=== PATIENT | male | born 1965 | race American Indian/Alaskan Native ===

== ENCOUNTER 2016-11-02 14:29 | Inpatient (IN) | payer OTHER ==
--- NOTE | 2016-10-24 20:00 | NUR ---
PATIENT IS CURRENTLY RESTING IN A WOUND BED MATTRESS AND PATIENT HAS BEEN EDUCATED TO TURN AND REPOSITION PATIENT VERBALIZES UNDERSTANDING WILL ASSIST WITH REPOSITIONING.PATIENT IS ALSO ON FALL PRECAUTIONS AND IS CURRENTLY WEARING HIS YELLOW SOCKS AND HE IS ALSO WEARING HIS SCD'S TO BOTH LOWER LEGS.CALL LIGHT WITHIN REACH WILL CONTINUE TO MONITOR. Addendum: 11/14/16 at 2317 by Nora Arias LVN ERROR ACTUAL DATE IS 11/14/16
[~2016-11-02] VITALS: Ht 182.9 cm; Wt 77.7 kg
[~2016-11-02 14:29] MED LIST: PIPER/TAZO 3.375GM/D5W PREMIX 50 ML IV SCH
[2016-11-02 14:36] VITALS: BP 134/77
[2016-11-02] MEDS ORDERED: NACL 0.9% 1,000 ML IV ONE ×2 (15:08→16:15)
[2016-11-02] MEDS ORDERED: ONDANSETRON 4 MG/2 ML VIAL IVP ONE ×2 (15:10→16:25)
[2016-11-02] MEDS ORDERED: MORPHINE SULFATE 4 MG/ML SYR IVP ONE ×2 (15:10→16:25)
--- NOTE | 2016-11-02 15:11 | NUR ---
PT TO CT VIA DIONICIO ACCOMPANITED WITH PACKING CHECKER
[2016-11-02 15:54] LABS: BASOPHILS # (AUTO) 0.3 K/uL (0.00-0.22); EOSINOPHILS # (AUTO) 0.1 K/uL (0-0.4); HEMATOCRIT 45.5 % (36-52); LYMPHOCYTES # (AUTO) 1.4 K/uL (2.0-11.5); MEAN CORPUSCULAR HEMOGLOBIN 27 pg (27-31); MEAN CORPUSCULAR HGB CONC 33 g/dL (33-37); MEAN CORPUSCULAR VOLUME 82 fL (80-94); MONOCYTES # (AUTO) 1.2 K/uL (0.8-1.0); NEUTROPHILS # (AUTO) 5.8 K/uL (1.8-7.7); PLATELET COUNT (AUTO) 346 K/uL (140-450); RED BLOOD CELL COUNT(AUTO) 5.56 MIL/uL (4.20-6.10); RED CELL DISTRIBUTION WIDTH 11.4 % (11.6-13.7); WHITE BLOOD COUNT (AUTO) 8.8 K/uL (4.8-10.8)
--- NOTE | 2016-11-02 16:00 | NUR ---
51/M PRESENT TO ER C/O ABDOMINAL PAIN x 4 DAYS AGO. PT STATES HE HAS NAUSEA AND VOMITING BUT DENIES DIARRHEA; SKIN IS PINK/WARM/DRY; AAOX4 WITH EVEN AND STEADY GAIT; RR ARE EVEN AND UNLABORED; VSS; PATIENT POSITIONED FOR COMFORT; HOB ELEVATED; BED DOWN. ER MD MADE AWARE OF PT STATUS.
[2016-11-02 16:11] LABS: ANION GAP 13.8 (8-16); CARBON DIOXIDE 29.3 mmol/L (21-32); CREATININE 0.8 mg/dL (0.7-1.3); POTASSIUM 4.1 mmol/L (3.5-5.1)
[2016-11-02 16:14] LABS: PROTHROMBIN TIME 10.3 secs (10.8-13.4)
[2016-11-02] MEDS ORDERED: PIPERACILLIN/TAZOBACTAM 3.375 GM in DEXTROSE 5% 50 ML IV ONE (16:15)
[2016-11-02 16:28] LABS: ALBUMIN 3.5 g/dL (3.4-5.0); TOTAL BILIRUBIN 1.2 mg/dL (0.0-1.0)
[2016-11-02] MEDS ORDERED: PIPERACILLIN/TAZOBACTAM 3.375 GM VIAL IV ONE (16:40)
[2016-11-02 16:44] LABS: APPEARANCE,URINE CLEAR (CLEAR); BILIRUBIN,URINE 1+ (NEGATIVE); BLOOD, URINE NEGATIVE (NEGATIVE); LEUKOCYTE ESTERASE ,URINE NEGATIVE (NEGATIVE); NITRITE, URINE NEGATIVE (NEGATIVE); PH,URINE 5.5 (5.0-9.0); UGLUCOSE 3+ (NEGATIVE)
[2016-11-02 16:47] LABS: COLOR,URINE AMBER (YELLOW)
--- NOTE | 2016-11-02 17:38 | NUR ---
Patient will be admitted to care of [facility]. Admited to MED Surg. Will go to room 112. Belongings list completed. Report to Gem CHARLES.
--- NOTE | 2016-11-02 17:41 | NUR ---
PATIENT IN [facility] WITH HOB; NG ON LOW INTERMITTENT SUCTION; SUCTIONING WITHOUT DIFFICULTY; WILL CONTINUE TO MONITOR
[2016-11-02] MEDS ORDERED: [UNRECOGNIZED DRUG - CODE] PO (17:42)
[2016-11-02] MEDS ORDERED: [UNRECOGNIZED DRUG - CODE] TD (17:42)
[2016-11-02] MEDS ORDERED: DOCU-299 PO (17:42)
[2016-11-02] MEDS ORDERED: MIRABULK PO (17:42)
[2016-11-02] MEDS ORDERED: ZOLP10TA1 PO (17:42)
[2016-11-02] MEDS ORDERED: ACET-2858 PO (17:42)
[2016-11-02] MEDS ORDERED: TRAZ-286 PO (17:42)
[2016-11-02] MEDS ORDERED: TOP25 PO (17:42)
[2016-11-02] MEDS ORDERED: DULO60EC PO (17:42)
[2016-11-02] MEDS: NACL 0.9% 1,000 ML IV SCH (18:22)
[2016-11-02 18:25] VITALS: BP 129/77
[2016-11-02] MEDS ORDERED: MORPHINE SULFATE 4 MG/ML SYR IVP PRN (18:25)
[2016-11-02] MEDS ORDERED: ONDANSETRON 4 MG/2 ML VIAL IVP PRN (18:25)
--- NOTE | 2016-11-02 18:25 | NUR ---
RECEIVED PT FROM ER. AWAKE. ALERT ORIENTEDX4. NO SOB NOTED. DENIES ANY PAIN OR DISCOMFORT AT THIS TIME. WITH PT. PT AMBULATORY. NGT IN PLACE. SAFETY PRECAUTION IN PLACE. CALL LIGHT WITHIN REACH.
--- NOTE | 2016-11-02 19:30 | NUR ---
ADMITTED 51YEARS OLD MALE FROM ER IN ROOM ALREADY IN AT 1830 FOR CC:ABDOMINAL PAIN, SBO. SEE NURSING ADMISSION ASSESSMENT AND HISTORY. ORIENTED TO ROOM AND UNIT ROUTINE. CALL LIGHT WITHIN REACH.
--- NOTE | 2016-11-02 19:45 | NUR ---
SPOKE WITH DR. CORREA, CONSULT WITH DR. AMES-SURGICAL. CALLED DR. AMES FOR CONSULT AND WILL COME TOMORROW. NGT TO LOW INTERMITTENT SUCTION-700ML OUTPUT. CALL LIGHT WITHIN REACH.
[2016-11-02] MEDS ORDERED: PIPERACILLIN/TAZOBACTAM 3.375 GM in DEXTROSE 5% 50 ML IV SCH (21:00)
--- NOTE | 2016-11-02 23:58 | NUR ---
AWAKE. NO COMPLAINS. NGT TO LOW INTERMITTENT SUCTION. NPO. CALL LIGHT WITHIN REACH.
[2016-11-03 00:01] VITALS: BP 118/69
[2016-11-03] MEDS: NACL 0.9% 1,000 ML IV SCH ×2 (03:05→11:35)
[2016-11-03] MEDS: PIPER/TAZO 3.375GM/D5W PREMIX 50 ML IV SCH ×3 (04:47→20:33)
[2016-11-03 06:47] LABS: BASOPHILS # (AUTO) 0.2 K/uL (0.00-0.22); BASOPHILS % (AUTO) 2.7 % (0.0-2.0); EOSINOPHILS # (AUTO) 0.2 K/uL (0-0.4); EOSINOPHILS % (AUTO) 2.4 % (0.0-4.0); HEMATOCRIT 37.8 % (36-52); HEMOGLOBIN 12.7 g/dL (12.0-18.0); LYMPHOCYTES # (AUTO) 1.5 K/uL (2.0-11.5); LYMPHOCYTES % (AUTO) 21.4 % (20.5-51.1); MEAN CORPUSCULAR HEMOGLOBIN 27 pg (27-31); MEAN CORPUSCULAR HGB CONC 34 g/dL (33-37); MEAN CORPUSCULAR VOLUME 81 fL (80-94); MONOCYTES % (AUTO) 13.7 % (1.7-9.3); NEUTROPHILS % (AUTO) 59.8 % (42.2-75.2); PLATELET COUNT (AUTO) 297 K/uL (140-450); RED BLOOD CELL COUNT(AUTO) 4.64 MIL/uL (4.20-6.10); RED CELL DISTRIBUTION WIDTH 11.8 % (11.6-13.7); WHITE BLOOD COUNT (AUTO) 6.9 K/uL (4.8-10.8)
[2016-11-03 07:05] LABS: ALBUMIN 2.7 g/dL (3.4-5.0); ANION GAP 13.7 (8-16); CARBON DIOXIDE 25.8 mmol/L (21-32); CREATININE 0.6 mg/dL (0.7-1.3); POTASSIUM 3.5 mmol/L (3.5-5.1); TOTAL BILIRUBIN 0.8 mg/dL (0.0-1.0)
--- NOTE | 2016-11-03 07:32 | NUR ---
ENDORSED CARE AT BEDSIDE WITH JOS CHARLES, PATIENT IN STABLE CONDITION.
--- NOTE | 2016-11-03 07:33 | NUR ---
RECEIVED BEDSIDE REPORT FROM DIRECTOR ADVANCED NURSE. PT AWAKE AND ALERT, NO SIGNS OF ACUTE DISTRESS. BOWEL SOUNDS ACTIVE IN ALL 4 QUADRANTS. BOWEL AND BLADDER CONTINENCE. NG TUBE IN RIGHT NARE ATTACHED TO LOW INTERMITTENT SUCTION. SKIN INTACT. IV PATENT AND ASYMPTOMATIC. PATIENT DENIES PAIN AT THIS TIME. RE-ORIENTED TO HOSPITAL AND TO UNIT, PT VERBALIZES UNDERSTANDING. BED IN LOW POSITION WITH BILATERAL HALF SIDE RAILS UP, CALL LIGHT WITHIN REACH. WILL CONTINUE TO MONITOR.
[2016-11-03 08:00] VITALS: BP 126/68
--- NOTE | 2016-11-03 08:15 | NUR ---
PATIENT HAS BEEN SCREENED AND CATEGORIZED HIGH NUTRITION RISK. PATIENT WILL BE SEEN WITHIN 1-2 DAYS OF ADMISSION. 11/03/16-11/04/[address]
--- NOTE | 2016-11-03 08:35 | NUR ---
RECEIVED ORDERS FOR NEW LABS FOR TOMORROW FROM DR CORREA. NOTED, WILL CARRY OUT.
--- NOTE | 2016-11-03 09:30 | NUR ---
RE-SECURED PATIENT NG TUBE WITH TAPE REQUESTED. PATIENT STATED THAT IT FELT LIKE IT WAS BECOMING LOOSE. PT TOLERATED WELL. NG TUBE IN RT NARE HOOKED UP TO LOW INTERMITTENT SUCTION. WILL CONTINUE TO MONITOR.
--- NOTE | 2016-11-03 11:30 | NUR ---
DR AMES AT PATIENT BEDSIDE. PATIENT SIGNED CONSENT FOR SURGERY. WILL CONTINUE TO MONITOR.
[2016-11-03 11:36] LABS: PROTHROMBIN TIME 10.4 secs (10.8-13.4)
--- NOTE | 2016-11-03 12:31 | NUR ---
PATIENT TAKEN TO OR. PT AWAKE AND ALERT, NO SIGNS OF ACUTE DISTRESS.
[2016-11-03] MEDS ORDERED: BUPIVACAINE-MPF 0.25% 30 ML VIAL INJ ONE (12:51)
[2016-11-03] MEDS ORDERED: PIPERACILLIN/TAZOBACTAM 3.375 GM VIAL IV ONE (12:53)
--- NOTE | 2016-11-03 12:53 | NUR ---
11/03/16 RD INITIAL ASSESSMENT COMPLETED PLEASE REFER TO NUTRITION ASSESSMENT UNDER CARE ACTIVITY FOR ESTIMATED NUTRITIONAL NEEDS. 1. CONTINUE NPO DIET 2. WHEN MEDICALLY FEASIBLE, INITIATE CLEAR LIQUID DIET AND ADVANCE TO REGULAR DIET 3. RD TO FOLLOW UP WITHIN 2-3 DAYS; HIGH RISK JAMIE GANDARA, NICA
[2016-11-03] MEDS ORDERED: NEOSTIGMINE 1:1000 10 MG/10 ML VIAL IM ONE (13:15)
[2016-11-03] MEDS ORDERED: PROPOFOL 200 MG/20 ML VIAL IV ONE (13:15)
[2016-11-03] MEDS ORDERED: ROCURONIUM 50 MG/5 ML VIAL IV ONE (13:15)
[2016-11-03] MEDS ORDERED: DEXAMETHASONE 4 MG/ML VIAL IVP ONE (13:15)
[2016-11-03] MEDS ORDERED: GLYCOPYRROLATE 0.2 MG/ML VIAL IV ONE (13:15)
[2016-11-03] MEDS ORDERED: SUCCINYLCHOLINE CHLORIDE 200 MG/10 ML VIAL IV ONE (13:15)
[2016-11-03] MEDS ORDERED: DESFLURANE 240 ML BTL INH ONE (13:15)
[2016-11-03] MEDS ORDERED: ONDANSETRON 4 MG/2 ML VIAL IVP ONE (13:15)
[2016-11-03] MEDS ORDERED: fentaNYL 0.05 MG/ML VIAL ONE (13:34)
[2016-11-03] MEDS ORDERED: MIDAZOLAM 2 MG/2 ML VIAL ONE (13:34)
[2016-11-03] MEDS ORDERED: MORPHINE SULFATE 4 MG/ML SYR ONE ×4 (13:34→16:03)
[2016-11-03] MEDS ORDERED: BACITRACIN 50000 UNITS/1 VIAL ONE (14:58)
[2016-11-03] MEDS ORDERED: MIDAZOLAM 2 MG/2 ML VIAL IV ONE (15:30)
[2016-11-03] MEDS ORDERED: MORPHINE SULFATE 4 MG/ML SYR IVP PRN ×2 (15:30→18:20)
[2016-11-03] MEDS ORDERED: METOCLOPRAMIDE 10 MG/2 ML INJ VIAL IVP PRN (15:30)
[2016-11-03] MEDS ORDERED: MORPHINE SULFATE 2 MG/ML SYR IVP PRN (15:30)
[2016-11-03] MEDS: MORPHINE SULFATE 4 MG/ML SYR IVP PRN ×3 (15:35→16:05)
[2016-11-03] MEDS ORDERED: HYDROmorphone PFS 2 MG/ML SYR ONE (16:12)
[2016-11-03] MEDS ORDERED: HYDROmorphone 1 MG/ML AMP IVP ONE (16:15)
--- NOTE | 2016-11-03 16:34 | NUR ---
PATIENT BACK FROM OR. VITAL SIGNS 137/78, PULSE 106, OXYGEN SATURATION 95%, TEMPERATURE 98.4, RESPIRATIONS 18, PT SLEEPING AT THIS TIME.
[2016-11-03] MEDS ORDERED: TPN PER PHARMACY MC PRN (18:35)
--- NOTE | 2016-11-03 18:50 | NUR ---
SPOKE WITH DR CORREA REGARDING TPN NOT BEING AVAILABLE TO START UNITL 11/04/16 AT NIGHT, PER DR CORREA WILL CHANGE IV FLUIDS TO D51/2NS. NOTED, WILL CARRY OUT.
--- NOTE | 2016-11-03 18:59 | NUR ---
PER DR SUNNY DANIEL TO GIVE DILAUDID NOW FOR PAIN, WILL ADMINISTER.
[2016-11-03] MEDS: HYDROmorphone 1 MG/ML AMP IVP PRN (19:08)
--- NOTE | 2016-11-03 19:25 | NUR ---
PATIENT AWAKE AND ALERT, NO SIGNS OF ACUTE DISTRESS. ENDORSED TO CUSTOMER ACCOUNT COORDINATOR NURSE FOR CONTINUITY OF CARE.
--- NOTE | 2016-11-03 19:30 | NUR ---
RECEIVED REPORT FROM DAY RN AT BEDSIDE, PATIENT RESTING IN BED WITH AT BEDSIDE, PATIENT IS AAOX4 ON ROOM AIR, NO SOB OR SIGN OF DISTRESS. NG TUBE TO RIGHT NARE TO LOW INTERMITTENT SUCTION WITH SMALL DARK BROWN SECRETIONS. IV TO RIGHT AC, PATENT AND INTACT, SKIN NON INTACT WITH SURGICAL WOUND TO MID ABDOMEN COVERED WITH DRESSING DRY AND INTACT WITH ABDOMINAL BINDER. PEGUERO PRESENT WITH CLEAR YELLOW URINE DRAINING TO GRAVITY. PATIENT STATING HAVING 9/10 PAIN IN ABDOMEN. WAS JUST MEDICATED BY DAY NURSE. DISCUSSED PLAN OF CARE WITH PATIENT, PT VERBALIZED UNDERSTANDING. SAFETY MEASURES CHECKED, CALL LIGHT WITHIN REACH. WILL CONTINUE TO MONITOR
[2016-11-03] MEDS: DEXT 5% / NACL 0.45% 1,000 ML IV SCH (20:12)
--- NOTE | 2016-11-03 20:49 | NUR ---
IV ABX ADMINISTERED, PATIENT RESTING IN BED, AT BEDSIDE, CALL LIGHT WITHIN REACH. WILL CONTINUE TO MONITOR
[2016-11-03] MEDS: metroNIDAZOLE 500 MG/NS PREMIX 100 ML IV SCH (21:28)
--- NOTE | 2016-11-03 22:45 | NUR ---
PATIENT C/O PAIN IN ABDOMEN. ADMINISTERED PAIN MEDICATION PER MD ORDER, CALL LIGHT WITHIN REACH. WILL CONTINUE TO MONITOR
[2016-11-04] VITALS: BP 135/97
--- NOTE | 2016-11-04 00:20 | NUR ---
VITAL SIGNS STABLE, NO SIGN OF DISTRESS, CALL LIGHT WITHIN REACH. WILL CONTINUE TO MONITOR
--- NOTE | 2016-11-04 02:12 | NUR ---
PATIENT RESTING IN BED, NO DISTRESS, CALL LIGHT WITHIN REACH. WILL CONTINUE TO MONITOR.
[2016-11-04] MEDS: HYDROmorphone PFS 2 MG/ML SYR IVP PRN ×3 (03:47→22:45)
--- NOTE | 2016-11-04 03:47 | NUR ---
PATIENT C/O ABDOMINAL PAIN, ADMINISTERED PAIN MEDICINE PER MD ORDER, VITALS STABLE, CALL LIGHT WITHIN REACH. WILL CONTINUE TO MONITOR
[2016-11-04] MEDS: PIPER/TAZO 3.375GM/D5W PREMIX 50 ML IV SCH ×3 (04:49→20:23)
[2016-11-04] MEDS: metroNIDAZOLE 500 MG/NS PREMIX 100 ML IV SCH ×3 (05:17→21:18)
[2016-11-04] MEDS: DEXT 5% / NACL 0.45% 1,000 ML IV SCH ×2 (06:05→09:57)
[2016-11-04 07:08] LABS: HEMATOCRIT 44.3 % (36-52); HEMOGLOBIN 14.3 g/dL (12.0-18.0); MEAN CORPUSCULAR HEMOGLOBIN 26 pg (27-31); MEAN CORPUSCULAR HGB CONC 32 g/dL (33-37); MEAN CORPUSCULAR VOLUME 82 fL (80-94); PLATELET COUNT (AUTO) 408 K/uL (140-450); RED BLOOD CELL COUNT(AUTO) 5.39 MIL/uL (4.20-6.10); RED CELL DISTRIBUTION WIDTH 11.9 % (11.6-13.7); WHITE BLOOD COUNT (AUTO) 14.7 K/uL (4.8-10.8)
--- NOTE | 2016-11-04 07:20 | NUR ---
RECEIVED REPORT FROM FOLDER STITCHER OPERATOR RN. PATIENT IS AAOX4 ON RM AIR, WITH NO SIGNS AND SYMPTOMS OF RESPIRATORY DISTRESS AT THIS TIME. NG TUBE IN RIGHT NARE ON INTERMITTENT SUCTION WITH SMALL DARK BROWN SECRETIONS. IV TO RIGHT AC, PATENT AND INTACT. SKIN NON-INTACT, SURGICAL WOUND TO MID ABDOMEN COVERED WITH DRESSING AND ABDOMINAL BINDER, CLEAN, DRY AND INTACT. PEGUERO PRESENT, CLEAR YELLOW URINE FLOWING TO GRAVITY. NO COMPLAINTS OF PAIN AT THIS TIME. BED IN LOWEST POSITION, SIDERAILS UP X2, CALL LIGHT WITHIN REACH. LET PATIENT KNOW TO PRESS CALL LIGHT TO CALL NURSE NEEDED. PATIENT VERBALIZED UNDERSTANDING. WILL CONTINUE TO MONITOR.
[2016-11-04 07:31] LABS: ALBUMIN 2.9 g/dL (3.4-5.0); CHOL/HDL RATIO 2.6 (1-4.5); CREATININE 0.9 mg/dL (0.7-1.3); MAGNESIUM 1.6 mg/dL (1.8-2.4); PHOSPHORUS 3.4 mg/dL (2.5-4.9); TOTAL BILIRUBIN 0.8 mg/dL (0.0-1.0)
--- NOTE | 2016-11-04 07:34 | NUR ---
ENDORSED PATIENT TO DAY RN AT BEDSIDE, PATIENT IN STABLE CONDITION
[2016-11-04 07:37] LABS: POTASSIUM 4.2 mmol/L (3.5-5.1)
[2016-11-04 07:38] LABS: ANION GAP 24.5 (8-16); CARBON DIOXIDE 13.7 mmol/L (21-32)
[2016-11-04 07:44] LABS: LYMPHOCYTES % (MANUAL) 9 % (20-46); MONOCYTES % (MANUAL) 8 % (5-12)
[2016-11-04 08:00] VITALS: BP 132/74
--- NOTE | 2016-11-04 09:00 | NUR ---
PATIENTS IS AT BEDSIDE. REQUESTING MOUTH SWABS FOR PATIENT. WILL CONTINUE TO MONITOR PATIENT.
[2016-11-04] MEDS: HYDROmorphone 1 MG/ML AMP IVP PRN ×2 (09:42→18:34)
--- NOTE | 2016-11-04 09:42 | NUR ---
PAIN MEDICATION ADMINISTERED VIA IV, COMPLAINING OF A 6/10 PAIN. WILL CONTINUE TO ASSESS FOR PAIN.
--- NOTE | 2016-11-04 10:15 | NUR ---
PATIENT AWAKE AND ALERT, STATING PAIN MEDICATION IS KIND OF HELPING.
[2016-11-04] MEDS: fentaNYL 0.075 MG/HR PATCH TD SCH (11:44)
--- NOTE | 2016-11-04 11:44 | NUR ---
PLACED FENTANYL PATCH ON RIGHT UPPER ARM, DELTOID. PATIENT VITAL SIGNS ARE STABLE AT THIS TIME.
--- NOTE | 2016-11-04 12:27 | NUR ---
IVPB ANTIBIOTICS ADMINISTERED. STABLE AT THIS TIME.
--- NOTE | 2016-11-04 14:21 | NUR ---
CM NOTE CONCURRENT REVIEW FAXED TO [facility] / FAX# [phone], C: [phone]
[2016-11-04 16:00] VITALS: BP 120/58
[2016-11-04] MEDS: BLOOD GLUCOSE MONITORING 1 DEV DEV MC SCH (18:22)
[2016-11-04] MEDS: INSULIN LISPRO SLIDING SCALE 100 UNITS/ML VIAL SUBQ PRN (18:39)
--- NOTE | 2016-11-04 19:15 | NUR ---
ENDORSED PATIENT TO READY MIX TRUCK DRIVER RN. PATIENT IN STABLE CONDITION.
--- NOTE | 2016-11-04 19:30 | NUR ---
RECEIVED REPORT FROM DAY RN AT BEDSIDE, PATIENT IS AAOX4 ON ROOM AIR, NO SOB OR SIGN OF DISTRESS. IV TO RIGHT AC PATENT AND INTACT. SKIN INTACT. NG TUBE TO RIGHT NARE TO LOW INTERMITTENT SUCTION OF DARK BROWN SECRETIONS. PATIENT HAS MIDLINE ABDOMINAL INCISION WITH DRESSING, DRY AND INTACT. WITH ABDOMINAL BINDER. PEGUERO PRESENT. PATIENT C/O PAIN TO ABDOMEN. DISCUSSED PLAN OF CARE WITH PATIENT, PATIENT VERBALIZED UNDERSTANDING. CALL LIGHT WITHIN REACH. WILL CONTINUE TO MONITOR.
[2016-11-04 20:00] VITALS: BP 145/75
[2016-11-04] MEDS ORDERED: MULTIVITAMIN IV SCH ×4 (20:00)
[2016-11-04] MEDS ORDERED: DEXTROSE IV SCH ×4 (20:00)
[2016-11-04] MEDS ORDERED: [UNRECOGNIZED DRUG - OTHER] IV SCH ×4 (20:00)
[2016-11-04] MEDS ORDERED: AMINO ACIDS 8.5% IV SCH ×4 (20:00)
--- NOTE | 2016-11-04 20:35 | NUR ---
TPN ADMINISTERED TO PATIENT, NEW IV STARTED TO LEFT FA BY CHARGE NURSE, DR CORREA WAS IN TO SEE PATIENT. PATIENT RESTING IN BED. NO SIGN OF DISTRESS, CALL LIGHT WITHIN REACH. WILL CONTINUE TO MONITOR. PATIENT'S AT BEDSIDE.
--- NOTE | 2016-11-04 22:30 | NUR ---
PATIENT RESTING IN BED, NO DISTRESS, CALL LIGHT WITHIN REACH. WILL CONTINUE TO MONITOR
[2016-11-05] MEDS: BLOOD GLUCOSE MONITORING 1 DEV DEV MC SCH ×4 (00:10→18:00)
[2016-11-05] MEDS: INSULIN LISPRO SLIDING SCALE 100 UNITS/ML VIAL SUBQ PRN ×4 (00:23→18:05)
--- NOTE | 2016-11-05 00:30 | NUR ---
VITAL SIGNS STABLE, NO SIGN OF DISTRESS, CALL LIGHT WITHIN REACH. WILL CONTINUE TO MONITOR. BS CHECK 284.
--- NOTE | 2016-11-05 02:30 | NUR ---
PATIENT SLEEPING, NO SIGN OF DISTRESS, CALL LIGHT WITHIN REACH. WILL CONTINUE TO MONITOR
--- NOTE | 2016-11-05 04:15 | NUR ---
PATIENT RESTING IN BED, NO DISTRESS, CALL LIGHT WITHIN REACH. WILL CONTINUE TO MONITOR
[2016-11-05] MEDS: PIPER/TAZO 3.375GM/D5W PREMIX 50 ML IV SCH ×3 (04:20→20:48)
[2016-11-05] MEDS: metroNIDAZOLE 500 MG/NS PREMIX 100 ML IV SCH ×3 (04:57→21:40)
[2016-11-05] MEDS: HYDROmorphone PFS 2 MG/ML SYR IVP PRN ×2 (04:58→10:54)
[2016-11-05 06:49] LABS: BASOPHILS # (AUTO) 0.2 K/uL (0.00-0.22); EOSINOPHILS # (AUTO) 0.2 K/uL (0-0.4); EOSINOPHILS % (AUTO) 0.8 % (0.0-4.0); HEMOGLOBIN 14.4 g/dL (12.0-18.0); LYMPHOCYTES # (AUTO) 0.8 K/uL (2.0-11.5); MEAN CORPUSCULAR HEMOGLOBIN 27 pg (27-31); MEAN CORPUSCULAR HGB CONC 33 g/dL (33-37); MEAN CORPUSCULAR VOLUME 83 fL (80-94); MONOCYTES # (AUTO) 1.8 K/uL (0.8-1.0); MONOCYTES % (AUTO) 9.3 % (1.7-9.3); NEUTROPHILS # (AUTO) 15.9 K/uL (1.8-7.7); NEUTROPHILS % (AUTO) 84.9 % (42.2-75.2); PLATELET COUNT (AUTO) 413 K/uL (140-450); RED BLOOD CELL COUNT(AUTO) 5.33 MIL/uL (4.20-6.10); RED CELL DISTRIBUTION WIDTH 11.9 % (11.6-13.7)
[2016-11-05 07:28] LABS: MAGNESIUM 1.9 mg/dL (1.8-2.4); PHOSPHORUS 2.2 mg/dL (2.5-4.9)
--- NOTE | 2016-11-05 07:32 | NUR ---
ENDORSED PATIENT TO DAY RN AT BEDSIDE, PATIENT IN STABLE CONDITION
--- NOTE | 2016-11-05 07:33 | NUR ---
RECEIVED REPORT FROM THE METAL PRODUCTS FABRICATOR ASSEMBLER NURSE AT BEDSIDE FOR CONTINUITY OF CARE. PT IS AAOX4. INTRODUCED MYSELF AND UPDATED THE BOARD. PT IS HERE FOR SMALL BOWEL OBSTRUCTION. PT HAS NG TUBE IN R NARE LOW INTERMITTENT SUCTIONING, CURRENTLY HAS 900ML IN THE CANISTER. PT HAS ABD BINDER ON. IV R AC 20G, TPN 100ML INFUSING. IV L FA22G D5NS 100 ML/HR INFUSING. PER MET[employer]ODUCTS FABRICATOR ASSEMBLER NURSE, PT'S BS IS BEEN HIGH. POSSIBLY CHANGE FROM D5 TO NS. WILL SPEAK TO DR. CORREA WHEN HE ARRIVES. PT HAS PEGUERO CATH. EMPTIED 400ML FROM PREVIOUS SHIFT. V/S WITHIN NORMAL RANGE. PLACED PILLOW UNDER HIS LOWER LEG. REQUESTED A SWAB FOR HIS MOUTH. GIVEN. MET ALL NEEDS AT THIS TIME. WILL CONTINUE TO MONITOR PT.
[2016-11-05 08:00] VITALS: BP 133/79
[2016-11-05 08:37] LABS: WHITE BLOOD COUNT (AUTO) 18.9 K/uL (4.8-10.8)
[2016-11-05] MEDS ORDERED: NACL 0.9% 1,000 ML IV SCH (09:25)
--- NOTE | 2016-11-05 09:30 | NUR ---
SITTING AT BEDSIDE. PT IS SLEEPING SOUNDLY. NO SIGNS OF DISTRESS. GOT A BLANKET. WILL CONTINUE TO MONITOR PT.
[2016-11-05 09:41] LABS: ALBUMIN 2.5 g/dL (3.4-5.0); ANION GAP 21.9 (8-16); CARBON DIOXIDE 16.3 mmol/L (21-32); POTASSIUM 3.2 mmol/L (3.5-5.1); TOTAL BILIRUBIN 0.8 mg/dL (0.0-1.0)
--- NOTE | 2016-11-05 10:57 | NUR ---
ADMINISTERED DILAUDID FOR PAIN. 10/25. PT TOLERATED WELL. STILL AT BEDSIDE.WILL CONTINUE TO MONITOR PT.
--- NOTE | 2016-11-05 11:30 | NUR ---
11/05/16 RD FOLLOW-UP ASSESSMENT COMPLETED PLEASE REFER TO NUTRITION ASSESSMENT UNDER CARE ACTIVITY FOR ESTIMATED NUTRITIONAL NEEDS. 1. CONTINUE PARENTERAL NUTRITION SUPPORT - D5 4.25%AA AT 100 ML/HR + 120 ML 10% LIPID INFUSION 2. RD TO FOLLOW-UP 2-3 DAYS, HIGH RISK JAMIE GANDARA, NICA
--- NOTE | 2016-11-05 11:34 | NUR ---
DR. AMES JUST CALLED TO CHECK ON PT. NOTIFIED HIM OF THE INCREASE IN WBC FOR THIS MORNING. HE SAID, KEEP ZOSYN AND FLAGYL ORDERED. NEED TO ORDER A PICC LINE. WILL TALK TO FAMILY. NG STILL IN PLACE. TPN AT 100ML. NOTIFIED HIM OF PAIN MANAGEMENT. PER MD, CHANGE DILAUDID TO 1.0 MG Q 3H. WILL PUT IN ORDERS ON HIS BEHALF. PT NEEDS AN ORDER OF PROTONIX. MD WILL BE HERE TOMORROW TO CHANGE DRESSING AND CHECK ON PT. NOTIFIED PT AND FAMILY OF CHANGES IN ORDERS.
--- NOTE | 2016-11-05 12:35 | NUR ---
GAVE PT AND RE INFO ON PICC LINE. PT WILL THINK ABOUT IT. STARTED HIS FLAGYL. ADMINISTERED INSULIN. PT TOLERATED WELL. WILL BE BACK IN AN HOUR FOR ZOSYN. PT IS RESTING COMFORTABLY. WILL CONTINUE TO MONITOR PT.
--- NOTE | 2016-11-05 13:05 | NUR ---
PAGED TO GIVE HIM THE LAB RESULTS. PER , Linnea CHRIS FOR 3.2 AND PHOS REPLENISH FOR 2.2. WILL PUT IN ORDERS FOR . CALLED PHARMACY, SPOKE TO CAROLIN. RECOMMENDED Linnea CHRIS TO REPLENISH BOTH. PUT IN ORDERS.
--- NOTE | 2016-11-05 13:50 | NUR ---
STARTED ZOSYN. PT TOLERATED FLAGYL WELL. WILL MONITOR PT. STILL AT BEDSIDE.
[2016-11-05] MEDS ORDERED: POTASSIUM PHOSPHATE 15 MM in NACL 0.9% 250 ML IV SCH (14:00)
--- NOTE | 2016-11-05 14:36 | NUR ---
JUST FINISHED ZOSYN. WILL START K PHOS RIDER. WILL CONTINUE TO MONITOR PT.
[2016-11-05] MEDS: HYDROmorphone 1 MG/ML AMP IVP PRN ×3 (15:26→21:41)
--- NOTE | 2016-11-05 15:34 | NUR ---
CM NOTE CONCURRENT REVIEW FAXED TO [facility] / FAX# [phone], C: [phone]
[2016-11-05 15:54] VITALS: BP 132/81
--- NOTE | 2016-11-05 17:15 | NUR ---
PT IS RESTING. K PHOS RIDER STILL INFUSING. NO COMPLAINTS OF BURNING. AT BEDSIDE. NO SIGNS OF DISTRESS. WILL CONTINUE TO MONITOR PT.
--- NOTE | 2016-11-05 19:25 | NUR ---
ENDORSED PT TO THE MACHINE SILVER STRIPPER NURSE AT BEDSIDE FOR CONTINUITY OF CARE. PT IS IN STABLE CONDITION.
--- NOTE | 2016-11-05 19:30 | NUR ---
RECEIVED REPORT FROM DAY RN AT BEDSIDE, PATIENT IS AAOX4 ON ROOM AIR, NO SOB OR SIGN OF DISTRESS. IV TO RIGHT AC AND LFA PATENT AND INTACT. SKIN INTACT. NG TUBE TO RIGHT NARE TO LOW INTERMITTENT SUCTION OF DARK BROWN SECRETIONS. PATIENT HAS MIDLINE ABDOMINAL INCISION WITH DRESSING, DRY AND INTACT. WITH ABDOMINAL BINDER. PEGUERO PRESENT. PATIENT C/O PAIN TO ABDOMEN. DISCUSSED PLAN OF CARE WITH PATIENT, PATIENT VERBALIZED UNDERSTANDING. CALL LIGHT WITHIN REACH. WILL CONTINUE TO MONITOR.
[2016-11-05] MEDS ORDERED: [UNRECOGNIZED DRUG - OTHER] IV SCH ×5 (20:00)
[2016-11-05] MEDS ORDERED: MULTIVITAMIN IV SCH ×5 (20:00)
[2016-11-05] MEDS ORDERED: DEXTROSE 50% IV SCH ×5 (20:00)
[2016-11-05] MEDS ORDERED: INSULIN HUMAN REGULAR IV SCH ×5 (20:00)
--- NOTE | 2016-11-05 20:40 | NUR ---
IV MEDS ADMINISTERED, PATIENT RESTING IN BED, NO SIGN OF DISTRESS, CALL LIGHT WITHIN REACH. WILL CONTINUE TO MONITOR
--- NOTE | 2016-11-05 22:18 | NUR ---
PT.HAS ORDER FOR PICC LINE INSERTION.MARYURI CHARLES STAFF WEAPONS OFFICER CALLED PICC LINE NURSE AND LEFT MESSAGE.
--- NOTE | 2016-11-05 22:30 | NUR ---
PATIENT RESTING IN BED, NO SIGN OF DISTRESS, CALL LIGHT WITHIN REACH. WILL CONTINUE TO MONITOR
[2016-11-06] VITALS: BP 122/77
--- NOTE | 2016-11-06 00:20 | NUR ---
VITAL SIGNS STABLE, NO SIGN OF DISTRESS, CALL LIGHT WITHIN REACH. WILL CONTINUE TO MONITOR.
[2016-11-06] MEDS: BLOOD GLUCOSE MONITORING 1 DEV DEV MC SCH ×4 (00:28→18:15)
[2016-11-06] MEDS: INSULIN LISPRO SLIDING SCALE 100 UNITS/ML VIAL SUBQ PRN ×3 (00:47→15:30)
[2016-11-06] MEDS: HYDROmorphone 1 MG/ML AMP IVP PRN ×4 (00:51→18:13)
--- NOTE | 2016-11-06 02:30 | NUR ---
PT SLEEPING, NO SIGN OF DISTRESS, CALL LIGHT WITHIN REACH. WILL CONTINUE TO MONITOR
--- NOTE | 2016-11-06 04:10 | NUR ---
VITAL SIGNS STABLE, NO SOB OR SIGN OF DISTRESS, CALL LIGHT WITHIN REACH. WILL CONTINUE TO MONITOR
[2016-11-06] MEDS: PIPER/TAZO 3.375GM/D5W PREMIX 50 ML IV SCH ×3 (04:55→21:42)
[2016-11-06] MEDS: metroNIDAZOLE 500 MG/NS PREMIX 100 ML IV SCH ×3 (05:39→22:18)
[2016-11-06 06:57] LABS: PHOSPHORUS 2.4 mg/dL (2.5-4.9)
--- NOTE | 2016-11-06 07:33 | NUR ---
ENDORSED PATIENT TO DAY RN AT BEDSIDE, PATIENT IN STABLE CONDITION
--- NOTE | 2016-11-06 07:34 | NUR ---
RECEIVED REPORT FROM PM NURSE FOR CONTINUITY OF CARE. PT RESTING IN BED. INITIAL ASSESSMENT DONE. RESP EVEN AND UNLABORED. NO S/S OF DISTRESS, RESTLESSNESS, OR SOB. PT DENIES PAIN, OR DISCOMFORT AT THIS TIME. SKIN IS WARM AND DRY. IV INTACT, NO REDNESS OR SWELLING NOTED. NG TUBE TO RIGHT NARE ON LOW INTERMITTENT SUCTION DRAINING DARK BROWN SECRETIONS. DRY, INTACT DRESSING ON ABDOMINAL INCISION NOTED. PEGUERO CATHETER INTACT. PLAN OF CARE DISCUSSED WITH PT, VERBALIZED UNDERSTANDING. SAFETY MEASURES IN PLACED, SIDE RAILS UP, BED LOCKED ON LOW POSITION, CALL LIGHT WITHIN REACH. WILL CONTINUE TO MONITOR
[2016-11-06 08:00] VITALS: BP 137/80
[2016-11-06] MEDS: PANTOPRAZOLE 40 MG INJ VIAL IVP SCH (08:53)
[2016-11-06 08:56] LABS: BASOPHILS # (AUTO) 0.2 K/uL (0.00-0.22); EOSINOPHILS % (AUTO) 0.1 % (0.0-4.0); HEMATOCRIT 44.5 % (36-52); HEMOGLOBIN 14.1 g/dL (12.0-18.0); LYMPHOCYTES # (AUTO) 0.8 K/uL (2.0-11.5); LYMPHOCYTES % (AUTO) 3.7 % (20.5-51.1); MEAN CORPUSCULAR HEMOGLOBIN 26 pg (27-31); MEAN CORPUSCULAR HGB CONC 32 g/dL (33-37); MEAN CORPUSCULAR VOLUME 82 fL (80-94); MONOCYTES # (AUTO) 1.7 K/uL (0.8-1.0); MONOCYTES % (AUTO) 8.4 % (1.7-9.3); NEUTROPHILS # (AUTO) 18.1 K/uL (1.8-7.7); NEUTROPHILS % (AUTO) 86.8 % (42.2-75.2); PLATELET COUNT (AUTO) 432 K/uL (140-450); RED CELL DISTRIBUTION WIDTH 12.1 % (11.6-13.7)
--- NOTE | 2016-11-06 09:20 | NUR ---
PT C/O NAUSEA, MEDICATED PER MD ORDER. FAMILY AT BEDSIDE. RESP EVEN AND UNLABORED. NO S/S OF DISTRESS. DENIES ANY FURTHER NEEDS AT THIS TIME. SAFETY MEASURES IN PLACED. WILL CONTINUE TO MONITOR.
[2016-11-06 09:42] LABS: WHITE BLOOD COUNT (AUTO) 20.8 K/uL (4.8-10.8)
--- NOTE | 2016-11-06 09:55 | NUR ---
DR AMES AT BEDSIDE.
[2016-11-06] MEDS ORDERED: ZOLPIDEM 5 MG TAB PO PRN ×2 (10:10→10:30)
[2016-11-06 10:46] LABS: ANION GAP 19.2 (8-16); CARBON DIOXIDE 21.9 mmol/L (21-32); CREATININE 0.8 mg/dL (0.7-1.3); POTASSIUM 3.1 mmol/L (3.5-5.1)
--- NOTE | 2016-11-06 11:33 | NUR ---
CM NOTE CONCURRENT REVIEW FAXED TO [facility] / FAX# [phone], C: [phone], PH [phone]
--- NOTE | 2016-11-06 12:20 | NUR ---
PT RESTING QUIETLY. FAMILY MEMBERS AT BEDSIDE. RESP EVEN AND UNLABORED. NO S/S OF DISTRESS. DENIES PAIN OR DISCOMFORT. SAFETY MEASURES IN PLACED. WILL CONTINUE TO MONITOR.
[2016-11-06] MEDS ORDERED: POTASSIUM PHOSPHATE 15 MM in NACL 0.9% 250 ML IV SCH (13:30)
[2016-11-06] MEDS ORDERED: POTASSIUM PHOSPHATE 15 MM in NACL 0.9% 250 ML IV ONE (14:00)
[2016-11-06 16:00] VITALS: BP 126/78
--- NOTE | 2016-11-06 16:10 | NUR ---
PT IN BED. FAMILY MEMBER AT BEDSIDE. PT STATED IN GERMAN THAT "HE PASSED GAS AND FELT RELIEVED". NO S/S OF DISTRESS. WILL CONTINUE TO MONITOR.
--- NOTE | 2016-11-06 18:56 | NUR ---
FAMILY MEMBER AT BEDSIDE. PT SLEEPING, EASILY AWAKENS. RESP EVEN AND UNLABORED. NO S/S OF DISTRESS. WILL CONTINUE TO MONITOR.
--- NOTE | 2016-11-06 19:15 | NUR ---
ENDORSED CARE TO PM NURSE FOR CONTINUITY OF CARE. PT IS IN STABLE CONDITION.
--- NOTE | 2016-11-06 19:16 | NUR ---
RECEIVED PATIENT REPORT FROM MORNING NURSE. PATIENT IS AWAKE, ALERT, AND ORIENTED. NO SIGNS AND SYMPTOMS OF DISTRESS NOTED. NO COMPLAINTS OF PAIN AT THIS TIME. PATIENT'S IS AT BEDSIDE. NGT NOTED ON RIGHT NARES, CONNECTED TO INTERMITTENT SUCTION. IV SITE NOTE ON LEFT AND RIGHT FOREARM. PICC LINE ALSO NOTED ON LEFT ARM. LINES ARE ASYMPTOMATIC, INTACT, AND PATENT. PEGUERO CATHETER IS IN PLACE. BED IS IN LOWEST POSITION, SIDE RAILS UP AND CALL LIGHT WITHIN REACH.
[2016-11-06] MEDS ORDERED: [UNRECOGNIZED DRUG - OTHER] IV SCH ×5 (20:00)
[2016-11-06] MEDS ORDERED: INSULIN HUMAN REGULAR IV SCH ×5 (20:00)
[2016-11-06] MEDS ORDERED: DEXTROSE 50% IV SCH ×5 (20:00)
[2016-11-06] MEDS ORDERED: MULTIVITAMIN IV SCH ×5 (20:00)
[2016-11-06] MEDS: diphenhydrAMINE 50 MG/ML VIAL IVP PRN (20:57)
[2016-11-06] MEDS ORDERED: ZOLPIDEM 5 MG TAB PO SCH (21:00)
[2016-11-06] MEDS: ENOXAPARIN 30 MG/0.3 ML SYR SUBQ SCH (21:22)
--- NOTE | 2016-11-06 22:00 | NUR ---
CHECKED ON PATIENT. PATIENT IS ASLEEP BUT EASILY AROUSABLE. NO SIGNS AND SYMPTOMS OF DISTRESS NOTED. WILL CONTINUE TO MONITOR.
[2016-11-06] MEDS ORDERED: metroNIDAZOLE 500 MG/NS PREMIX 100 ML IV ONE (22:22)
[2016-11-07] VITALS: BP 128/76
--- NOTE | 2016-11-07 | NUR ---
CHECKED ON PATIENT. PATIENT IS ASLEEP. NO SIGNS AND SYMPTOMS OF DISTRESS NOTED. BED IS IN LOWEST POSITION, SIDE RAILS UP AND CALL LIGHT WITHIN REACH. WILL CONTINUE TO MONITOR.
[2016-11-07] MEDS: BLOOD GLUCOSE MONITORING 1 DEV DEV MC SCH ×5 (00:01→23:20)
[2016-11-07] MEDS: INSULIN LISPRO SLIDING SCALE 100 UNITS/ML VIAL SUBQ PRN ×5 (00:04→23:19)
[2016-11-07] MEDS: HYDROmorphone 1 MG/ML AMP IVP PRN ×2 (03:08→19:35)
[2016-11-07] MEDS: PIPER/TAZO 3.375GM/D5W PREMIX 50 ML IV SCH ×2 (04:03→12:00)
[2016-11-07] MEDS: metroNIDAZOLE 500 MG/NS PREMIX 100 ML IV SCH ×3 (04:40→21:00)
[2016-11-07 06:18] LABS: BASOPHILS # (AUTO) 0.1 K/uL (0.00-0.22); BASOPHILS % (AUTO) 0.9 % (0.0-2.0); EOSINOPHILS % (AUTO) 0.2 % (0.0-4.0); HEMATOCRIT 37.6 % (36-52); HEMOGLOBIN 12.7 g/dL (12.0-18.0); LYMPHOCYTES # (AUTO) 1.4 K/uL (2.0-11.5); LYMPHOCYTES % (AUTO) 9.2 % (20.5-51.1); MEAN CORPUSCULAR HEMOGLOBIN 28 pg (27-31); MEAN CORPUSCULAR HGB CONC 34 g/dL (33-37); MEAN CORPUSCULAR VOLUME 82 fL (80-94); MONOCYTES # (AUTO) 1.3 K/uL (0.8-1.0); MONOCYTES % (AUTO) 8.9 % (1.7-9.3); NEUTROPHILS # (AUTO) 12.3 K/uL (1.8-7.7); NEUTROPHILS % (AUTO) 80.8 % (42.2-75.2); PLATELET COUNT (AUTO) 409 K/uL (140-450); RED BLOOD CELL COUNT(AUTO) 4.56 MIL/uL (4.20-6.10)
[2016-11-07 06:39] LABS: PHOSPHORUS 3.4 mg/dL (2.5-4.9)
[2016-11-07 06:43] LABS: ALBUMIN 2.2 g/dL (3.4-5.0); ANION GAP 14.9 (8-16); CARBON DIOXIDE 27.2 mmol/L (21-32); CREATININE 0.6 mg/dL (0.7-1.3); POTASSIUM 3.1 mmol/L (3.5-5.1); TOTAL BILIRUBIN 0.6 mg/dL (0.0-1.0)
--- NOTE | 2016-11-07 07:17 | NUR ---
PATIENT REPORT GIVEN AT BEDSIDE TO MORNING NURSE. PATIENT IS IN STABLE CONDITION
[2016-11-07 07:20] LABS: WHITE BLOOD COUNT (AUTO) 15.1 K/uL (4.8-10.8)
--- NOTE | 2016-11-07 07:26 | NUR ---
RECEIVED PT IN BED. AWAKE, ALERT ORIENTEDX4. NO SOB NOTED. DENIES ANY PAIN OR DISCOMFORT AT THIS TIME. POSITIVE BOWEL SOUNDS NOTED ON FOUR QUADRANTS. HOOKED TO TPN PER CENTRAL LINE ON LEFT UPPER ARM, RUNNING, INFUSING WELL. PT ON NGT FOR GASTRIC INTERMITTENT SUCTION. PT ON BED REST. SAFETY PRECAUTION IN PLACE. CALL LIGHT WITHIN REACH.
--- NOTE | 2016-11-07 07:59 | NUR ---
PT ACCIDENTALLY PULLED OUT NGT. CHECKED OUT PUT LAST OUTPUT WAS THE NIGHT OF Oct. CALLED DR. CORREA MADE AWARE WITH ORDER TO PUT BACK NGT.
[2016-11-07 08:00] VITALS: BP 137/68
--- NOTE | 2016-11-07 08:00 | NUR ---
NGT FOR GASTRIC SUCTION REINSERTED PER STUDENT NURSE WITH CLINICAL INSTRUCTOR. PATENT, PLACED ON INTERMITTENT SUCTION. DRAINING WELL.
--- NOTE | 2016-11-07 08:51 | NUR ---
PAGED DR. CORREA,AND DR. CORREA CALLED BACK REGARDING POTASSIUM LEVEL 3.1 WITH ORDERS MADE AND CARRIED OUT.
[2016-11-07] MEDS ORDERED: KCL 20 MEQ/WATER INJ PREMIX 100 ML IV SCH (09:00)
[2016-11-07] MEDS: PANTOPRAZOLE 40 MG INJ VIAL IVP SCH (09:22)
[2016-11-07] MEDS: fentaNYL 0.075 MG/HR PATCH TD SCH (09:24)
[2016-11-07] MEDS ORDERED: DEXTROSE 50% IV SCH ×5 (09:36)
[2016-11-07] MEDS ORDERED: INSULIN HUMAN REGULAR IV SCH ×5 (09:36)
[2016-11-07] MEDS ORDERED: [UNRECOGNIZED DRUG - OTHER] IV SCH ×5 (09:36)
[2016-11-07] MEDS ORDERED: MULTIVITAMIN IV SCH ×5 (09:36)
[2016-11-07 16:00] VITALS: BP 115/56
--- NOTE | 2016-11-07 17:56 | NUR ---
PT COMPLAINED OF NOT BEING ABLE TO SLEEP. AND VERBALIZED THAT LAST NIGHT THE PREVIOUSLY ORDERED BENADRYL IVP FOR SLEEP DIDN'T HELP HIM. CALLED [facility] SPOKE WITH DR. TABLE TENDER DR. VICKERS FOR DR. CORREA WITH ORDER MADE AND CARRIED OUT. MADE AWARE THAT PT ON NPO.
--- NOTE | 2016-11-07 19:25 | NUR ---
PT KEPT CLEAN, DRY AND COMFORTABLE. NEEDS ATTENDED. ENDORSED TO NEXT SHIFT ON STABLE CONDITION FOR CONTINUITY OF CARE. ENDORSED TO [employer] CRM DEVELOPER PREVIOUSLY ORDERED ATIVAN 0.5MG FOR SLEEP.
--- NOTE | 2016-11-07 19:35 | NUR ---
RECEIVED PT AWAKE COMPLAINING OF ABDOMINAL PAIN 07/25, VITAL SIGNS STABLE, WILL MEDICATE PRN, WITH NGT TO LOW INTERMITTENT SUCTION WITH GREENISH BLACK FLUID OUTPUT, TPN INFUSING WELL VIA LEFT UPPER ARM PICC LINE, ABDOMINAL INCISION DRY AND INTACT WITH ABDOMINAL BINDER IN PLACE, MAINTAIN ON NPO, POSITIVE BOWEL SOUNDS, PER PT HE IS PASSING GAS, PEGUERO CATH IN PLACE DRAINING YELLOW OUTPUT, PLAN OF CARE DISCUSSED, SAFETY MEASURES IN PLACE, CALL LIGHT WITHIN REACH, AT BEDSIDE.
[2016-11-07] MEDS ORDERED: LORazepam 2 MG/ML VIAL IVP ONE (20:00)
--- NOTE | 2016-11-07 20:10 | NUR ---
NEW TPN BAG STARTED WITH INFUSION RATE OF 100ML/H, MONITORED CLOSELY.
[2016-11-07] MEDS: ENOXAPARIN 30 MG/0.3 ML SYR SUBQ SCH (21:06)
--- NOTE | 2016-11-07 21:10 | NUR ---
DUE IV FLAGYL AND LOVENOX SUB-Q ADMINISTERED WITH EDUCATION PROVIDED, MEDICATED WITH ATIVAN IVP X1 DOSE FOR INSOMNIA ORDERED, PT ABLE TO REPOSITION SELF, ALL NEEDS ATTENDED.
[2016-11-07] MEDS: diphenhydrAMINE 50 MG/ML VIAL IVP PRN (23:10)
--- NOTE | 2016-11-07 23:30 | NUR ---
PT AWAKE FEELING RESTLESS AND UNABLE TO SLEEP, VITAL SIGNS STABLE, DENIES ANY PAIN, MEDICATED PRN WITH BENADRYL IVP, BLOOD SUGAR CHECKED WITH 266 RESULT, COVERAGE GIVEN, CONTINUE TO MONITOR CLOSELY.
[2016-11-08] VITALS: BP 128/61
[2016-11-08] MEDS: HYDROmorphone 1 MG/ML AMP IVP PRN ×3 (00:51→23:48)
[2016-11-08] MEDS: metroNIDAZOLE 500 MG/NS PREMIX 100 ML IV SCH ×3 (04:31→21:00)
[2016-11-08] MEDS: HYDROmorphone PFS 2 MG/ML SYR IVP PRN (05:10)
[2016-11-08] MEDS: INSULIN LISPRO SLIDING SCALE 100 UNITS/ML VIAL SUBQ PRN ×4 (05:19→23:40)
[2016-11-08] MEDS: BLOOD GLUCOSE MONITORING 1 DEV DEV MC SCH ×4 (05:20→23:47)
--- NOTE | 2016-11-08 05:20 | NUR ---
PT COMPLAINING OF PAIN 08/24, BP-137/75, HR-81, MEDICATED PRN WITH DILAUDID IVP, FLAGYL IVPB INFUSING WELL, BLOOD SUGAR CHECKED WITH 256 RESULT, WILL GIVE RISS COVERAGE, MONITORED CLOSELY.
[2016-11-08 06:11] LABS: CARBON DIOXIDE 31.3 mmol/L (21-32); CREATININE 0.5 mg/dL (0.7-1.3); POTASSIUM 3.3 mmol/L (3.5-5.1)
--- NOTE | 2016-11-08 06:11 | NUR ---
250 ML NGT DRAINAGE FOR THE WHOLE SHIFT, NGT RE-TAPED PER PT REQUEST, CONTINUE ON LOW INTERMITTENT SUCTION, MONITORED CLOSELY.
[2016-11-08 06:15] LABS: MAGNESIUM 2.1 mg/dL (1.8-2.4); PHOSPHORUS 3.7 mg/dL (2.5-4.9)
--- NOTE | 2016-11-08 07:10 | NUR ---
PT AWAKE, NO DISTRESS NOTED, REPORT GIVEN TO MELVIN CAIN FOR CONTINUITY OF CARE.
--- NOTE | 2016-11-08 07:29 | NUR ---
RECEIVED PT IN BED. AWAKE. ALERT ORIENTED X4. NO SOB NOTED. DENIES ANY PAIN OR DISCOMFORT AT THIS TIME. PT ON BED REST. NGT FOR GASTRIC SUCTION INTACT. SAFETY PRECAUTION IN PLACE. CALL LIGHT WITHIN REACH.
[2016-11-08 08:00] VITALS: BP 133/79
[2016-11-08] MEDS: PANTOPRAZOLE 40 MG INJ VIAL IVP SCH (08:15)
--- NOTE | 2016-11-08 08:58 | NUR ---
SOME LEAKING NOTED ON NGT ANTI REFLUX VALVE CONNECTION. SOILING ON CENTRAL LINE DRESSING NOTED. WILL CHANGE DRESSING. PAGED DR. CORREA FOR ORDER OF NGT REINSERTION, AND FOR POTASSIUM 3.3. AWAITING CALL BACK
--- NOTE | 2016-11-08 09:35 | NUR ---
PICC LINE DRESSING CHANGED. NO SIGNS AND SYMPTOMS OF INFECTION NOTED. KEPT CLEAN AND DRY. SOME SMALL DROPS OF GASTRIC FLUID NOTED ON TOWEL COVERING THE NGT, NO ACTIVE LEAKING NOTED. POSITIVE OUTPUT NOTED ON SUCTION MACHINE. WORKING WELL. WANTED TO CHANGE NGT. AWAITING CALL FROM DR. CORREA TO MAKE AWARE.
[2016-11-08] MEDS ORDERED: DEXTROSE 50% IV SCH ×5 (09:49)
[2016-11-08] MEDS ORDERED: MULTIVITAMIN IV SCH ×5 (09:49)
[2016-11-08] MEDS ORDERED: [UNRECOGNIZED DRUG - OTHER] IV SCH ×5 (09:49)
[2016-11-08] MEDS ORDERED: INSULIN HUMAN REGULAR IV SCH ×5 (09:49)
[2016-11-08] MEDS ORDERED: KCL 20 MEQ/WATER INJ PREMIX 100 ML IV SCH (10:00)
--- NOTE | 2016-11-08 10:07 | NUR ---
DR. CORREA CALLED BACK MADE AWARE OF POTASSIUM LEVEL 3.3 WITH ORDER MADE AND CARRIED OUT. MADE AWARE OF NGT LEAK, AND OK TO REINSERT A NEW ONE.
--- NOTE | 2016-11-08 10:42 | NUR ---
ABDOMINAL SURGICAL DRESSING CHANGED. SURGICAL WOUND INTACT WITH 27 DONYA, NO DISCHARGE NOTED, NO ACTIVE BLEEDING NOTED. NO SIGNS AND SYMPTOMS OF INFECTION NOTED AT THIS TIME. PT DENIES ANY PAIN OR DISCOMFORT AT THIS TIME. DRESSING CHANGE TOLERATED WELL.
--- NOTE | 2016-11-08 11:15 | NUR ---
NGT REINSERTED PER CLINICAL INSTRUCTOR AND STUDENT. NO LEAKING ON TUBING NOTED. POSITIVE GASTRIC OUTPUT NOTED THROUGH SUCTION. NO SOB NOTED. DENIES ANY PAIN OR DISCOMFORT AT THIS TIME.
--- NOTE | 2016-11-08 15:00 | NUR ---
PT TRANSFERRED FROM ROOM 112A TO 115 DUE TO ROOM NEEDS TO BE REPAIRED.
[2016-11-08 16:00] VITALS: BP 133/75
--- NOTE | 2016-11-08 16:22 | NUR ---
11/08/16 RD FOLLOW UP COMPLETED. PLEASE REFER TO NUTRITION PROGRESS NOTE UNDER CARE ACTIVITY FOR ESTIMATED NUTRITIONAL NEEDS. RD RECOMMENDATIONS: 1. CONTINUE PARENTERAL NUTRITION SUPPORT - D5 4.25%AA AT 100 ML/HR + 120 ML 10% LIPID INFUSION 2. RD F/U IN 2-3 DAYS, HIGH RISK SASKIA BOOKER MBA, RD
--- NOTE | 2016-11-08 18:00 | NUR ---
DR. CORREA CAME TO SEE PT. MADE AWARE THAT ATIVAN 0.5MG IVP X1 FOR SLEEP GIVEN LAST NIGHT WAS EFFECTIVE. WITH NEW ORDER MADE AND CARRIED OUT. PT AND TERESA AWARE OF NEW ORDER PRN FOR INSOMNIA.
--- NOTE | 2016-11-08 19:37 | NUR ---
RECEIVED PT AWAKE, DENIES ANY PAIN, VITAL SIGNS STABLE, WITH NGT TO LOW INTERMITTENT SUCTION WITH GREENISH BLACK FLUID OUTPUT, TPN INFUSING WELL VIA LEFT UPPER ARM PICC LINE, ABDOMINAL DRESSING DRY AND INTACT, MAINTAIN ON NPO, PEGUERO CATH IN PLACE DRAINING YELLOW OUTPUT, PLAN OF CARE DISCUSSED, SAFETY MEASURES IN PLACE, CALL LIGHT WITHIN REACH, AT BEDSIDE.
--- NOTE | 2016-11-08 19:41 | NUR ---
PT KEPT CLEAN, DRY AND COMFORTABLE, NEEDS ATTENDED. ENDORSED TO NEXT SHIFT ON STABLE CONDITION FOR CONTINUITY OF CARE. DENIES ANY PAIN OR DISCOMFORT AT THIS TIME. NO SOB NOTED.
[2016-11-08] MEDS: LORazepam 2 MG/ML VIAL IVP PRN (21:00)
[2016-11-08] MEDS: ENOXAPARIN 30 MG/0.3 ML SYR SUBQ SCH (21:07)
--- NOTE | 2016-11-08 21:15 | NUR ---
DUE MEDICATION ADMINISTERED WITH EDUCATION PROVIDED, MEDICATED PRN FOR INSOMNIA WITH ATIVAN IVP ORDERED, ALL NEEDS ATTENDED.
[2016-11-08] MEDS: diphenhydrAMINE 50 MG/ML VIAL IVP PRN (23:30)
[2016-11-09] VITALS: BP 126/86
--- NOTE | 2016-11-09 | NUR ---
PT AWAKE, COMPLAINING OF UNABLE TO STAY ASLEEP AND PAIN, VITAL SIGNS STABLE, MEDICATED PRN WITH BENADRYL IVP AND DILAUDID IVP, BLOOD SUGAR CHECKED WITH 244 RESULT, COVERAGE GIVEN, TPN INFUSING WELL, PT ABLE TO REPOSITION SELF, CONTINUE TO MONITOR CLOSELY.
--- NOTE | 2016-11-09 02:30 | NUR ---
ROUNDED ON PT, SEEN SLEEPING, NO SIGNS OF DISTRESS, MONITORED CLOSELY.
[2016-11-09] MEDS: metroNIDAZOLE 500 MG/NS PREMIX 100 ML IV SCH ×3 (04:37→22:11)
--- NOTE | 2016-11-09 05:10 | NUR ---
PT SLEEPING, EASILY AROUSABLE, AM LABS DRAWN FROM PICC LINE WITH GOOD BLOOD RETURN, DENIES ANY PAIN, BLOOD SUGAR CHECKED WITH 212 RESULT, WILL GIVE COVERAGE, 150 ML NGT DRAINAGE NOTED THE WHOLE SHIFT, MONITORED CLOSELY.
[2016-11-09] MEDS: INSULIN LISPRO SLIDING SCALE 100 UNITS/ML VIAL SUBQ PRN ×3 (05:51→18:16)
[2016-11-09] MEDS: BLOOD GLUCOSE MONITORING 1 DEV DEV MC SCH ×3 (06:10→18:31)
[2016-11-09 06:18] LABS: BASOPHILS # (AUTO) 0.2 K/uL (0.00-0.22); BASOPHILS % (AUTO) 1.1 % (0.0-2.0); EOSINOPHILS # (AUTO) 0.1 K/uL (0-0.4); EOSINOPHILS % (AUTO) 0.6 % (0.0-4.0); HEMATOCRIT 38.8 % (36-52); HEMOGLOBIN 12.8 g/dL (12.0-18.0); LYMPHOCYTES # (AUTO) 1.8 K/uL (2.0-11.5); LYMPHOCYTES % (AUTO) 10.7 % (20.5-51.1); MEAN CORPUSCULAR HEMOGLOBIN 27 pg (27-31); MEAN CORPUSCULAR HGB CONC 33 g/dL (33-37); MEAN CORPUSCULAR VOLUME 83 fL (80-94); MONOCYTES # (AUTO) 1.1 K/uL (0.8-1.0); MONOCYTES % (AUTO) 6.8 % (1.7-9.3); NEUTROPHILS # (AUTO) 13.5 K/uL (1.8-7.7); NEUTROPHILS % (AUTO) 80.8 % (42.2-75.2); PLATELET COUNT (AUTO) 367 K/uL (140-450); RED BLOOD CELL COUNT(AUTO) 4.69 MIL/uL (4.20-6.10)
[2016-11-09 06:54] LABS: ALBUMIN 2.3 g/dL (3.4-5.0); ANION GAP 10.3 (8-16); CARBON DIOXIDE 28.9 mmol/L (21-32); CREATININE 0.5 mg/dL (0.7-1.3); PHOSPHORUS 4.1 mg/dL (2.5-4.9); POTASSIUM 4.2 mmol/L (3.5-5.1); TOTAL BILIRUBIN 0.6 mg/dL (0.0-1.0)
--- NOTE | 2016-11-09 07:22 | NUR ---
PT AWAKE, NO SIGNS OF DISTRESS, REPORT GIVEN TO RN KATHERYN FOR CONTINUITY OF CARE.
--- NOTE | 2016-11-09 07:30 | NUR ---
REPORT RECEIVED FROM PHOTOGRAPHIC PLATEMAKER NURSE, PT SLEEPING QUIETLY IN NAD, RESP EVEN UNLABORED ON ROOM AIR, SKIN WARM DRY COLOR WNL, PT AROUSED EASILY, DENIES DISCOMFORT, NGT TO LOW INTERMITTENT SUCTION, DRAINING LIGHT GREEN DRAINAGE, PEGUERO IN PLACE, TPN INFUSING WELL TO LEFT UPPER ARM PICC LINE, SITE CLEAR, WILL CONTINUE TO MONITOR.
[2016-11-09 07:37] LABS: WHITE BLOOD COUNT (AUTO) 16.7 K/uL (4.8-10.8)
[2016-11-09 08:00] VITALS: BP 121/67
--- NOTE | 2016-11-09 09:30 | NUR ---
ABD DRESSING SOILED WITH DARK GREEN DRAINAGE, MOD AMOUNT OF DRAINAGE CONTINUE TO WOOZE FROM MIDDLE PART OF INCISION, DRESSING CHANGED, WILL NOTIFY .
[2016-11-09] MEDS: PANTOPRAZOLE 40 MG INJ VIAL IVP SCH (09:37)
[2016-11-09] MEDS: HYDROmorphone PFS 2 MG/ML SYR IVP PRN ×2 (09:49→17:52)
[2016-11-09] MEDS ORDERED: INSULIN HUMAN REGULAR IV SCH ×5 (09:53)
[2016-11-09] MEDS ORDERED: MULTIVITAMIN IV SCH ×5 (09:53)
[2016-11-09] MEDS ORDERED: [UNRECOGNIZED DRUG - OTHER] IV SCH ×5 (09:53)
[2016-11-09] MEDS ORDERED: DEXTROSE 50% IV SCH ×5 (09:53)
--- NOTE | 2016-11-09 10:05 | NUR ---
DR AMES CALLED AND MADE AWARE OF DRAINAGE FROM ABD INCISION, WILL KEEP PT NPO PER DR KWAKU MD TO COME SEE PT.
--- NOTE | 2016-11-09 11:08 | NUR ---
PATIENT HAS BEEN SCREENED AND CATEGORIZED HIGH NUTRITION RISK. PATIENT WILL BE SEEN WITHIN 1-2 DAYS OF ADMISSION. 11/09/16 - 11/10/[address] Addendum: 11/09/16 at [address] PLEASE DISREGARD ABOVE NOTE; CHARTED ON WRONG PATIENT. SELINA MAN RD
--- NOTE | 2016-11-09 11:30 | NUR ---
DR CORREA MADE AWARE OF GREEN/BROWN DRAINAGE FROM ABD INCISION AND THAT DR AMES HAS BEEN NOTIFIED THIS AM. Addendum: 11/09/16 at 1602 by Jessica Hackett RN DR CORREA AT BEDSIDE FOR EVAL.
--- NOTE | 2016-11-09 13:00 | NUR ---
ABD DRESSING CHANGED, GREEN/BROWN DRAINAGE CONTINUES TO WOOZE FROM INCISION, INCISION SITE CLEANED WITH NS, DRIED WELL AND 4X4 AND ABD DRESSING APPLIED.
--- NOTE | 2016-11-09 15:03 | NUR ---
CM NOTE CONCURRENT REVIEW FAXED TO [facility] / FAX# [phone], C: [phone]
[2016-11-09 16:00] VITALS: BP 121/72
--- NOTE | 2016-11-09 16:00 | NUR ---
VSS, PT RESTING QUIETLY IN NAD, RESP EVEN UNLABORED, NGT REMAINS TO LOW INT SUX, DRAINING GREEN DRAINAGE, PEGUERO DRAINING WELL, PT DENIES PAIN OR DISCOMFORT, POSITION CHANGED FOR COMFORT, FAMILY AT BEDSIDE, ABD DRESSING CHANGED, MOD AMT OF DRAINAGE NOTED, SAFETY MEASURES IN PLACE, WILL CONTINUE TO MONTIOR
--- NOTE | 2016-11-09 19:20 | NUR ---
PT STILL WAITING FOR DR AMES FOR EVALUATION OF DRAINAGE FROM SURGICAL WOUND, DR AMES PAGED AT THIS TIME.
--- NOTE | 2016-11-09 19:35 | NUR ---
REPORT GIVEN TO FAMILY RESOURCE SPECIALIST NURSE JULI MONTANO IN STABLE CONDITION.
--- NOTE | 2016-11-09 19:36 | NUR ---
RECEIVED REPORT FROM AM NURSE. PT IS AWAKE, ALERT AND ORIENTED X4. FAMILY AT THE BEDSIDE. ON ROOM AIR, WITH NGT TO LOW INTERMITTENT SUCTION WITH GREENISH BLACK FLUID OUTPUT, TPN INFUSING WELL VIA LEFT UPPER ARM PICC LINE, ABDOMINAL DRESSING IS WET WITH GREEN DRAINAGE, ABDOMINAL DRESSING TO BE CHANGED STAT. PEGUERO CATH IN PLACE, PLAN OF CARE DISCUSSED, PT VERBALIZED UNDERSTANDING, BED ON LOW POSITION, BILATERAL HALF SIDE RAILS UP, CALL LIGHT WITHIN REACH, WILL CONTINUE TO MONITOR.
--- NOTE | 2016-11-09 19:56 | NUR ---
NO CALL BACK FROM DR AMES, DR AMES PAGED AGAIN.
[2016-11-09 20:00] VITALS: BP 112/75
--- NOTE | 2016-11-09 20:35 | NUR ---
RECEIVED CALL BACK FROM DR. AMES, DOCTOR MADE AWARE OF PT CONDITION, AND NEW GREEN DRAINAGE FROM INCISION, DR STATED HE WILL COME IN TOMORROW MORNING TO CHECK ON PT AND TALK TO FAMILY REGARDING PLAN OF CARE. RECEIVED NEW ORDER OF OCTREOTIDE MEDICATION TO DECREASE DRAINAGE. NOTED, WILL CARRY OUT.
--- NOTE | 2016-11-09 21:41 | NUR ---
CALLED DR AMES, TO CONFIRM DOSE OF OCTREOTIDE MEDICATION ORDERED. MADE AWARE OF PHARMACY RECOMMENDATION OF DOSE AND USE. PER PHARMACY RECOMMENDED USE OF THIS MEDICATION IS TO PREVENT BLEEDING AND DIARRHEA WITH A DOSE OF [address] AMES CONFIRMED DOSE AND ORDERED OCTREOTIDE TO BE GIVEN PER PHARMACY RECOMMENDATION.
[2016-11-09] MEDS: ENOXAPARIN 30 MG/0.3 ML SYR SUBQ SCH (22:12)
[2016-11-09] MEDS: LORazepam 2 MG/ML VIAL IVP PRN (22:14)
[2016-11-09] MEDS: HYDROmorphone 1 MG/ML AMP IVP PRN (22:36)
[2016-11-09] MEDS ORDERED: OCTREOTIDE ACETATE 1000 MCG/5 ML VIAL ONE (22:39)
[2016-11-09] MEDS: OCTREOTIDE ACETATE 100 MCG/ML VIAL SUBQ SCH (22:40)
--- NOTE | 2016-11-09 22:40 | NUR ---
ADMINISTERED NEW MEDICATION ORDERED BY DR. AMES. OCTREOTIDE 100 MCG Q 8HRS GIVEN NOW. PT TOLERATED WELL. WILL CONTINUE TO MONITOR.
[2016-11-10] MEDS: BLOOD GLUCOSE MONITORING 1 DEV DEV MC SCH ×4 (01:47→18:56)
[2016-11-10] MEDS: INSULIN LISPRO SLIDING SCALE 100 UNITS/ML VIAL SUBQ PRN ×4 (01:49→18:07)
[2016-11-10 01:56] VITALS: BP 128/81
[2016-11-10] MEDS: HYDROmorphone 1 MG/ML AMP IVP PRN ×2 (02:00→19:24)
--- NOTE | 2016-11-10 02:30 | NUR ---
PT IS SLEEPING. SHOWING NO SIGNS OF ACUTE DISTRESS. BED ON LOW POSITION, BILATERAL HALF SIDE RAILS UP, CALL LIGHT WITHIN REACH. WILL CONTINUE TO MONITOR.
[2016-11-10 04:00] VITALS: BP 108/69
--- NOTE | 2016-11-10 04:16 | NUR ---
ABDOMINAL DRESSING CHANGED, SOILED WITH DARK GREEN DRAINAGE, MOD AMOUNT OF DRAINAGE CONTINUES TO WOOZE FROM MIDDLE PART OF INCISION. WILL CONTINUE TO MONITOR.
[2016-11-10] MEDS: metroNIDAZOLE 500 MG/NS PREMIX 100 ML IV SCH ×3 (04:35→21:14)
--- NOTE | 2016-11-10 07:25 | NUR ---
ENDORSED PT TO AM NURSE FOR CONTINUITY OF CARE. PT IS STABLE.
--- NOTE | 2016-11-10 07:28 | NUR ---
REPORT RECEIVED FROM VETERINARY PATHOLOGIST, PT AAOX4, RESP EVEN UNLABORED, SKIN WARM DRY COLOR WNL, PT WITH NGT TO LOW INTERM SUCTION, PEGUERO DRAINING EMERITA COLOR URINE, ABD INCISION DRESSING WITH SMALL AMT OF BROWN DRAINAGE, DRESSING CHANGED, SURGICAL WOUND CLOSED WITH DONYA, WOOZING DRAINAGE FROM MIDDLE, DR AMES TO COME EVALUATE TODAY PER REPORT, PLAN OF CARE DISCUSSED WITH PT AND , PT VERBALIZED FULL UNDERSTANDING, SAFETY MEASURES IN PLACE, WILL CONTINUE TO MONITOR.
[2016-11-10 07:29] LABS: BASOPHILS # (AUTO) 0.2 K/uL (0.00-0.22); BASOPHILS % (AUTO) 0.8 % (0.0-2.0); EOSINOPHILS # (AUTO) 0.2 K/uL (0-0.4); HEMATOCRIT 40.4 % (36-52); HEMOGLOBIN 13.4 g/dL (12.0-18.0); LYMPHOCYTES # (AUTO) 1.6 K/uL (2.0-11.5); MEAN CORPUSCULAR HEMOGLOBIN 27 pg (27-31); MEAN CORPUSCULAR HGB CONC 33 g/dL (33-37); MEAN CORPUSCULAR VOLUME 83 fL (80-94); MONOCYTES # (AUTO) 1.2 K/uL (0.8-1.0); MONOCYTES % (AUTO) 6.2 % (1.7-9.3); NEUTROPHILS # (AUTO) 16.2 K/uL (1.8-7.7); PLATELET COUNT (AUTO) 340 K/uL (140-450); RED BLOOD CELL COUNT(AUTO) 4.87 MIL/uL (4.20-6.10); RED CELL DISTRIBUTION WIDTH 11.6 % (11.6-13.7)
[2016-11-10 07:30] LABS: ANION GAP 9.2 (8-16); CARBON DIOXIDE 30.1 mmol/L (21-32); CREATININE 0.5 mg/dL (0.7-1.3); POTASSIUM 4.3 mmol/L (3.5-5.1)
[2016-11-10 07:38] LABS: PHOSPHORUS 4.2 mg/dL (2.5-4.9)
[2016-11-10] MEDS: PANTOPRAZOLE 40 MG INJ VIAL IVP SCH (08:28)
[2016-11-10] MEDS: HYDROmorphone PFS 2 MG/ML SYR IVP PRN ×2 (08:29→15:24)
[2016-11-10 08:30] LABS: WHITE BLOOD COUNT (AUTO) 19.4 K/uL (4.8-10.8)
[2016-11-10] MEDS ORDERED: INSULIN HUMAN REGULAR IV SCH ×5 (10:00)
[2016-11-10] MEDS ORDERED: [UNRECOGNIZED DRUG - OTHER] IV SCH ×5 (10:00)
[2016-11-10] MEDS ORDERED: DEXTROSE 50% IV SCH ×5 (10:00)
[2016-11-10] MEDS ORDERED: MULTIVITAMIN IV SCH ×5 (10:00)
[2016-11-10] MEDS: fentaNYL 0.075 MG/HR PATCH TD SCH (10:13)
--- NOTE | 2016-11-10 10:37 | NUR ---
FAXED CONCURRENT REVIEW TO [facility] [phone] PHONE [phone]
--- NOTE | 2016-11-10 10:50 | NUR ---
DR AMES CALLED BACK, PT CONDITION UPDATE GIVEN, MADE AWARE OF PT AND FAMILY CONCERNS, DR AMES STATES HE IS COMING TO EVALUATE PT TODAY. FAMILY AND PT UPDATED WITH DR AMES'S PLAN, THEY VERBALIZED FULL UNDERSTANDING.
--- NOTE | 2016-11-10 12:15 | NUR ---
DR AMES CALLED BACK, TELEPHONE ORDER RECIEVED FOR CT ABD AND PELV WITH CONTRAST.
[2016-11-10] MEDS: OCTREOTIDE ACETATE 100 MCG/ML VIAL SUBQ SCH ×2 (13:54→21:39)
[2016-11-10] MEDS ORDERED: PIPER/TAZO 3.375GM/D5W PREMIX 50 ML IV SCH (14:00)
--- NOTE | 2016-11-10 14:00 | NUR ---
DR. AMES AT BEDSIDE SPEAKING WITH PATIENT/FAMILY. DR. AMES CHANGED ABDOMINAL DRESSING, REMOVED 3 DONYA, AND PACKED WOUND WITH 1/2 NORMAL PACKING STRIP, COVERED WITH GAUZE, COVERED WITH ABD PADS AND SECURED WITH ABD BINDER. PATIENT TOLERATED PROCEDURE WELL. NEW ORDERS GIVEN AND CARRIED OUT. SAFETY MEASURES IN PLACE, CALL LIGHT WITHIN REACH. WILL CONTINUE TO MONITOR
[2016-11-10] MEDS ORDERED: ZOLPIDEM 10 MG TAB NG PRN (15:20)
[2016-11-10 16:00] VITALS: BP 129/76
--- NOTE | 2016-11-10 18:30 | NUR ---
RADIOLOGY TAKING PATIENT FOR ABD/PELVIC CT SCAN WITH IV CONTRAST.
--- NOTE | 2016-11-10 19:25 | NUR ---
REPORT GIVEN TO LEASE OUT MAN NURSE GUSTAVO. PATIENT IN STABLE CONDITION. PAIN MEDICATION GIVEN FOR ABD PAIN AT THIS TIME.
--- NOTE | 2016-11-10 19:26 | NUR ---
RECD. RESTING IN BED, AWAKE, A/OX4. RESPIRATION EVEN AND UNLABORED. WITH NGT ON LOW INTERMITTENT SUCTION DRAINING GREENISH FLUID. HEAD OF BED ELEVATED 30 DEGREES. INCISION IN THE ABDOMEN COVERED WITH DRESSING AND ABDOMINAL BINDER, NOTED SMALL AMOUNT OF GREENISH FLUID SEEPING IN THE DRESSING, WILL CONTINUE TO MONITOR. F/C PATENT DRAINING CLEAR, YELLOW URINE. ON BILATERAL LEG SEQUENTIALS. PAIN IN THE ABDOMEN 09/24, WAS JUST MEDICATED BY AM NURSE. MADE COMFORTABLE IN BED WITH PILLOWS. AT THE BEDSIDE.
[2016-11-10] MEDS: PIPER/TAZO 3.375GM/D5W PREMIX 50 ML IV SCH (20:31)
[2016-11-10] MEDS: ENOXAPARIN 30 MG/0.3 ML SYR SUBQ SCH (21:40)
[2016-11-10] MEDS: LORazepam 2 MG/ML VIAL IVP PRN (22:48)
--- NOTE | 2016-11-10 22:48 | NUR ---
WITH AGITATION, MEDICATED WITH ATIVAN 0,5 MG IVP BY MELVIN ANTONIO.
--- NOTE | 2016-11-10 23:18 | NUR ---
NO AGITATION NOTED.
--- NOTE | 2016-11-10 23:32 | NUR ---
OF PATIENT CALLED, PATIENT WAS TAKING MEDICATIONS AT BEDTIME AT HOME THAT HAS NOT BEEN ORDERED FOR PATIENT LIKE TRAMADOL, ZYPREXA, DULOXATINE, TRAZADONE AND WELBUTRIN. REQUESTING FOR MD IF THESE MEDICATIONS CAN BE ORDERED. WILL INFORM MD.
--- NOTE | 2016-11-10 23:35 | NUR ---
INFORMED DR. FERNANDES REGARDING CONCERNED ON PATIENT'S MEDICATIONS IN THE NIGHT. PATIENT IS NPO, MEDICATION MIGHT NOT BE ABSORBED. ENDORSED IN THE MORNING MD, MAY INCREASE ATIVAN TO 1 MG.
[2016-11-10] MEDS ORDERED: LORazepam 2 MG/ML VIAL IVP PRN (23:45)
[2016-11-11] MEDS: INSULIN LISPRO SLIDING SCALE 100 UNITS/ML VIAL SUBQ PRN ×4 (01:09→23:46)
--- NOTE | 2016-11-11 01:25 | NUR ---
UNABLE TO SLEEP, MEDICATED WITH AMBIEN 10 MG. VIA NGT ORDERED.
--- NOTE | 2016-11-11 02:25 | NUR ---
SLEEPING COMFORTABLY IN BED.
--- NOTE | 2016-11-11 03:00 | NUR ---
AWAKE IN BED, SLEPT ONLY FOR A SHORT TIME.
[2016-11-11 03:07] VITALS: BP 127/84
[2016-11-11] MEDS: HYDROmorphone 1 MG/ML AMP IVP PRN ×5 (03:18→21:01)
[2016-11-11] MEDS: PIPER/TAZO 3.375GM/D5W PREMIX 50 ML IV SCH ×3 (05:05→21:47)
[2016-11-11] MEDS: metroNIDAZOLE 500 MG/NS PREMIX 100 ML IV SCH ×3 (05:37→20:42)
[2016-11-11] MEDS: OCTREOTIDE ACETATE 100 MCG/ML VIAL SUBQ SCH ×3 (05:43→20:42)
[2016-11-11] MEDS: BLOOD GLUCOSE MONITORING 1 DEV DEV MC SCH ×5 (05:49→23:44)
[2016-11-11 06:32] LABS: HEMATOCRIT 43.1 % (36-52); HEMOGLOBIN 14.3 g/dL (12.0-18.0); MEAN CORPUSCULAR HEMOGLOBIN 27 pg (27-31); MEAN CORPUSCULAR HGB CONC 33 g/dL (33-37); MEAN CORPUSCULAR VOLUME 82 fL (80-94); PLATELET COUNT (AUTO) 323 K/uL (140-450); RED BLOOD CELL COUNT(AUTO) 5.29 MIL/uL (4.20-6.10); RED CELL DISTRIBUTION WIDTH 11.6 % (11.6-13.7); WHITE BLOOD COUNT (AUTO) 22.2 K/uL (4.8-10.8)
--- NOTE | 2016-11-11 06:45 | NUR ---
CONDITION REMAIN STABLE. NO FEVER NOTED DURING SHIFT. ALL NEEDS ATTENDED. WILL ENDORSE TO AM NURSE FOR CONTINUITY OF CARE.
[2016-11-11 06:48] LABS: ALBUMIN 2.6 g/dL (3.4-5.0); ANION GAP 10.6 (8-16); CARBON DIOXIDE 29.6 mmol/L (21-32); CREATININE 0.5 mg/dL (0.7-1.3); MAGNESIUM 1.9 mg/dL (1.8-2.4); PHOSPHORUS 3.9 mg/dL (2.5-4.9); POTASSIUM 4.2 mmol/L (3.5-5.1); TOTAL BILIRUBIN 0.7 mg/dL (0.0-1.0)
--- NOTE | 2016-11-11 07:15 | NUR ---
ENDORSED TO MELVIN MORENO FOR CONTINUITY OF CARE.
[2016-11-11 08:00] VITALS: BP 107/78
[2016-11-11 08:16] LABS: LYMPHOCYTES % (MANUAL) 12 % (20-46); MONOCYTES % (MANUAL) 7 % (5-12)
[2016-11-11 08:17] LABS: EOSINOPHILS % (MANUAL) 1 % (0-4)
[2016-11-11] MEDS: PANTOPRAZOLE 40 MG INJ VIAL IVP SCH (09:54)
--- NOTE | 2016-11-11 10:10 | NUR ---
ADMINISTERED MORNING MEDS. PT REQUESTED PAIN MED WELL. PT TOLERATED WELL. TPN STILL INFUSING. NS AT 5%. AT BEDSIDE. PT CLAMMY. WILL CONTINUE TO MONITOR PT.
--- NOTE | 2016-11-11 12:26 | NUR ---
11/11/16 RD FOLLOW-UP ASSESSMENT COMPLETED PLEASE REFER TO NUTRITION ASSESSMENT UNDER CARE ACTIVITY FOR ESTIMATED NUTRITIONAL NEEDS. 1. CONTINUE PARENTERAL NUTRITION SUPPORT - D5, 4.25% AA AT 100 ML/HR + 120 ML 10% LIPID INFUSION (OR PER PHARMACY RECOMMENDATIONS) 2. RD TO FOLLOW-UP 2-3 DAYS, HIGH RISK JAMIE GANDARA, NICA
--- NOTE | 2016-11-11 13:39 | NUR ---
ADMINISTERED AFTERNOON MEDS. CHANGED DRESSING ON ABD. CLEANED AREA W/ NS AND GAUZE. REPACKED AND COVERED WITH FRESH DRESSING. ABDOMINAL BINDER BACK ON. PT TOLERATED WELL. ASKING FOR SOME PAIN MEDS. WILL CONTINUE TO MONITOR PT.
--- NOTE | 2016-11-11 14:48 | NUR ---
RECEIVED A CALL FROM JONH FROM [facility] . PATIENT HAS BEEN ACCEPTED AT [facility] [address] [place] [address] SHEY MICHAUD. NO BED YET. THEY WILL CALL THE FLOOR WHEN THEY GET A BED . THE AUTH FOR HORACIO MEJIA IS [id number] SS PATIENT WILL GO TO MED SURG BED. HERRERA CHARLESTHIRD GRADE TEACHER NURSE AWARE. Addendum: 11/11/16 at 1457 by Patricia Thorpe CM ABOVE IN ERROR WRONG PATIENT
[2016-11-11 16:00] VITALS: BP 119/72
--- NOTE | 2016-11-11 16:40 | NUR ---
FAXED CONCURRENT REVIEW TO [facility] [phone] PHONE [phone]
--- NOTE | 2016-11-11 19:10 | NUR ---
PT RESTING COMFORTABLY. AT BEDSIDE. WILL CONTINUE TO MONITOR PT.
--- NOTE | 2016-11-11 19:30 | NUR ---
ASSUMED CARE OF PATIENT, AWAKE. COMPLAINS AT THIS TIME. FAMILY AT BEDSIDE. ABDOMEN BINDER ON. NGT TO LOW INTERMITTENT SUCTION. PEGUERO CATHETER DRAINING WELL. TPN INFUSING WELL. CALL LIGHT WITHIN REACH.
--- NOTE | 2016-11-11 19:31 | NUR ---
ENDORSED PT TO THE STOCK WORKER NURSE. PT IS VISITING WITH FAMILY. NO SIGNS OF DISTRESS. PT STABLE.
--- NOTE | 2016-11-11 20:00 | NUR ---
PLAN OF CARE DISCUSSED WITH PATIENT, VERBALIZED UNDERSTANDING WELL. CARE BOARD UPDATED. CALL LIGHT WITHIN REACH.
[2016-11-11] MEDS: MULTIVITAMIN IV SCH ×5 (20:10)
[2016-11-11] MEDS: [UNRECOGNIZED DRUG - OTHER] IV SCH ×5 (20:10)
[2016-11-11] MEDS: INSULIN HUMAN REGULAR IV SCH ×5 (20:10)
[2016-11-11] MEDS: DEXTROSE 50% IV SCH ×5 (20:10)
[2016-11-11] MEDS: ENOXAPARIN 30 MG/0.3 ML SYR SUBQ SCH (20:46)
--- NOTE | 2016-11-11 21:00 | NUR ---
ABDOMINAL DRESSING [id number] COLORED DRAINAGE NOTED. DONYA IN. ABDOMINAL BINDER CHANGE, REPOSITIONED. CALL LIGHT WITHIN REACH.
[2016-11-11] MEDS: LORazepam 2 MG/ML VIAL IVP PRN (21:47)
[2016-11-11 23:58] VITALS: BP 112/69
--- NOTE | 2016-11-12 | NUR ---
VITAL SIGNS STABLE. NO COMPLAINS. BS-202, INSULIN SLIDING SCALE. REPOSITIONED. CALL LIGHT WITHIN REACH.
[2016-11-12] MEDS: HYDROmorphone PFS 2 MG/ML SYR IVP PRN (00:35)
[2016-11-12] MEDS: KETOROLAC 30 MG/ML VIAL IVP PRN (02:20)
[2016-11-12] MEDS: PIPER/TAZO 3.375GM/D5W PREMIX 50 ML IV SCH ×3 (04:11→20:49)
[2016-11-12] MEDS: HYDROmorphone 1 MG/ML AMP IVP PRN ×6 (04:12→23:34)
[2016-11-12] MEDS: OCTREOTIDE ACETATE 100 MCG/ML VIAL SUBQ SCH ×3 (04:12→20:46)
[2016-11-12] MEDS: LORazepam 2 MG/ML VIAL IVP PRN (04:34)
[2016-11-12 06:18] LABS: BASOPHILS # (AUTO) 0.6 K/uL (0.00-0.22); BASOPHILS % (AUTO) 3.5 % (0.0-2.0); EOSINOPHILS # (AUTO) 0.2 K/uL (0-0.4); HEMATOCRIT 41.7 % (36-52); HEMOGLOBIN 13.8 g/dL (12.0-18.0); LYMPHOCYTES # (AUTO) 1.2 K/uL (2.0-11.5); LYMPHOCYTES % (AUTO) 6.8 % (20.5-51.1); MEAN CORPUSCULAR HEMOGLOBIN 27 pg (27-31); MEAN CORPUSCULAR HGB CONC 33 g/dL (33-37); MEAN CORPUSCULAR VOLUME 83 fL (80-94); MONOCYTES # (AUTO) 1.1 K/uL (0.8-1.0); MONOCYTES % (AUTO) 6.2 % (1.7-9.3); NEUTROPHILS # (AUTO) 14.4 K/uL (1.8-7.7); NEUTROPHILS % (AUTO) 82.5 % (42.2-75.2); PLATELET COUNT (AUTO) 404 K/uL (140-450); RED BLOOD CELL COUNT(AUTO) 5.06 MIL/uL (4.20-6.10); RED CELL DISTRIBUTION WIDTH 12.1 % (11.6-13.7)
[2016-11-12] MEDS: BLOOD GLUCOSE MONITORING 1 DEV DEV MC SCH ×4 (06:18→23:57)
[2016-11-12 06:44] LABS: MAGNESIUM 2.3 mg/dL (1.8-2.4); PHOSPHORUS 5.1 mg/dL (2.5-4.9)
[2016-11-12 07:16] LABS: ALBUMIN 2.3 g/dL (3.4-5.0); ANION GAP 11.8 (8-16); CARBON DIOXIDE 29.9 mmol/L (21-32); CREATININE 0.6 mg/dL (0.7-1.3); TOTAL BILIRUBIN 0.6 mg/dL (0.0-1.0)
[2016-11-12 07:18] LABS: WHITE BLOOD COUNT (AUTO) 17.5 K/uL (4.8-10.8)
--- NOTE | 2016-11-12 07:19 | NUR ---
ENDORSED CARE AT BEDSIDE WITH ALBER CHARLES, PATIENT IN STABLE CONDITION.
--- NOTE | 2016-11-12 07:20 | NUR ---
RECEIVED REPORT AT BEDSIDE FOR CONTINUITY OF CARE. PT IS AWAKE AND ORIENTED. INTRODUCED MYSELF AND UPDATED THE BOARD. NG TUBE STILL INTACT. LOW INTERMITTENT SUCTIONING. 900ML IN CONTAINER. PEGUERO CATH IN PLACE- 100ML IN BAG. ABD BINDER IN PLACE. PICC LINE, 2 LUMEN- TPN INFUSING AT 100, OTHER NS 5ML/HR FOR TKO. PT C/O PAIN. WILL MEDICATE WITH MORNING MEDS. LABS-K 5.7, PHOS 5.1. WILL NOTIFY DR. CORREA. WILL CONTINUE TO MONITOR PT.
[2016-11-12 07:52] LABS: POTASSIUM 5.7 mmol/L (3.5-5.1)
[2016-11-12 08:00] VITALS: BP 104/68
[2016-11-12] MEDS: PANTOPRAZOLE 40 MG INJ VIAL IVP SCH (08:38)
--- NOTE | 2016-11-12 08:51 | NUR ---
ADMINISTERED MORNING MED, INCLUDING PAIN MED. CHANGED DRESSING. PT IS COMFORTABLE NOW. MOM IS AT BEDSIDE. WILL CONTINUE TO MONITOR PT.
--- NOTE | 2016-11-12 10:45 | NUR ---
ANGLESMITH HELPER GAVE PT A BED BATH. CLEAN LINENS. PT SLEEPING SOUNDLY. FIRST AID INSTRUCTOR HERE FOR REDRAW OF BMP.
[2016-11-12] MEDS ORDERED: LORazepam 2 MG/ML VIAL IVP PRN (11:05)
[2016-11-12 11:17] LABS: ANION GAP 8.9 (8-16); CARBON DIOXIDE 30.6 mmol/L (21-32); CREATININE 0.6 mg/dL (0.7-1.3); POTASSIUM 4.5 mmol/L (3.5-5.1)
[2016-11-12] MEDS: INSULIN LISPRO SLIDING SCALE 100 UNITS/ML VIAL SUBQ PRN ×2 (12:25→18:08)
--- NOTE | 2016-11-12 12:31 | NUR ---
ADMINISTERED AFTERNOON MEDS, INSULIN 2 UNITS AND PAIN MED. PAIN 09/24. PT TOLERATED WELL. CHANGED ABDOMINAL DRESSINGS. PT TOLERATED WELL. WILL CONTINUE TO MONITOR PT. Addendum: 11/12/16 at 1232 by Dimple Gama RN AT BEDSIDE.
--- NOTE | 2016-11-12 13:48 | NUR ---
CM NOTE CONCURRENT REVIEW FAXED TO [facility] / FAX# [phone], C: [phone]
[2016-11-12 16:00] VITALS: BP 94/65
--- NOTE | 2016-11-12 16:00 | NUR ---
CHANGED DRESSING. PT TOLERATED WELL. WILL CONTINUE TO MONITOR PT.
--- NOTE | 2016-11-12 18:00 | NUR ---
PT IS RESTING COMFORTABLY. AT BEDSIDE. BS CHECK- 153. WILL CONTINUE TO MONITOR PT.
--- NOTE | 2016-11-12 19:24 | NUR ---
ENDORSED PT TO THE STRATEGIES ANALYST NURSE AT BEDSIDE FOR CONTINUITY OF CARE. PT IS IN STABLE CONDITION. AND FAMILY AT BEDSIDE.
--- NOTE | 2016-11-12 19:25 | NUR ---
RECEIVED REPORT FROM DAY NURSE. PT IS AWAKE AND ORIENTED X4, PT IS ON RA. NG TUBE STILL INTACT. LOW INTERMITTENT SUCTIONING. 1400ML IN CONTAINER. PEGUERO CATH IN PLACE- 250ML IN BAG. ABD BINDER IN PLACE. PICC LINE, 2 LUMEN- TPN INFUSING AT 100, OTHER NS 5ML/HR FOR TKO. RESPIRATIONS ARE EVEN AND UNLABORED. INITIAL PLAN OF CARE DISCUSSED WITH PT AND AT BEDSIDE, VERBALIZED UNDERSTANDING. ALL SAFETY PRECAUTIONS MET, CALL LIGHT WITHIN REACH, WILL CONTINUE TO MONITOR.
[2016-11-12] MEDS: [UNRECOGNIZED DRUG - OTHER] IV SCH ×5 (20:10)
[2016-11-12] MEDS: INSULIN HUMAN REGULAR IV SCH ×5 (20:10)
[2016-11-12] MEDS: MULTIVITAMIN IV SCH ×5 (20:10)
[2016-11-12] MEDS: DEXTROSE 50% IV SCH ×5 (20:10)
[2016-11-12] MEDS: ENOXAPARIN 30 MG/0.3 ML SYR SUBQ SCH (20:48)
--- NOTE | 2016-11-12 21:30 | NUR ---
ALL DUE MEDICATIONS GIVEN, PT TOLERATED WELL. ABD DRESSING CHANGED DUE TO SATURATION.
--- NOTE | 2016-11-12 21:50 | NUR ---
DR. KELLY IN TO SEE PT. DISCUSSED PLAN OF CARE WITH PT. DR. KELLY MADE AWARE OF BLOOD IN PEGUERO CATHETER, NO NEW ORDERS.
--- NOTE | 2016-11-12 22:20 | NUR ---
PAGED DR. FERNANDES REGARDING BLOOD AND SEDIMENT NOTED IN PTS PEGUERO CATHETER.
--- NOTE | 2016-11-12 22:23 | NUR ---
DR. FERNANDES CALLED BACK, DR MADE AWARE. NEW ORDERS FOR MICRO UA, WILL CARRY OUT ORDERS
[2016-11-13] VITALS: BP 100/61
--- NOTE | 2016-11-13 | NUR ---
CHANGED PTS DRESSING, NO S/S OF DISTRESS NOTED
--- NOTE | 2016-11-13 02:30 | NUR ---
CHANGED PTS DRESSING NO S/S OF DISTRESS NOTED, NO REDNESS OR SWELLING
[2016-11-13] MEDS: HYDROmorphone PFS 2 MG/ML SYR IVP PRN ×2 (02:39→10:24)
[2016-11-13 02:47] LABS: APPEARANCE,URINE CLOUDY (CLEAR); BILIRUBIN,URINE NEGATIVE (NEGATIVE); BLOOD, URINE 3+ (NEGATIVE); COLOR,URINE RED (YELLOW); LEUKOCYTE ESTERASE ,URINE NEGATIVE (NEGATIVE); NITRITE, URINE NEGATIVE (NEGATIVE); PH,URINE 7.5 (5.0-9.0); UGLUCOSE NEGATIVE (NEGATIVE)
[2016-11-13] MEDS: PIPER/TAZO 3.375GM/D5W PREMIX 50 ML IV SCH ×3 (05:23→21:24)
[2016-11-13] MEDS: OCTREOTIDE ACETATE 100 MCG/ML VIAL SUBQ SCH ×3 (05:24→21:49)
[2016-11-13 05:33] LABS: RBC,URINE TOO NUMEROUS TO COUN /HPF (0-5); WBC,URINE 0-5 (RARE) /HPF (0-5)
[2016-11-13] MEDS: KETOROLAC 30 MG/ML VIAL IVP PRN ×2 (06:15→17:44)
--- NOTE | 2016-11-13 06:15 | NUR ---
PEGUERO CARE PROVIDED, PEGUERO PATENT AND INTACT. ANABELA AREA CLEANED AND KEPT DRY.
[2016-11-13] MEDS: BLOOD GLUCOSE MONITORING 1 DEV DEV MC SCH ×3 (06:27→18:42)
[2016-11-13] MEDS: INSULIN LISPRO SLIDING SCALE 100 UNITS/ML VIAL SUBQ PRN ×3 (06:29→18:45)
[2016-11-13 06:36] LABS: ANION GAP 7.4 (8-16); CARBON DIOXIDE 32.7 mmol/L (21-32); CREATININE 0.6 mg/dL (0.7-1.3); POTASSIUM 4.1 mmol/L (3.5-5.1)
[2016-11-13 06:48] LABS: MAGNESIUM 2.1 mg/dL (1.8-2.4); PHOSPHORUS 3.4 mg/dL (2.5-4.9)
--- NOTE | 2016-11-13 07:40 | NUR ---
endorsed plan of care to day nurse for continuity of care, pt in stable condition no s/s of distress noted.
--- NOTE | 2016-11-13 07:40 | NUR ---
RECEIVED PATIENT REPORT AT BEDSIDE. PATIENT AWAKE, ALERT AND ORIENTED. NO S/S OF DISTRESS NOTED. NO C/O PAIN. NGT IN PLACE ON LOW INTERMITTENT SUCTION. MODERATE AMOUNT DARK BROWN DRAINAGE NOTED. PICC LINE IN PLACE IN THE LEFT UPPER ARM WITH TPN INFUSING. ABD WOUND COVERED WITH DRESSING AND BINDER. NO DRAINAGE NOTED AT THIS TIME. PEGUERO CATHETER IN PLACE. BED LOWERED WITH CALL LIGHT WITHIN REACH. WILL CONTINUE TO MONITOR
[2016-11-13 08:00] VITALS: BP 93/62
[2016-11-13] MEDS: PANTOPRAZOLE 40 MG INJ VIAL IVP SCH (08:36)
--- NOTE | 2016-11-13 09:10 | NUR ---
PEGUERO CATHETER IN PLACE WITH PINK OUTPUT
--- NOTE | 2016-11-13 09:10 | NUR ---
WOUND DRESSING CHANGED. MODERATE AMOUNT OF LIGHT GREEN DRAINAGE NOTED. DRAINAGE HAS MILD ODOR. PACKING REMOVED. WOUND CLEANED WITH NS. NEW PACKING PLACED IN THE WOUND. WOUND COVERED WITH GAUZE AND ABD PAD. ABDOMINAL BINDER IN PLACE. PATIENT TOLERATED WELL
[2016-11-13 10:22] VITALS: BP 100/61
--- NOTE | 2016-11-13 11:23 | NUR ---
FAXED CONCURRENT REVIEW TO [facility] [phone] PHONE [phone] [place]afar [id number]
--- NOTE | 2016-11-13 12:30 | NUR ---
WOUND DRESSING CHANGED WITH WOUND CARE NURSE JASS. WOUND DRESSING SATURATED WITH DARK GREEN DISCHARGE. MILD ODOR NOTED. WOUND CLEANSED WITH NS THEN PACKED WITH GAUZE. WOUND COVERED WITH ABD PAD. NEW ABDOMINAL BINDER APPLIED. WOUND CULTURE COLLECTED. DR CORREA NOTIFIED. PAGED DR AMES TO UPDATE HIM ABOUT THE STATUS OF THE WOUND. WAITING FOR CALL BACK
--- NOTE | 2016-11-13 13:05 | NUR ---
WOUND EVALUATION NOTE: REASON FOR WOUND EVALUATION: EXCESSIVE DRAINAGE FROM SURGICAL WOUND COMPLETE SKIN ASSESSMENT DONE ON THIS 51 Y/O MALE PATIENT FROM HOME TO [facility], WITH INITIAL DIAGNOSIS OF ABDOMINAL PAIN WITH NAUSEA, VOMITED. PAST MEDICAL HISTORY INCLUDE CHRONIC BACK PAIN AND HX OF SPINAL SURGERY. ALL ABOVE INFORMATION WAS OBTAINED FROM THE ADMISSION H&P. LABS 11/12/2016 ARE WBC 17.5, H/H 13.8/41.7, POC GLUCOSE 162, ALBUMIN 3.8. CURRENT MEDS INCLUDE FENTANYL, PIPERACILLIN, ENOXAPARIN AND HYDROMORPHONE. PATIENT IS AWAKE, ORIENTED TO PERSON, PLACE AND TIME. SKIN WARM TO TOUCH WNL, TOENAILS ARE SLIGHTLY THICKENED, NO EDEMA, BLE WITH HAIR GROWTH AND NORMAL PEDAL PULSES. NG TUBE IN PLACE WITH SUCTION CONTINUOUSLY, #16 FR F/C PATENT AND INTACT. TPN IN ORDERED ABLE TO FOLLOW COMMANDS AND ABLE TO MAKE HIS NEEDS KNOWS. ABLE TO TURN SELF WITHOUT ASSISTANCE. PLAN OF CARE AND PRESSURE PREVENTIVE MEASURES DISCUSSED WITH PT. AND PRIMARY RN. PT. AND ABLE TO VERBALIZE UNDERSTANDING. DR. CORREA IS HERE AT THE END OF EVALUATION AND AGREEABLE TO WOUND CARE WITH PACKING WITH DRY GAUZES AND COVER WITH ABD PAD AT THIS TIME. INTEGUMENTARY: MID ABDOMINAL- SURGICAL WOUND MULTIPLE DONYA IN PLACE, 20 CM IN LENGTH. QUESTIONABLE OF FISTULA. PER PRIMARY RN, FEW DONYA WERE REMOVED BY SURGEON FOR WOUND DRAINAGE PURPOSE. MODERATE AMOUNT OF BILE COLOR GREENISH DRAINAGE WITH NO ODOR AFTER WOUND IS CLEANED, WOUND CULTURE OBTAINED SACROCOCCYX - BLANCHABLE REDNESS AND MOIST RECOMMENDATIONS: -CLEANSE MID ABDOMEN SURGICAL SITE WITH NS. PAT DRY,PACK WOUND WITH DRY GAUZES, COVER WITH ABDOMEN PAD SECURE WITH TAPE BID WC AND PRN IF SOILING -CLEANSE SACROCOCCYX WITH SOAP AND WATER, PAT DRY , APPLY HYDRAGRAN BID WC AND LEAVE OPEN TO AIR -TURN AND REPOSITION PATIENT Q2H -ASSESS AND MONITOR SKIN CONDITION DURING POSITION CHANGE, PLEASE PAY ATTENTION TO SACROCOCCYX -OFFLOAD BILATERAL HEELS BY PLACING PILLOWS UNDER CALVES AT ALL TIMES, UNLESS OTHERWISE CONTRAINDICATED-KEEP -KEEP SKIN CLEAN AND DRY AT ALL TIMES. -PT. WAS INSTRUCTED TO HOLD ABDOMEN WHEN COUGH OR TURN/REPOSITION -CONTINUE TO FOLLOW RD RECOMMENDATION COMORBIDITIES FOR WOUND HEALING: INFECTION COMPLECTED MEDICAL /SURGICAL CONDITIONS HOB ELEVATED MAJORITY OF THE DAY FOR MEDICAL CONDITIONS RECOMMENDATIONS DISCUSSED WITH PRIMARY RN AND DR. CORREA WILL FOLLOW UP PATIENT Q 7-10 DAYS AND PRN. PLEASE CONTACT WOUND CARE NURSE FOR ANY QUESTIONS AND CHANGES IN WOUND CONDITION.
[2016-11-13] MEDS: OLANZapine 5 MG TAB GT SCH ×2 (14:05→17:19)
[2016-11-13] MEDS ORDERED: HYDRAGUARD CREAM TP PRN (14:40)
[2016-11-13] MEDS ORDERED: ABDOMINAL PAD TP PRN (14:40)
[2016-11-13 16:00] VITALS: BP 92/58
[2016-11-13] MEDS: buPROPion 100 MG TAB GT SCH (17:14)
--- NOTE | 2016-11-13 19:30 | NUR ---
RECEIVED REPORT FROM AM NURSE. PT FAMILY AT BEDSIDE. PT AOX4, UNABLE TO AMBULATE BUT ABLE TO TURN AND REPOSITION SELF, ABLE TO VERBALIZE NEEDS. PT DENIES CHEST PAIN, SOB OR S/S OF ACUTE DISTRESS. PT DENIES NAUSEA. NG TUBE TO LOW-INTERMITTENT SUCTION, DRAINING DARK GREEN FLUID. PEGUERO CATH IN PLACE, DRAINING CLEAR EMERITA URINE. MIDLINE ABD INCISION NOTED, MODERATE-LARGE GREEN DRAINAGE NOTED WITH MILD ODOR. DRESSING CHANGED, ABD BINDER IN PLACE. PICC LINE TO LEFT UPPER ARM, ASYMPTOMATIC PATENT AND INTACT. TPN ADMINISTERING WELL. IVF TKO INFUSING WELL. DISCUSSED AND REVIEWED PLAN OF CARE WITH PT. PT VERBALIZED UNDERSTANDING. ALL NEEDS MET. SAFETY MEASURES ENSURED. CALL LIGHT WITHIN REACH. WILL CONTINUE TO MONITOR.
--- NOTE | 2016-11-13 19:30 | NUR ---
PATIENT REPORT GIVEN AT BEDSIDE. PATIENT ENDORSED IN STABLE CONDITION. PATIENT'S IN THE ROOM
--- NOTE | 2016-11-13 19:50 | NUR ---
DR AMES AT BEDSIDE TO DISCUSS PT PLAN OF CARE.
[2016-11-13 20:00] VITALS: BP 104/68
[2016-11-13] MEDS: MULTIVITAMIN IV SCH ×5 (21:20)
[2016-11-13] MEDS: DEXTROSE 50% IV SCH ×5 (21:20)
[2016-11-13] MEDS: [UNRECOGNIZED DRUG - OTHER] IV SCH ×5 (21:20)
[2016-11-13] MEDS: INSULIN HUMAN REGULAR IV SCH ×5 (21:20)
[2016-11-13] MEDS: ACETAMINOPHEN 325 MG TAB PO PRN (21:21)
[2016-11-13] MEDS: ZOLPIDEM 10 MG TAB GT SCH (21:23)
[2016-11-13] MEDS: traZODone 50 MG TAB GT SCH (21:23)
[2016-11-13] MEDS: DOCUSATE 100 MG/10 ML UDC GT SCH (21:24)
[2016-11-13] MEDS: ENOXAPARIN 30 MG/0.3 ML SYR SUBQ SCH (21:26)
--- NOTE | 2016-11-13 21:50 | NUR ---
NG TUBE PLACEMENT VERIFIED. ADMINISTERED DUE MEDICATIONS WITH EDUCATION. PT TOLERATED WELL. PT DENIES NAUSEA. NGT SUCTION PAUSED, WILL CONTINUE SUCTION AFTER 1 HOUR. WOUND CARE PERFORMED ORDERED. MODERATE GREEN DRAINAGE NOTED. ABD DRESSING CLEAN DRY AND INTACT, ABD BINDER IN PLACE. PEGUERO CATH DISCONTINUED ORDERED, 950ML EMERITA URINE OUTPUT. ASSISTED PT TO TURN AND REPOSITION SELF, OFFLOADED PRESSURE AREAS. PT TOLERATED WELL. TPN ADMINISTERING WELL. IVPB INFUSING WELL. ALL NEEDS MET. SAFETY MEASURES ENSURED. CALL LIGHT WITHIN REACH. WILL CONTINUE TO MONITOR.
[2016-11-14] VITALS: BP 96/56
[2016-11-14] MEDS: BLOOD GLUCOSE MONITORING 1 DEV DEV MC SCH ×4 (00:04→17:38)
[2016-11-14] MEDS: INSULIN LISPRO SLIDING SCALE 100 UNITS/ML VIAL SUBQ PRN ×4 (00:06→17:43)
[2016-11-14] MEDS: ABDOMINAL PAD TP SCH ×2 (00:10→13:35)
[2016-11-14] MEDS: HYDRAGUARD CREAM TP SCH ×2 (00:10→13:36)
[2016-11-14] MEDS: KETOROLAC 30 MG/ML VIAL IVP PRN ×4 (00:10→19:09)
--- NOTE | 2016-11-14 00:15 | NUR ---
PT C/O PAIN. SEE PAIN ASSESSMENT. ADMINISTERED TORADOL IVP PRN WITH EDUCATION ORDERED. INSULIN COVERAGE ADMINISTERED. WOUND CARE PERFORMED ORDERED. HYDRAGUARD APPLIED TO SACRUM. DRESSING CHANGED, ABD BINDER IN PLACE. ASSISTED PT TO TURN AND REPOSITION SELF, OFFLOADED PRESSURE AREAS. PT TOLERATED WELL.
--- NOTE | 2016-11-14 04:10 | NUR ---
WOUND CARE PERFORMED ORDERED DUE TO SOILAGE. DRESSING TO ABD CHANGED, ABD BINDER IN PLACE. ASSISTED PT TO TURN AND REPOSITION, OFFLOADED PRESSURE AREAS. PT TOLERATED WELL. ALL NEEDS MET. TPN ADMINISTERING WELL, IVF TKO. NGT TO LOW-INTERMITTENT SUCTION. SAFETY MEASURES ENSURED. CALL LIGHT WITHIN REACH. WILL CONTINUE TO MONITOR.
[2016-11-14] MEDS: PIPER/TAZO 3.375GM/D5W PREMIX 50 ML IV SCH ×3 (05:23→21:10)
[2016-11-14] MEDS: OCTREOTIDE ACETATE 100 MCG/ML VIAL SUBQ SCH ×3 (05:27→21:41)
--- NOTE | 2016-11-14 05:35 | NUR ---
ADMINISTERED DUE MEDS WITH EDUCATION. INSULIN COVERAGE ADMINISTERED WITH EDUCATION. PT VERBALIZED UNDERSTANDING. PT TOLERATED MEDS WELL. ALL NEEDS MET. IVPB INFUSING WELL. SAFETY MEASURES ENSURED. CALL LIGHT WITHIN REACH. WILL CONTINUE TO MONITOR.
--- NOTE | 2016-11-14 07:15 | NUR ---
ENDORSED PLAN OF CARE TO AM NURSE. CONDITION STABLE.
--- NOTE | 2016-11-14 07:16 | NUR ---
RECEIVED REPORT FROM STEAM PLANT RECORDS CLERK NURSE. PATIENT LYING IN BED COMFORTABLY. NO ACUTE DISTRESS NOTED. IN STABLE CONDITION. NO COMPLAINTS OF PAIN OR DISCOMFORT AT THIS TIME. AAOX4, RESPIRATORY EVEN, UNLABORED, NGTUBE IN PLACE WITH LOW INTERMITTENT SUCTION RUNNING. ABDOMINAL WOUND DRESSINGS IN PLACE. LEFT UA PICC LINE INTACT, PATENT WITH TPN RUNNING. PLAN OF CARE REVIEWED, SAFETY MEASURES IN PLACE, BED RAILS UP X2, BED WHEELS LOCKED, CALL LIGHT WITHIN REACH. WILL CONTINUE TO MONITOR
[2016-11-14 07:27] LABS: CREATININE 0.9 mg/dL (0.7-1.3)
[2016-11-14 07:34] LABS: POTASSIUM 4.4 mmol/L (3.5-5.1)
[2016-11-14 07:36] LABS: CARBON DIOXIDE 35.4 mmol/L (21-32)
[2016-11-14 07:58] LABS: MAGNESIUM 2.2 mg/dL (1.8-2.4); PHOSPHORUS 3.7 mg/dL (2.5-4.9)
[2016-11-14 08:00] VITALS: BP 85/56
--- NOTE | 2016-11-14 08:00 | NUR ---
PATIENT LYING IN BED. NO DISTRESS NOTED. V/S TAKEN, INITIAL BP 85/56, PULSE:76, RETAKE BP:84/50, PULSE: 81. PATIENT AAOX4, SPEAKS CLEARLY, DENIES ANY DIZZINESS AND LIGHTHEADEDNESS. DRESSING CLEAN, DRY, INTACT, MINIMAL DRAINAGE. ABDOMEN SOFT, NO DISTENTION NOTED. DR. CORREA PAGED REGARDING LOW BP. AWAITING CALL BACK. WILL CONTINUE TO MONITOR.
[2016-11-14 08:15] VITALS: BP 84/50
--- NOTE | 2016-11-14 09:00 | NUR ---
DR. JIMENEZ SALESPERSON TERRAZZO TILES FOR DR. CORREA. DR. JIMENEZ MADE AWARE OF PATIENT'S LOW BP READINGS. DR. JIMENEZ TO SEE PATIENT.
[2016-11-14] MEDS: DOCUSATE 100 MG/10 ML UDC GT SCH ×2 (09:23→20:24)
[2016-11-14] MEDS: PANTOPRAZOLE 40 MG INJ VIAL IVP SCH (09:24)
[2016-11-14] MEDS: OLANZapine 5 MG TAB GT SCH ×3 (09:24→16:28)
[2016-11-14] MEDS: DULoxetine 30 MG CAPDR PO SCH (09:24)
[2016-11-14] MEDS: traZODone 50 MG TAB GT SCH ×2 (09:25→20:25)
--- NOTE | 2016-11-14 10:00 | NUR ---
NS 500 ML BOLUS ORDERED BY DR. JIMENEZ FOR LOW BP GIVEN TO PATIENT. PATIENT SITTING IN BED, NO S/S OF DISTRESS NOTED. RESPIRATIONS EVEN, UNLABORED. DENIES ANY DIZZINESS AND LIGHTHEADEDNESS. WILL RECHECK VITAL SIGNS ONCE BOLUS COMPLETES. MEDICATIONS DUE GIVEN. SAFETY MEASURES IN PLACE, CALL LIGHT WITHIN REACH. WILL CONTINUE TO MONITOR.
[2016-11-14 12:00] VITALS: BP 99/61
--- NOTE | 2016-11-14 12:36 | NUR ---
11/14/16 RD FOLLOW UP COMPLETED PLEASE REFER TO NUTRITION PROGRESS NOTES UNDER CARE ACTIVITY FOR ESTIMATED NUTRITIONAL NEEDS. RD RECOMMENDATIONS: 1. CONTINUE PARENTERAL NUTRITION SUPPORT - D7.5%, 4.25% AA AT 100 ML/HR + 200 ML 10% LIPID INFUSION (OR PER PHARMACY RECOMMENDATIONS) 2. RD TO FOLLOW-UP WITHIN 2-3 DAYS, HIGH RISK SASKIA BOOKER MBA, RD
--- NOTE | 2016-11-14 13:00 | NUR ---
PATIENT LYING IN BED. NO DISTRESS NOTED. RESPIRATIONS EVEN, UNLABORED. COMPLAINTS OF ABD PAIN, WILL MEDICATE ORDERS. NGTUBE PATENT WITH LOW INTERMITTENT SUCTION WORKING. MEDICATIONS DUE GIVEN. NG TUBE LOW INTERMITTENT-SUCTION TURNED OFF FOR NOW DUE TO MEDICATIONS. WILL TURN BACK ON IN 1 HOUR. ABD MIDLINE WOUND LARGE AMOUNTS OF GREENISH DRAINAGE WITH MILD ODOR NOTED. NON-BLANCHABLE REDNESS NOTED ON INCISION SITE, DONYA/SUTURES INTACT. PERFORMED WOUND DRESSING CHANGE FOLLOWS: REMOVED OLD DRESSINGS, CLEANSED WOUND WITH NS, PAT DRIED, PACKED WITH 4X4 GAUZE, COVERED WITH GAUZE, COVERED WITH ABDOMINAL PAD, AND SECURED WITH ABDOMINAL BINDER. PATIENT TOLERATED PROCEDURE WELL. TURNED PATIENT AND APPLIED CREAM ON SACRO/COCCYX AREA DUE TO REDNESS NOTED IN THE AREA. SAFETY MEASURES IN PLACE, CALL LIGHT WITHIN REACH. WILL CONTINUE TO MONITOR
[2016-11-14] MEDS ORDERED: NACL 0.9% 500 ML IV SCH (14:00)
--- NOTE | 2016-11-14 15:39 | NUR ---
PATIENT LYING IN BED COMFORTABLY WITH FAMILY MEMBERS AT BEDSIDE. NO DISTRESS NOTED. DENIES ANY PAIN NOR ANY DISCOMFORTS AT THIS TIME. [place] TPN INFUSING, NGTUBE SUCTION ON LOW-INTERMITTENT WITH BROWNISH/YELLOW DRAINAGE. SAFETY MEASURES IN PLACE, CALL LIGHT WITHIN REACH. WILL CONTINUE TO MONITOR.
[2016-11-14 16:00] VITALS: BP 94/58
[2016-11-14] MEDS: ACETAMINOPHEN 325 MG TAB PO PRN (16:28)
[2016-11-14] MEDS: buPROPion 100 MG TAB GT SCH (16:28)
--- NOTE | 2016-11-14 16:40 | NUR ---
PATIENT SITTING IN BED WITH FAMILY AT BEDSIDE. NO DISTRESS NOTED. RESPIRATIONS EVEN, UNLABORED. COMPLAINTS OF 6/10 ABD PAIN, MEDICATED WITH TYLENOL. MEDICATIONS DUE GIVEN. NG TUBE LOW-INTERMITTENT SUCTION STOPPED DUE TO MEDICATION ADMINISTRATION, WILL TURN BACK ON IN 1 HR. DRESSING DRAINAGE AMOUNT MODERATE, GREENISH WITH MILD ODOR. PERFORMED DRESSING CHANGE PER ORDERS: REMOVED OLD DRESSINGS, CLEANSED WITH NS, PAT DRY, PACKED WITH 4X4 GAUZE, COVERED WITH GAUZE, COVERED WITH ABD PAD, AND SECURED WITH ABD BINDER. PATIENT TOLERATED PROCEDURE WELL. NO BM REPORTED BY PATIENT. PATIENT HAS URINATED X2 TODAY VIA URINAL. SAFETY MEASURES IN PLACE, CALL LIGHT WITHIN REACH. WILL CONTINUE TO MONITOR.
--- NOTE | 2016-11-14 18:00 | NUR ---
PATIENT LYING IN BED SLEEPING. AT BEDSIDE. NO DISTRESS NOTED. RESPIRATIONS EVEN, UNLABORED. LEFT AC PICC LINE PATENT, TPN INFUSING. NGTUBE LOW-INTERMITTENT SUCTION IS RUNNING. SAFETY MEASURES IN PLACE, CALL LIGHT WITHIN REACH. WILL CONTINUE TO MONITOR.
--- NOTE | 2016-11-14 19:26 | NUR ---
TORADOL GIVEN AT THIS TIME FOR PAIN, REPORT GIVEN TO PRINTED [employer]ARD DRAFTER NURSE, PT IN STABLE CONDITION.
--- NOTE | 2016-11-14 19:49 | NUR ---
DR AMES PAGED AND CALLED BACK. NOTIFIED OF STOOL LIKE DRAINAGE FROM DEHISCED INCISION. WILL HOLD WOUND VAC FOR NOW AND HAVE WOUND CARE NURSE TO REEVALUATE ON WEDNESDAY. WILL CONTINUE WET TO DRY PACKING AT THIS TIME. DISCUSSED PLAN OF CARE WITH PATIENT.
--- NOTE | 2016-11-14 19:50 | NUR ---
PATIENT IS CURRENTLY AWAKE ALERT ORIENTED SPEAKS MOSTLY [place] CONTINUES TO HAVE NGT CONNECTED TO LOW INTERMITTENT SUCTION AND HAS PICC LINE TO RT UPPER ARM WITH TPN INFUSING.ABDOMINAL INCISION WAS PACKED WITH WET TO DRY DRESSINGS AND IS WEARING AN ABD BINDER FOR SUPPORT PLACED BY MORNING SHIFT NURSE.I WILL CONTINUE TO ASSESS FOR DRAINAGE AND SOILED DRESSINGS AND WILL CHANGE DRESSING NEEDED. PATIENT AND ARE AWARE OF CURRENT PLAN OF CARE.VS TAKEN AND PATIENT REMAINS ASYMPTOMATIC.CALL LIGHT WITHIN REACH.
[2016-11-14 20:00] VITALS: BP 95/54
--- NOTE | 2016-11-14 20:00 | NUR ---
Patient's Plan of Care was discussed and reviewed with MANAGER LEASING: ISIDORO WYNN
--- NOTE | 2016-11-14 20:00 | NUR ---
PATIENT IS CURRENTLY RESTING IN A WOUND BED MATTRESS AND PATIENT HAS BEEN EDUCATED TO TURN AND REPOSITION PATIENT VERBALIZES UNDERSTANDING WILL ASSIST WITH REPOSITIONING.PATIENT IS ALSO ON FALL PRECAUTIONS AND IS CURRENTLY WEARING HIS YELLOW SOCKS AND HE IS ALSO WEARING HIS SCD'S TO BOTH LOWER LEGS.CALL LIGHT WITHIN REACH WILL CONTINUE TO MONITOR.
--- NOTE | 2016-11-14 20:24 | NUR ---
COLACE HELD PER PATIENT AND . STATES,"PATIENT HAS NOT BEEN EATING OR DRINKING ANYTHING WHY DOES HE NEED A STOOL SOFTENER WHEN HE DOESN'T HAVE ANYTHING IN HIS STOMACH. MY WAS TAKING COLACE STOOL SOFTENER AT HOME BUT HE WAS EATING AT HOME." "I WOULD LIKE TO TALK TO THE DOCTOR PERSONALLY AND ASK HIM WHY HE STILL WANTS HIM TO GET STOOL SOFTENER I DON'T WANT MY TO GET THE STOOL SOFTENER TONIGHT UNTIL I TALK TO THE DOCTOR FIRST, MAYBE IT CAN BE CHANGED TO NEEDED INSTEAD OF ROUTINE.I THINK HE JUST CONTINUED THE SAME MEDICATION HE WAS TAKING AT HOME."PATIENT VERBALIZES UNDERSTANDING AND KNOWS WHAT THE STOOL SOFTENER IS FOR BUT HE REFUSED TO TAKE THE PILL FOR TONIGHT.
[2016-11-14] MEDS: INSULIN HUMAN REGULAR IV SCH ×5 (20:25)
[2016-11-14] MEDS: [UNRECOGNIZED DRUG - OTHER] IV SCH ×5 (20:25)
[2016-11-14] MEDS: MULTIVITAMIN IV SCH ×5 (20:25)
[2016-11-14] MEDS: ZOLPIDEM 10 MG TAB GT SCH (20:25)
[2016-11-14] MEDS: DEXTROSE 50% IV SCH ×5 (20:25)
[2016-11-14] MEDS: ENOXAPARIN 30 MG/0.3 ML SYR SUBQ SCH (20:38)
--- NOTE | 2016-11-14 20:38 | NUR ---
PATIENT IS CURRENTLY RESTING IN BED DRESSING TO ABDOMEN SOILED WITH DARK GREEN DRAINAGE NO FOUL SMELL NOTED.I REMOVED THE DRESSINGS AND I CLEANED THE AREA AROUND THE INCISION WITH NORMAL SALINE GREENISH DRAINAGE NOTED TO INCISION SITE SO THEN I CLEANED IT WELL AND THEN I REAPPLIED ANOTHER WET TO DRY DRESSING AND COVERED THE DRESSING WITH ABD BINDER.PATIENT NGTUBE CONNECTED TO LOW INTERMITTENT SUCTION.WILL CONTINUE TO MONITOR.
[2016-11-14] MEDS ORDERED: OCTREOTIDE ACETATE 1000 MCG/5 ML VIAL ONE (21:30)
--- NOTE | 2016-11-14 23:00 | NUR ---
PATIENT IS CURRENTLY RESTING IN BED NEEDS MET.WILL CONTINUE TO MONITOR.
[2016-11-15] MEDS: BLOOD GLUCOSE MONITORING 1 DEV DEV MC SCH ×4 (00:30→17:21)
--- NOTE | 2016-11-15 00:53 | NUR ---
PATIENT IS CURRENTLY RESTING IN BED AT THIS TIME DRESSING TO ABDOMEN WAS CHANGED DRESSING IS SOILED MODERATELY WITH DARK GREENISH DRAINAGE.SOILED DRESSING WAS REMOVED AND INSICION SITE WAS CLEANED WITH NORMAL SALINE AND A NEW WET TO DRY DRESSING APPLIED AND COVERED AND ABD BINDER CONTINUES TO BE IN PLACE.PILLOWS PLACED UNDER BOTH ARMS AND UNDER BOTH LEGS PATIENT DOESN'T WANT THE SCD'S AT THIS TIME.EDUCATION GIVEN ON THE IMPORTANCE OF WEARING SCD'S FOR DVT PROPHALAXIS AND EDUCATION GIVEN ON REPOSITIONING TO PREVENT BED SORES PATIENT VERBALIZES UNDERSTANDING.
[2016-11-15] MEDS: ABDOMINAL PAD TP SCH ×2 (01:04→13:00)
[2016-11-15] MEDS: HYDRAGUARD CREAM TP SCH ×2 (01:22→13:31)
--- NOTE | 2016-11-15 01:22 | NUR ---
BENTLEY ALSO CHECKED THE PATIENT WHILE I WAS APPLYING THE CREAM AND SHE CONTINUES TO CHECK ON THE PATIENT WELL.
--- NOTE | 2016-11-15 01:22 | NUR ---
HYDRAGUARD APPLIED INDICATED TO SACRALCOCCYX AREA SITE IS CURRENTLY NOT RED AND PATIENT ASSISTED TO TURN TO HIS RT SIDE AT THIS TIME.
--- NOTE | 2016-11-15 03:15 | NUR ---
PATIENT IS CURRENTLY SLEEPING SOMETIMES AWAKENS WITH A LITTLE FORGET FULLNESS IN BED NGT CONTINUES TO BE CONNECTED TO LOW SUCTION.DRESSING TO ABDOMEN REMAINS DRY AND INTACT AT THIS TIME AND PATIENT CONTINUES TO WEAR THE ABDOMEN BINDER. PATIENT CONTINUES TO BE ASSISTED TO TURN AND REPOSITION.PATIENT DENIES PAIN AND DISCOMFORT.CALL LIGHT WITHIN REACH.
--- NOTE | 2016-11-15 05:45 | NUR ---
PATIENT IS CURRENTLY RESTING IN BED DENIES PAIN, ABD DRESSING CHANGED MODERATELY SOILED WITH GREEN DRAINAGE.INCISION SITE CLEANED WITH NORMAL SALINE AND THEN COVERED AGAIN WITH WET TO DRY DRESSING.PATIENT TOLERATED PROCEDURE WELL.NEEDS MET CALL LIGHT WITHIN REACH CONTINUES TO WEAR SCD'S IN PLACE PATIENT CONTINUES TO TURN AND REPOSITION.WILL CONTINUE TO MONITOR.
[2016-11-15] MEDS: PIPER/TAZO 3.375GM/D5W PREMIX 50 ML IV SCH ×3 (05:57→20:44)
[2016-11-15] MEDS: KETOROLAC 30 MG/ML VIAL IVP PRN ×2 (06:02→15:46)
[2016-11-15] MEDS ORDERED: OCTREOTIDE ACETATE 1000 MCG/5 ML VIAL ONE (06:09)
[2016-11-15] MEDS: OCTREOTIDE ACETATE 100 MCG/ML VIAL SUBQ SCH ×3 (06:17→20:44)
[2016-11-15 07:06] LABS: BASOPHILS # (AUTO) 0.1 K/uL (0.00-0.22); EOSINOPHILS # (AUTO) 0.1 K/uL (0-0.4); EOSINOPHILS % (AUTO) 1.3 % (0.0-4.0); HEMATOCRIT 35.6 % (36-52); HEMOGLOBIN 11.9 g/dL (12.0-18.0); LYMPHOCYTES # (AUTO) 1.4 K/uL (2.0-11.5); LYMPHOCYTES % (AUTO) 14.1 % (20.5-51.1); MEAN CORPUSCULAR HEMOGLOBIN 28 pg (27-31); MEAN CORPUSCULAR HGB CONC 33 g/dL (33-37); MEAN CORPUSCULAR VOLUME 82 fL (80-94); MONOCYTES # (AUTO) 1.2 K/uL (0.8-1.0); NEUTROPHILS # (AUTO) 7.3 K/uL (1.8-7.7); NEUTROPHILS % (AUTO) 71.6 % (42.2-75.2); PLATELET COUNT (AUTO) 397 K/uL (140-450); RED BLOOD CELL COUNT(AUTO) 4.32 MIL/uL (4.20-6.10); RED CELL DISTRIBUTION WIDTH 11.8 % (11.6-13.7); WHITE BLOOD COUNT (AUTO) 10.1 K/uL (4.8-10.8)
[2016-11-15 07:17] LABS: ANION GAP 6.6 (8-16); CARBON DIOXIDE 32.9 mmol/L (21-32); CREATININE 0.8 mg/dL (0.7-1.3); POTASSIUM 4.5 mmol/L (3.5-5.1)
[2016-11-15 07:23] LABS: MAGNESIUM 2.1 mg/dL (1.8-2.4); PHOSPHORUS 3.5 mg/dL (2.5-4.9)
--- NOTE | 2016-11-15 07:34 | NUR ---
PATIENT STABLE REPORT ENDORSED TO MELVIN CAMPA AND MELVIN ADKINS. SHE WILL RESUME CARE OF THE PATIENT.
--- NOTE | 2016-11-15 07:35 | NUR ---
REPORT RECEIVED FROM BUTTON BREAKER NURSE, PT AWAKE ALERT, RESP EVEN UNLABORED ON ROOM AIR, SKIN WARM DRY COLOR WNL, PT VOICES NO PAIN OR DISCOMFORT, NGT TO LIS, GREEN DRAINAGE NOTED, DOUBLE LUMEN PICC TO LEFT UPPER ARM, TPN INFUSING AT 100ML/HR, SITE WNL, ABD DRESSING WITH SML AMT OF GREEN DRAINAGE, ABD FLAT, SOFT, NON DISTENDED, PLAN OF CARE DISCUSSED, PT VERBALIZED FULL UNDERSTANDING, CALL RYAN WITHIN REACH SIDE RAIL UPX2, BED LOCKED IN LOW POSITION, WILL CONTINUE TO MONITOR.
[2016-11-15 08:00] VITALS: BP 90/54
--- NOTE | 2016-11-15 08:20 | NUR ---
DR. JIMENEZ NOTIFIED VERBALLY REGARDING PATIENT'S LOW BP READING. AWAIT FURTHER ORDERS. WILL CONTINUE TO MONITOR
[2016-11-15] MEDS: DOCUSATE 100 MG/10 ML UDC GT SCH ×2 (09:00→20:43)
[2016-11-15] MEDS: NACL 0.9% 1,000 ML IV SCH ×3 (09:25→22:45)
[2016-11-15] MEDS: PANTOPRAZOLE 40 MG INJ VIAL IVP SCH (09:29)
[2016-11-15] MEDS: DULoxetine 30 MG CAPDR PO SCH (09:29)
[2016-11-15] MEDS: OLANZapine 5 MG TAB GT SCH ×3 (09:29→17:17)
[2016-11-15] MEDS: traZODone 50 MG TAB GT SCH ×2 (09:29→20:42)
--- NOTE | 2016-11-15 09:30 | NUR ---
DR JIMENEZ AT BED SIDE FOR EVAL, COLOSTOMY BAG APPLIED TO MID ABD SURGICAL WOUND PER DR JIMENEZ, WILL CONTINUE TO MONITOR.
[2016-11-15] MEDS: fentaNYL 0.075 MG/HR PATCH TD SCH (09:34)
--- NOTE | 2016-11-15 09:40 | NUR ---
PATIENT LYING IN BED. NO DISTRESS NOTED. RESPIRATIONS EVEN, UNLABORED. LEFT UPPER ARM PICC PATENT AND INFUSING, TPN INFUSING. MEDICATIONS DUE GIVEN, PATIENT TOLERATED WELL. NGTUBE INTACT, LOW INTERMITTENT SUCTION TURNED OFF AT THIS TIME DUE TO MEDICATIONS, WILL TURN BACK ON IN 1 HR. COLOSTOMY BAG ON ABD WOUND INTACT, DRAINING GREENISH FLUID WITH NO LEAKAGE. SAFETY MEASURES IN PLACE, CALL LIGHT WITHIN REACH, BED ALARM ON WILL CONTINUE TO MONITOR.
--- NOTE | 2016-11-15 13:00 | NUR ---
PATIENT LYING IN BED WITH FAMILY MEMBERS AT BEDSIDE. NO DISTRESS NOTED. RESPIRATIONS EVEN, UNLABORED. DENIES ANY PAIN OR DISCOMFORTS AT THIS TIME. DOUBLE LUMEN PICC LINE PATENT AND INFUSING WITH TPN AND NS. COLOSTOMY BAG OVER ABD WOUND INCISION INTACT, NO LEAKAGE, DRAINING GREENISH FLUID. 70 ML WOUND DRAINAGE INSIDE COLOSTOMY BAG EMPTIED. PATIENT TOLERATED PROCEDURE WELL. MEDICATIONS DUE GIVEN, NG TUBE LOW-INTERMITT SUCTION TURNED OFF AT THIS TIME DUE TO MEDICATIONS GIVEN, WILL TURN BACK ON IN 1 HR[address] SAFETY MEASURES IN PLACE, CALL LIGHT WITHIN REACH. WILL CONTINUE TO MONITOR.
--- NOTE | 2016-11-15 15:08 | NUR ---
BED BATH GIVEN, PERICARE DONE, BED LINEN CHANGED, PT JOSE WELL.
--- NOTE | 2016-11-15 15:30 | NUR ---
PATIENT LYING IN BED WITH FAMILY MEMBER AT BEDSIDE. NO DISTRESS NOTED. RESPIRATIONS EVEN, UNLABORED. PICC LINE ON [place] PATENT AND INFUSING, TPN INFUSING. NGTUBE LOW-INTERMITTENT SUCTION ON. ABD WOUND COLOSTOMY BAG INTACT AND COLLECTING GREENISH WOUND DRAINAGE WITHOUT ANY LEAKING NOTED. LEFT UPPER ARM PICC LINE DRESSING CHANGED PER PROTOCOL. PATIENT TOLERATED PROCEDURE WELL. SAFETY MEASURES IN PLACE, CALL LIGHT WITHIN REACH, BED ALARM ON. WILL CONTINUE TO MONITOR.
[2016-11-15] MEDS: buPROPion 100 MG TAB GT SCH (15:46)
[2016-11-15 16:00] VITALS: BP 106/62
--- NOTE | 2016-11-15 18:18 | NUR ---
PATIENT LYING IN BED WITH FAMILY MEMBERS AT BEDSIDE. NO ACUTE DISTRESS NOTED. RESPIRATIONS EVEN, UNLABORED. DRAINED ABD WOUND COLOSTOMY BAG DRAINAGE. TOTAL WOUND DRAINAGE FOR SHIFT IS 100 ML. SAFETY MEASURES IN PLACE, CALL LIGHT WITHIN REACH, BED ALARM ON. WILL CONTINUE TO MONITOR.
--- NOTE | 2016-11-15 19:10 | NUR ---
RECEIVED REPORT FROM AM NURSE. PATIENT LYING IN BED COMFORTABLY, AAOX4, IS AT THE BEDSIDE. NO SIGNS OF ACUTE DISTRESS NOTED. ROOM AIR. NO COMPLAINTS OF PAIN OR DISCOMFORT AT THIS TIME. RESPIRATORY EVEN AND UNLABORED. NG-TUBE IN PLACE WITH LOW INTERMITTENT SUCTION RUNNING. MID ABDOMINAL INCISION WITH DONYA, DRESSING IN PLACE IS DRY AND INTACT. COLOSTOMY BAG IN PLACE. LEFT UA PICC LINE INTACT, PATENT WITH TPN RUNNING. PLAN OF CARE DISCUSSED, PT VERBALIZED UNDERSTANDING. BED ON LOW POSITION, BILATERAL HALF SIDE RAILS UP, CALL LIGHT WITHIN REACH, WILL CONTINUE TO MONITOR.
[2016-11-15] MEDS: [UNRECOGNIZED DRUG - OTHER] IV SCH ×5 (20:41)
[2016-11-15] MEDS: DEXTROSE 50% IV SCH ×5 (20:41)
[2016-11-15] MEDS: MULTIVITAMIN IV SCH ×5 (20:41)
[2016-11-15] MEDS: INSULIN HUMAN REGULAR IV SCH ×5 (20:41)
[2016-11-15] MEDS: ZOLPIDEM 10 MG TAB GT SCH (20:42)
[2016-11-15] MEDS: ENOXAPARIN 30 MG/0.3 ML SYR SUBQ SCH (20:43)
--- NOTE | 2016-11-15 20:45 | NUR ---
PT REFUSED COLACE. RISKS AND BENEFITS EXPLAINED PT VERBALIZED UNDERSTANDING, MED STILL REFUSED.
[2016-11-16] VITALS: BP 93/62
[2016-11-16] MEDS: HYDRAGUARD CREAM TP SCH ×2 (01:57→13:00)
[2016-11-16] MEDS: ABDOMINAL PAD TP SCH ×2 (01:57→13:00)
--- NOTE | 2016-11-16 02:24 | NUR ---
PT DENIES ANY PAIN AT THIS TIME. NO SIGNS OF ACUTE DISTRESS. ABDOMINAL DRESSING IS DRY AN INTACT. PICC LINE IS PATENT AND INFUSING NS AND TPN. COLOSTOMY BAG OVER INCISIONAL WOUND EMPTIED WITH 50 ML OF GREENISH FLUID COLLECTED. HYDRAGUARD APPLIED TO SACRAL REGION, AND PT REPOSITIONED, PT TOLERATED WELL. BED ON LOW POSITION, BILATERAL HALF SIDE RAILS UP, CALL LIGHT WITHIN REACH, WILL CONTINUE TO MONITOR.
--- NOTE | 2016-11-16 04:04 | NUR ---
PT IS SLEEPING. PICC LINE PATENT AND ASYMPTOMATIC RUNNING TPN AND NS. NO SIGNS OF ACUTE DISTRESS, BED ON LOW POSITION, CALL LIGHT WITHIN REACH, BILATERAL HALF SIDE RAILS UP, WILL CONTINUE TO MONITOR.
[2016-11-16] MEDS: NACL 0.9% 1,000 ML IV SCH ×3 (05:25→17:01)
[2016-11-16] MEDS: PIPER/TAZO 3.375GM/D5W PREMIX 50 ML IV SCH ×3 (05:25→20:29)
[2016-11-16] MEDS: OCTREOTIDE ACETATE 100 MCG/ML VIAL SUBQ SCH ×3 (05:25→20:32)
[2016-11-16] MEDS: BLOOD GLUCOSE MONITORING 1 DEV DEV MC SCH ×4 (05:30→17:01)
[2016-11-16 05:58] LABS: BASOPHILS # (AUTO) 0.2 K/uL (0.00-0.22); BASOPHILS % (AUTO) 2.7 % (0.0-2.0); EOSINOPHILS # (AUTO) 0.2 K/uL (0-0.4); EOSINOPHILS % (AUTO) 2.3 % (0.0-4.0); HEMATOCRIT 33.8 % (36-52); HEMOGLOBIN 11.1 g/dL (12.0-18.0); LYMPHOCYTES # (AUTO) 1.8 K/uL (2.0-11.5); LYMPHOCYTES % (AUTO) 22.5 % (20.5-51.1); MEAN CORPUSCULAR HEMOGLOBIN 27 pg (27-31); MEAN CORPUSCULAR HGB CONC 33 g/dL (33-37); MEAN CORPUSCULAR VOLUME 83 fL (80-94); MONOCYTES % (AUTO) 12.6 % (1.7-9.3); NEUTROPHILS # (AUTO) 4.9 K/uL (1.8-7.7); NEUTROPHILS % (AUTO) 59.9 % (42.2-75.2); PLATELET COUNT (AUTO) 417 K/uL (140-450); RED CELL DISTRIBUTION WIDTH 12.4 % (11.6-13.7); WHITE BLOOD COUNT (AUTO) 8.1 K/uL (4.8-10.8)
[2016-11-16 06:22] LABS: ANION GAP 7.1 (8-16); CARBON DIOXIDE 28.4 mmol/L (21-32); CREATININE 0.6 mg/dL (0.7-1.3); POTASSIUM 4.5 mmol/L (3.5-5.1)
[2016-11-16 06:34] LABS: PHOSPHORUS 3.3 mg/dL (2.5-4.9)
--- NOTE | 2016-11-16 07:30 | NUR ---
ENDORSED PT TO AM NURSE FOR CONTINUITY OF CARE. PT IS STABLE.
--- NOTE | 2016-11-16 07:31 | NUR ---
RECEIVED BEDSIDE REPORT FROM MARKETING ROTATION ASSOCIATE NURSE. PT AWAKE AND ALERT, NO SIGNS OF ACUTE DISTRESS. BOWEL SOUNDS ACTIVE IN ALL 4 QUADRANTS. PT ON BEDREST. NG TUBE IN RIGHT NARE, ON LOW INTERMITTENT SUCTION. DOUBLE LUMEN PICC LINE ON UPPER LEFT ARM, WITH TPN AND IV FLUIDS INFUSING. COLOSTOMY BAG IN PLACE OVER ABDOMEN 20ML OUTPUT BROWN LIQUID DRAINAGE. PATIENT HAS PAIN LEVEL 6/10 IN ABDOMEN, DOES NOT WANT PAIN MEDICATION AT THIS TIME. RE-ORIENTED TO HOSPITAL AND TO UNIT, PT VERBALIZED UNDERSTANDING. BED IN LOW POSITION WITH BILATERAL HALF SIDE RAILS UP, CALL LIGHT WITHIN REACH. WILL CONTINUE TO MONITOR.
[2016-11-16 08:00] VITALS: BP 101/66
[2016-11-16] MEDS: traZODone 50 MG TAB GT SCH ×2 (08:54→20:29)
[2016-11-16] MEDS: OLANZapine 5 MG TAB GT SCH ×3 (08:54→16:41)
[2016-11-16] MEDS: DULoxetine 30 MG CAPDR PO SCH (08:54)
[2016-11-16] MEDS: PANTOPRAZOLE 40 MG INJ VIAL IVP SCH (08:54)
[2016-11-16] MEDS: DOCUSATE 100 MG/10 ML UDC GT SCH ×2 (08:55→20:42)
--- NOTE | 2016-11-16 09:15 | NUR ---
CHANGED NG TUBE CASE, PT TOLERATED PROCEDURE WELL. WILL CONTINUE TO MONITOR. PT ON INTERMITTENT, LOW SUCTION.
--- NOTE | 2016-11-16 09:30 | NUR ---
PHYSICAL THERAPY AT PATIENT BEDSIDE.
--- NOTE | 2016-11-16 10:05 | NUR ---
DR JIMENEZ AT PATIENT BEDSIDE.
--- NOTE | 2016-11-16 13:00 | NUR ---
DID NOT PACK MID ABDOMINAL WOUND, PATIENT HAS COLOSTOMY BAG DRAINING FROM WOUND. EMPTIED BAG, 50ML BROWN LIQUID DRAINAGE.
--- NOTE | 2016-11-16 13:12 | NUR ---
SPOKE WITH TREMAYNE FROM [facility] AND GAVE HIM INQUIRY FOR THIS PATIENT FOR DISCHARGE PLANNING TO SNF.
--- NOTE | 2016-11-16 13:22 | NUR ---
[facility] AT [phone]
--- NOTE | 2016-11-16 15:06 | NUR ---
FAXED CONCURRENT REVIEW TO [facility] [phone] PHONE [phone] X [phone], [facility] FAXED INQUIRY TO [facility]. RECEIVED CALL FROM BONIFACIO FROM [facility]. THEY HAVE ACCEPTED THE PATIENT RECEIVED A [place] FROM [place] [facility] [place] THE PATIENT BUT HE NEEDS A FEW HOURS NOTICE TO GET A SUCTION FOR THE NG.
--- NOTE | 2016-11-16 15:29 | NUR ---
SPOKE WITH DR KELLY REGARDING WOUND CULTURE SHOWING RESISTANCE TO ZOSYN. NO NEW ORDERS AT THIS TIME PER DR KELLY.
[2016-11-16 16:00] VITALS: BP 101/65
[2016-11-16] MEDS: buPROPion 100 MG TAB GT SCH (16:42)
--- NOTE | 2016-11-16 17:30 | NUR ---
PT RESTING COMFORTABLY IN BED, NGT OUTPUT 400ML, COLOSTOMY BAG OUTPUT 30ML. WILL CONTINUE TO MONITOR.
--- NOTE | 2016-11-16 19:20 | NUR ---
PT AWAKE AND ALERT, NO SIGNS OF ACUTE DISTRESS. ENDORSED TO WOOD POLISHER NURSE FOR CONTINUITY OF CARE.
--- NOTE | 2016-11-16 19:30 | NUR ---
RECEIVED REPORT FROM DAY RN. PATIENT RESTING IN BED, AWAKE ALERT ORIENTED X4. AT BEDSIDE. NG TUBE IN THE RT NARES, SUCTION IS SET FOR LOW- INTERMITTENT. COLOSTOMY BAG CLEAN AND INTACT. PICC LINE DOUBLE LUMEN PATENT AND INTACT, ONE INFUSING TPN AT 100ML/HR, THE SECOND ONE, INFUSING NS AT 150ML/HR. PLAN OF CARE DISCUSSED, PATIENT VERBALIZED UNDERSTANDING. CALL LIGHT WITHIN REACH, SAFETY MEASURE ENSURED, WILL CONTINUE TO MONITOR.
[2016-11-16] MEDS: ZOLPIDEM 10 MG TAB GT SCH (20:29)
[2016-11-16] MEDS: ENOXAPARIN 30 MG/0.3 ML SYR SUBQ SCH (20:31)
[2016-11-16] MEDS: [UNRECOGNIZED DRUG - OTHER] IV SCH ×5 (20:34)
[2016-11-16] MEDS: DEXTROSE 50% IV SCH ×5 (20:34)
[2016-11-16] MEDS: INSULIN HUMAN REGULAR IV SCH ×5 (20:34)
[2016-11-16] MEDS: MULTIVITAMIN IV SCH ×5 (20:34)
--- NOTE | 2016-11-16 20:43 | NUR ---
NEW BAG OF TPN STARTED, PM MEDICATION GIVEN BY THE STUDENT, THE INSTRUCTOR IS AT THE BEDSIDE WHEN THE STUDENT IS GIVING THE MEDICATION. PATIENT TOLERATED WELL. CALL LIGHT WITHIN REACH, WILL CONTINUE TO MONITOR.
--- NOTE | 2016-11-16 22:10 | NUR ---
PATIENT IS SLEEPING AT THIS TIME. NO S/S OF ACUTE DISTRESS NOTED, RESPIRATION EVEN AND UNLABORED, CALL LIGHT WITHIN REACH, SAFETY MEASURE ENSURED, WILL CONTINUE TO MONITOR.
[2016-11-17] VITALS: BP 91/58
--- NOTE | 2016-11-17 00:29 | NUR ---
BS 113, EMPTY 50ML DRAINAGE FROM COLOSTOMY BAG. HYDRAGUARD APPLIED TO THE SACRAL COCCYX AREA. PATIENT DENIES ANY DISCOMFORT AT THIS TIME. NO S/S OF ACUTE DISTRESS NOTED, RESPIRATION EVEN AND UNLABORED, CALL LIGHT WITHIN REACH, SAFETY MEASURE ENSURED, WILL CONTINUE TO MONITOR.
[2016-11-17] MEDS: BLOOD GLUCOSE MONITORING 1 DEV DEV MC SCH ×5 (00:32→23:33)
[2016-11-17] MEDS: HYDRAGUARD CREAM TP SCH ×2 (00:37→12:44)
[2016-11-17] MEDS: ABDOMINAL PAD TP SCH ×2 (00:40→12:36)
[2016-11-17] MEDS: NACL 0.9% 1,000 ML IV SCH ×4 (00:45→20:47)
--- NOTE | 2016-11-17 02:42 | NUR ---
PATIENT SLEEPING IN BED, EASY TO AROUSE, NO S/S OF ACUTE DISTRESS NOTED, RESPIRATION EVEN AND UNLABORED, PATIENT VOIDED X1, 600ML OUTPUT. DENIES ANY DISCOMFORT. CALL LIGHT WITHIN REACH, SAFETY MEASURE ENSURED, WILL CONTINUE TO MONITOR.
[2016-11-17] MEDS: PIPER/TAZO 3.375GM/D5W PREMIX 50 ML IV SCH ×2 (04:50→12:34)
[2016-11-17] MEDS: OCTREOTIDE ACETATE 100 MCG/ML VIAL SUBQ SCH ×3 (04:51→20:30)
--- NOTE | 2016-11-17 04:56 | NUR ---
AM MEDICATION GIVEN, PATIENT TOLERATED WELL. NO S/S OF ACUTE DISTRESS NOTED, RESPIRATION EVEN AND UNLABORED, WILL CONTINUE TO MONITOR.
[2016-11-17] MEDS: KETOROLAC 30 MG/ML VIAL IVP PRN (05:41)
[2016-11-17 05:55] LABS: BASOPHILS # (AUTO) 0.2 K/uL (0.00-0.22); BASOPHILS % (AUTO) 3.4 % (0.0-2.0); EOSINOPHILS # (AUTO) 0.2 K/uL (0-0.4); HEMATOCRIT 34.7 % (36-52); HEMOGLOBIN 11.5 g/dL (12.0-18.0); LYMPHOCYTES # (AUTO) 1.6 K/uL (2.0-11.5); LYMPHOCYTES % (AUTO) 21.5 % (20.5-51.1); MEAN CORPUSCULAR HEMOGLOBIN 27 pg (27-31); MEAN CORPUSCULAR HGB CONC 33 g/dL (33-37); MEAN CORPUSCULAR VOLUME 83 fL (80-94); MONOCYTES # (AUTO) 0.7 K/uL (0.8-1.0); MONOCYTES % (AUTO) 10.1 % (1.7-9.3); NEUTROPHILS # (AUTO) 4.6 K/uL (1.8-7.7); PLATELET COUNT (AUTO) 429 K/uL (140-450); RED CELL DISTRIBUTION WIDTH 12.3 % (11.6-13.7); WHITE BLOOD COUNT (AUTO) 7.3 K/uL (4.8-10.8)
--- NOTE | 2016-11-17 05:56 | NUR ---
100ML OUTPUT FROM COLOSTOMY BAG, ADMINISTERED TORADOL ORDERED BECAUSE PATIENT STATED PAIN 5/10 AROUND STOMACH. ALL NEEDS ATTENDED, CALL LIGHT WITHIN REACH, SAFETY MEASURE ENSURED, WILL CONTINUE TO MONITOR.
[2016-11-17 06:32] LABS: ANION GAP 9.7 (8-16); CARBON DIOXIDE 26.8 mmol/L (21-32); CREATININE 0.6 mg/dL (0.7-1.3); POTASSIUM 4.5 mmol/L (3.5-5.1)
[2016-11-17 06:36] LABS: MAGNESIUM 1.9 mg/dL (1.8-2.4); PHOSPHORUS 3.4 mg/dL (2.5-4.9)
--- NOTE | 2016-11-17 06:59 | NUR ---
PATIENT IS SLEEPING IN BED, NO S/S OF ACUTE DISTRESS NOTED, RESPIRATION EVEN AND UNLABORED, WILL CONTINUE TO MONITOR
--- NOTE | 2016-11-17 07:24 | NUR ---
ENDORSED PLAN OF CARE TO DAY RN. PATIENT IS IN STABLE CONDITION, NO S/S OF ACUTE DISTRESS, RESPIRATION EVEN AND UNLABORED.
--- NOTE | 2016-11-17 07:24 | NUR ---
RECEIVED REPORT FROM NIGHT NURSE, PT IS AAOX4 [place]GIAN SPEAKING, ON ROOM AIR, LEFT PICC LINE TO UPPER ARM DOUBLE LUMEN INFUSING NS AT 150, TPN AT 100, NG TUBE TO RIGHT NARE, ABD INCISION, COLOSTOMY BAG DRAINING GREEN/YELLOW FLUIDS. INITIAL ASSESSMENT COMPLETED, REVIEWED PLAN OF CARE WITH PT, PT VERBALIZED UNDERSTANDING, ALL SAFETY PRECAOUTIONS MET, CALL LIGHT WITHIN REACH. WILL CONTINUE TO MONITOR.
[2016-11-17 08:00] VITALS: BP 116/59
--- NOTE | 2016-11-17 08:30 | NUR ---
RE-EVALUATION OF ABDOMEN WOUND, COLOSTOMY BAG IN PLACE WITH ABOUT 100ML OF YELLOW/GREENISH FLUIDS AND STOOL LIKE MATERIAL, DONYA IN PLACE, WOUND SITE DRY AND CLEAN. MET DR. CORREA AT NURSING STATION AND INFORM THAT DR. JIMENEZ CONSULTATION YESTERDAY, ALSO INFORM DR. CORREA WOUND VAC. NOT RECOMMEND AT THIS TIME. CALL TO DR. AMES OFFICE MESSAGE LEFT TO NURSE TO CALL BACK.
[2016-11-17] MEDS: DOCUSATE 100 MG/10 ML UDC GT SCH ×2 (09:00→20:28)
[2016-11-17] MEDS: traZODone 50 MG TAB GT SCH ×2 (09:25→20:29)
[2016-11-17] MEDS: OLANZapine 5 MG TAB GT SCH ×3 (09:25→17:14)
[2016-11-17] MEDS: DULoxetine 30 MG CAPDR PO SCH (09:26)
[2016-11-17] MEDS: fentaNYL 0.075 MG/HR PATCH TD SCH (09:27)
[2016-11-17] MEDS: PANTOPRAZOLE 40 MG INJ VIAL IVP SCH (09:42)
--- NOTE | 2016-11-17 09:43 | NUR ---
DUE MEDICATIONS GIVEN, PT TOLERATED WELL, AT BEDSIDE. WILL CONTINUE TO MONITOR. DR. JIMENEZ IN TO SEE PT.
[2016-11-17] MEDS ORDERED: ONDA2SOL45 IVP (09:54)
[2016-11-17] MEDS ORDERED: [UNRECOGNIZED DRUG - CODE] SUBQ (09:54)
[2016-11-17] MEDS ORDERED: ACET-1182 PO (09:54)
[2016-11-17] MEDS ORDERED: PANT40PD7 IVP (09:54)
[2016-11-17] MEDS ORDERED: OLAN5TAB30 GT (09:54)
--- NOTE | 2016-11-17 09:55 | NUR ---
RECEIVED A CALL FROM ELVIN MOCTEZUMA FROM [facility]. INFORMED HER ABOUT LTAC EVAL. FAXED CONCURRENT REVIEW TO [facility] [phone] PHONE [phone] X [phone]
[2016-11-17] MEDS ORDERED: [UNRECOGNIZED DRUG - OTHER] IV SCH ×5 (10:16)
[2016-11-17] MEDS ORDERED: DEXTROSE 50% IV SCH ×5 (10:16)
[2016-11-17] MEDS ORDERED: INSULIN HUMAN REGULAR IV SCH ×5 (10:16)
[2016-11-17] MEDS ORDERED: MULTIVITAMIN IV SCH ×5 (10:16)
--- NOTE | 2016-11-17 10:50 | NUR ---
RECEIVED A CALL FROM ELVIN FROM [facility]. SHE SAID HER TELECOMMUNICATIONS CONSULTANT [facility]. I CALLED CHEO DIETZ AT [facility] AND FAXED THE FACE SHEET.
--- NOTE | 2016-11-17 12:03 | NUR ---
RECEIVED CALL FROM RADHA FROM [facility]. THEY CANNOT TAKE A PATIENT ON TPN.
--- NOTE | 2016-11-17 12:54 | NUR ---
DUE MEDICATIONS GIVEN, PT RESTING IN BED, AT BEDSIDE, NO S/S OF DISTRESS NOTED, CALL LIGHT WITHIN REACH. WILL CONTINUE TO MONITOR.
--- NOTE | 2016-11-17 13:04 | NUR ---
COLOSTOMY BAG CHANGED, EMPTIED 150ML OF GREEN DRAINAGE, ALL NEEDS MET, AT BEDSIDE, WILL CONTINUE TO MONITOR.
--- NOTE | 2016-11-17 13:10 | NUR ---
11/17/16 RD FOLLOW-UP ASSESSMENT COMPLETED 1. CONTINUE PARENTERAL NUTRITION SUPPORT - D10%, 4.25% AA AT 100 ML/HR + 200 ML 10% LIPID INFUSION (OR PER PHARMACY RECOMMENDATIONS) 2. RD TO FOLLOW-UP 2-3 DAYS, HIGH RISK JAMIE GANDARA, NICA
--- NOTE | 2016-11-17 14:43 | NUR ---
CHEO DIETZ HERE FROM [facility] TO EVAL PATIENT. RECEIVED A CALL FROM LISE, COORDINATOR FROM [facility]. THE AUTH FOR [facility] WILL BE [id number]. CHEO DIETZ AWARE. THE AUTH FOR [facility] IS [id number].
--- NOTE | 2016-11-17 15:03 | NUR ---
MEET WITH DR. POOL AT BEDSIDE AND EXPLAIN TO PT. AND FAMILY POTENTIAL RISK FOR WOUND VAC. APPLICATION SUCH UNEXPLORED FISTULA, POSSIBLE NECROTIC TISSUE, LOOK LIKE/SMELL LIKE STOOL MATERIAL MIX WITH DRAINAGE, ALSO UNRESOLVED SMALL BOWEL OBSTRUCTION. DOCTOR,PT AND AGREE AT THIS TIME TO CONTINUE TO OBSERVE, WILL CONTINUE TO MONITOR AND REPORT BACK TO YRN. COLOSTOMY BAG IN PLACE. PT EDUCATION GIVEN WITH PRIMARY RN TRANSLATE IN ESTONIAN THAT PT NEEDS TO INCREASE MOBILITY TO DECREASE RISK OF SKIN BREAKS. PT. VERBALIZES UNDERSTAND.
--- NOTE | 2016-11-17 15:31 | NUR ---
PHYSICAL THERAPY CO-SIGN The Physical Therapy Progress Notes documented by Dobby Loom Chain Pegger have been reviewed. Reviewed/Co-Signed by: Christiane Arias PT Documentation Done by:EDWIN JESUS PTA PROGRESS JOSE.; EMPHASIS ON SAFE SEQUENCING. Addendum: 11/17/16 at 1532 by Christiane Arias PT Amended: Links added.
--- NOTE | 2016-11-17 15:58 | NUR ---
RECEIVED A CALL FROM ELVIN FROM [facility]. SHE SAID THE GAVE THE AUTH FOR [facility] TO VASILIY AT [facility].
[2016-11-17 16:00] VITALS: BP 98/59
--- NOTE | 2016-11-17 16:01 | NUR ---
SPOKE WITH CHEO DIETZ. SHE DOES HAVE A BED FOR THIS PATIENT, DOUBLE ROOM. WILL GIVE ROOM NUMBER WHEN THEY GET AN ORDER. HERRERA CHARLESPRINCIPAL ARCHAEOLOGIST NURSE AWARE.
[2016-11-17] MEDS: buPROPion 100 MG TAB GT SCH (17:14)
--- NOTE | 2016-11-17 17:16 | NUR ---
DUE MEDICATION GIVEN VIA NG TUBE, PT TOLERATED WELL. AT BEDSIDE. NO S/S OF DISTRESS NOTED. CALL LIGHT WITHIN RAECH. WILL CONTINUE TO MONITOR.
[2016-11-17] MEDS ORDERED: CLINICAL MONITORING MC PRN (17:50)
--- NOTE | 2016-11-17 19:21 | NUR ---
ENDORSED PLAN OF CARE TO NIGHT NURSE, PT IN STABLE CONDITION, AT BEDSIDE.
--- NOTE | 2016-11-17 19:30 | NUR ---
RECEIVED REPORT FROM DAY RN. PATIENT RESTING IN BED, AWAKE ALERT ORIENTED X4. AT BEDSIDE. NG TUBE IN THE RT NARES, SUCTION IS SET FOR LOW- INTERMITTENT. COLOSTOMY BAG CLEAN AND INTACT, 50ML OUTPUT FROM THE COLOSTOMY BAG. PICC LINE DOUBLE LUMEN PATENT AND INTACT, ONE INFUSING TPN AT 100ML/HR, THE SECOND ONE, INFUSING NS AT 150ML/HR. PLAN OF CARE DISCUSSED, PATIENT VERBALIZED UNDERSTANDING. CALL LIGHT WITHIN REACH, SAFETY MEASURE ENSURED, WILL CONTINUE TO MONITOR.
[2016-11-17] MEDS: ZOLPIDEM 10 MG TAB GT SCH (20:29)
[2016-11-17] MEDS: metroNIDAZOLE 500 MG/NS PREMIX 100 ML IV SCH (20:30)
--- NOTE | 2016-11-17 20:30 | NUR ---
PM MEDICATION GIVEN, PATIENT TOLERATED WELL. NO S/S OF ACUTE DISTRESS NOTED, RESPIRATION EVEN AND UNLABORED, WILL CONTINUE TO MONITOR.
[2016-11-17] MEDS: ENOXAPARIN 30 MG/0.3 ML SYR SUBQ SCH (20:31)
--- NOTE | 2016-11-17 23:39 | NUR ---
VITAL SIGNS STABLES, BS 97. NO S/S OF ACUTE DISTRESS NOTED, RESPIRATION EVEN AND UNLABORED, WILL CONTINUE TO MONITOR.
[2016-11-18] VITALS: BP 97/61
[2016-11-18] MEDS: ABDOMINAL PAD TP SCH ×2 (01:26→13:00)
[2016-11-18] MEDS: HYDRAGUARD CREAM TP SCH ×2 (01:26→12:19)
--- NOTE | 2016-11-18 01:27 | NUR ---
HYDRAGUARD APPLIED, PATIENT RESTING IN BED NOW. RESPIRATION EVEN AND UNLABORED, CALL LIGHT WITHIN REACH, SAFETY MEASURE ENSURED, WILL CONTINUE TO MONITOR.
--- NOTE | 2016-11-18 03:45 | NUR ---
COLOSTOMY BAG CLEAN AND INTACT, EMPTIED 100ML OF GREENISH BROWN DRAINAGE, PATIENT TOLERATED WELL. WILL CONTINUE TO MONITOR.
[2016-11-18] MEDS: NACL 0.9% 1,000 ML IV SCH ×3 (04:58→12:07)
[2016-11-18] MEDS: OCTREOTIDE ACETATE 100 MCG/ML VIAL SUBQ SCH ×3 (05:20→20:10)
[2016-11-18] MEDS: metroNIDAZOLE 500 MG/NS PREMIX 100 ML IV SCH ×3 (05:20→20:31)
[2016-11-18] MEDS: BLOOD GLUCOSE MONITORING 1 DEV DEV MC SCH ×3 (05:39→18:06)
--- NOTE | 2016-11-18 05:41 | NUR ---
PATIENT IS SLEEPING, NO S/S OF ACUTE DISTRESS NOTED, RESPIRATION EVEN AND UNLABORED. WILL CONTINUE TO MONITOR.
[2016-11-18 05:52] LABS: BASOPHILS # (AUTO) 0.2 K/uL (0.00-0.22); BASOPHILS % (AUTO) 2.1 % (0.0-2.0); EOSINOPHILS # (AUTO) 0.2 K/uL (0-0.4); EOSINOPHILS % (AUTO) 2.4 % (0.0-4.0); HEMATOCRIT 35.4 % (36-52); HEMOGLOBIN 11.7 g/dL (12.0-18.0); LYMPHOCYTES # (AUTO) 1.9 K/uL (2.0-11.5); LYMPHOCYTES % (AUTO) 25.5 % (20.5-51.1); MEAN CORPUSCULAR HEMOGLOBIN 27 pg (27-31); MEAN CORPUSCULAR HGB CONC 33 g/dL (33-37); MEAN CORPUSCULAR VOLUME 82 fL (80-94); MONOCYTES # (AUTO) 0.7 K/uL (0.8-1.0); MONOCYTES % (AUTO) 9.8 % (1.7-9.3); NEUTROPHILS # (AUTO) 4.6 K/uL (1.8-7.7); NEUTROPHILS % (AUTO) 60.2 % (42.2-75.2); PLATELET COUNT (AUTO) 450 K/uL (140-450); RED BLOOD CELL COUNT(AUTO) 4.29 MIL/uL (4.20-6.10); RED CELL DISTRIBUTION WIDTH 12.3 % (11.6-13.7); WHITE BLOOD COUNT (AUTO) 7.6 K/uL (4.8-10.8)
[2016-11-18 06:09] LABS: ANION GAP 9.4 (8-16); CREATININE 0.6 mg/dL (0.7-1.3); POTASSIUM 4.4 mmol/L (3.5-5.1)
[2016-11-18 06:17] LABS: MAGNESIUM 1.9 mg/dL (1.8-2.4); PHOSPHORUS 3.5 mg/dL (2.5-4.9)
--- NOTE | 2016-11-18 07:41 | NUR ---
ENDORSED PLAN OF CARE TO DAY RN. PATIENT IS IN STABLE CONDITION, NO S/S OF ACUTE DISTRESS AND RESPIRATION EVEN AND UNLABORED.
--- NOTE | 2016-11-18 07:42 | NUR ---
RECEIVED PT FROM WIRE ROPE SALES REPRESENTATIVE NURSE AT BEDSIDE. PT IS A&OX4. PT HAS PICC LINE ON L UA DOUBLE LUMEN, RUNNING NS@150 AND TPN@100. PT HAS NG TUBE IN R NARE CONNECTED TO SUCTION ON LOW INTERMITTENT SUCTION. PT HAS AN ABD INCISION WITH A COLOSTOMY BAG OVER COLLECTING DRAINAGE, INTACT. PT HAS NO COMPLAINTS AT THIS TIME. CALL LIGHT WITHIN REACH. WILL CONTINUE TO MONITOR.
[2016-11-18 08:00] VITALS: BP 98/62
[2016-11-18] MEDS: DOCUSATE 100 MG/10 ML UDC GT SCH ×3 (08:34→20:57)
[2016-11-18] MEDS: OLANZapine 5 MG TAB GT SCH ×3 (08:35→16:31)
[2016-11-18] MEDS: DULoxetine 30 MG CAPDR PO SCH (08:36)
[2016-11-18] MEDS: traZODone 50 MG TAB GT SCH ×2 (08:36→20:08)
[2016-11-18] MEDS: PANTOPRAZOLE 40 MG INJ VIAL IVP SCH (08:36)
--- NOTE | 2016-11-18 09:00 | NUR ---
EMPTIED PT'S COLOSTOMY BAG. PT TOLERATED WELL. CALL LIGHT WITHIN REACH. WILL CONTINUE TO MONITOR.
--- NOTE | 2016-11-18 11:10 | NUR ---
PUT PT ON CONTACT PRECAUTION DUE TO MDRO. EDUCATED PT AND PT'S FAMILY AT BEDSIDE REGARDING CONTACT PRECAUTION AND BOTH VERBALIZED UNDERSTANDING. PT'S FAMILY PUT ON THE BLUE GOWN AND GLOVES. CALL LIGHT WITHIN REACH. WILL CONTINUE TO MONITOR.
[2016-11-18] MEDS ORDERED: ACETAMINOPHEN 650 MG/20.3 ML UDC GT PRN (11:43)
[2016-11-18] MEDS: INSULIN LISPRO SLIDING SCALE 100 UNITS/ML VIAL SUBQ PRN ×2 (13:07→17:30)
--- NOTE | 2016-11-18 13:30 | NUR ---
PT IS IN STABLE CONDITION. RESTING COMFORTABLY IN BED. CALL LIGHT WITHIN REACH. WILL CONTINUE TO MONITOR.
--- NOTE | 2016-11-18 15:30 | NUR ---
PT IN STABLE CONDITION. CALL LIGHT WITHIN REACH. WILL CONTINUE TO MONITOR.
[2016-11-18 16:00] VITALS: BP 116/70
[2016-11-18] MEDS: buPROPion 100 MG TAB GT SCH (16:31)
--- NOTE | 2016-11-18 17:30 | NUR ---
PT IS SLEEPING IN BED. NO DISTRESS NOTED. AT BEDSIDE. CALL LIGHT WITHIN REACH. WILL CONTINUE TO MONITOR.
--- NOTE | 2016-11-18 19:28 | NUR ---
ENDORSED CARE OF PT TO RADIO ELECTRONICS TECHNICIAN NURSE AT BEDSIDE. PT IN STABLE CONDITION.
[2016-11-18] MEDS: MULTIVITAMIN IV SCH ×5 (20:04)
[2016-11-18] MEDS: INSULIN HUMAN REGULAR IV SCH ×5 (20:04)
[2016-11-18] MEDS: [UNRECOGNIZED DRUG - OTHER] IV SCH ×5 (20:04)
[2016-11-18] MEDS: DEXTROSE 50% IV SCH ×5 (20:04)
[2016-11-18] MEDS: ZOLPIDEM 10 MG TAB GT SCH (20:07)
[2016-11-18] MEDS: ENOXAPARIN 30 MG/0.3 ML SYR SUBQ SCH (20:09)
--- NOTE | 2016-11-18 21:00 | NUR ---
COLACE NON ADMINISTERED BECAUSE PT REFUSED. STATED,"WHY IS MY GETTING THAT WHEN HE IS GETTING MEDICATION FOR DIARRHEA?" "I KEEP TELLING THE DOCTOR HE DOES NOT NEED THAT." PT STATED,"I DO NOT WANT THAT MEDICATION."
[2016-11-19] VITALS: BP 98/60
[2016-11-19] MEDS: NACL 0.9% 1,000 ML IV SCH ×4 (00:17→15:15)
[2016-11-19] MEDS: BLOOD GLUCOSE MONITORING 1 DEV DEV MC SCH ×4 (00:17→17:17)
[2016-11-19] MEDS: ABDOMINAL PAD TP SCH ×2 (00:54→12:17)
--- NOTE | 2016-11-19 00:55 | NUR ---
ABD PAD AND PACKING ORDERED IN [facility] NON ADMINISTERED BECAUSE PT NOW HAS COLOSTOMY BAG IN PLACE.
[2016-11-19] MEDS: HYDRAGUARD CREAM TP SCH ×2 (00:57→12:18)
--- NOTE | 2016-11-19 02:20 | NUR ---
EMPTIED COLOSTOMY BAG FOR PT, 250 MLS EMPTIED. COLOSTOMY BAG DRY AND INTACT, ALL SAFETY PRECAUTIONS MET
[2016-11-19] MEDS: OCTREOTIDE ACETATE 100 MCG/ML VIAL SUBQ SCH ×3 (04:58→21:06)
[2016-11-19] MEDS: metroNIDAZOLE 500 MG/NS PREMIX 100 ML IV SCH ×3 (04:58→21:06)
--- NOTE | 2016-11-19 06:00 | NUR ---
COLOSTOMY BAG CHANGED, NEW BAG IN PLACE, PT CLEANED WITH NS AND DRIED. ALL SAFETY PRECAUTIONS MET, CALL LIGHT WITHIN REACH.
--- NOTE | 2016-11-19 06:00 | NUR ---
COLOSTOMY BAG CHANGED, NEW BAG IN PLACE, PT CLEANED WITH NS AND DRIED. ALL SAFETY PRECAUTIONS MET, CALL LIGHT WITHIN REACH. Addendum: 11/19/16 at 0736 by Philip Rosa RN WRONG LOG IN
[2016-11-19 06:46] LABS: BASOPHILS # (AUTO) 0.1 K/uL (0.00-0.22); BASOPHILS % (AUTO) 1.8 % (0.0-2.0); EOSINOPHILS # (AUTO) 0.2 K/uL (0-0.4); EOSINOPHILS % (AUTO) 2.1 % (0.0-4.0); HEMATOCRIT 34.2 % (36-52); HEMOGLOBIN 11.7 g/dL (12.0-18.0); LYMPHOCYTES # (AUTO) 1.2 K/uL (2.0-11.5); LYMPHOCYTES % (AUTO) 16.5 % (20.5-51.1); MEAN CORPUSCULAR HEMOGLOBIN 28 pg (27-31); MEAN CORPUSCULAR HGB CONC 34 g/dL (33-37); MEAN CORPUSCULAR VOLUME 82 fL (80-94); MONOCYTES # (AUTO) 0.6 K/uL (0.8-1.0); MONOCYTES % (AUTO) 7.6 % (1.7-9.3); NEUTROPHILS # (AUTO) 5.4 K/uL (1.8-7.7); PLATELET COUNT (AUTO) 446 K/uL (140-450); RED CELL DISTRIBUTION WIDTH 11.9 % (11.6-13.7); WHITE BLOOD COUNT (AUTO) 7.5 K/uL (4.8-10.8)
[2016-11-19 07:20] LABS: ANION GAP 8.7 (8-16); CARBON DIOXIDE 28.7 mmol/L (21-32); CREATININE 0.6 mg/dL (0.7-1.3); POTASSIUM 4.4 mmol/L (3.5-5.1)
--- NOTE | 2016-11-19 07:35 | NUR ---
ENDORSED PLAN OF CARE TO AM NURSE AT BEDSIDE, PT IN STABLE CONDITION, NO S/S OF DISTRESS. Addendum: 11/19/16 at 1436 by Philip Rosa RN DIANA LOG IN
--- NOTE | 2016-11-19 07:36 | NUR ---
ENTRY FOR 11/17 MET WITH PT AND AT BEDSIDE AND INFORMED THEM THAT [facility] HAD AUTHORIZED LTAC LEVEL OF CARE. EXPLAINED TO THEM BOTH CRITERIA FOR LTAC AND THAT AT THIS TIME THE PHYSICIAN HAD REQUESTED LTAC PT STILL REQUIRES TO BE ON THE TPN TILL WOUND HAS HEALED ENOUGH FOR HIM TO HAVE ORAL FEEDINGS. THEY BOTH VOICED THEIR AGREEMENT TO MEET WITH THE [facility] LIAISON. SAID THAT PT HAS HAD SEVERAL SURGERIES IN THE PAST AND THAT THE PHYSICIAN HAS EXPLAINED TO HER THAT PT HAS MANY ADHESIONS AND SHE UNDERSTANDS THAT THE WOUND MAY TAKE SOME TIME TO HEAL. SAID THAT PT IS USUALLY INDEPENDENT AT HOME BUT WILL NEED MORE ASSISTANCE. DISCUSSED WITH HER THAT HIS DISCHARGE NEEDS WILL CONTINUE TO BE MONITORED AT THE LTAC IF ACCEPTED FOR ADMISSION FOR THE APPROPRIATE LEVEL OF CARE WHEN READY TO DISCHARGE.
--- NOTE | 2016-11-19 07:37 | NUR ---
ENDORSED PLAN OF CARE TO AM NURSE AT BEDSIDE, PT IN STABLE CONDITION, NO S/S OF DISTRESS.
--- NOTE | 2016-11-19 07:38 | NUR ---
RECEIVED PT FROM CULINARY INSTRUCTOR NURSE AT BEDSIDE. PT IS A&OX4. PT HAS PICC L UA DOUBLE LUMEN RUNNING NS@150 AND TPN@100. PT HAS NO COMPLAINTS AT THIS TIME. PT HAS NG TUBE CONNECTED LOW INTERMITTENT SUCTION. PT HAS COLOSTOMY BAG OVER ABD WOUND, INTACT. CALL LIGHT WITHIN REACH. WILL CONTINUE TO MONITOR.
[2016-11-19 08:00] VITALS: BP 98/65
[2016-11-19] MEDS: PANTOPRAZOLE 40 MG INJ VIAL IVP SCH (08:22)
[2016-11-19] MEDS: traZODone 50 MG TAB GT SCH ×2 (08:23→21:05)
[2016-11-19] MEDS: DULoxetine 30 MG CAPDR PO SCH (08:23)
[2016-11-19] MEDS: OLANZapine 5 MG TAB GT SCH ×3 (08:23→17:09)
[2016-11-19] MEDS: fentaNYL 0.075 MG/HR PATCH TD SCH (08:25)
[2016-11-19] MEDS: DOCUSATE 100 MG/10 ML UDC GT SCH ×2 (08:26→21:00)
[2016-11-19 08:39] LABS: MAGNESIUM 1.8 mg/dL (1.8-2.4); PHOSPHORUS 3.1 mg/dL (2.5-4.9)
--- NOTE | 2016-11-19 09:00 | NUR ---
RESOURCE NURSE CHANGED COLOSTOMY BAG DUE TO LEAKAGE. PT TOLERATED WELL. CALL LIGHT WITHIN REACH. WILL CONTINUE TO MONITOR.
--- NOTE | 2016-11-19 11:00 | NUR ---
EMPTIED COLOSTOMY BAG. PT TOLERATED WELL. CALL LIGHT WITHIN REACH. WILL CONTINUE TO MONITOR.
[2016-11-19] MEDS: INSULIN LISPRO SLIDING SCALE 100 UNITS/ML VIAL SUBQ PRN ×2 (12:17→17:21)
--- NOTE | 2016-11-19 13:00 | NUR ---
APPLIED HYDRAGUARD ORDERED. PT TOLERATED WELL. CALL LIGHT WITHIN REACH. WILL CONTINUE TO MONITOR.
--- NOTE | 2016-11-19 14:24 | NUR ---
CM NOTE CONCURRENT REVIEW FAXED TO [facility] / FAX# [phone], C: [phone]
--- NOTE | 2016-11-19 15:15 | NUR ---
NO COMPLAINTS AT THIS TIME. PT IN NO DISTRESS. CALL LIGHT WITHIN REACH. WILL CONTINUE TO MONITOR.
[2016-11-19 16:00] VITALS: BP 98/63
--- NOTE | 2016-11-19 17:00 | NUR ---
EMPTIED COLOSTOMY BAG. PT TOLERATED WELL. CALL LIGHT WITHIN REACH. WILL CONTINUE TO MONITOR.
[2016-11-19] MEDS: buPROPion 100 MG TAB GT SCH (17:08)
--- NOTE | 2016-11-19 19:25 | NUR ---
RECEIVED PT FROM AM NURSE. PT IS AAOX4, AT THE BEDSIDE. ON ROOM AIR, NO SIGNS OF ACUTE DISTRESS. PICC LINE ON [place] DOUBLE LUMEN, RUNNING NS@150 AND TPN@100. PT HAS NG TUBE CONNECTED TO SUCTION ON LOW INTERMITTENT. URINAL AT THE BEDSIDE. ABDOMINAL INCISION WITH COLOSTOMY BAG OVER COLLECTING DRAINAGE, INTACT. PT DENIES ANY PAIN AT THIS TIME. BED ON LOW POSITION, BILATERAL HALF SIDE RAILS UP, CALL LIGHT WITHIN REACH, WILL CONTINUE TO MONITOR.
--- NOTE | 2016-11-19 19:30 | NUR ---
ENDORSED CARE OF PT TO COFFEE BREWER NURSE AT BEDSIDE. PT IN STABLE CONDITION.
[2016-11-19 20:00] VITALS: BP 101/62
[2016-11-19] MEDS: MULTIVITAMIN IV SCH ×5 (20:53)
[2016-11-19] MEDS: [UNRECOGNIZED DRUG - OTHER] IV SCH ×5 (20:53)
[2016-11-19] MEDS: INSULIN HUMAN REGULAR IV SCH ×5 (20:53)
[2016-11-19] MEDS: DEXTROSE 50% IV SCH ×5 (20:53)
[2016-11-19] MEDS: ENOXAPARIN 30 MG/0.3 ML SYR SUBQ SCH (20:57)
[2016-11-19] MEDS: ZOLPIDEM 10 MG TAB GT SCH (21:04)
--- NOTE | 2016-11-19 21:07 | NUR ---
PT REFUSED COLACE MEDICATION DUE AT 2100. RISKS AND BENEFITS EXPLAINED, PT VERBALIZED UNDERSTANDING. PT STILL REFUSED COLACE MED.
[2016-11-20] VITALS: BP 93/60
[2016-11-20] MEDS: NACL 0.9% 1,000 ML IV SCH ×4 (00:38→23:50)
[2016-11-20] MEDS: BLOOD GLUCOSE MONITORING 1 DEV DEV MC SCH ×4 (00:45→17:28)
[2016-11-20] MEDS: INSULIN LISPRO SLIDING SCALE 100 UNITS/ML VIAL SUBQ PRN ×4 (00:49→21:35)
[2016-11-20] MEDS: ABDOMINAL PAD TP SCH ×2 (00:51→13:52)
[2016-11-20] MEDS: HYDRAGUARD CREAM TP SCH ×2 (01:00→13:52)
--- NOTE | 2016-11-20 02:50 | NUR ---
PT IS SLEEPING, EASY TO AROUSE. BED ON LOW POSITION, BILATERAL HALF SIDE RAILS UP, CALL LIGHT WITHIN REACH, WILL CONTINUE TO MONITOR.
[2016-11-20] MEDS: metroNIDAZOLE 500 MG/NS PREMIX 100 ML IV SCH ×3 (04:50→21:05)
[2016-11-20] MEDS: OCTREOTIDE ACETATE 100 MCG/ML VIAL SUBQ SCH ×3 (04:50→20:44)
[2016-11-20 06:17] LABS: BASOPHILS # (AUTO) 0.1 K/uL (0.00-0.22); BASOPHILS % (AUTO) 2.2 % (0.0-2.0); EOSINOPHILS # (AUTO) 0.2 K/uL (0-0.4); EOSINOPHILS % (AUTO) 3.3 % (0.0-4.0); HEMATOCRIT 33.2 % (36-52); HEMOGLOBIN 10.3 g/dL (12.0-18.0); LYMPHOCYTES # (AUTO) 1.4 K/uL (2.0-11.5); LYMPHOCYTES % (AUTO) 23.4 % (20.5-51.1); MEAN CORPUSCULAR HEMOGLOBIN 28 pg (27-31); MEAN CORPUSCULAR HGB CONC 31 g/dL (33-37); MEAN CORPUSCULAR VOLUME 91 fL (80-94); MONOCYTES # (AUTO) 0.5 K/uL (0.8-1.0); MONOCYTES % (AUTO) 7.7 % (1.7-9.3); NEUTROPHILS # (AUTO) 3.8 K/uL (1.8-7.7); NEUTROPHILS % (AUTO) 63.4 % (42.2-75.2); PLATELET COUNT (AUTO) 388 K/uL (140-450); RED BLOOD CELL COUNT(AUTO) 3.65 MIL/uL (4.20-6.10); RED CELL DISTRIBUTION WIDTH 13.3 % (11.6-13.7)
--- NOTE | 2016-11-20 06:25 | NUR ---
EMPTIED COLOSTOMY BAG, 100 ML OF GREEN DRAINAGE COLLECTED. COLOSTOMY BAG IS INTACT. PT TOLERATED WELL. BED ON LOW POSITION, BILATERAL HALF SIDE RAILS UP, CALL LIGHT WITHIN REACH, WILL CONTINUE TO MONITOR.
[2016-11-20 07:07] LABS: MAGNESIUM 3.1 mg/dL (1.8-2.4); PHOSPHORUS 4.8 mg/dL (2.5-4.9)
--- NOTE | 2016-11-20 07:30 | NUR ---
ENDORSED PT TO AM NURSE FOR CONTINUITY OF CARE. PT IS IN STABLE CONDITION.
--- NOTE | 2016-11-20 07:35 | NUR ---
RECEIVED REPORT FROM INSURANCE PREMIUM AUDITOR NURSE, PT IS RESTING IN BED, A/OX4, BEDREST, PT HAS PICC LINE ON LEFT UPPER ARM, DOUBLE LUMEN, PATENT, INTACT FLUSHING WELL, PT HAS NG TUBE IN RIGHT NARE, , PT HAS ALSO HAS A COLOSTOMY BAG ABOVE ABDOMINAL INCISION, NO OUTPUT AT THIS TIME, PT HAS SACRAL REDNESS, PT IS ON ROOM AIR, NO S/S OF RESPIRATORY DISTRESS OR DISCOMFORT NOTED, DISCUSSED PLAN OF CARE WITH PT, PT VERBALIZED UNDERSTANDING, SAFETY/FALL PRECAUTIONS ARE IN PLACE, CALL LIGHT IS WITHIN REACH, WILL CONTINUE TO MONITOR.
[2016-11-20] MEDS ORDERED: DOCUSATE SODIUM 100 MG GELCAP PO PRN (07:40)
[2016-11-20 08:00] VITALS: BP 95/61
[2016-11-20 08:48] LABS: ANION GAP 6.9 (8-16); CARBON DIOXIDE 29.9 mmol/L (21-32); CREATININE 0.6 mg/dL (0.7-1.3); POTASSIUM 4.8 mmol/L (3.5-5.1)
[2016-11-20] MEDS: PANTOPRAZOLE 40 MG INJ VIAL IVP SCH (09:13)
[2016-11-20] MEDS: DULoxetine 30 MG CAPDR PO SCH (09:14)
[2016-11-20] MEDS: OLANZapine 5 MG TAB GT SCH ×3 (09:14→17:15)
[2016-11-20] MEDS: traZODone 50 MG TAB GT SCH ×2 (09:14→20:44)
--- NOTE | 2016-11-20 13:48 | NUR ---
11/20/16 RD FOLLOW-UP ASSESSMENT COMPLETED PLEASE REFER TO NUTRITION ASSESSMENT UNDER CARE ACTIVITY FOR ESTIMATED NUTRITIONAL NEEDS. 1. CONTINUE PARENTERAL NUTRITION SUPPORT - D12.5, 4.25%AA AT 100 ML/HR + 200 ML 10% LIPID INFUSION 2. RD TO FOLLOW-UP 2-3 DAYS, HIGH RISK JAMIE GANDARA, NICA
[2016-11-20 16:00] VITALS: BP 100/58
--- NOTE | 2016-11-20 16:11 | NUR ---
FAXED CONCURRENT REVIEW TO [facility] [phone] PHONE [facility] [phone] [phone]
[2016-11-20] MEDS: buPROPion 100 MG TAB GT SCH (17:15)
--- NOTE | 2016-11-20 19:25 | NUR ---
ENDORSED PT TO HERBICIDE SPRAYER NURSE FOR CONTINUITY OF CARE, PT STABLE AT THIS TIME
--- NOTE | 2016-11-20 19:27 | NUR ---
RECEIVED HANDOFF REPORT FROM AM RN. PATIENT A&OX4. PATIENT DENIES PAIN. COLOSTOMY PATENT AND INTACT. NG TUBE PATENT AND INTACT. DRESSING DRY AND INTACT. PICC LINE PATENT AND INTACT. NO SIGNS OR SYMPTOMS OF ACUTE DISTRESS NOTED. AT BEDSIDE. CALL LIGHT WITHIN REACH. WILL CONTINUE TO MONITOR.
[2016-11-20] MEDS: ZOLPIDEM 10 MG TAB GT SCH (20:43)
[2016-11-20] MEDS: INSULIN HUMAN REGULAR IV SCH ×5 (21:16)
[2016-11-20] MEDS: MULTIVITAMIN IV SCH ×5 (21:16)
[2016-11-20] MEDS: [UNRECOGNIZED DRUG - OTHER] IV SCH ×5 (21:16)
[2016-11-20] MEDS: DEXTROSE 50% IV SCH ×5 (21:16)
[2016-11-20] MEDS: ENOXAPARIN 30 MG/0.3 ML SYR SUBQ SCH (21:17)
--- NOTE | 2016-11-20 21:30 | NUR ---
PM MEDS GIVEN WITH EDUCATION. PATIENT VERBALIZED UNDERSTANDING. PATIENT DENIES PAIN. AT BEDSIDE. NO SIGNS OR SYMPTOMS OF ACUTE DISTRESS NOTED. CALL LIGHT WITHIN REACH. WILL CONTINUE TO MONITOR.
[2016-11-21] VITALS: BP 90/61
[2016-11-21] MEDS: BLOOD GLUCOSE MONITORING 1 DEV DEV MC SCH ×4 (00:16→18:03)
[2016-11-21] MEDS: HYDRAGUARD CREAM TP SCH ×2 (00:20→13:26)
[2016-11-21] MEDS: ABDOMINAL PAD TP SCH ×2 (00:21→13:25)
--- NOTE | 2016-11-21 00:27 | NUR ---
PATIENT RESTING IN BED. PATIENT DENIES PAIN. NO SIGNS OR SYMPTOMS OF ACUTE DISTRESS NOTED. CALL LIGHT WITHIN REACH. WILL CONTINUE TO MONITOR.
[2016-11-21] MEDS: INSULIN LISPRO SLIDING SCALE 100 UNITS/ML VIAL SUBQ PRN ×4 (00:29→18:34)
--- NOTE | 2016-11-21 02:47 | NUR ---
PATIENT RESTING. PATIENT DENIES PAIN. NO SIGNS OR SYMPTOMS OF ACUTE DISTRESS NOTED. CALL LIGHT WITHIN REACH. WILL CONTINUE TO MONITOR.
[2016-11-21] MEDS: NACL 0.9% 1,000 ML IV SCH ×3 (05:25→18:54)
[2016-11-21] MEDS: metroNIDAZOLE 500 MG/NS PREMIX 100 ML IV SCH ×3 (05:29→21:02)
--- NOTE | 2016-11-21 05:40 | NUR ---
PATIENT RESTING IN BED. PATIENT DENIES PAIN. NO SIGNS OR SYMPTOMS OF ACUTE DISTRESS NOTED. CALL LIGHT WITHIN REACH. WILL CONTINUE TO MONITOR.
[2016-11-21] MEDS ORDERED: OCTREOTIDE ACETATE 1000 MCG/5 ML VIAL ONE ×2 (06:08→20:44)
[2016-11-21] MEDS: OCTREOTIDE ACETATE 100 MCG/ML VIAL SUBQ SCH ×3 (06:23→21:02)
[2016-11-21 06:29] LABS: BASOPHILS # (AUTO) 0.1 K/uL (0.00-0.22); BASOPHILS % (AUTO) 1.7 % (0.0-2.0); EOSINOPHILS # (AUTO) 0.1 K/uL (0-0.4); EOSINOPHILS % (AUTO) 1.6 % (0.0-4.0); HEMATOCRIT 31.4 % (36-52); HEMOGLOBIN 9.5 g/dL (12.0-18.0); LYMPHOCYTES % (AUTO) 17.9 % (20.5-51.1); MEAN CORPUSCULAR HEMOGLOBIN 30 pg (27-31); MEAN CORPUSCULAR HGB CONC 30 g/dL (33-37); MEAN CORPUSCULAR VOLUME 97 fL (80-94); MONOCYTES # (AUTO) 0.4 K/uL (0.8-1.0); MONOCYTES % (AUTO) 6.4 % (1.7-9.3); NEUTROPHILS # (AUTO) 4.2 K/uL (1.8-7.7); NEUTROPHILS % (AUTO) 72.4 % (42.2-75.2); PLATELET COUNT (AUTO) 314 K/uL (140-450); RED BLOOD CELL COUNT(AUTO) 3.22 MIL/uL (4.20-6.10); RED CELL DISTRIBUTION WIDTH 13.7 % (11.6-13.7); WHITE BLOOD COUNT (AUTO) 5.8 K/uL (4.8-10.8)
[2016-11-21 07:11] LABS: PHOSPHORUS 1.6 mg/dL (2.5-4.9)
--- NOTE | 2016-11-21 07:11 | NUR ---
ENDORSED PLAN OF CARE TO AM RN. PATIENT IN STABLE CONDITION. NO SIGNS OR SYMPTOMS OF ACUTE DISTRESS NOTED. SAFETY MEASURES ENSURED. CALL LIGHT WITHIN REACH
--- NOTE | 2016-11-21 07:15 | NUR ---
ECEIVED REPORT FROM DIRECTOR HOME NURSE, PT IS RESTING IN BED, A/OX4, BEDREST, PT HAS PICC LINE ON LEFT UPPER ARM, DOUBLE LUMEN, PATENT, INTACT FLUSHING WELL, PT HAS NG TUBE IN RIGHT NARE, , PT HAS ALSO HAS A COLOSTOMY BAG ABOVE ABDOMINAL INCISION, 50 ML OUTPUT AT THIS TIME, PT IS ON ROOM AIR, NO S/S OF RESPIRATORY DISTRESS OR DISCOMFORT NOTED, DISCUSSED PLAN OF CARE WITH PT, PT VERBALIZED UNDERSTANDING, SAFETY/FALL PRECAUTIONS ARE IN PLACE, CALL LIGHT IS WITHIN REACH, WILL CONTINUE TO MONITOR.
[2016-11-21 07:47] LABS: ANION GAP 8.6 (8-16); CARBON DIOXIDE 27.8 mmol/L (21-32); CREATININE 0.6 mg/dL (0.7-1.3); POTASSIUM 4.4 mmol/L (3.5-5.1)
[2016-11-21 08:00] VITALS: BP 105/63
[2016-11-21] MEDS ORDERED: MAG SULF 2000 MG/WATER PREMIX 50 ML IV SCH (09:00)
[2016-11-21] MEDS: PANTOPRAZOLE 40 MG INJ VIAL IVP SCH (09:00)
[2016-11-21] MEDS: DULoxetine 30 MG CAPDR PO SCH (09:08)
[2016-11-21] MEDS: OLANZapine 5 MG TAB GT SCH ×3 (09:09→17:18)
[2016-11-21] MEDS: fentaNYL 0.075 MG/HR PATCH TD SCH (09:09)
[2016-11-21] MEDS: traZODone 50 MG TAB GT SCH ×2 (09:09→21:02)
--- NOTE | 2016-11-21 09:09 | NUR ---
DUE MEDICATIONS GIVEN, PT TOLERATED WELL, CALL LIGHT WITHIN REACH, WILL CONTINUE TO MONITOR.
--- NOTE | 2016-11-21 11:20 | NUR ---
PT IS RESTING IN BED, NO S/S OF RESPIRATORY DISTRESS NOTED, COLOSTOMY BAG EMPTIED AT THIS TIME, 50ML OUTPUT, ALL NEEDS ARE MET, PATIENT'S IS AT BEDSIDE, CALL LIGHT WITHIN REACH, WILL CONTINUE TO MONITOR.
[2016-11-21] MEDS ORDERED: POTASSIUM PHOSPHATE 15 MM in NACL 0.9% 250 ML IV SCH (12:30)
[2016-11-21] MEDS ORDERED: SODIUM PHOSPHATE 15 MMOLE in NACL 0.9% 250 ML IV SCH (12:30)
--- NOTE | 2016-11-21 13:00 | NUR ---
DUE MEDICATION GIVEN, PT TOLERATED WELL, PATIENT'S IS AT BEDSIDE, CALL LIGHT WITHIN REACH, WILL CONTINUE TO MONITOR.
--- NOTE | 2016-11-21 15:35 | NUR ---
PT RESTING IN BED, WATCHING TV, PATIENT'S IS AT BEDSIDE, CALL LIGHT WITHIN REACH.
[2016-11-21 16:00] VITALS: BP 105/66
--- NOTE | 2016-11-21 16:41 | NUR ---
PT AMBULATING DOWN THE SANCHEZ WITH PHYSICAL THERAPY.
[2016-11-21] MEDS: buPROPion 100 MG TAB GT SCH (17:19)
--- NOTE | 2016-11-21 18:00 | NUR ---
PATIENT'S COLOSTOMY BAG EMPTIED 100 ML OUTPUT.
--- NOTE | 2016-11-21 19:25 | NUR ---
ENDORSED PT TO TRANSMISSION BUILDER NURSE FOR CONTINUITY OF CARE, PT STABLE AT THIS TIME.
--- NOTE | 2016-11-21 19:26 | NUR ---
RECEIVED REPORT FROM THE LAB AID NURSE AT BEDSIDE FOR CONTINUITY OF CARE. PT IS AAOX4, BULGARIAN SPEAKING, ON ROOM AIR. PT VITAL SIGNS WITHIN NORMAL LIMITS, DENIES PAIN. PT IS ON BEDREST, FALL PRECAUTIONS IN PLACE. PT HAS A MIDLINE ABDOMINAL INCISION WELL APPROXIMATED WITH DONYA, AND A COLOSTOMY BAG IN PLACE WITH DARK GREEN WATERY STOOL. PT HAS A DOUBLE LUMEN PICC LINE ON LEFT UPPER ARM INFUSING TPN @100 AND NS@150. PT HAS A FENTANYL PATCH ON THE RIGHT UPPER ARM THAT HAS TODAY'S DATE WRITTEN ON IT WITH THE TIME 04:00. PT IS NPO, NASOGASTRIC TUBE IN PLACE WITH INTERMITTENT LOW SUCTION. DARK GREEN FLUID IN SUCTION CONTAINER. UPDATED BOARD, DISCUSSED PLAN OF CARE WITH PT, PT VERBALIZED UNDERSTANDING. PT IN STABLE CONDITION, NO SIGNS OF DISTRESS NOTED. IS AT BEDSIDE. BED IN LOW POSITION, CALL LIGHT WITHIN REACH. WILL CONTINUE TO MONITOR.
[2016-11-21] MEDS ORDERED: DEXTROSE 50% IV SCH ×5 (20:00)
[2016-11-21] MEDS ORDERED: MULTIVITAMIN IV SCH ×5 (20:00)
[2016-11-21] MEDS ORDERED: INSULIN HUMAN REGULAR IV SCH ×5 (20:00)
[2016-11-21] MEDS ORDERED: [UNRECOGNIZED DRUG - OTHER] IV SCH ×5 (20:00)
--- NOTE | 2016-11-21 20:20 | NUR ---
TRIED TO SET UP NEW TPN BAG, BUT eMAR WAS ASKING FOR BLOOD GLUCOSE LEVEL. TRIED TO CHECK BLOOD SUGAR LEVEL, BUT NO STRIPS WERE AVAILABLE. WILL GET NEW STRIPS AND CHECK BS IN ORDER TO START TPN.
--- NOTE | 2016-11-21 20:55 | NUR ---
TPN STARTED BS WAS WNL. ALL OTHER SCHEDULED MEDICATIONS ADMINISTERED WELL. PT TOLERATED WELL. PT IN STABLE CONDITION, NO SIGNS OF DISTRESS NOTED. STILL AT BEDSIDE. INQUIRED ABOUT AMBIEN AND LOVENOX, SHE THEN WALKED OUT OF THE ROOM AND CAME BACK AND STATED SHE HAD ALREADY TALKED TO THE CHARGE NURSE ABOUT AMBIEN AND LOVENOX BEING DISCONTINUED. BED IN LOW POSITION, CALL LIGHT WITHIN REACH. WILL CONTINUE TO MONITOR.
[2016-11-21] MEDS: ENOXAPARIN 30 MG/0.3 ML SYR SUBQ SCH (21:00)
--- NOTE | 2016-11-21 21:15 | NUR ---
DR CHASE CLAMP REMOVER FOR DR SUNYN CONN DUE TO AMBIEN AND LOVENOX WAS STOPPED, AWAITING TO RETURN CALL.
--- NOTE | 2016-11-21 21:30 | NUR ---
DR CHASE RETURN CALL, NEW ORDERS RECEIVED. WILL PUT ENTER THE ORDER.
[2016-11-21] MEDS ORDERED: ZOLPIDEM 10 MG TAB PO SCH (22:30)
--- NOTE | 2016-11-21 23:15 | NUR ---
CHECKED PT VITAL SIGNS, BLOOD PRESSURE IS 91/58. WILL HOLD AMBIEN. SPOKE WITH PT ABOUT AMBIEN BEING A SEDATIVE HYPNOTIC AND WITH HIS BP BEING WHAT IT IS IT IS BETTER FOR PT TO TRY TO FALL ASLEEP NATURALLY. TOLD PT IF HE TRIES TO GO TO SLEEP AND CAN'T FALL ASLEEP, THEN WE CAN TRY TO CHECK HIS BLOOD PRESSURE LATER, PT AGREED. PT IN STABLE CONDITION, NO SIGNS OF DISTRESS NOTED. BED IN LOW POSITION, CALL LIGHT WITHIN REACH. WILL CONTINUE TO MONITOR.
[2016-11-22] VITALS: BP 91/58
[2016-11-22] MEDS: BLOOD GLUCOSE MONITORING 1 DEV DEV MC SCH ×4 (00:54→17:32)
[2016-11-22] MEDS: INSULIN LISPRO SLIDING SCALE 100 UNITS/ML VIAL SUBQ PRN ×4 (00:57→17:36)
[2016-11-22] MEDS: ABDOMINAL PAD TP SCH ×2 (00:59→13:19)
[2016-11-22] MEDS: HYDRAGUARD CREAM TP SCH ×2 (01:00→13:19)
--- NOTE | 2016-11-22 01:00 | NUR ---
PT BLOOD SUGAR TYZPH=237, ADMINISTERED 4 UNITS OF INSULIN. ADMINISTERED CREAM TO SACRAL AREA, LEFT CLINICAL CASE MANAGER. PT IN STABLE CONDITION, NO SIGNS OF DISTRESS NOTED. BED IN LOW POSITION, CALL LIGHT WITHIN REACH. WILL CONTINUE TO MONITOR.
[2016-11-22] MEDS: NACL 0.9% 1,000 ML IV SCH ×4 (01:58→21:25)
--- NOTE | 2016-11-22 03:11 | NUR ---
EMPTIED PT URINAL PER PT REQUEST. PT DENIES PAIN. PT IN STABLE CONDITION, NO SIGNS OF DISTRESS NOTED. BED IN LOW POSITION, CALL LIGHT WITHIN REACH. WILL CONTINUE TO MONITOR.
--- NOTE | 2016-11-22 05:03 | NUR ---
PT RESTING, EASY TO AROUSE. PT IN STABLE CONDITION, NO SIGNS OF DISTRESS NOTED. BED IN LOW POSITION, CALL LIGHT WITHIN REACH. WILL CONTINUE TO MONITOR.
[2016-11-22] MEDS: OCTREOTIDE ACETATE 100 MCG/ML VIAL SUBQ SCH ×3 (05:28→20:15)
[2016-11-22] MEDS: metroNIDAZOLE 500 MG/NS PREMIX 100 ML IV SCH ×3 (05:28→20:15)
--- NOTE | 2016-11-22 06:23 | NUR ---
EMPTIED COLOSTOMY BAG AGAIN, TOTAL OUTPUT FOR THE NIGHT IS 175. PT IN STABLE CONDITION, NO SIGNS OF DISTRESS NOTED. BED IN LOW POSITION, CALL LIGHT WITHIN REACH. WILL CONTINUE TO MONITOR.
[2016-11-22 06:36] LABS: BASOPHILS # (AUTO) 0.1 K/uL (0.00-0.22); BASOPHILS % (AUTO) 1.4 % (0.0-2.0); EOSINOPHILS # (AUTO) 0.2 K/uL (0-0.4); EOSINOPHILS % (AUTO) 2.7 % (0.0-4.0); HEMATOCRIT 35.3 % (36-52); HEMOGLOBIN 11.6 g/dL (12.0-18.0); LYMPHOCYTES # (AUTO) 1.9 K/uL (2.0-11.5); LYMPHOCYTES % (AUTO) 23.8 % (20.5-51.1); MEAN CORPUSCULAR HEMOGLOBIN 28 pg (27-31); MEAN CORPUSCULAR HGB CONC 33 g/dL (33-37); MEAN CORPUSCULAR VOLUME 85 fL (80-94); MONOCYTES # (AUTO) 0.6 K/uL (0.8-1.0); MONOCYTES % (AUTO) 7.9 % (1.7-9.3); NEUTROPHILS # (AUTO) 5.4 K/uL (1.8-7.7); NEUTROPHILS % (AUTO) 64.2 % (42.2-75.2); PLATELET COUNT (AUTO) 371 K/uL (140-450); RED BLOOD CELL COUNT(AUTO) 4.17 MIL/uL (4.20-6.10); RED CELL DISTRIBUTION WIDTH 12.2 % (11.6-13.7); WHITE BLOOD COUNT (AUTO) 8.2 K/uL (4.8-10.8)
[2016-11-22 06:44] LABS: MAGNESIUM 1.6 mg/dL (1.8-2.4); PHOSPHORUS 3.5 mg/dL (2.5-4.9)
[2016-11-22 06:46] LABS: CHOL/HDL RATIO 2.3 (1-4.5)
[2016-11-22 06:47] LABS: ANION GAP 7.5 (8-16); CARBON DIOXIDE 29.6 mmol/L (21-32); CREATININE 0.6 mg/dL (0.7-1.3); POTASSIUM 4.1 mmol/L (3.5-5.1)
--- NOTE | 2016-11-22 07:08 | NUR ---
ENDORSED PT TO DAY SHIFT RN FOR CONTINUITY OF CARE. PT IS AAOX4, STABLE, AND WITHOUT ANY SIGNS OF DISTRESS.
--- NOTE | 2016-11-22 07:10 | NUR ---
RECEIVED REPORT FROM FOREIGN LANGUAGE STENOGRAPHER NURSE, PT IS RESTING IN BED, A/OX4, BEDREST, PT HAS PICC LINE ON LEFT UPPER ARM, DOUBLE LUMEN, PATENT, INTACT FLUSHING WELL, PT HAS NG TUBE IN RIGHT NARE, , PT HAS ALSO HAS A COLOSTOMY BAG ABOVE ABDOMINAL INCISION, PT IS ON ROOM AIR, NO S/S OF RESPIRATORY DISTRESS OR DISCOMFORT NOTED, DISCUSSED PLAN OF CARE WITH PT, PT VERBALIZED UNDERSTANDING, SAFETY/FALL PRECAUTIONS ARE IN PLACE, CALL LIGHT IS WITHIN REACH, WILL CONTINUE TO MONITOR.
[2016-11-22 08:00] VITALS: BP 92/61
[2016-11-22] MEDS ORDERED: MAG SULF 2000 MG/WATER PREMIX 50 ML IV SCH (09:00)
[2016-11-22] MEDS: DULoxetine 30 MG CAPDR PO SCH (09:30)
[2016-11-22] MEDS: traZODone 50 MG TAB GT SCH ×2 (09:30→20:16)
[2016-11-22] MEDS: OLANZapine 5 MG TAB GT SCH ×3 (09:30→17:29)
--- NOTE | 2016-11-22 09:30 | NUR ---
DUE MEDICATIONS GIVEN, PT TOLERATED WELL, NO S/S OF RESPIRATORY DISTRESS OR DISCOMFORT NOTED, CALL LIGHT WITHIN REACH, WILL CONTINUE TO MONITOR.
[2016-11-22] MEDS: PANTOPRAZOLE 40 MG INJ VIAL IVP SCH (09:31)
--- NOTE | 2016-11-22 11:10 | NUR ---
COLOSTOMY BAG EMPTIED AT THIS TIME, 50ML OUTPUT AT THIS TIME.
[2016-11-22 16:00] VITALS: BP 94/57
--- NOTE | 2016-11-22 16:50 | NUR ---
PT RESTING IN BED, NO S/S OF RESPIRATORY DISTRESS OR DISCOMFORT NOTED, FAMILY IS AT BEDSIDE, CALL LIGHT WITHIN REACH, WILL CONTINUE TO MONITOR.
[2016-11-22] MEDS: buPROPion 100 MG TAB GT SCH (17:29)
--- NOTE | 2016-11-22 17:29 | NUR ---
DUE MEDICATIONS GIVEN, PT TOLERATED WELL, COLOSTOMY BAG EMPTIED AT THIS TIME 25ML OUTPUT, ALL NEEDS ARE MET AT THIS TIME, PATIENT'S IS AT BEDSIDE, CALL LIGHT WITHIN REACH.
--- NOTE | 2016-11-22 19:15 | NUR ---
ENDORSED PT TO AIR BRUSH ARTIST NURSE FOR CONTINUITY OF CARE, PT STABLE AT THIS TIME.
--- NOTE | 2016-11-22 19:16 | NUR ---
RECEIVED REPORT FROM THE VICE PRESIDENT BUSINESS & CORPORATE DEVELOPMENT NURSE AT BEDSIDE FOR CONTINUITY OF CARE. PT IS AAOX4, CHINESE SPEAKING, ON ROOM AIR. PT DENIES PAIN. PT IS ON BEDREST, FALL PRECAUTIONS IN PLACE. PT HAS A MIDLINE ABDOMINAL INCISION WELL APPROXIMATED WITH DONYA, AND A COLOSTOMY BAG IN PLACE WITH DARK GREEN WATERY STOOL. PT HAS A DOUBLE LUMEN PICC LINE ON LEFT UPPER ARM INFUSING TPN @100 AND NS@150. PT IS NPO, NASOGASTRIC TUBE IN PLACE WITH INTERMITTENT LOW SUCTION. DARK GREEN FLUID IN SUCTION CONTAINER. UPDATED BOARD, DISCUSSED PLAN OF CARE WITH PT, PT VERBALIZED UNDERSTANDING. PT IN STABLE CONDITION, NO SIGNS OF DISTRESS NOTED. IS AT BEDSIDE. BED IN LOW POSITION, CALL LIGHT WITHIN REACH. WILL CONTINUE TO MONITOR.
[2016-11-22] MEDS ORDERED: INSULIN HUMAN REGULAR IV SCH ×5 (20:00)
[2016-11-22] MEDS ORDERED: [UNRECOGNIZED DRUG - OTHER] IV SCH ×5 (20:00)
[2016-11-22] MEDS ORDERED: DEXTROSE 50% IV SCH ×5 (20:00)
[2016-11-22] MEDS ORDERED: MULTIVITAMIN IV SCH ×5 (20:00)
[2016-11-22] MEDS: ENOXAPARIN 30 MG/0.3 ML SYR SUBQ SCH (20:16)
--- NOTE | 2016-11-22 20:30 | NUR ---
ADMINISTERED SCHEDULED MEDICATIONS AND TPN. PT TOLERATED WELL. HELD AMBIEN BECAUSE PT BLOOD PRESSURE IS 91/58 AND EXPLAINED TO PT WHY MEDICATION HAD TO BE HELD, PT VERBALIZED UNDERSTANDING. PT IN STABLE CONDITION, NO SIGNS OF DISTRESS NOTED. IS AT BEDSIDE. BED IN LOW POSITION, CALL LIGHT WITHIN REACH. WILL CONTINUE TO MONITOR.
[2016-11-22] MEDS: ZOLPIDEM 10 MG TAB GT SCH (21:00)
--- NOTE | 2016-11-22 22:40 | NUR ---
EMPTIED COLOSTOMY BAG, ONLY 75MLS OF DARK GREEN WATERY STOOL DISPOSED OF. CHANGED GLOVES. CHANGED NG TUBE TAPE BECAUSE PT REQUESTED STATED HIS NOSE WAS "TOO OILY" TUBE DIDN'T MOVE POSITION. CUT TAPE STICKING OUT WITH SCISSORS AND APPLIED NEW TAPE AT OLD TAPE LINE, CLEANED PT'S NOSE, TAPED TUBE TO NOSE WITHOUT MOVING TUBE IN OR OUT. PT IN STABLE CONDITION, NO SIGNS OF DISTRESS NOTED. IS AT BEDSIDE. BED IN LOW POSITION, CALL LIGHT WITHIN REACH. WILL CONTINUE TO MONITOR.
[2016-11-23 00:15] VITALS: BP 93/59
[2016-11-23] MEDS: BLOOD GLUCOSE MONITORING 1 DEV DEV MC SCH ×4 (00:49→18:21)
--- NOTE | 2016-11-23 00:50 | NUR ---
PT BLOOD PRESSURE IS LOW NORMAL 93/59, BUT PT IS ASYMPTOMATIC, THE REST OF PT VITAL SIGNS ARE STABLE. BLOOD SUGAR IS 146, NO NEED FOR INSULIN. PT IN STABLE CONDITION, NO SIGNS OF DISTRESS NOTED. IS AT BEDSIDE. BED IN LOW POSITION, CALL LIGHT WITHIN REACH. WILL CONTINUE TO MONITOR.
[2016-11-23] MEDS: HYDRAGUARD CREAM TP SCH ×2 (01:07→13:05)
[2016-11-23] MEDS: ABDOMINAL PAD TP SCH ×2 (01:07→13:05)
--- NOTE | 2016-11-23 03:15 | NUR ---
PT DENIES PAIN OR NEEDING ANYTHING AT THE MOMENT. PT IN STABLE CONDITION, NO SIGNS/SYMPTOMS OF DISTRESS NOTED. BED IN LOW POSITION, CALL LIGHT WITHIN REACH. WILL CONTINUE TO MONITOR.
[2016-11-23] MEDS: NACL 0.9% 1,000 ML IV SCH ×3 (04:05→17:25)
[2016-11-23] MEDS: metroNIDAZOLE 500 MG/NS PREMIX 100 ML IV SCH ×3 (05:25→20:27)
[2016-11-23] MEDS: OCTREOTIDE ACETATE 100 MCG/ML VIAL SUBQ SCH ×3 (05:26→20:37)
--- NOTE | 2016-11-23 05:30 | NUR ---
ADMINISTERED SCHEDULED MEDICATIONS, TOOK BLOOD SUGAR LEVEL (154). WILL GIVE 2 UNITS. EMPTIED COLOSTOMY BAG AND URINAL. PT IN STABLE CONDITION, NO SIGNS OF DISTRESS NOTED. BED IN LOW POSITION, CALL LIGHT WITHIN REACH. WILL CONTINUE TO MONITOR.
[2016-11-23] MEDS: INSULIN LISPRO SLIDING SCALE 100 UNITS/ML VIAL SUBQ PRN ×3 (05:51→18:17)
[2016-11-23 06:06] LABS: BASOPHILS # (AUTO) 0.2 K/uL (0.00-0.22); BASOPHILS % (AUTO) 2.5 % (0.0-2.0); EOSINOPHILS # (AUTO) 0.1 K/uL (0-0.4); EOSINOPHILS % (AUTO) 1.8 % (0.0-4.0); HEMATOCRIT 36.2 % (36-52); HEMOGLOBIN 12.2 g/dL (12.0-18.0); LYMPHOCYTES # (AUTO) 1.7 K/uL (2.0-11.5); LYMPHOCYTES % (AUTO) 22.7 % (20.5-51.1); MEAN CORPUSCULAR HEMOGLOBIN 28 pg (27-31); MEAN CORPUSCULAR HGB CONC 34 g/dL (33-37); MEAN CORPUSCULAR VOLUME 83 fL (80-94); MONOCYTES # (AUTO) 0.5 K/uL (0.8-1.0); MONOCYTES % (AUTO) 6.2 % (1.7-9.3); NEUTROPHILS % (AUTO) 66.8 % (42.2-75.2); PLATELET COUNT (AUTO) 321 K/uL (140-450); RED BLOOD CELL COUNT(AUTO) 4.36 MIL/uL (4.20-6.10); RED CELL DISTRIBUTION WIDTH 12.3 % (11.6-13.7); WHITE BLOOD COUNT (AUTO) 7.5 K/uL (4.8-10.8)
[2016-11-23 06:21] LABS: CARBON DIOXIDE 29.6 mmol/L (21-32); CREATININE 0.6 mg/dL (0.7-1.3); POTASSIUM 4.6 mmol/L (3.5-5.1)
[2016-11-23 06:23] LABS: MAGNESIUM 1.7 mg/dL (1.8-2.4); PHOSPHORUS 3.2 mg/dL (2.5-4.9)
--- NOTE | 2016-11-23 07:20 | NUR ---
ENDORSED PT TO DAY SHIFT NURSE FOR CONTINUITY OF CARE. PT IN STABLE CONDITION.
--- NOTE | 2016-11-23 07:21 | NUR ---
RECEIVED REPORT FROM CREATIVE RESOURCE MANAGER NURSE. PATIENT LYING IN BED. NO DISTRESS NOTED. RESPIRATIONS EVEN, UNLABORED, ON ROOM AIR. AAOX4, ON BEDREST, LUNGS CTA ON ALL LOBES. PICC LINE ON LEFT UPPER ARM INTACT, PATENT, AND INFUSING. TPN INFUSING. NGTUBE INTACT, PATENT AND ON LOW-INTERMITTENT SUCTION, DRAINING GREENISH/BROWN DRAINAGE. MID ABDOMINAL INCISION DRESSING INTACT WITH COLOSTOMY BAG COLLECTING BROWNISH DRAINAGE. PLAN OF CARE REVIEWED WITH PATIENT. SAFETY MEASURES IN PLACE, CALL LIGHT WITHIN REACH, FALL PREVENTIONS IN PLACE, BED ALARM ON. WILL CONTINUE TO MONITOR.
[2016-11-23 08:00] VITALS: BP 126/67
[2016-11-23] MEDS: OLANZapine 5 MG TAB GT SCH ×3 (09:31→17:21)
[2016-11-23] MEDS: DULoxetine 30 MG CAPDR PO SCH (09:32)
[2016-11-23] MEDS: PANTOPRAZOLE 40 MG INJ VIAL IVP SCH (09:32)
[2016-11-23] MEDS: traZODone 50 MG TAB GT SCH ×2 (09:33→20:30)
--- NOTE | 2016-11-23 09:40 | NUR ---
PATIENT LYING AT BEDSIDE WATCHING TV. NO DISTRESS NOTED. RESPIRATIONS EVEN, UNLABORED, ON ROOM AIR. DENIES ANY PAIN AT THIS TIME. ABD MIDLINE WOUND DRESSING WITH COLOSTOMY BAG INTACT AND DRAINING WITHOUT LEAKAGE. MEDICATIONS DUE GIVEN. NGTUBE LOW-INTERMITTENT SUCTION TURNED OFF, WILL TURN BACK ON IN 1 HOUR DUE TO MEDICATIONS. SAFETY MEASURES IN PLACE, CALL LIGHT WITHIN REACH. WILL CONTINUE TO MONITOR.
[2016-11-23] MEDS ORDERED: MAG SULF 2000 MG/WATER PREMIX 50 ML IV SCH (11:05)
--- NOTE | 2016-11-23 11:40 | NUR ---
WOUND RE-EVALUATION NOTE: REASON FOR WOUND EVALUATION: EXCESSIVE DRAINAGE FROM SURGICAL WOUND COMPLETE SKIN ASSESSMENT DONE ON THIS 51 Y/O MALE PATIENT FROM HOME TO [facility], WITH INITIAL DIAGNOSIS OF ABDOMINAL PAIN WITH NAUSEA, VOMITED. PAST MEDICAL HISTORY INCLUDE CHRONIC BACK PAIN AND HX OF SPINAL SURGERY. ALL ABOVE INFORMATION WAS OBTAINED FROM THE ADMISSION H&P. LAB. ARE WBC 7.5, H/H 12.2/36.2, GLUCOSE 154, and ALBUMIN 11/21/2016 WAS 1.3. CURRENT MEDS INCLUDE METRONIDAZOLE, CEFTRIAXONE, DULOXETINE, ENOXAPARIN AND TRAZODONE HCL. PATIENT IS AWAKE, ORIENTED TO PERSON, PLACE AND TIME. SKIN WARM TO TOUCH WNL, TOENAILS ARE SLIGHTLY THICKENED, NO EDEMA, BLE WITH HAIR GROWTH AND NORMAL PEDAL PULSES. NG TUBE IN PLACE WITH SUCTION, TPN IN ORDERED. PT. ABLE TO FOLLOW COMMANDS AND ABLE TO MAKE HIS NEEDS KNOWS. ABLE TO TURN SELF WITHOUT ASSISTANCE. PLAN OF CARE AND PRESSURE PREVENTIVE MEASURES DISCUSSED WITH PT. AND PRIMARY RN. PT. AND ABLE TO VERBALIZE UNDERSTANDING. INTEGUMENTARY: MID ABDOMINAL- SURGICAL WOUND MULTIPLE DONYA IN PLACE, 20 CM IN LENGTH. QUESTIONABLE OF FISTULA. PER PRIMARY RN, FEW DONYA WERE REMOVED BY SURGEON FOR WOUND DRAINAGE PURPOSE. LAST 3 DAYS AVERAGE AMOUNT OF FECULENT GREENISH DRAINAGE BETWEEN 75ML TO 150ML OUTPUT. COLOSTOMY BAG IN PLACE. NO WOUND VAC. SACROCOCCYX - BLANCHABLE REDNESS AND MOIST, SKIN INTACT. LOWER PORTION MID ABDOMINAL AREA DONYA IN PLACE, SURGICAL SITE CLEAN AND HEALING RECOMMENDATIONS: -CLEANSE MID ABDOMEN OPENED SURGICAL SITE WITH NS. EVERY COLOSTOMY BAG CHANGE AND APPLY COLOSTOMY BAG TO OPENED SURGICAL SITE, CHANGE BAG Q3 DAYS AND PRN IF SOILING -EMPTY COLOSTOMY BAG WHEN 1/2 BAG FULL - ASSESS AND REPORT CHANGE OF CONDITION ON OPENED SURGICAL SITE ANABELA-WOUND EVERY COLOSTOMY BAG CHANGED -CLEANSE SACROCOCCYX WITH SOAP AND WATER, PAT DRY, APPLY HYDRAGRAN BID WC AND LEAVE OPEN TO AIR -TURN AND REPOSITION PATIENT Q2H -ASSESS AND MONITOR SKIN CONDITION DURING POSITION CHANGE, PLEASE PAY ATTENTION TO SACROCOCCYX -OFFLOAD BILATERAL HEELS BY PLACING PILLOWS UNDER CALVES AT ALL TIMES, UNLESS OTHERWISE CONTRAINDICATED-KEEP -KEEP SKIN CLEAN AND DRY AT ALL TIMES. -PT. WAS INSTRUCTED TO HOLD ABDOMEN WHEN COUGH OR TURN/REPOSITION -CONTINUE TO FOLLOW RD RECOMMENDATION COMORBIDITIES FOR WOUND HEALING: INFECTION LOW ALBUMIN LEVEL DECREASE OF MOBILITY HOB ELEVATED MAJORITY OF THE DAY FOR MEDICAL CONDITIONS RECOMMENDATIONS DISCUSSED WITH PRIMARY RN WILL FOLLOW UP PATIENT Q 7-10 DAYS AND PRN. PLEASE CONTACT WOUND CARE NURSE FOR ANY QUESTIONS AND CHANGES IN WOUND CONDITION. Addendum: 11/23/16 at 1454 by Adelso Bah RN (Grace) @1400 SPOKE TO ANITHA YOUSIF AND DISCUSSIONS OF LOW ALBUMEN LEVEL, RD WILL REVIEW AND FOLLOW UP.
--- NOTE | 2016-11-23 12:05 | NUR ---
PHYSICAL THERAPY AT BEDSIDE, PT AMBULATED WELL WITH CANE. PT RETURNED TO ROOM, NGT PLACED BACK TO LOW INTERMITTENT SUCTION, COLOSTOMY BAG EMPTIED, 100ML DARK GREEN DRAINAGE. EXTRA BLANKET PROVIDED FOR COMFORT, AT BEDSIDE, WILL CONTINUE TO MONITOR.
--- NOTE | 2016-11-23 12:15 | NUR ---
11/23/16 RD FOLLOW-UP ASSESSMENT COMPLETED PLEASE REFER TO NUTRITION ASSESSMENT UNDER CARE ACTIVITY FOR ESTIMATED NUTRITIONAL NEEDS. 1. CONTINUE PARENTERAL NUTRITION SUPPORT - D12.5, 4.25% AA AT 100 ML/HR + 200 ML 10% LIPID INFUSION 2. RD TO FOLLOW-UP 3-5 DAYS, MODERATE RISK JAMIE GANDARA, NICA
--- NOTE | 2016-11-23 13:45 | NUR ---
PATIENT LYING AT BEDSIDE WATCHING TV WITH . NO DISTRESS NOTED. NO COMPLAINTS OF PAIN AT THIS TIME. RESPIRATIONS EVEN, UNLABORED, ON ROOM AIR. NGTUBE SUCTION TURNED OFF, WILL TURN BACK ON IN 1 HOUR DUE TO MEDICATIONS GIVEN. IV PATENT, INTACT, AND INFUSING. SAFETY MEASURES IN PLACE, CALL LIGHT WITHIN REACH. WILL CONTINUE TO MONITOR.
--- NOTE | 2016-11-23 14:30 | NUR ---
PATIENT REPORTS FEELING ANXIOUS AND REQUESTS FENTANYL PATCH. PAGED DR. CORREA. DR. CORREA RETURNS CALL AND WANTS TO KEEP FENTANYL D/C FOR NOW SINCE PATIENT REPORTS NO PAIN. DR. CORREA ORDERS VIA TORB, ATIVAN 0.5 MG PO TID FOR ANXIETY. ORDERS INPUTTED. WILL MEDICATE PATIENT WITH ATIVAN. SAFETY MEASURES IN PLACE, CALL LIGHT WITHIN REACH. WILL CONTINUE TO MONITOR.
[2016-11-23] MEDS ORDERED: LORazepam 0.5 MG TAB PO PRN ×2 (14:45→21:45)
--- NOTE | 2016-11-23 15:14 | NUR ---
CM NOTE CONCURRENT REVIEW FAXED TO [facility] / FAX# [phone], C: [phone]
[2016-11-23] MEDS: buPROPion 100 MG TAB GT SCH (15:36)
--- NOTE | 2016-11-23 15:40 | NUR ---
PATIENT LYING IN BED WATCHING TV WITH AT BEDSIDE. NO DISTRESS NOTED. PATIENT REPORTS FEELING ANXIOUS. ATIVAN GIVEN ALONG WITH OTHER MEDICATIONS DUE AT THIS TIME. ABD MIDLINE WOUND CONTINUOUS TO DRAIN GREENISH/BROWN IN COLOSTOMY BAG WITHOUT ANY LEAKAGE. RESPIRATIONS EVEN, UNLABORED, ON ROOM AIR. MAGNESIUM STARTED VIA IV DUE TO LOW MAGNESIUM LEVEL. IV PATENT, INTACT AND INFUSING. TPN INFUSING. SAFETY MEASURES IN PLACE, CALL LIGHT WITHIN REACH, FALL PREVENTIONS IN PLACE. WILL CONTINUE TO MONITOR.
[2016-11-23 16:00] VITALS: BP 115/71
--- NOTE | 2016-11-23 17:30 | NUR ---
PATIENT LYING IN BED WITH FAMILY MEMBERS AT BEDSIDE. NO DISTRESS NOTED. DENIES ANY PAIN. RESPIRATIONS EVEN, UNLABORED, ON ROOM AIR. AAOX4, ANXIETY REDUCED FROM EARLIER WITH ATIVAN. MEDICATIONS DUE GIVEN. NGTUBE INTERMITTENT-SUCTION TURNED OFF DUE TO MEDICATIONS, WILL RESUME IN 1 HR. MID ABD INCISION WOUND DRESSING INTACT WITH COLOSTOMY BAG. DRAINED COLOSTOMY BAG WOUND DRAINAGE, 25 ML GREENISH/BROWN DRAINAGE. USING STERILE TECHNIQUE, LEFT UPPER ARM PICC LINE DRESSING CHANGE PERFORMED. PATIENT TOLERATED PROCEDURE WELL. SAFETY MEASURES IN PLACE, CALL LIGHT WITHIN REACH, FALL PREVENTIONS IN PLACE. WILL CONTINUE TO MONITOR.
--- NOTE | 2016-11-23 19:23 | NUR ---
REPORT GIVEN TO AND TAXI INSTRUCTOR BUS TROLLEY NURSE TRACY. PATIENT IN STABLE CONDITION.
--- NOTE | 2016-11-23 19:24 | NUR ---
RECEIVED HANDOFF REPORT FROM AM RN. PATIENT RESTING IN BED. AT BEDSIDE. PATIENT A&OX4. PATIENT DENIES PAIN. NG TUBE PATENT AND INTACT. PICC LINE PATENT AND INTACT. COLOSTOMY PATENT AND INTACT. ABDOMINAL BINDER DRY AND INTACT. NO SIGNS OR SYMPTOMS OF ACUTE DISTRESS NOTED. CALL LIGHT WITHIN REACH. WILL CONTINUE TO MONITOR.
[2016-11-23] MEDS ORDERED: [UNRECOGNIZED DRUG - OTHER] IV SCH ×5 (20:00)
[2016-11-23] MEDS ORDERED: DEXTROSE 50% IV SCH ×5 (20:00)
[2016-11-23] MEDS ORDERED: MULTIVITAMIN IV SCH ×5 (20:00)
[2016-11-23] MEDS ORDERED: INSULIN HUMAN REGULAR IV SCH ×5 (20:00)
[2016-11-23] MEDS: ZOLPIDEM 10 MG TAB GT SCH (20:30)
[2016-11-23] MEDS: ENOXAPARIN 30 MG/0.3 ML SYR SUBQ SCH (20:42)
--- NOTE | 2016-11-23 20:45 | NUR ---
PM MEDS GIVEN WITH EDUCATION. PATIENT VERBALIZED UNDERSTANDING. PATIENT DENIES PAIN. STATES RESTLESSNESS, WILL FOLLOW UP WITH MD. PATIENTS AT BEDSIDE. NO SIGNS OR SYMPTOMS OF ACUTE DISTRESS NOTED. CALL LIGHT WITHIN REACH. WILL CONTINUE TO MONITOR.
--- NOTE | 2016-11-23 22:08 | NUR ---
PATIENT AWAKE AND ALERT IN BED. PATIENT STATES RESTLESSNESS. MD AWAKE, CHANGE TO MEDICATION FREQUENCY. MEDICATED ORDERED. NO SIGNS OR SYMPTOMS OF ACUTE DISTRESS NOTED. CALL LIGHT WITHIN REACH. WILL CONTINUE TO MONITOR.
[2016-11-24] VITALS: BP 111/64
[2016-11-24] MEDS: NACL 0.9% 1,000 ML IV SCH ×4 (00:04→20:41)
[2016-11-24] MEDS: BLOOD GLUCOSE MONITORING 1 DEV DEV MC SCH ×4 (00:06→18:13)
[2016-11-24] MEDS: ABDOMINAL PAD TP SCH ×2 (00:30→12:35)
--- NOTE | 2016-11-24 00:31 | NUR ---
PATIENT RESTING IN BED. PATIENT DENIES PAIN. WOUND CARE NOT ADMINISTERED, NO OPEN WOUND TO PACK. COLOSTOMY IN PLACE. NO SIGNS OR SYMPTOMS OF ACUTE DISTRESS NOTED. CALL LIGHT WITHIN REACH. WILL CONTINUE TO MONITOR.
[2016-11-24] MEDS: HYDRAGUARD CREAM TP SCH ×2 (01:09→12:34)
[2016-11-24] MEDS ORDERED: TEMAZEPAM 15 MG CAP PO ONE (01:50)
--- NOTE | 2016-11-24 01:56 | NUR ---
PATIENT STATES TROUBLE SLEEPING. MD AWARE NEW ORDER IN PLACE. WILL MEDICATE ORDERED. NO SIGNS OR SYMPTOMS OF ACUTE DISTRESS NOTED. CALL LIGHT WITHIN REACH. WILL CONTINUE TO MONITOR.
--- NOTE | 2016-11-24 05:09 | NUR ---
PATIENT RESTING IN BED. PATIENT DENIES PAIN. NO SIGNS OR SYMPTOMS OF ACUTE DISTRESS NOTED. CALL LIGHT WITHIN REACH. WILL CONTINUE TO MONITOR.
[2016-11-24] MEDS: OCTREOTIDE ACETATE 100 MCG/ML VIAL SUBQ SCH ×3 (05:46→20:38)
[2016-11-24] MEDS: metroNIDAZOLE 500 MG/NS PREMIX 100 ML IV SCH ×3 (05:46→20:38)
--- NOTE | 2016-11-24 05:58 | NUR ---
PATIENT'S ABDOMINAL HAS MINIMAL DRAINAGE, AND SOILED. CHANGED ORDERED. NEW COLOSTOMY BAG IN PLACE. PATIENT DONYA DRY AND INTACT. PATIENT DENIES PAIN. NO SIGNS OR SYMPTOMS OF ACUTE DISTRESS NOTED. CALL LIGHT WITHIN REACH. WILL CONTINUE TO MONITOR.
[2016-11-24 06:03] LABS: BASOPHILS # (AUTO) 0.2 K/uL (0.00-0.22); BASOPHILS % (AUTO) 3.4 % (0.0-2.0); EOSINOPHILS # (AUTO) 0.1 K/uL (0-0.4); EOSINOPHILS % (AUTO) 1.7 % (0.0-4.0); HEMATOCRIT 36.6 % (36-52); HEMOGLOBIN 11.8 g/dL (12.0-18.0); LYMPHOCYTES # (AUTO) 1.4 K/uL (2.0-11.5); LYMPHOCYTES % (AUTO) 19.8 % (20.5-51.1); MEAN CORPUSCULAR HEMOGLOBIN 27 pg (27-31); MEAN CORPUSCULAR HGB CONC 32 g/dL (33-37); MEAN CORPUSCULAR VOLUME 83 fL (80-94); MONOCYTES # (AUTO) 0.4 K/uL (0.8-1.0); NEUTROPHILS # (AUTO) 5.1 K/uL (1.8-7.7); NEUTROPHILS % (AUTO) 69.1 % (42.2-75.2); PLATELET COUNT (AUTO) 337 K/uL (140-450); RED BLOOD CELL COUNT(AUTO) 4.41 MIL/uL (4.20-6.10); RED CELL DISTRIBUTION WIDTH 12.9 % (11.6-13.7); WHITE BLOOD COUNT (AUTO) 7.2 K/uL (4.8-10.8)
[2016-11-24 06:22] LABS: CREATININE 0.6 mg/dL (0.7-1.3)
[2016-11-24 06:26] LABS: ANION GAP 8.3 (8-16); CARBON DIOXIDE 30.3 mmol/L (21-32); POTASSIUM 4.6 mmol/L (3.5-5.1)
[2016-11-24 06:27] LABS: MAGNESIUM 1.8 mg/dL (1.8-2.4); PHOSPHORUS 3.1 mg/dL (2.5-4.9)
[2016-11-24] MEDS: INSULIN LISPRO SLIDING SCALE 100 UNITS/ML VIAL SUBQ PRN ×2 (06:27→18:10)
--- NOTE | 2016-11-24 07:27 | NUR ---
ENDORSED PLAN OF CARE TO AM RN. PATIENT IN STABLE CONDITION. NO SIGNS OR SYMPTOMS OF ACUTE DISTRESS NOTED. SAFETY MEASURES ENSURED. CALL LIGHT WITHIN REACH.
--- NOTE | 2016-11-24 07:28 | NUR ---
RECEIVED REPORT FROM ELECTRONICS LEAD NURSE. PATIENT LYING IN BED. NO DISTRESS NOTED. RESPIRATIONS EVEN, UNLABORED, ON ROOM AIR. AAOX4, ON BEDREST, LUNGS CTA ON ALL LOBES. PICC LINE ON LEFT UPPER ARM INTACT, PATENT, AND INFUSING. TPN INFUSING. NGTUBE INTACT, PATENT AND ON LOW-INTERMITTENT SUCTION, DRAINING GREENISH/BROWN DRAINAGE. MID ABDOMINAL INCISION DRESSING INTACT WITH COLOSTOMY BAG COLLECTING GREENISH/BROWNISH DRAINAGE. PLAN OF CARE REVIEWED WITH PATIENT. SAFETY MEASURES IN PLACE, CALL LIGHT WITHIN REACH, FALL PREVENTIONS IN PLACE, BED ALARM ON. WILL CONTINUE TO MONITOR.
[2016-11-24 08:00] VITALS: BP 111/66
--- NOTE | 2016-11-24 08:20 | NUR ---
DRAINAGE LEAKING AT BOTTOM EDGE OF ADHESIVE WHERE THE DONYA ARE, WOUND CLEANED WITH NS, SKIN PREPPED WITH SKIN PROTECTANT WIPE, NEW COLOSTOMY BAG APPLIED, MIDLINE ABD SURGICAL WOUND STILL WITH 24 DONYA, SOME LOOSE DONYA AND LOOSE SUTURE COMING OUT OF WOUND. PT JOSE PROCEDURE WELL, WILL CONTINUE TO MONITOR.
--- NOTE | 2016-11-24 09:10 | NUR ---
DR. CORREA AT BEDSIDE WITH PATIENT AND SPOUSE REVIEWING PLAN OF CARE.
[2016-11-24] MEDS ORDERED: fentaNYL 0.025 MG/HR PATCH TD SCH (09:15)
--- NOTE | 2016-11-24 09:15 | NUR ---
PATIENT LYING IN BED WITH AT BEDSIDE. NO DISTRESS NOTED. RESPIRATIONS EVEN, UNLABORED, ON ROOM AIR. DENIES ANY PAIN OR DISCOMFORTS AT THIS TIME. MEDICATIONS DUE GIVEN. NGTUBE LOW-INTERMITTENT SUCTION TURNED OFF FOR NOW DUE TO MEDICATIONS, WILL TURN BACK ON IN 1 HR. BED LINENS CHANGED. ABD MIDLINE WOUND DRESSING WITH COLOSTOMY BAG CHANGED. PICC ON LEFT UPPER ARM INTACT, PATENT, AND INFUSING. TPN INFUSING. SAFETY MEASURES IN PLACE, CALL LIGHT WITHIN REACH, FALL PREVENTIONS IN PLACE, BED ALARM ON, CONTACT ISOLATION SIGNS PLACED. WILL CONTINUE TO MONITOR.
[2016-11-24] MEDS: DULoxetine 30 MG CAPDR PO SCH (09:17)
[2016-11-24] MEDS: PANTOPRAZOLE 40 MG INJ VIAL IVP SCH (09:17)
[2016-11-24] MEDS: traZODone 50 MG TAB GT SCH ×2 (09:18→20:37)
[2016-11-24] MEDS: OLANZapine 5 MG TAB GT SCH ×3 (09:18→17:03)
--- NOTE | 2016-11-24 10:15 | NUR ---
PATIENT LYING IN BED WITH SPOUSE AT BEDSIDE. NO DISTRESS NOTED. REPORTS LEAKAGE OF COLOSTOMY BAG ON MID ABD WOUND. WOUND CLEANSED WITH NS, AND DRESSING CHANGED WITH A NEW COLOSTOMY BAG APPLIED. SAFETY MEASURES IN PLACE, CALL LIGHT WITHIN REACH. WILL CONTINUE TO MONITOR.
--- NOTE | 2016-11-24 10:35 | NUR ---
PT UP OUT OF BED AMBULATED AROUND THE FLOOR 2 TIMES AROUND WITH WALKER WITH STEADY GAIT, NO SOB, DENIES DIZZINESS OR LIGHT HEADEDNESS, PT JOSE WELL.
--- NOTE | 2016-11-24 11:30 | NUR ---
PATIENT LYING IN BED WITH SPOUSE AT BEDSIDE. NO DISTRESS NOTED. REPORTS MID ABD WOUND WITH COLOSTOMY BAG LEAKING. LEAKING CAUSED BY DONYA ON THE SUTURE DISRUPTING THE COLOSTOMY BAG SEAL. REINFORCED DRESSING WITH 4X4 GAUZE AND ABD PAD. WILL NOTIFY DR. AMES AND WOUND CARE NURSE OF FINDINGS. SAFETY MEASURES IN PLACE, CALL LIGHT WITHIN REACH, FALL PREVENTIONS IN PLACE. WILL CONTINUE TO MONITOR.
--- NOTE | 2016-11-24 12:40 | NUR ---
PATIENT LYING IN BED WITH AT BEDSIDE. NO DISTRESS NOTED. RESPIRATIONS EVEN, UNLABORED, ON ROOM AIR. ABD WOUND REINFORCED DRESSING INTACT. DENIES ANY PAIN AT THIS TIME. MEDICATIONS DUE GIVEN. NGTUBE LOW INTERMITTENT SUCTION TURNED OFF DUE TO MEDICATIONS, WILL TURN BACK ON IN 1 HR. IV INTACT, PATENT, SAFETY MEASURES IN PLACE, CALL LIGHT WITHIN REACH, FALL PREVENTIONS IN PLACE. WILL CONTINUE TO MONITOR.
--- NOTE | 2016-11-24 13:40 | NUR ---
DR. AMES AT BEDSIDE WITH PATIENT AND SPOUSE DISCUSSING PLAN OF CARE FOR PATIENT. WOUND VAC APPLIED ON MIDLINE ABD WOUND BY DR. AMES. WOUND VAC DRESSING CHANGE Q4DAYS, AND TO DISCONTINUE NGTUBE WITH PATIENT REMAINING ON NPO PER DR. AMES VERBAL ORDERS. ORDERS READ BACK AND ACKNOWLEDGED BY DR. AMES. PATIENT TOLERATED PROCEDURE WELL. WILL CONTINUE TO MONITOR.
--- NOTE | 2016-11-24 14:16 | NUR ---
PATIENT LYING IN BED WITH SPOUSE. NO DISTRESS NOTED. NGTUBE REMOVED PER DR. AMES ORDERS. PATIENT TOLERATED PROCEDURE WELL. NO COMPLAINTS OF PAIN AT THIS TIME. SAFETY MEASURES IN PLACE, CALL LIGHT WITHIN REACH. WILL CONTINUE TO MONITOR.
--- NOTE | 2016-11-24 15:20 | NUR ---
FAXED CONCURRENT REVIEW TO [facility] [phone] PHONE [phone]
[2016-11-24 16:00] VITALS: BP 111/65
[2016-11-24] MEDS: buPROPion 100 MG TAB GT SCH (17:04)
--- NOTE | 2016-11-24 17:10 | NUR ---
PATIENT LYING WATCHING TV WITH SPOUSE AT BEDSIDE. NO DISTRESS NOTED. DENIES ANY PAIN AT THIS TIME. WOUND VACUUM MACHINE IS BEEPING WITH DECREASED PRESSURE AND POSSIBLE BLOCKAGE MESSAGE. REINFORCED WOUND VAC DRESSING TO FIX ANY AIR LEAKAGE. WOUND VAC PRESSURE BACK UP TO 125 MMHG AFTER REINFORCEMENT WITH DRESSING. RESPIRATIONS EVEN, UNLABORED, AND ON ROOM AIR. LEFT UA PICC PATENT, INTACT, AND INFUSING. MEDICATIONS DUE GIVEN. SAFETY MEASURES IN PLACE, CALL LIGHT WITHIN REACH, FALL PREVENTIONS IN PLACE. WILL CONTINUE TO MONITOR.
--- NOTE | 2016-11-24 19:31 | NUR ---
REPORT GIVEN TO POWERHOUSE LABORER NURSE, PT IN STABLE CONDITION.
--- NOTE | 2016-11-24 19:40 | NUR ---
RECEIVED REPORT FROM DAY RN. PATIENT RESTING IN BED, AWAKE ALERT ORIENTED X4, NO S/S OF ACUTE DISTRESS NOTED, RESPIRATION EVEN AND UNLABORED, AT BEDSIDE. NOTED DOUBLE LUMEN PICC LINE AT LT UPPER ARM, PATENT AND INTACT, NS RUNNING AT 150ML/HR,TPN RUNNING AT 100ML/HR. WOUND VAC IN PLACE, PRESSURE SETTING AT 125MMHG. CALL LIGHT WITHIN REACH, SAFETY MEASURE ENSURED, WILL CONTINUE TO MONITOR.
[2016-11-24] MEDS ORDERED: INSULIN HUMAN REGULAR IV SCH ×5 (20:00)
[2016-11-24] MEDS ORDERED: MULTIVITAMIN IV SCH ×5 (20:00)
[2016-11-24] MEDS ORDERED: DEXTROSE 50% IV SCH ×5 (20:00)
[2016-11-24] MEDS ORDERED: [UNRECOGNIZED DRUG - OTHER] IV SCH ×5 (20:00)
[2016-11-24] MEDS: ZOLPIDEM 10 MG TAB GT SCH (20:37)
[2016-11-24] MEDS: ENOXAPARIN 30 MG/0.3 ML SYR SUBQ SCH (20:40)
--- NOTE | 2016-11-24 20:50 | NUR ---
PM MEDICATION GIVEN, PATIENT TOLERATED WELL. WILL CONTINUE TO MONITOR.
[2016-11-25] MEDS: HYDRAGUARD CREAM TP SCH ×2 (00:04→12:57)
[2016-11-25] MEDS: ABDOMINAL PAD TP SCH ×2 (00:05→12:57)
[2016-11-25] MEDS: BLOOD GLUCOSE MONITORING 1 DEV DEV MC SCH ×3 (00:11→12:00)
--- NOTE | 2016-11-25 00:11 | NUR ---
WOUND VAC IN PLACE, PRESSURE IS SET AT 125MMHG, INTACT AND PATENT. ABDOMINAL PAD IS NOT ADMINISTERED. PATIENT DENIES PAIN AT THIS TIME. VITAL SIGNS ARE STABLE, CALL LIGHT WITHIN REACH, SAFETY MEASURE ENSURED, WILL CONTINUE TO MONITOR.
[2016-11-25 00:38] VITALS: BP 98/60
[2016-11-25] MEDS: INSULIN LISPRO SLIDING SCALE 100 UNITS/ML VIAL SUBQ PRN ×3 (00:41→13:05)
--- NOTE | 2016-11-25 02:17 | NUR ---
WOUND VAC MACHINE WAS BEEPING, CHECKED MACHINE WITH CHARGE NURSE AND GO CART MECHANIC, WOUND VAC MACHINE IS NOT BEEPING AT THIS TIME. WILL CONTINUE TO MONITOR.
[2016-11-25] MEDS: NACL 0.9% 1,000 ML IV SCH ×3 (02:21→16:05)
--- NOTE | 2016-11-25 03:24 | NUR ---
PATIENT IS SLEEPING AT THIS TIME, NO S/S OF ACUTE DISTRESS NOTED, RESPIRATION EVEN AND UNLABORED, WOUND VAC IN PLACE, PRESSURE SHOWING 125MMHG, CALL LIGHT WITHIN REACH, SAFETY MEASURE ENSURED, WILL CONTINUE TO MONITOR.
[2016-11-25] MEDS: metroNIDAZOLE 500 MG/NS PREMIX 100 ML IV SCH (04:55)
[2016-11-25] MEDS: OCTREOTIDE ACETATE 100 MCG/ML VIAL SUBQ SCH ×2 (04:55→12:56)
--- NOTE | 2016-11-25 05:26 | NUR ---
MORNING MEDICATION GIVEN, PATIENT TOLERATED WELL. WOUND VAC DRESSING INTACT AND PATENT, WOUND VAC PRESSURE SHOWING 125MMHG. NO S/S OF ACUTE DISTRESS NOTED, RESPIRATION EVEN AND UNLABORED, CALL LIGHT WITHIN REACH, SAFETY MEASURE ENSURED, WILL CONTINUE TO MONITOR.
[2016-11-25 05:36] LABS: BASOPHILS # (AUTO) 0.2 K/uL (0.00-0.22); BASOPHILS % (AUTO) 2.5 % (0.0-2.0); EOSINOPHILS # (AUTO) 0.1 K/uL (0-0.4); EOSINOPHILS % (AUTO) 1.6 % (0.0-4.0); HEMOGLOBIN 11.5 g/dL (12.0-18.0); LYMPHOCYTES % (AUTO) 23.7 % (20.5-51.1); MEAN CORPUSCULAR HEMOGLOBIN 28 pg (27-31); MEAN CORPUSCULAR HGB CONC 33 g/dL (33-37); MEAN CORPUSCULAR VOLUME 84 fL (80-94); MONOCYTES # (AUTO) 0.6 K/uL (0.8-1.0); MONOCYTES % (AUTO) 7.7 % (1.7-9.3); NEUTROPHILS # (AUTO) 5.4 K/uL (1.8-7.7); NEUTROPHILS % (AUTO) 64.5 % (42.2-75.2); PLATELET COUNT (AUTO) 288 K/uL (140-450); RED BLOOD CELL COUNT(AUTO) 4.16 MIL/uL (4.20-6.10); RED CELL DISTRIBUTION WIDTH 12.9 % (11.6-13.7); WHITE BLOOD COUNT (AUTO) 8.3 K/uL (4.8-10.8)
[2016-11-25 06:05] LABS: ANION GAP 8.6 (8-16); CARBON DIOXIDE 28.7 mmol/L (21-32); CREATININE 0.6 mg/dL (0.7-1.3); POTASSIUM 4.3 mmol/L (3.5-5.1)
[2016-11-25 06:20] LABS: MAGNESIUM 1.5 mg/dL (1.8-2.4); PHOSPHORUS 3.2 mg/dL (2.5-4.9)
--- NOTE | 2016-11-25 07:23 | NUR ---
ENDORSED PLAN OF CARE TO DAY RN. PATIENT RESTING IN BED, NO S/S OF ACUTE DISTRESS, WOUND VAC DRESSING CLEAN AND INTACT, PRESSURE READ 125MMHG, PATIENT IS IN STABLE CONDITION.
--- NOTE | 2016-11-25 07:24 | NUR ---
RECEIVED REPORT FROM THE SALES TEACHER NURSE. PT IS AWAKE AND ORIENTED. V/S WITHIN NORMAL RANGE. PT HAS LAITH ARM PICC LINE. TPN INFUSING 100ML/HR, NS AT 150ML/HR. HE WILL NEED A NEW BAG SOON. PT NO LONGER HAS AN NG TUBE. D/C'D YESTERDAY. PT DOES HAVE A WOUND VAC. SUCTION PRESSURE AT 125. DRESSING IS INTACT AND CLEAR. DENIES PAIN. PER PHARMACY, FLAGYL EXPIRES TODAY AND ROCEPHIN EXPIRES TODAY. WILL CALL DR. KELLY IF HE WANTS TO CONTINUE. FENTANYL PATCH ON, CHANGED YESTERDAY Q 72 HRS. WOUND CARE DRESSING TO BE CHANGED ON WEDNESDAY Q 3 DAYS (MON, THURS.) PT WORKING WITH PT DAILY. WILL CONTINUE TO MONITOR PT.
[2016-11-25 08:00] VITALS: BP 130/84
[2016-11-25] MEDS: DULoxetine 30 MG CAPDR PO SCH (08:37)
[2016-11-25] MEDS: traZODone 50 MG TAB GT SCH (08:37)
[2016-11-25] MEDS: OLANZapine 5 MG TAB GT SCH ×3 (08:38→17:07)
[2016-11-25] MEDS: PANTOPRAZOLE 40 MG INJ VIAL IVP SCH (08:38)
[2016-11-25] MEDS ORDERED: CLINICAL MONITORING MC SCH (09:00)
[2016-11-25] MEDS ORDERED: MAG SULF 2000 MG/WATER PREMIX 50 ML IV SCH (09:30)
--- NOTE | 2016-11-25 09:30 | NUR ---
PT REQUESTED TO WALK WITH . DISCONNECTED IV FLUID. PT WALKING WITH TPN AND WOUND VAC.
--- NOTE | 2016-11-25 10:00 | NUR ---
DR. CORREA CAME AND SAW PT. SPOKE TO PT RE TRANSFER TO [facility]. PT AND VERBALIZED UNDERSTANDING. WILL CONTINUE TO MONITOR PT.
--- NOTE | 2016-11-25 10:20 | NUR ---
PT'S IS LEAKING FROM WOUND. WILL HAVE TO REDO DRESSING AND REAPPLY WOUND VAC. PT TOLERATED WELL. WILL CONTINUE TO MONITOR PT.
[2016-11-25] MEDS ORDERED: ROC2I IV (11:12)
[2016-11-25] MEDS ORDERED: METR250T2 IV (11:13)
[2016-11-25] MEDS ORDERED: METR500S14 IV (11:14)
--- NOTE | 2016-11-25 11:46 | NUR ---
FAXED CONCURRENT REVIEW TO [facility] [phone] ELVIN [phone] [id number] SPOKE WITH ELVIN FROM [facility]. SHE SAID THEY ARE STILL AGREEABLE FOR THIS PATIENT TO GO TO [place]. [place] CAN USE THE SAME AUTH THEY RECEIVED LAST WEEK. I COULD STILL USE THE AUTH FOR [facility]ORT WHICH IS [id number]. CHEO DIETZ FROM [place] WAS HERE AND GOT UPDATED INFORMATION ON THIS PATIENT.
[2016-11-25] MEDS ORDERED: metroNIDAZOLE 500 MG/NS PREMIX 100 ML IV SCH (13:00)
--- NOTE | 2016-11-25 13:06 | NUR ---
ADMINISTERED AFTERNOON MEDS. PT TOLERATED WELL. WILL CONTINUE TO MONITOR PT.
--- NOTE | 2016-11-25 14:37 | NUR ---
RECEIVED CALL FROM CHEO DIETZ FROM [place]. SHE DID SPEAK WITH THE AND THE STILL WANTS PRIVATE ROOM IF POSSIBLE. CHEO TRIED TO GET A BED AT [facility], AND WAS TOLD THEY HAVE ONE. I SPOKE WITH THE AND TOLD HER THE PATIENT CAN GO TO [facility], PRIVATE ROOM OR [facility] ROOM [address]. SHE SPOKE WITH THE PATIENT AND AGREED ON [facility], BUT STILL TRY TO GET A PRIVATE ROOM IF POSSIBLE. I CALLED CHEO DIETZ AND INFORMED HER OF THEIR DECISION TO GO TO [place]. THE PATIENT WILL GO TO ROOM [address] UNDER DR[address] RAMIREZ PHONE REPORT TO [phone]. PT. TO GO TO [facility]. AUTH FOR [facility] IS [id number]. MAYITO CHARLESBEEF TAGGER NURSE AWARE.
[2016-11-25] MEDS ORDERED: DEXTROSE 10% 1,000 ML IV SCH (15:05)
--- NOTE | 2016-11-25 15:10 | NUR ---
GAVE ADRIAN REPORT AT [facility] IN [place]. [facility] TO PICK PT UP AT 1630. NOTIFIED PT AND SPOUSE. NEED TO DC TPN, SWITCH TO D10 AND 20ML/HR. REMOVE THE WOUND VAC. ADMINISTER COLOSTOMY BAG. [facility] AWARE PT WILL BE ON TPN AND WOUND VAC AT THEIR FACILITY.
--- NOTE | 2016-11-25 16:53 | NUR ---
DISCHARGE INSTRUCTIONS GIVEN TO PT AND . PT AND VERBALIZED UNDERSTANDING. HE IS GOING TO [facility] FOR WOUND CARE, CONTINUED IV ABX, AND PT. PT IS AWARE. PT IS ALL READY TO GO. GOT HIS LAST DOSE OF ROCEPHIN IN. REFUSED FLU SHOT. ALL PERSONAL BELONGINGS WITH PT. ALL READY TO GO. JUST WAITING ON TRANSPORTATION.
[2016-11-25] MEDS: buPROPion 100 MG TAB GT SCH (17:08)
--- NOTE | 2016-11-25 17:30 | NUR ---
[facility] HERE. PT ON GURDARRYL. ACCOMPANIED BY 2 TRANSPORTERS AND W/ PERSONAL BELONGING. PT IN STABLE CONDITION.
== END 2016-11-25 17:30 | DRG 853 ==
LOC: MED 14:29 → MTU 18:27
PROVIDERS: ADMIT Hospitalist; ATTEND Hospitalist
PROC: 0DQ80ZZ Repair Small Intestine, Open Approach (ICD-10-PCS; principal; 2016-11-06)
PROC: 0D9670Z Drainage of Stomach with Drainage Device, Via Natural or Artificial Opening (ICD-10-PCS; 2016-11-06)
PROC: 02H633Z Insertion of Infusion Device into Right Atrium, Percutaneous Approach (ICD-10-PCS; 2016-11-06)
DX: A41.9 Sepsis, unspecified organism (principal); E43 Unspecified severe protein-calorie malnutrition; K56.609 Unspecified intestinal obstruction, unspecified as to partial versus complete obstruction; K63.2 Fistula of intestine; K35.80 Unspecified acute appendicitis; L02.211 Cutaneous abscess of abdominal wall; K66.0 Peritoneal adhesions (postprocedural) (postinfection); F32.9 Major depressive disorder, single episode, unspecified; G89.29 Other chronic pain; K59.00 Constipation, unspecified; Z68.23 Body mass index [BMI] 23.0-23.9, adult
CPT/HCPCS: 36415; 71010; 80048; 80053; 81001; 81003; 82040; 82948; 83036; 83605; 83690; 83735; 83880; 84100; 85025; 85610; 87040; 87070; 87075; 87077; 87081; 87186; 87205; 93005; 96361; 96365; 96375; 96376; 97110; 97116; 97530; 99291; A9153; C1751; C9113; J0330; J0696; J1100; J1170; J1200; J1650; J1815; J1885; J2060; J2250; J2270; J2354; J2405; J2543; J2704; J2710; J3010; J3475; J3480; J3490; J7030; J7060; Q0092; Q9967

== ENCOUNTER 2017-05-24 09:13 | Inpatient (IN) | payer OTHER ==
[~2017-05-24] VITALS: Ht 182.9 cm; Wt 87.1 kg
[~2017-05-24 09:13] MED LIST changes: +ACET-1182 PO; +DULO60EC PO; +METR500S14 IV; +OLAN5TAB30 GT; +OMEP10SU PO; +ONDA2SOL45 IVP; +PANT40PD7 IVP; -PIPER/TAZO 3.375GM/D5W PREMIX 50 ML IV SCH; +ROC2I IV; +TOP25 PO; +TRAZ-286 PO; +ZOLP10TA1 PO; +[UNRECOGNIZED DRUG - CODE] SUBQ; +[UNRECOGNIZED DRUG - CODE] TD
[2017-05-24 09:35] VITALS: BP 141/76
--- NOTE | 2017-05-24 09:40 | NUR ---
51 YO M BIB FAMILY W/ C/O BILATERAL FLANK PAIN X 3 DAYS THAT IS WORSE ON THE RIGHT SIDE, PAIN 8/10, SHARP, NON-RADIATING. PT A&O X 4. GCS 15. CMS INTACT. PT DENIES N/V AT THIS TIME. RESPIRATIONS EVEN AND UNLLABORED. LUNG SOUNDS CLEAR BILATERALLY AT THIS TIME. PT DENIES DIZZINESS. ABD AND BACK SOFT, NON-TENDER. AMBULATORY W/ STEADY GAIT. DENIES DYSURIA AT THIS TIME. PT REPORTS TENDERNESS TO RIGHT FLANK UPON PALPATION. ER SECHRIST NOTIFIED. PT NEEDS AT THIS TIME. SAFETY PRECAUTIONS IN PLACE. WILL CONTINUE TO MONITOR.
--- NOTE | 2017-05-24 09:41 | NUR ---
PT AMBULATED TO BED 10
[2017-05-24] MEDS ORDERED: ACETAMINOPHEN EXTRA STRENGTH 500 MG TAB ONE (09:47)
[2017-05-24] MEDS ORDERED: ACETAMINOPHEN EXTRA STRENGTH 500 MG TAB PO ONE (09:50)
[2017-05-24] MEDS ORDERED: NACL 0.9% 2,500 ML IV ONE (10:55)
[2017-05-24 11:20] LABS: BASOPHILS % (AUTO) 0.2 % (0.0-2.0); HEMATOCRIT 41.1 % (36-52); HEMOGLOBIN 13.7 g/dL (12.0-18.0); LYMPHOCYTES # (AUTO) 0.8 K/uL (2.0-11.5); LYMPHOCYTES % (AUTO) 4.6 % (20.5-51.1); MEAN CORPUSCULAR HEMOGLOBIN 27 pg (27-31); MEAN CORPUSCULAR HGB CONC 33 g/dL (33-37); MEAN CORPUSCULAR VOLUME 79.8 fL (80-94); MONOCYTES # (AUTO) 1.9 K/uL (0.8-1.0); MONOCYTES % (AUTO) 10.5 % (1.7-9.3); NEUTROPHILS # (AUTO) 15.6 K/uL (1.8-7.7); NEUTROPHILS % (AUTO) 84.7 % (42.2-75.2); PLATELET COUNT (AUTO) 273 K/uL (140-450); RED BLOOD CELL COUNT(AUTO) 5.15 MIL/uL (4.20-6.10); RED CELL DISTRIBUTION WIDTH 13.7 % (11.6-13.7)
--- NOTE | 2017-05-24 11:30 | NUR ---
LAB AT BEDSIDE AT THIS TIME.
[2017-05-24 11:32] LABS: WHITE BLOOD COUNT (AUTO) 18.4 K/uL (4.8-10.8)
[2017-05-24 11:35] LABS: CARBON DIOXIDE 23.8 mmol/L (21-32); CREATININE 0.9 mg/dL (0.7-1.3); POTASSIUM 3.8 mmol/L (3.5-5.1)
--- NOTE | 2017-05-24 11:36 | NUR ---
ULTRASOUND AT BEDSIDE AT THIS TIME.
[2017-05-24 11:41] LABS: ALBUMIN 3.1 g/dL (3.4-5.0); TOTAL BILIRUBIN 2.2 mg/dL (0.0-1.0)
[2017-05-24 11:48] LABS: PROTHROMBIN TIME 11.4 secs (10.8-13.4)
[2017-05-24 12:18] LABS: APPEARANCE,URINE SL CLOUDY (CLEAR); BILIRUBIN,URINE 2+ (NEGATIVE); BLOOD, URINE NEGATIVE (NEGATIVE); COLOR,URINE ORANGE (YELLOW); LEUKOCYTE ESTERASE ,URINE NEGATIVE (NEGATIVE); NITRITE, URINE POSITIVE (NEGATIVE); PH,URINE 5.5 (5.0-9.0); UGLUCOSE 1+ (NEGATIVE)
--- NOTE | 2017-05-24 12:19 | NUR ---
PT TO CT VIA W/C ACCOMPANIED BY MAILROOM COORDINATOR
--- NOTE | 2017-05-24 12:28 | NUR ---
BACK FROM CT AT THIS TIME.
[2017-05-24] MEDS ORDERED: MORPHINE SULFATE 4 MG/ML SYR IVP ONE (12:45)
[2017-05-24] MEDS ORDERED: ONDANSETRON 4 MG/2 ML VIAL IVP ONE (12:45)
[2017-05-24] MEDS ORDERED: MORPHINE SULFATE 5 MG/ML VIAL ONE (12:49)
[2017-05-24 12:56] LABS: RBC,URINE 0-5 (RARE) /HPF (0-5); WBC,URINE 0-5 (RARE) /HPF (0-5)
[2017-05-24] MEDS ORDERED: PIPERACILLIN/TAZOBACTAM 4.5 GM in DEXTROSE 5% 100 ML IV SCH (13:40)
[2017-05-24] MEDS ORDERED: PIPERACILLIN/TAZOBACTAM 2.25 GM VIAL IV ONE (14:35)
--- NOTE | 2017-05-24 14:50 | NUR ---
INFORMED BY DR ADAMS THAT PT WILL GO TO DR MATA FOR CONSULT INSTEAD OF DR MIN
[2017-05-24] MEDS ORDERED: ONDANSETRON 4 MG/2 ML VIAL IVP PRN (15:30)
[2017-05-24] MEDS ORDERED: MORPHINE SULFATE 4 MG/ML SYR IVP PRN (15:30)
[2017-05-24] MEDS ORDERED: ACETAMINOPHEN 325 MG TAB PO PRN (15:30)
--- NOTE | 2017-05-24 15:58 | NUR ---
AWAITING ADMITING PACKETS. ADMITTING AWARE.
[2017-05-24] MEDS ORDERED: OMEP20TC12 PO (16:17)
[2017-05-24] MEDS ORDERED: OLAN20TA1 PO (16:17)
[2017-05-24] MEDS: BLOOD GLUCOSE MONITORING 1 DEV DEV FS SCH ×2 (16:30→23:10)
--- NOTE | 2017-05-24 17:20 | NUR ---
Patient will be admitted to care of [facility]. Admited to Tele. Will go to room 104-A. Belongings list completed. Bedside report to Lynnette.
[2017-05-24 17:30] VITALS: BP 112/75
--- NOTE | 2017-05-24 17:30 | NUR ---
PATIENT WAS TRANSFERRED FROM ER IN [facility]. REPORT WAS GIVEN AT BEDSIDE. PATIENT AWAKE, ALERT, AMBULATE TO BED, STEADY GAIT. RESPIRATION EVEN, UNLABOR ON ROOM AIR. SKIN DRY AND WARM. IV PATENT AND INTACT. COMPLAINED OF RIGHT SIDED ABDOMINAL PAIN 7/10, WILL MEDICATE PER ORDER. VS IS STABLE, MRSA WAS SWABBED. MGMT CONSULTANT WAS PLACED. PATIENT WAS ORIENTED TO ROOM, STAFF, AND CALL LIGHT. PLAN OF CARE WAS DISCUSSED WITH PATIENT AND FAMILY. BED AT LOW POSITION, SIDE RAILS UP. CALL LIGHT WITHIN REACH
[2017-05-24] MEDS: MORPHINE SULFATE 4 MG/ML SYR IVP PRN (17:34)
[2017-05-24] MEDS: DEXT 5% /NACL 0.9% 1,000 ML IV SCH (17:41)
[2017-05-24] MEDS: INSULIN LISPRO SLIDING SCALE 100 UNITS/ML VIAL SUBQ PRN (17:43)
--- NOTE | 2017-05-24 18:54 | NUR ---
PROCEDURE CONSENT WAS OBTAINED AT BEDSIDE, SIGNED BY PATIENT. PATIENT VERBALIZED UNDERSTANDING THE RISK AND BENEFITS OF PROCEDURE.
--- NOTE | 2017-05-24 19:22 | NUR ---
ENDORSEMENT GIVEN TO THE DOLL WIG MAKER NURSE. PATIENT IS STABLE AT THIS TIME
[2017-05-24] MEDS ORDERED: SUCCINYLCHOLINE CHLORIDE 200 MG/10 ML VIAL IVP ONE (19:45)
[2017-05-24] MEDS ORDERED: ROCURONIUM 50 MG/5 ML VIAL IV ONE (19:45)
[2017-05-24] MEDS ORDERED: DESFLURANE 240 ML BTL INH ONE (19:45)
[2017-05-24] MEDS ORDERED: DEXAMETHASONE 4 MG/ML VIAL ONE (19:45)
[2017-05-24] MEDS ORDERED: NEOSTIGMINE 1:1000 10 MG/10 ML VIAL ONE (19:45)
[2017-05-24] MEDS ORDERED: GLYCOPYRROLATE 0.2 MG/ML VIAL ONE (19:45)
[2017-05-24] MEDS ORDERED: PROPOFOL 200 MG/20 ML VIAL IV ONE (19:45)
--- NOTE | 2017-05-24 19:46 | NUR ---
PATIENT LEFT THE UNIT FOR SURGERY
[2017-05-24] MEDS ORDERED: PIPERACILLIN/TAZOBACTAM 3.375 GM VIAL IV ONE (19:55)
[2017-05-24] MEDS ORDERED: fentaNYL 0.05 MG/ML VIAL ONE (20:00)
[2017-05-24] MEDS: PIPER/TAZO 3.375GM/D5W PREMIX 50 ML IV SCH (20:00)
[2017-05-24] MEDS ORDERED: MORPHINE SULFATE 4 MG/ML SYR ONE (20:01)
[2017-05-24] MEDS ORDERED: MIDAZOLAM 2 MG/2 ML VIAL ONE (20:01)
[2017-05-24] MEDS ORDERED: NON-FORMULARY ITEM (Omeprazole (Omeprazole) 20 MG) PO SCH (21:00)
[2017-05-24] MEDS ORDERED: ZOLPIDEM 10 MG TAB PO SCH (21:00)
[2017-05-24] MEDS ORDERED: PIPERACILLIN/TAZOBACTAM 3.375 GM in DEXTROSE 5% 50 ML IV SCH (21:00)
[2017-05-24] MEDS ORDERED: THROMBIN KIT 20 MU VIAL TP ONE (21:54)
[2017-05-24] MEDS ORDERED: MIDAZOLAM 2 MG/2 ML VIAL IVP SCH (22:20)
[2017-05-24] MEDS ORDERED: MEPERIDINE 25 MG/ML SYR IVP PRN ×2 (22:20)
[2017-05-24] MEDS ORDERED: BUPIVACAINE-MPF 0.5% 30 ML VIAL INJ ONE (22:37)
[2017-05-24] MEDS ORDERED: BUPIVACAINE-MPF/EPI 0.5% 30 ML VIAL INJ ONE (22:37)
--- NOTE | 2017-05-24 23:10 | NUR ---
TRANS IN FROM TELE THRU OR THIS 51 YEAR MALE PATIENT AFTER A SUCCESSFUL ABDOMINAL SURGERY, OPEN CHOLECYSTECTOMY; SEDATED BUT ABLE TO ANSWER QUESTIONS AND FOLLOW SIMPLE COMMANDS. PUT ON 5 LITERS 02/MASK. IVF IN PROGRESS NORMAL SALINE VIA LEFT AC G20 IV CANNULA AND WITH ON GOING IST UNIT OF PRBC VIA G 20 IV CANNULA ON RIGHT WRIST; PATENT AND INTACT.
--- NOTE | 2017-05-24 23:15 | NUR ---
DR. MATA AT BEDSIDE AND ORDERED TO DO STAT CBC 15 MINS AFTER THE BLOOD TRANSFUSION OF IST UNIT PRBC, CARRIED OUT.
[2017-05-24 23:30] VITALS: BP 129/80
--- NOTE | 2017-05-24 23:30 | NUR ---
ABOVE PRBC CONSUMED, STAT CBC DONE BY THE PROVIDER RELATIONS REP AROUND 20 MINS AFTER THE BLOOD TRANSFUSION ORDERED BY DR. MATA.
[2017-05-24 23:45] VITALS: BP 126/78
[2017-05-25] VITALS (10 sets, daily range): BP systolic 111–129; BP diastolic 65–80
[2017-05-25] MEDS: MORPHINE SULFATE 4 MG/ML SYR IVP PRN (00:10)
[2017-05-25 00:48] LABS: HEMOGLOBIN 12.5 g/dL (12.0-18.0); MEAN CORPUSCULAR HEMOGLOBIN 26 pg (27-31); MEAN CORPUSCULAR HGB CONC 32 g/dL (33-37); PLATELET COUNT (AUTO) 224 K/uL (140-450); RED BLOOD CELL COUNT(AUTO) 4.74 MIL/uL (4.20-6.10); WHITE BLOOD COUNT (AUTO) 22.2 K/uL (4.8-10.8)
[2017-05-25 00:49] LABS: MEAN CORPUSCULAR VOLUME 82.3 fL (80-94)
[2017-05-25 00:50] LABS: EOSINOPHILS % (MANUAL) 1 % (0-4); LYMPHOCYTES % (MANUAL) 4 % (20-46); MONOCYTES % (MANUAL) 1 % (5-12)
--- NOTE | 2017-05-25 01:00 | NUR ---
PAGED DR. MATA TO RELAY RESULT OF CBC DONE AN HOUR AGO; ORDERED NOT TO GIVE ANYMORE THE 2ND UNIT OF PRBC; CARRIED OUT.
--- NOTE | 2017-05-25 04:52 | NUR ---
TOOK PATIENT OFF SIMPLE MASK AND PLACED PT ON 2LNC. SATS 99%. NO SOB NOTED
[2017-05-25 05:12] LABS: HEMATOCRIT 35.2 % (36-52); HEMOGLOBIN 11.5 g/dL (12.0-18.0); MEAN CORPUSCULAR HEMOGLOBIN 27 pg (27-31); MEAN CORPUSCULAR HGB CONC 33 g/dL (33-37); MEAN CORPUSCULAR VOLUME 81.6 fL (80-94); PLATELET COUNT (AUTO) 226 K/uL (140-450); RED BLOOD CELL COUNT(AUTO) 4.31 MIL/uL (4.20-6.10); RED CELL DISTRIBUTION WIDTH 14.1 % (11.6-13.7); WHITE BLOOD COUNT (AUTO) 16.8 K/uL (4.8-10.8)
[2017-05-25 06:09] LABS: LYMPHOCYTES % (MANUAL) 2 % (20-46); MONOCYTES % (MANUAL) 2 % (5-12)
[2017-05-25 06:47] LABS: ALBUMIN 2.1 g/dL (3.4-5.0); ANION GAP 13.8 (8-16); CREATININE 0.7 mg/dL (0.7-1.3); POTASSIUM 3.8 mmol/L (3.5-5.1); TOTAL BILIRUBIN 1.6 mg/dL (0.0-1.0)
--- NOTE | 2017-05-25 07:10 | NUR ---
RECEIVED REPORT FOR CONTINUITY OF CARE AT BEDSIDE FROM CELL OPERATOR RNAGUSTIN. PATIENT IS AA0X4, ABLE TO FOLLOW SIMPLE COMMANDS. HE IS ON 2L NASAL CANNULA, RESPIRATIONS OBSERVED SYMMETRICAL AND UNLABORED. ST ON MONITOR. PATIENT'S ABDOMEN HAS A SUKHWINDER DRAIN TO BROWN DRAINAGE. HE HAS A PEGUERO CATHETER TO YELLOW URINE. PATIENT PRESENTS NO SIGNS OF ACUTE DISTRESS AT THIS TIME. HOB IS 30 DEGREES IN LOWEST POSITION. CALL LIGHT WITHIN REACH. WILL CONTINUE TO MONITOR CLOSELY.
[2017-05-25] MEDS: BLOOD GLUCOSE MONITORING 1 DEV DEV FS SCH ×4 (07:15→20:33)
[2017-05-25] MEDS: PANTOPRAZOLE 40 MG INJ VIAL IVP SCH (08:09)
[2017-05-25] MEDS: fentaNYL 0.075 MG/HR PATCH TD SCH (08:12)
[2017-05-25] MEDS: INSULIN LISPRO SLIDING SCALE 100 UNITS/ML VIAL SUBQ PRN ×4 (08:13→20:35)
--- NOTE | 2017-05-25 08:16 | NUR ---
ORAL CARE GIVEN AND BREAKFAST TRAY PROVIDED. PATIENT IS OBSERVED EATING AND TALKING WITH FAMILY AT BEDSIDE. NO ACUTE DISTRESS NOTED. WILL CONTINUE TO MONITOR.
[2017-05-25] MEDS: DEXT 5% /NACL 0.9% 1,000 ML IV SCH ×3 (08:29→23:57)
--- NOTE | 2017-05-25 08:38 | NUR ---
DR. MATA IN TO SEE AND EXAMINE PATIENT, UPDATED ON PATIENT'S CONDITION. WILL FOLLOW UP ON ANY ORDERS.
[2017-05-25] MEDS: OLANZapine 5 MG TAB PO SCH ×3 (09:30→17:00)
[2017-05-25] MEDS: DULoxetine 30 MG CAPDR PO SCH (09:30)
--- NOTE | 2017-05-25 10:27 | NUR ---
PATIENT HAS BEEN SCREENED AND CATEGORIZED MODERATE NUTRITION RISK. PATIENT WILL BE SEEN WITHIN 3-5 DAYS OF ADMISSION. 05/27/17 - 05/29/[address]
[2017-05-25] MEDS ORDERED: ZOLPIDEM 5 MG TAB PO PRN (10:50)
--- NOTE | 2017-05-25 11:35 | NUR ---
PATIENT'S FAMILY AT BEDSIDE, PATIENT PRESENTS NO SIGNS OF ACUTE DISTRESS AT THIS TIME. WILL CONTINUE TO MONITOR.
--- NOTE | 2017-05-25 11:58 | NUR ---
CM NOTE INITIAL REVIEW FAXED TO [facility] [phone] YANDEL # [phone]
[2017-05-25] MEDS: PIPER/TAZO 3.375GM/D5W PREMIX 50 ML IV SCH ×4 (13:00→20:32)
--- NOTE | 2017-05-25 14:00 | NUR ---
SPOKE WITH KEIKO AT [facility] AND SHE STATED THAT PT IS CURRENTLY ON THEIR SERVICE. [facility] [phone]
--- NOTE | 2017-05-25 14:27 | NUR ---
PATIENT COMPLAINS OF 7/10 PAIN, GAVE 4MG OF MORPHINE.
--- NOTE | 2017-05-25 15:27 | NUR ---
DR. ELMORE IN TO SEE AND EXAMINE PATIENT,UPDATED ON PATIENT'S CONDITION. WILL FOLLOW UP ON ANY ORDERS.
--- NOTE | 2017-05-25 17:30 | NUR ---
D/C PEGUERO CATHETER, REMOVED 8ML FROM BALLOON, CATHETER INTACT. PATIENT TOLERATED WELL.
--- NOTE | 2017-05-25 18:46 | NUR ---
PATIENT OBSERVED RESTING, NO SIGNS OF ACUTE DISTRESS NOTED.
--- NOTE | 2017-05-25 19:11 | NUR ---
GAVE BEDSIDE REPORT TO COMMUNITY LIVING COACH RN, STELLA, FOR CONTINUITY OF CARE. NO SIGNS OF DISTRESS NOTED AT THIS TIME.
--- NOTE | 2017-05-25 19:20 | NUR ---
RECEIVED BEDSIDE REPORT FROM MORNING NURSE. PT IS AAO X4, VERBALLY RESPONSIVE, ABLE TO MAKE NEEDS KNOWN, ABLE TO FOLLOW COMMANDS. PT IS ON O2 2L/M VIA NC. BILATERAL LUNG SOUND CLEAR, NO SOB NOTED. ST ON THE NON DESTRUCTIVE EVALUATION SPECIALIST. ST ON THE MONITOR AND S1,S2 HEARD. SUKHWINDER DRAIN TO UPPER ABDOMEN BROWN DRAINAGE NOTED. NO ACUTE DISTRESS NOTED. DENIES PAIN OR DISCOMFORT. CONTACT PRECAUTION IN PLACE. HOB ELEVATED, BED IN LOW POSITION. CALL LIGHT WITHIN REACH. WILL CONTINUE TO MONITOR.
[2017-05-25] MEDS: traZODone 50 MG TAB PO SCH (21:00)
--- NOTE | 2017-05-25 21:00 | NUR ---
ADMINISTERED SCHEDULED ABX ORDERED. TOLERATED WELL. BS CHECKED 214 NOTED, ADMINISTERED REGULAR INSULIN 4 UNITS, TOLERATED WELL. NO ACUTE DISTRESS NOTED. ST ON THE MONITOR. DENIES PAIN OR DISCOMFORT AT THIS TIME. WILL CONTINUE TO MONITOR.
--- NOTE | 2017-05-25 23:00 | NUR ---
PT IS IN ASLEEP, AROUSABLE TO VOICE. NO ACUTE DISTRESS NOTED. ST ON THE MONITOR. DENIES PAIN. VSS. CALL LIGHT WITHIN REACH. WILL CONTINUE TO MONITOR.
[2017-05-26] VITALS: BP 116/69
--- NOTE | 2017-05-26 01:00 | NUR ---
PT IS IN ASLEEP, AROUSABLE TO VOICE. NO ACUTE DISTRESS NOTED. DENIES PAIN AT THIS TIME. ST ON THE MONITOR. HR ABOVE 100'S. VSS. WILL CONTINUE TO MONITOR.
--- NOTE | 2017-05-26 03:00 | NUR ---
PT IS IN ASLEEP, AROUSABLE TO VOICE. NO ACUTE DISTRESS NOTED. DENIES ANY PAIN OR DISCOMFORT NOTED. ST ON THE MONITOR. HR ABOVE 100'S NOTED.HOB ELEVATED. CALL LIGHT WITHIN REACH. WILL CONTINUE TO MONITOR.
[2017-05-26 04:00] VITALS: BP 106/67
[2017-05-26] MEDS: PIPER/TAZO 3.375GM/D5W PREMIX 50 ML IV SCH ×3 (04:56→21:03)
--- NOTE | 2017-05-26 05:00 | NUR ---
ADMINISTERED SCHEDULED ABX ORDERED, TOLERATED WELL. NO ACUTE DISTRESS NOTED. DENIES ANY PAIN OR DISCOMFORT. ST ON THE MONITOR. VSS. WILL CONTINUE TO MONITOR.
[2017-05-26 05:18] LABS: BASOPHILS % (AUTO) 0.2 % (0.0-2.0); EOSINOPHILS # (AUTO) 0.1 K/uL (0-0.4); EOSINOPHILS % (AUTO) 0.8 % (0.0-4.0); HEMATOCRIT 31.2 % (36-52); HEMOGLOBIN 10.3 g/dL (12.0-18.0); LYMPHOCYTES # (AUTO) 1.4 K/uL (2.0-11.5); LYMPHOCYTES % (AUTO) 13.9 % (20.5-51.1); MEAN CORPUSCULAR HEMOGLOBIN 27 pg (27-31); MEAN CORPUSCULAR HGB CONC 33 g/dL (33-37); MEAN CORPUSCULAR VOLUME 81.7 fL (80-94); MONOCYTES # (AUTO) 0.9 K/uL (0.8-1.0); MONOCYTES % (AUTO) 8.5 % (1.7-9.3); NEUTROPHILS # (AUTO) 7.9 K/uL (1.8-7.7); NEUTROPHILS % (AUTO) 76.6 % (42.2-75.2); PLATELET COUNT (AUTO) 234 K/uL (140-450); RED BLOOD CELL COUNT(AUTO) 3.81 MIL/uL (4.20-6.10); WHITE BLOOD COUNT (AUTO) 10.3 K/uL (4.8-10.8)
--- NOTE | 2017-05-26 06:40 | NUR ---
PT IS AWAKE, AAO X Addendum: 05/26/17 at 0723 by Dhiraj Valeznuela RN PT IS AWAKE, AAO X4, VERBALLY RESPONSIVE. NO ACUTE DISTRESS NOTED. DENIES PAIN. VSS. WILL CONTINUE TO MONITOR.
[2017-05-26] MEDS ORDERED: NACL 0.45% 1,000 ML IV SCH (06:50)
--- NOTE | 2017-05-26 07:20 | NUR ---
BEDSIDE REPORT GIVEN TO BAN FOR CONTINUITY OF CARE.
--- NOTE | 2017-05-26 07:20 | NUR ---
RECEIVED REPORT FROM WINDER HELPER RN. PATIENT IS ASLEEP, EASILY AROUSABLE, ABLE TO FOLLOW COMMANDS AND ABLE TO MAKE NEEDS KNOWN. SINUS TACHYCARDIA ON MONITOR. PT IS ON O2 AT 2LPM/ NASAL CANNULA, BREATHING EVEN AND UNLABORED. PERIPHERAL IVS G20 TO LEFT AC AND RIGHT HAND ASYMPTOMATIC, PATENT AND INTACT. SUKHWINDER DRAIN TO ABDOMEN IN PLACE, MINIMAL BROWN DRAINAGE NOTED. DRESSINGS TO ABDOMEN CLEAN, DRY AND INTACT. SKIN IS DRY AND WARM TO TOUCH. NO SIGNS OF ACUTE DISTRESS AT THIS TIME. HOB 30 DEGREES AND BED IN LOWEST POSITION. CALL LIGHT WITHIN REACH. WILL CONTINUE TO MONITOR.
[2017-05-26 07:35] LABS: ANION GAP 11.4 (8-16); CREATININE 0.6 mg/dL (0.7-1.3); POTASSIUM 3.4 mmol/L (3.5-5.1); TOTAL BILIRUBIN 0.9 mg/dL (0.0-1.0)
--- NOTE | 2017-05-26 07:35 | NUR ---
BREAKFAST SERVED AND NEEDS WELL ATTENDED. NO C/O PAIN OR DISCOMFORT AT THIS TIME.
[2017-05-26] MEDS: BLOOD GLUCOSE MONITORING 1 DEV DEV FS SCH ×4 (07:48→20:49)
[2017-05-26] MEDS: INSULIN LISPRO SLIDING SCALE 100 UNITS/ML VIAL SUBQ PRN ×4 (07:49→20:57)
[2017-05-26 08:00] VITALS: BP 103/64
[2017-05-26] MEDS: DULoxetine 30 MG CAPDR PO SCH (08:59)
[2017-05-26] MEDS: PANTOPRAZOLE 40 MG INJ VIAL IVP SCH (08:59)
[2017-05-26] MEDS: OLANZapine 5 MG TAB PO SCH ×3 (09:00→16:46)
--- NOTE | 2017-05-26 09:06 | NUR ---
MEDICATIONS ADMINISTERED. PT TOLERATED WELL.
--- NOTE | 2017-05-26 09:10 | NUR ---
WOUND EVALUATION NOTE: REASON FOR WOUND EVALUATION: SURGICAL WOUNDS S/P OPEN CHOLECYSTECTOMY NECROTIZING CHOLECYSTIS AND BILE PERITONITIS SKIN ASSESSMENT DONE ON THIS 51 Y/O MALE PATIENT FROM HOME TO [facility], WITH INITIAL DIAGNOSIS OF RUQ ABDOMINAL PAIN . PAST MEDICAL HISTORY INCLUDE HTN, DM ABDOMINAL RESECTION/FISTULAR, CHRONIC BACK PAIN AND SPINAL SURGERY. ALL ABOVE INFORMATION WAS OBTAINED FROM THE ADMISSION H&P. LAB. ARE WBC 10.3, H/H 10.3/31.2 GLUCOSE 303, ALBUMIN 2.0. AND PT/INR 11.4/1.1. PATIENT IS AWAKE, ORIENTED TO PERSON, PLACE AND TIME. SKIN WARM TO TOUCH WNL, TOENAILS ARE THICKENED, NO EDEMA, BLE WITH HAIR GROWTH AND NORMAL PEDAL PULSES.PT. ABLE TO FOLLOW COMMANDS AND ABLE TO MAKE HIS NEEDS KNOWS. ABLE TO TURN SELF WITHOUT ASSISTANCE. PLAN OF CARE AND PRESSURE PREVENTIVE MEASURES DISCUSSED WITH PT. AND PRIMARY RN. PT. ABLE TO VERBALIZE UNDERSTANDING. INTEGUMENTARY: -MID ABDOMEN OLD HEALED SCAR -RUQ ABDOMEN SURGICAL SITE WITH MULTIPLE DONYA IN PLACE, DRY AND CLEAN , NO S/S WOUND INFECTION AND WOUND DEHISCENCE -RIGHT LATERAL CHEST OSIRIS KAHN DRAIN IN PLACE SECURED WITH SUTURES, FUNCTIONING, NOTICE OF SMALL AMOUNT SANGUINEOUS DRAINAGE OUTPUT -MID ABDOMEN SURGICAL WOUNDS, 2 OPEN AREAS WITH LARGEST 0.5X0.5 CM WOUND BED YELLOW , SMALL AMOUNT OF YELLOW/ PURULENT DRAINAGE, ANABELA-WOUNDS SKIN INTACT WITH REDNESS MEASURES 3X2 CM, NO ODOR AFTER CLEANSING. RECOMMENDATIONS: -CLEANSE RUQ ABDOMEN SURGICAL SITE WITH NS. PAT DRY, APPLY DRY DRESSING WITH COMPOSITE QD AND PRN IF SOILING -CLEANSE MID ABDOMEN WOUND WITH NS. PAT DRY, APPLY SILVASORB GEL WITH ADAPTIC DRESSING AND COVER WITH DRY DRESSING SECURE WITH TAPE QD AND PRN IF SOILING -TURN AND REPOSITION PATIENT Q2H -OFFLOAD BILATERAL HEELS BY PLACING PILLOWS UNDER CALVES AT ALL TIMES, UNLESS OTHERWISE CONTRAINDICATED -KEEP SKIN CLEAN AND DRY AT ALL TIMES. -PT. WAS INSTRUCTED TO HOLD ABDOMEN WHEN COUGH OR TURN/REPOSITION -CONTINUE TO FOLLOW RD RECOMMENDATIONS -FOLLOW UP WITH SURGEON UPON DISCHARGE IN 7-10 DAYS OR ORDERED RECOMMENDATIONS DISCUSSED WITH PRIMARY RN WILL FOLLOW UP PATIENT Q 7-10 DAYS AND PRN. PLEASE CONTACT WOUND CARE NURSE FOR ANY QUESTIONS AND CHANGES IN WOUND CONDITION.
[2017-05-26] MEDS: ENOXAPARIN 40 MG/0.4 ML SYR SUBQ SCH (09:20)
[2017-05-26 12:00] VITALS: BP 115/70
--- NOTE | 2017-05-26 12:15 | NUR ---
CM NOTE CONCURRENT REVIEW FAXED TO [facility] [phone] YANDEL # [phone]
--- NOTE | 2017-05-26 12:48 | NUR ---
PT HAVING PHYSICAL THERAPY. VITAL SIGNS STABLE. AT BEDSIDE. WILL CONTINUE TO MONITOR.
--- NOTE | 2017-05-26 13:00 | NUR ---
PHYSICAL THERAPY COMPLETED. PT TOLERATED WELL.
--- NOTE | 2017-05-26 13:30 | NUR ---
MID ABDOMEN SURGICAL WOUNDS MODERATE AMOUNT OF YELLOW DRAINAGE NOTED. PLACED COLLECTING BAG TO DRAINAGE PER PT'S REQUEST.
[2017-05-26] MEDS ORDERED: PROBIOTIC SCREEN 1 EA MISC MC PRN (15:15)
[2017-05-26] MEDS: DEXT 5% /NACL 0.9% 1,000 ML IV SCH (15:26)
--- NOTE | 2017-05-26 15:35 | NUR ---
NO CHANGE OF CONDITION AT THIS TIME. VITAL SIGNS STABLE. AT BEDSIDE. NEEDS WELL ATTENDED. SAFETY PRECAUTIONS IN PLACE. WILL CONTINUE TO MONITOR.
[2017-05-26] MEDS ORDERED: POTASSIUM CHLORIDE 20% 40 MEQ/15 ML UDC PO SCH (15:45)
[2017-05-26 16:00] VITALS: BP 121/72
--- NOTE | 2017-05-26 16:43 | NUR ---
PT IS AWAKE LYING ON THE BED, BLOOD GLUCOSE CHECK DONE RESULT REVEALED 262. VITAL SIGNS TAKEN. CALL LIGHT WITHIN REACH. WILL CONTINUE TO MONITOR.
--- NOTE | 2017-05-26 17:30 | NUR ---
RECEIVED PT ON UNIT VIA WHEELCHAIR, PT IS AAOX4, AMBULATES WITH ASSIST, PT HAS IV ON HIS LEFT AC AND ON HIS RIGHT HAND PATENT, INTACT, FLUSHING WELL, PT HAS SUKHWINDER DRAIN ON RIGHT SIDE OF THE ABDOMEN, PT HAS OSTOMY BAG ON THE LEFT SIDE OF THE ABDOMEN, PT IS ON O2 2L NC, NO S/S OF RESPIRATORY DISTRESS OR DISCOMFORT NOTED, DISCUSSED PLAN OF CARE WITH PT, ORIENTED PT TO ROOM, SAFETY/FALL PRECAUTIONS ARE IN PLACE, CALL LIGHT IS WITHIN REACH, WILL CONTINUE TO MONITOR, PT'S IS AT BEDSIDE.
--- NOTE | 2017-05-26 17:40 | NUR ---
PT TRANSFERRED TO TELEMETRY ROOM 117. REPORT GIVEN TO MELVIN HARP AND JAMES ZHONG RN AT BEDSIDE. NO ACUTE DISTRESS NOTED AT THIS TIME.
[2017-05-26] MEDS: traZODone 50 MG TAB PO SCH ×2 (18:53→21:03)
--- NOTE | 2017-05-26 18:53 | NUR ---
PT IS AWAKE, JUST FINISHED DINNER, HUMALOG 6 UNITS GIVEN SUBQ AT RIGHT UPPER ARM. NO SIGNS OF DISTRESS NOTED. CALL LIGHT WITHIN REACH.
--- NOTE | 2017-05-26 19:30 | NUR ---
ASSUMED CARE OF PATIENT, AWAKE, ALERT AND ORIENTED. NO COMPLAINS. VITALS SIGNS STABLE. CALL LIGHT WITHIN REACH.
--- NOTE | 2017-05-26 19:44 | NUR ---
ENDORSED PT TO CUSTOMS ENTRY CLERK NURSECAROLIN FOR CONTINUITY OF CARE. PT IS SLEEPING AND STABLE AT THIS TIME. CALL LIGHT WITHIN REACH.
[2017-05-26 20:00] VITALS: BP 126/76
--- NOTE | 2017-05-26 20:00 | NUR ---
AFEBRILE. VITAL SIGNS STABLE. NO COMPLAINS. FAMILY AT BEDSIDE. PLAN OF CARE DISCUSSED WITH PATIENT AND FAMILY MEMBER, VERBALIZED UNDERSTANDING WELL. CALL LIGHT WITHIN REACH.
[2017-05-26] MEDS: MORPHINE SULFATE 4 MG/ML SYR IVP PRN (21:55)
[2017-05-27 00:21] VITALS: BP 126/77
--- NOTE | 2017-05-27 00:27 | NUR ---
AWAKE, NO COMPLAINS. VITAL SIGNS STABLE. CALL LIGHT WITHIN REACH.
[2017-05-27 04:16] VITALS: BP 135/83
[2017-05-27] MEDS: PIPER/TAZO 3.375GM/D5W PREMIX 50 ML IV SCH ×3 (04:16→20:13)
[2017-05-27] MEDS: DEXT 5% /NACL 0.9% 1,000 ML IV SCH ×2 (04:24→13:30)
[2017-05-27] MEDS: BLOOD GLUCOSE MONITORING 1 DEV DEV FS SCH ×4 (05:30→20:21)
[2017-05-27] MEDS: INSULIN LISPRO SLIDING SCALE 100 UNITS/ML VIAL SUBQ PRN ×4 (05:48→21:21)
[2017-05-27 06:38] LABS: BASOPHILS # (AUTO) 0.1 K/uL (0.00-0.22); EOSINOPHILS # (AUTO) 0.2 K/uL (0-0.4); EOSINOPHILS % (AUTO) 2.6 % (0.0-4.0); HEMATOCRIT 29.3 % (36-52); HEMOGLOBIN 10.1 g/dL (12.0-18.0); LYMPHOCYTES # (AUTO) 1.8 K/uL (2.0-11.5); LYMPHOCYTES % (AUTO) 24.7 % (20.5-51.1); MEAN CORPUSCULAR HEMOGLOBIN 28 pg (27-31); MEAN CORPUSCULAR HGB CONC 35 g/dL (33-37); MEAN CORPUSCULAR VOLUME 80.4 fL (80-94); MONOCYTES # (AUTO) 0.7 K/uL (0.8-1.0); MONOCYTES % (AUTO) 9.2 % (1.7-9.3); NEUTROPHILS # (AUTO) 4.4 K/uL (1.8-7.7); NEUTROPHILS % (AUTO) 62.5 % (42.2-75.2); PLATELET COUNT (AUTO) 266 K/uL (140-450); RED BLOOD CELL COUNT(AUTO) 3.64 MIL/uL (4.20-6.10); RED CELL DISTRIBUTION WIDTH 13.8 % (11.6-13.7); WHITE BLOOD COUNT (AUTO) 7.1 K/uL (4.8-10.8)
[2017-05-27 07:09] LABS: ALBUMIN 2.1 g/dL (3.4-5.0); ANION GAP 10.4 (8-16); CARBON DIOXIDE 29.1 mmol/L (21-32); CREATININE 0.6 mg/dL (0.7-1.3); POTASSIUM 3.5 mmol/L (3.5-5.1); TOTAL BILIRUBIN 0.9 mg/dL (0.0-1.0)
--- NOTE | 2017-05-27 07:24 | NUR ---
ENDORSED CARE AT BEDSIDE WITH ALBER CHARLES, PATIENT IN STABLE CONDITION.
--- NOTE | 2017-05-27 07:25 | NUR ---
RECEIVED REPORT AT BEDSIDE FROM THE NUCLEAR REACTOR OPERATOR NURSE FOR CONTINUITY OF CARE. PT IS AWAKE AND ORIENTED. INTRODUCED MYSELF AND UPDATED THE BOARD. VS WITHIN NORMAL RANGE. PT C/O SOME FLANK PAIN WHEN MOVING SIDE TO SIDE. LEVEL 6/10. WILL MEDICATE WITH MORNING MEDS. PT HAS AN IV ON L HAND 20G D5NS AT 75ML. PT IS ON ROOM AIR. NO SIGNS OF RESP DISTRESS. PT HAS A SUKHWINDER DRAIN ON R UPPER ABD. <1 ML OF DRAINAGE IN BULB. PT ALSO HAS A STOMA ON MIDDLE UPPER QUAD. COLOSTOMY BAG ATTACHED TO A PEGUERO BAG. DRY AND INTACT. PT IS USING A URINAL. 400ML, YELLOW CLEAR URING, EMPTIED. LBM TODAY. WILL CONTINUE TO MONITOR PT.
[2017-05-27 08:00] VITALS: BP 133/77
[2017-05-27] MEDS: ENOXAPARIN 40 MG/0.4 ML SYR SUBQ SCH (09:21)
[2017-05-27] MEDS: OLANZapine 5 MG TAB PO SCH ×3 (09:23→16:36)
[2017-05-27] MEDS: fentaNYL 0.075 MG/HR PATCH TD SCH (09:23)
[2017-05-27] MEDS: DULoxetine 30 MG CAPDR PO SCH (09:23)
[2017-05-27] MEDS: LACTOBACILLUS RHAMNOSUS GG 1 EACH CAP PO SCH (09:23)
[2017-05-27] MEDS: PANTOPRAZOLE 40 MG INJ VIAL IVP SCH (09:24)
[2017-05-27] MEDS: INSULIN LANTUS 100 UNITS/ML 10 ML VIAL SUBQ SCH (09:25)
--- NOTE | 2017-05-27 09:33 | NUR ---
ADMINISTERED MORNING MEDS. PT TOLERATED WELL. PER PT, PT HAS PAIN 6/10. APPLIED THE SCHEDULED FENTANYL PATCH. WILL CONTINUE TO MONITOR PT.
--- NOTE | 2017-05-27 09:53 | NUR ---
CM NOTE CONCURRENT REVIEW FAXED TO [facility] [phone] YANDEL # [phone]
[2017-05-27 12:00] VITALS: BP 128/74
--- NOTE | 2017-05-27 13:03 | NUR ---
STARTED A NEW IV. THE ONE ON HIS R HAND INFILTRATED. 1 ATTEMPT. L HAND 22G. STATED ZOSYN AND GAVE INSULIN 4 UNITS. PT TOLERATED WELL. WILL CONTINUE TO MONITOR PT. Addendum: 05/27/17 at 1304 by Dimple Gama RN MORPHINE 2MG ALSO GIVEN FOR MOD PAIN.
--- NOTE | 2017-05-27 14:47 | NUR ---
PT RESTING COMFORTABLY. NO COMPLAINTS AT THIS TIME. AT BEDSIDE. WILL CONTINUE TO MONITOR PT.
[2017-05-27 16:41] VITALS: BP 132/77
--- NOTE | 2017-05-27 17:43 | NUR ---
PT EATING DINNER. AT BEDSIDE. NO COMPLAINTS AT THIS TIME. WILL CONTINUE TO MONITOR PT.
--- NOTE | 2017-05-27 18:47 | NUR ---
STOPPED IVF ORDERED. PT HEARS GURGLING IN HIS STOMA. GETTING A LOT OF DRAINAGE. NO COMPLAINTS AT THIS TIME. WILL CONTINUE TO MONITOR PT.
--- NOTE | 2017-05-27 19:30 | NUR ---
RECEIVED REPORT AT BEDSIDE FROM THE DAY SHIFT NURSE FOR CONTINUITY OF CARE. PT IS AWAKE AND ORIENTED. PT HAS AN IV ON L HAND 20G D5NS AT 75ML. PT IS ON ROOM AIR. NO SIGNS OF RESP DISTRESS. PT HAS A STOMA ON MIDDLE UPPER QUAD. COLOSTOMY BAG ATTACHED TO A PEGUERO BAG. DRY AND INTACT. INITIAL ASSESSMENT COMPLETED, PLAN OF CARE DISCUSSED WITH PT, PT AND VERBALIZED UNDERSTANDING, BOARD UPDATED, WILL CONTINUE TO MONITOR.
[2017-05-27 20:00] VITALS: BP 127/77
[2017-05-27] MEDS: traZODone 50 MG TAB PO SCH (20:13)
--- NOTE | 2017-05-27 20:15 | NUR ---
ALL DUE MEDICATIONS GIVEN, PT TOLERATED WELL, PEGUERO BAG EMPTIED 250 ML OF LIQUID FOAMY LIGHT BROWN STOOL.
--- NOTE | 2017-05-27 22:30 | NUR ---
PT RESTING COMFORTABLY IN BED, NO S/S OF DISTRESS NOTED. ALL NEEDS MET, WILL CONTINUE TO MONITOR
--- NOTE | 2017-05-27 23:30 | NUR ---
PT RESTING COMFORTABLY IN BED, NO S/S OF DISTRESS NOTED. ALL NEEDS MET, WILL CONTINUE TO MONITOR
[2017-05-28] VITALS: BP 126/74
--- NOTE | 2017-05-28 | NUR ---
PT RESTING COMFORTABLY IN BED, NO S/S OF DISTRESS NOTED. ALL NEEDS MET, WILL CONTINUE TO MONITOR. VSS
--- NOTE | 2017-05-28 02:32 | NUR ---
PT RESTING COMFORTABLY IN BED, NO S/S OF DISTRESS NOTED. ALL NEEDS MET, WILL CONTINUE TO MONITOR
--- NOTE | 2017-05-28 03:30 | NUR ---
VSS, PT RESTING COMFORTABLY IN BED. NO S/S OF DISTRESS NOTED
[2017-05-28 04:00] VITALS: BP 128/76
[2017-05-28] MEDS: PIPER/TAZO 3.375GM/D5W PREMIX 50 ML IV SCH ×2 (04:16→12:42)
--- NOTE | 2017-05-28 04:30 | NUR ---
VSS, PT RESTING COMFORTABLY IN BED. NO S/S OF DISTRESS NOTED
[2017-05-28] MEDS: INSULIN LISPRO SLIDING SCALE 100 UNITS/ML VIAL SUBQ PRN ×3 (05:39→17:10)
--- NOTE | 2017-05-28 06:25 | NUR ---
VSS, PT RESTING COMFORTABLY IN BED. NO S/S OF DISTRESS NOTED
[2017-05-28] MEDS: BLOOD GLUCOSE MONITORING 1 DEV DEV FS SCH ×3 (06:37→17:07)
[2017-05-28 07:16] LABS: BASOPHILS % (AUTO) 0.3 % (0.0-2.0); EOSINOPHILS # (AUTO) 0.2 K/uL (0-0.4); EOSINOPHILS % (AUTO) 2.5 % (0.0-4.0); HEMATOCRIT 32.2 % (36-52); HEMOGLOBIN 10.6 g/dL (12.0-18.0); LYMPHOCYTES # (AUTO) 1.5 K/uL (2.0-11.5); MEAN CORPUSCULAR HEMOGLOBIN 27 pg (27-31); MEAN CORPUSCULAR HGB CONC 33 g/dL (33-37); MONOCYTES # (AUTO) 0.7 K/uL (0.8-1.0); NEUTROPHILS # (AUTO) 4.4 K/uL (1.8-7.7); NEUTROPHILS % (AUTO) 65.2 % (42.2-75.2); PLATELET COUNT (AUTO) 286 K/uL (140-450); RED BLOOD CELL COUNT(AUTO) 3.97 MIL/uL (4.20-6.10); RED CELL DISTRIBUTION WIDTH 13.7 % (11.6-13.7); WHITE BLOOD COUNT (AUTO) 6.7 K/uL (4.8-10.8)
[2017-05-28 07:39] LABS: ALBUMIN 2.2 g/dL (3.4-5.0); ANION GAP 8.7 (8-16); CARBON DIOXIDE 33.2 mmol/L (21-32); CREATININE 0.7 mg/dL (0.7-1.3); POTASSIUM 3.9 mmol/L (3.5-5.1); TOTAL BILIRUBIN 0.8 mg/dL (0.0-1.0)
--- NOTE | 2017-05-28 07:39 | NUR ---
REPORT GIVEN TO DAY NURSE, PT IN STABLE CONDITION NO S/S OF DISTRESS NOTED
--- NOTE | 2017-05-28 07:40 | NUR ---
RECEIVED REPORT FROM THE FAMILY MANAGER NURSE AT BEDSIDE FOR CONTINUITY OF CARE. PT IS AWAKE AND ORIENTED. UPDATED THE BOARD. V/S WITHIN NORMAL RANGE. NO COMPLAINTS OF PAIN. IV ON L HAND 22G SL. COLOSTOMY BAG OVER STOMA ATTACHED TO PEGUERO CATH BAG, COLLECTING YELLOWISH GREEN DRAINAGE ABOUT 100ML IN BAG. EMPTIED 525 ML OF YELLOW CLEAR URINE. WILL CONTINUE TO MONITOR PT.
[2017-05-28 08:00] VITALS: BP 124/80
--- NOTE | 2017-05-28 08:12 | NUR ---
DID NOT DO ASSESSMENT DOCUMENTATION ON THE FENTANYL PATCH. I APPLIED TO THE PT 05/27/17, SCHEDULED Q2D. WHEN I WENT INTO DOCUMENT, ONLY GAVE ME OPTIONS OF DOCUMENTING DATE REMOVED AND TIME REMOVED. IT IS NOT TO BE REMOVED UNTIL TOMORROW. SPOKE TO CAROLIN, PHARMACIST TO ADVICE. PER CAROLIN, IT IS NOT TO BE REMOVED AND DOCUMENT NOT DONE.
[2017-05-28] MEDS: PANTOPRAZOLE 40 MG INJ VIAL IVP SCH (08:35)
[2017-05-28] MEDS: OLANZapine 5 MG TAB PO SCH ×3 (08:36→17:07)
[2017-05-28] MEDS: LACTOBACILLUS RHAMNOSUS GG 1 EACH CAP PO SCH (08:36)
[2017-05-28] MEDS: DULoxetine 30 MG CAPDR PO SCH (08:37)
[2017-05-28] MEDS: ENOXAPARIN 40 MG/0.4 ML SYR SUBQ SCH (08:39)
[2017-05-28] MEDS: INSULIN LANTUS 100 UNITS/ML 10 ML VIAL SUBQ SCH (08:40)
--- NOTE | 2017-05-28 08:46 | NUR ---
PT WAS UP AND BOUT IN THE ROOM DOING MORNING ADL'S WITH TYPE MAPPER. ADMINISTERED MORNING MEDS. PT TOLERATED WELL. NO SIGNS OF RESP DISTRESS OR C/O PAIN. MET ALL NEEDS AT THIS TIME. WILL CONTINUE TO MONITOR PT.
--- NOTE | 2017-05-28 09:24 | NUR ---
CM NOTE CONCURRENT REVIEW FAXED TO [facility] [phone] YANDEL # [phone]
--- NOTE | 2017-05-28 10:31 | NUR ---
PT C/O LEAKING FROM THE COLOSTOMY BAG. TOOK THE COLOSTOMY BAG OFF, CLEANSED THE AREA. PATTED DRY, PUT MEDICATION ON THE IRRITATED SKIN AROUND OPENING, APPLIED SKIN PREP. APPLIED A NEW COLOSTOMY BAG. APPLIED SOME TAPE ALL THE WAY AROUND AND REHOOKED IT TO THE PEGUERO BAG. EMPTIED 350 OF YELLOW FECAL MATERIAL. PT TOLERATED WELL. WILL CONTINUE TO MONITOR PT.
[2017-05-28 12:00] VITALS: BP 127/78
--- NOTE | 2017-05-28 13:00 | NUR ---
ASSESS S/P SUKHWINDER DRAIN SITE, WOUND BED IS RED, SMALL SLIT 1CM IN LENGTH, AREA DRY AND CLEAN. RUQ SURGICAL DONYA IN PLACE WOUND DRY AND CLEAN NO S/S OF INFECTION. MID ABDOMEN SMALL AMOUNT OF LIGHT GREENISH DRAINAGE TO DRAINAGE BAG, NO ODOR. ABDOMEN BINDER PROVIDED, AND INSTRUCTION PROVIDED TO PT TO APPLY BEFORE GET OUT OF BED, UP FOR AMBULATION AND AVOID STRAINING. PT. VERBALIZES UNDERSTANDING. WILL CONTINUE SAME TREATMENT ORDERS. CN MADE AWARD.
--- NOTE | 2017-05-28 13:40 | NUR ---
P/T HERE TO WORK WITH PT. PT IS STABLE TO AMBULATE.
--- NOTE | 2017-05-28 14:20 | NUR ---
PT RESTING COMFORTABLY. ATT BEDSIDE. WILL CONTINUE TO MONITOR PT.
--- NOTE | 2017-05-28 15:29 | NUR ---
FOREST FIRE MANAGEMENT OFFICER IN ROOM. ASSISTED PT TO THE BATHROOM.
--- NOTE | 2017-05-28 15:44 | NUR ---
DR. ELMORE SAW PT TODAY. PER , PT IS GOOD TO BE D/C'D TODAY. WILL NEED HOME HEALTH SERVICES FOR WOUND CARE. SS WILL WORK ON THAT SOON PUTVictorino IN ORDERS. I WILL AWAIT D/C ORDERS.
[2017-05-28 16:00] VITALS: BP 134/78
[2017-05-28] MEDS ORDERED: NACL 0.9% IRR 250 ML BOTTLE IR SCH (16:00)
[2017-05-28] MEDS ORDERED: NACL 0.9% IRR 250 ML BOTTLE IR PRN (16:05)
[2017-05-28] MEDS ORDERED: ACET-2869 PO (16:31)
[2017-05-28] MEDS ORDERED: CIPR500T4 PO (16:33)
[2017-05-28] MEDS ORDERED: METR250T2 PO (16:35)
[2017-05-28] MEDS ORDERED: METR500T1 PO (16:37)
--- NOTE | 2017-05-28 17:15 | NUR ---
ADMINISTERED AFTERNOON SCHEDULED MED AND INSULIN. PT TOLERATED WELL. WILL CALL FOR RIDE. PT TO BE D/C'D. WILL CALL .
--- NOTE | 2017-05-28 17:36 | NUR ---
RECEIVED ORDER FOR HOME HEALTH FOR WOUND CARE. FAXED FACE SHEET AND ORDER TO [facility]. SPOKE WITH YANDEL FROM [facility] AND SHE SAID TO USE [facility] [phone]. CALLED AND LEFT MESSAGE AT [facility]. YANDEL SAID THAT EDGAR WOULD BE HEEL COVERER MACHINE OPERATOR THIS WEEKEND, [phone].
--- NOTE | 2017-05-28 18:09 | NUR ---
RECEIVED A CALL FROM NAIF, UNABLE TO TAKE PATIENT AT THIS TIME. I CALLED LESLI FROM [facility], [phone]. SHE SAID TO FAX INQUIRY AND ORDER TO [facility] AT [phone], WHICH I DID. PER YANDEL FROM [facility]., HAVE [facility] CALL EDGAR TOMORROW FOR AUTH, [phone].
--- NOTE | 2017-05-28 18:20 | NUR ---
CALLED DR. ELMORE. AND SPOKE TO HER REGARDING PT'S D/C AND NEED FOR ACCU CHECK USE FOR HOME. PER , NO SUPPLIES AT HOME. NEED TO CALL IN THE PHARMACY THE INSULIN AND GLUCOMETER STRIPS AND LANCETS. GAVE , PHONE NUMBER OF PHARMACY, FABIOLA ACKERMAN.
--- NOTE | 2017-05-28 18:28 | NUR ---
FOUND A NOTE THAT THIS PATIENT WAS ON [employer] , PREVIOUS. CALLED THAT NUMBER AND A RECORDING SAID THIS IS NOT A WORKING NUMBERL.
--- NOTE | 2017-05-28 18:55 | NUR ---
SPOKE TO DR. ELMORE REGARDING HIS INSULIN SUPPLY. SHE CALLED THE PHARMACY AND CALLED IN THE ORDER FOR LANTUS AND HUMALOG BUT THE MACHINE, LANCETS, AND STRIPS HAS TO BE AUTHORIZED BY PCP THROUGH THE INSURANCE. PT WILL NEED TO CALL THE PCP AND REQUEST ON WEDNESDAY.
--- NOTE | 2017-05-28 19:13 | NUR ---
ENDORSED PT TO THE IT RISK ANALYST NURSE. PT WILL TAKE PICTURES AND WILL FINISH DISCHARGE WITH PT. PT IS IN STABLE CONDITION. AND RIDE IS AT BEDSIDE.
[2017-05-28 19:30] VITALS: BP 129/83
--- NOTE | 2017-05-28 19:56 | NUR ---
PATIENT DISCHARGED TO HOME. DISCHARGE INSTRUCTIONS AND DISCHARGE INSTRUCTIONS GIVEN. PATIENT AND PATIENT'S VERBALIZED UNDERSTANDING. IV LINE DISCONTINUED. WOUND PICTURES TAKEN AND FILED IN THE CHART. PATIENT LEFT WITH ALL HIS BELONGINGS AND DISCHARGE PAPERS. PATIENT LEFT IN STABLE CONDITION
--- NOTE | 2017-05-29 15:31 | NUR ---
Social Service Note: Per Lore from [facility] / , she spoke with patient and patient would like to continue to receive services from current home health he is already receiving services from.
== END 2017-05-28 19:56 | disposition home health service (06) | DRG 853 ==
LOC: MED 09:13 → MTU 15:32 → MIC 23:10 → MTU 05-26 18:32
PROVIDERS: ADMIT Hospitalist; ATTEND Hospitalist
PROC: 0W3G0ZZ Control Bleeding in Peritoneal Cavity, Open Approach (ICD-10-PCS; 2017-05-24)
PROC: 0D9W00Z Drainage of Peritoneum with Drainage Device, Open Approach (ICD-10-PCS; 2017-05-24)
PROC: 30233N1 Transfusion of Nonautologous Red Blood Cells into Peripheral Vein, Percutaneous Approach (ICD-10-PCS; 2017-05-24)
PROC: 0FT40ZZ Resection of Gallbladder, Open Approach (ICD-10-PCS; principal; 2017-05-24 19:30)
DX: A41.9 Sepsis, unspecified organism (principal); K65.3 Choleperitonitis; K56.609 Unspecified intestinal obstruction, unspecified as to partial versus complete obstruction; K63.2 Fistula of intestine; E44.1 Mild protein-calorie malnutrition; K81.2 Acute cholecystitis with chronic cholecystitis; I10 Essential (primary) hypertension; F32.9 Major depressive disorder, single episode, unspecified; G89.29 Other chronic pain; Z79.899 Other long term (current) drug therapy; Z85.89 Personal history of malignant neoplasm of other organs and systems; Z87.891 Personal history of nicotine dependence; Z68.26 Body mass index [BMI] 26.0-26.9, adult; K82.8 Other specified diseases of gallbladder; E10.9 Type 1 diabetes mellitus without complications; Z79.4 Long term (current) use of insulin; Y92.89 Other specified places as the place of occurrence of the external cause
CPT/HCPCS: 36415; 71045; 76705; 80053; 81001; 82948; 83605; 83690; 84484; 85025; 85610; 86886; 86900; 86901; 86920; 87040; 87070; 87075; 87081; 87205; 88304; 93005; 96361; 96365; 96375; 97110; 97116; 97140; 97530; 99285; C9113; J0330; J1100; J1650; J1815; J2250; J2270; J2405; J2543; J2704; J2710; J3010; J3490; J7030; J7042; P9016; Q0092; Q9967

== ENCOUNTER 2017-11-29 23:00 | Inpatient (IN) | payer OTHER ==
[~2017-11-29] VITALS: Ht 182.9 cm; Wt 86.2 kg
[~2017-11-29 23:00] MED LIST changes: -ACET-1182 PO; +CIPR500T4 PO; +HYDR-5122 PO; -METR500S14 IV; +METR500T1 PO; +OLAN20TA1 PO; -OLAN5TAB30 GT; -OMEP10SU PO; +OMEP20TC12 PO; -ONDA2SOL45 IVP; -PANT40PD7 IVP; -ROC2I IV; -TOP25 PO; -TRAZ-286 PO; +TRAZ-343 PO; -[UNRECOGNIZED DRUG - CODE] SUBQ
[2017-11-29 23:05] VITALS: BP 121/68
[2017-11-30] MEDS ORDERED: NACL 0.9% 1,000 ML IV ONE ×4 (00:06→20:45)
[2017-11-30] MEDS ORDERED: MORPHINE SULFATE 4 MG/ML SYR IVP ONE (00:10)
[2017-11-30] MEDS ORDERED: ONDANSETRON 4 MG/2 ML VIAL IVP ONE (00:10)
[2017-11-30 00:39] LABS: BASOPHILS # (AUTO) 0.1 K/uL (0.00-0.22); BASOPHILS % (AUTO) 0.3 % (0.0-2.0); EOSINOPHILS # (AUTO) 0.2 K/uL (0-0.4); EOSINOPHILS % (AUTO) 0.6 % (0.0-4.0); HEMOGLOBIN 13.6 g/dL (12.0-18.0); LYMPHOCYTES # (AUTO) 2.6 K/uL (2.0-11.5); LYMPHOCYTES % (AUTO) 10.8 % (20.5-51.1); MEAN CORPUSCULAR HEMOGLOBIN 26 pg (27-31); MEAN CORPUSCULAR HGB CONC 32 g/dL (33-37); MEAN CORPUSCULAR VOLUME 79.7 fL (80-94); MONOCYTES # (AUTO) 1.5 K/uL (0.8-1.0); MONOCYTES % (AUTO) 6.2 % (1.7-9.3); NEUTROPHILS # (AUTO) 19.8 K/uL (1.8-7.7); NEUTROPHILS % (AUTO) 82.1 % (42.2-75.2); PLATELET COUNT (AUTO) 367 K/uL (140-450); RED BLOOD CELL COUNT(AUTO) 5.27 MIL/uL (4.20-6.10); RED CELL DISTRIBUTION WIDTH 13.6 % (11.6-13.7)
[2017-11-30 00:48] LABS: WHITE BLOOD COUNT (AUTO) 24.1 K/uL (4.8-10.8)
[2017-11-30 00:51] LABS: ANION GAP 11.3 (8-16); CARBON DIOXIDE 25.3 mmol/L (21-32); CREATININE 0.9 mg/dL (0.7-1.3); POTASSIUM 3.6 mmol/L (3.5-5.1)
[2017-11-30 00:57] LABS: ALBUMIN 3.6 g/dL (3.4-5.0); TOTAL BILIRUBIN 0.5 mg/dL (0.0-1.0)
[2017-11-30] MEDS ORDERED: KETOROLAC 30 MG/ML VIAL IVP ONE (02:15)
[2017-11-30] MEDS ORDERED: metroNIDAZOLE 500 MG/NS PREMIX 100 ML IV ONE (02:15)
[2017-11-30] MEDS ORDERED: MORPHINE SULFATE 2 MG/ML SYR IVP PRN (02:15)
[2017-11-30] MEDS ORDERED: ONDANSETRON 4 MG/2 ML VIAL IVP PRN ×2 (02:15→18:00)
[2017-11-30] MEDS ORDERED: LEVOFLOXACIN 750 MG/D5W PREMIX 150 ML IV ONE (02:15)
[2017-11-30 02:47] LABS: PROTHROMBIN TIME 9.7 secs (10.8-13.4)
[2017-11-30] MEDS: NACL 0.9% 1,000 ML IV SCH ×3 (03:20→20:20)
[2017-11-30 04:00] VITALS: BP 107/73
[2017-11-30] MEDS: PIPER/TAZO 3.375GM/D5W PREMIX 50 ML IV SCH ×3 (05:01→21:47)
[2017-11-30] MEDS ORDERED: PIPERACILLIN/TAZOBACTAM 3.375 GM VIAL IV ONE (05:02)
[2017-11-30 08:00] VITALS: BP 113/62
[2017-11-30] MEDS: ENOXAPARIN 40 MG/0.4 ML SYR SUBQ SCH (09:12)
[2017-11-30 12:00] VITALS: BP 120/73
[2017-11-30] MEDS ORDERED: BUPIVACAINE-MPF/EPI 0.25% 30 ML VIAL INJ ONE (13:51)
[2017-11-30] MEDS ORDERED: DEXTROSE 50% 50 ML SYR IVP PRN (14:20)
[2017-11-30] MEDS ORDERED: BUPIVACAINE-MPF 0.5% 30 ML VIAL INJ ONE (14:23)
[2017-11-30] MEDS ORDERED: LIDOCAINE/EPI 1% 1:100000 20 ML VIAL INJ ONE (14:23)
[2017-11-30] MEDS ORDERED: PROPOFOL 200 MG/20 ML VIAL IV ONE (14:58)
[2017-11-30] MEDS ORDERED: PHENYLEPHRINE 10 MG/ML VIAL ONE (14:58)
[2017-11-30] MEDS ORDERED: DESFLURANE 240 ML BTL INH ONE (14:58)
[2017-11-30] MEDS ORDERED: SUCCINYLCHOLINE CHLORIDE 200 MG/10 ML VIAL IVP ONE (14:58)
[2017-11-30] MEDS ORDERED: ROCURONIUM 50 MG/5 ML VIAL IV ONE (14:58)
[2017-11-30] MEDS ORDERED: SEVOFLURANE 250 ML BTL INH ONE (14:58)
[2017-11-30] MEDS ORDERED: LIDOCAINE 2% 100 MG/5 ML SYR IVP ONE (14:58)
[2017-11-30] MEDS ORDERED: DEXAMETHASONE 4 MG/ML VIAL ONE (14:58)
[2017-11-30] MEDS ORDERED: GLYCOPYRROLATE 0.2 MG/ML VIAL ONE (14:58)
[2017-11-30] MEDS ORDERED: INSULIN LISPRO 100 UNITS/ML VIAL SUBQ SCH (15:00)
[2017-11-30] MEDS ORDERED: fentaNYL 0.05 MG/ML VIAL ONE (15:11)
[2017-11-30] MEDS ORDERED: MIDAZOLAM 2 MG/2 ML VIAL ONE (15:11)
[2017-11-30] MEDS ORDERED: MEPERIDINE 50 MG/ML SYR ONE (15:58)
[2017-11-30] MEDS: BLOOD GLUCOSE MONITORING 1 DEV DEV FS SCH ×2 (16:30→20:50)
[2017-11-30] MEDS ORDERED: NACL 0.9% 1,000 ML IV SCH (17:59)
[2017-11-30] MEDS ORDERED: HYDROmorphone 1 MG/ML AMP IVP PRN (18:00)
[2017-11-30] MEDS ORDERED: MEPERIDINE 25 MG/ML SYR IVP PRN (18:00)
[2017-11-30] MEDS ORDERED: diphenhydrAMINE 50 MG/ML VIAL IVP PRN (18:00)
[2017-11-30] MEDS ORDERED: BLOOD GLUCOSE MONITORING 1 DEV DEV FS SCH (18:15)
[2017-11-30] MEDS ORDERED: HYDROcodone/APAP 5/325 MG 1 TAB TAB PO PRN (19:55)
[2017-11-30 20:00] VITALS: BP 104/65
[2017-11-30] MEDS ORDERED: MORPHINE SULFATE 4 MG/ML SYR ONE ×2 (20:10→21:17)
[2017-11-30] MEDS: MORPHINE SULFATE 4 MG/ML SYR IV PRN (20:20)
[2017-11-30 20:22] LABS: HEMATOCRIT 40.8 % (36-52); HEMOGLOBIN 13.1 g/dL (12.0-18.0)
[2017-11-30] MEDS: INSULIN LISPRO SLIDING SCALE 100 UNITS/ML VIAL SUBQ PRN (20:56)
[2017-11-30] MEDS ORDERED: MORPHINE SULFATE 4 MG/ML SYR IVP PRN (21:00)
[2017-11-30 22:00] VITALS: BP 119/73
[2017-11-30] MEDS: HYDROmorphone 1 MG/ML AMP IVP PRN (22:32)
[2017-12-01] VITALS (49 sets, daily range): BP systolic 87–114; BP diastolic 51–96
[2017-12-01] MEDS ORDERED: metroNIDAZOLE 500 MG/NS PREMIX 100 ML IV ONE (00:05)
[2017-12-01] MEDS ORDERED: metroNIDAZOLE 500 MG/NS PREMIX 100 ML IV SCH (00:30)
[2017-12-01] MEDS ORDERED: NACL 0.9% 500 ML IV SCH ×2 (00:30→08:30)
[2017-12-01] MEDS ORDERED: FLUCONAZOLE 200 MG/NS PREMIX 100 ML IV ONE (00:49)
[2017-12-01] MEDS: FLUCONAZOLE 100 MG/NS PREMIX 50 ML IV SCH ×2 (01:26→22:54)
[2017-12-01] MEDS: MORPHINE SULFATE 4 MG/ML SYR IV PRN ×4 (01:44→22:54)
[2017-12-01] MEDS: HYDROmorphone 1 MG/ML AMP IVP PRN ×4 (03:48→19:59)
[2017-12-01] MEDS ORDERED: NACL 0.9% 500 ML IV ONE (05:25)
[2017-12-01] MEDS: PIPER/TAZO 3.375GM/D5W PREMIX 50 ML IV SCH ×3 (05:41→20:25)
[2017-12-01] MEDS: metroNIDAZOLE 500 MG/NS PREMIX 100 ML IV SCH ×3 (05:41→20:25)
[2017-12-01] MEDS ORDERED: NOREPINEPHRINE 4 MG in DEXTROSE 5% 250 ML IV PRN ×2 (06:20→10:20)
[2017-12-01] MEDS: INSULIN LISPRO SLIDING SCALE 100 UNITS/ML VIAL SUBQ PRN ×4 (06:46→21:24)
[2017-12-01 07:02] LABS: HEMATOCRIT 39.4 % (36-52); HEMOGLOBIN 12.9 g/dL (12.0-18.0); MEAN CORPUSCULAR HEMOGLOBIN 27 pg (27-31); MEAN CORPUSCULAR HGB CONC 33 g/dL (33-37); MEAN CORPUSCULAR VOLUME 81.9 fL (80-94); PLATELET COUNT (AUTO) 364 K/uL (140-450); RED BLOOD CELL COUNT(AUTO) 4.81 MIL/uL (4.20-6.10); RED CELL DISTRIBUTION WIDTH 13.3 % (11.6-13.7)
[2017-12-01] MEDS ORDERED: DILTIAZEM 125 MG in DEXTROSE 5% 100 ML IV PRN (07:10)
[2017-12-01 07:24] LABS: ALBUMIN 2.1 g/dL (3.4-5.0); ANION GAP 10.7 (8-16); CREATININE 0.9 mg/dL (0.7-1.3); MAGNESIUM 1.6 mg/dL (1.8-2.4); POTASSIUM 3.7 mmol/L (3.5-5.1)
[2017-12-01] MEDS ORDERED: WATER IV ONE (07:55)
[2017-12-01] MEDS ORDERED: MAG SULF IV ONE (07:55)
[2017-12-01] MEDS: BLOOD GLUCOSE MONITORING 1 DEV DEV FS SCH ×2 (08:14→12:00)
[2017-12-01] MEDS: NACL 0.9% 1,000 ML IV SCH ×3 (09:00→20:16)
[2017-12-01] MEDS: MAGNESIUM SULFATE 1GM in DEXTROSE 5% 100 ML PREMIX IV SCH ×2 (09:16→10:04)
[2017-12-01 09:18] LABS: LYMPHOCYTES % (MANUAL) 8 % (20-46); MONOCYTES % (MANUAL) 8 % (5-12)
[2017-12-01 09:20] LABS: METAMYELOCYTES % 1 % (0-0); MYELOCYTES % 1 % (0-0)
[2017-12-01] MEDS ORDERED: NACL 0.9% 1,000 ML IV SCH ×3 (09:25→16:00)
[2017-12-01] MEDS: ENOXAPARIN 40 MG/0.4 ML SYR SUBQ SCH (09:31)
[2017-12-01] MEDS ORDERED: MAGNESIUM SULFATE 1GM in DEXTROSE 5% 100 ML PREMIX IV SCH (11:00)
[2017-12-01] MEDS ORDERED: TPN PER PHARMACY MC PRN (11:45)
[2017-12-01 13:03] LABS: PHOSPHORUS 3.5 mg/dL (2.5-4.9)
[2017-12-01] MEDS: ALBUMIN HUMAN 25% 100 ML IV SCH ×2 (15:12→22:54)
[2017-12-01] MEDS: DILTIAZEM 125 MG in DEXTROSE 5% 100 ML IV PRN (15:38)
[2017-12-01] MEDS: BLOOD GLUCOSE MONITORING 1 DEV DEV MC SCH (18:02)
[2017-12-01] MEDS ORDERED: DEXTROSE 50% IV SCH ×5 (20:00)
[2017-12-01] MEDS ORDERED: INSULIN REGULAR IV SCH ×5 (20:00)
[2017-12-01] MEDS ORDERED: [UNRECOGNIZED DRUG - OTHER] IV SCH ×5 (20:00)
[2017-12-01] MEDS ORDERED: MULTIVITAMIN IV SCH ×5 (20:00)
[2017-12-01] MEDS ORDERED: HUMAN IV SCH ×5 (20:00)
[2017-12-02] VITALS (71 sets, daily range): BP systolic 103–134; BP diastolic 11–74
[2017-12-02] MEDS: BLOOD GLUCOSE MONITORING 1 DEV DEV MC SCH ×4 (00:06→17:37)
[2017-12-02] MEDS: INSULIN LISPRO SLIDING SCALE 100 UNITS/ML VIAL SUBQ PRN ×4 (00:12→17:40)
[2017-12-02] MEDS: HYDROmorphone 1 MG/ML AMP IVP PRN ×4 (02:16→16:30)
[2017-12-02] MEDS: NACL 0.9% 1,000 ML IV SCH ×4 (02:40→23:08)
[2017-12-02] MEDS: metroNIDAZOLE 500 MG/NS PREMIX 100 ML IV SCH ×3 (04:30→21:19)
[2017-12-02] MEDS: PIPER/TAZO 3.375GM/D5W PREMIX 50 ML IV SCH ×3 (04:30→20:25)
[2017-12-02] MEDS: MORPHINE SULFATE 4 MG/ML SYR IV PRN ×2 (04:54→20:26)
[2017-12-02 06:11] LABS: ALBUMIN 2.5 g/dL (3.4-5.0); ANION GAP 11.5 (8-16); CARBON DIOXIDE 24.2 mmol/L (21-32); CREATININE 0.9 mg/dL (0.7-1.3); MAGNESIUM 2.3 mg/dL (1.8-2.4); PHOSPHORUS 1.8 mg/dL (2.5-4.9); POTASSIUM 3.7 mmol/L (3.5-5.1); TOTAL BILIRUBIN 0.9 mg/dL (0.0-1.0)
[2017-12-02] MEDS: ALBUMIN HUMAN 25% 100 ML IV SCH (06:11)
[2017-12-02 07:28] LABS: HEMATOCRIT 27.7 % (36-52); WHITE BLOOD COUNT (AUTO) 13.7 K/uL (4.8-10.8)
[2017-12-02 07:29] LABS: LYMPHOCYTES % (AUTO) 3.5 % (20.5-51.1); MEAN CORPUSCULAR HEMOGLOBIN 26 pg (27-31); MEAN CORPUSCULAR HGB CONC 32 g/dL (33-37); MEAN CORPUSCULAR VOLUME 81.4 fL (80-94); NEUTROPHILS % (AUTO) 90.1 % (42.2-75.2); PLATELET COUNT (AUTO) 256 K/uL (140-450); RED CELL DISTRIBUTION WIDTH 13.1 % (11.6-13.7)
[2017-12-02 07:30] LABS: BASOPHILS % (AUTO) 0.3 % (0.0-2.0); EOSINOPHILS % (AUTO) 0.1 % (0.0-4.0); LYMPHOCYTES # (AUTO) 0.5 K/uL (2.0-11.5); MONOCYTES # (AUTO) 0.8 K/uL (0.8-1.0); NEUTROPHILS # (AUTO) 12.4 K/uL (1.8-7.7)
[2017-12-02 07:31] LABS: LYMPHOCYTES % (MANUAL) 8 % (20-46); MONOCYTES % (MANUAL) 7 % (5-12)
[2017-12-02] MEDS ORDERED: NACL 0.9% IRR 250 ML BOTTLE IR PRN ×2 (08:05→08:21)
[2017-12-02] MEDS: ENOXAPARIN 40 MG/0.4 ML SYR SUBQ SCH (09:09)
[2017-12-02] MEDS ORDERED: SODIUM PHOSPHATE 30 MMOLE in NACL 0.9% 250 ML IV SCH (10:00)
[2017-12-02] MEDS: DILTIAZEM 125 MG in DEXTROSE 5% 100 ML IV PRN ×2 (10:39→20:18)
[2017-12-02] MEDS ORDERED: HUMAN IV SCH ×5 (10:56)
[2017-12-02] MEDS ORDERED: MULTIVITAMIN IV SCH ×5 (10:56)
[2017-12-02] MEDS ORDERED: [UNRECOGNIZED DRUG - OTHER] IV SCH ×5 (10:56)
[2017-12-02] MEDS ORDERED: INSULIN REGULAR IV SCH ×5 (10:56)
[2017-12-02] MEDS ORDERED: DEXTROSE 50% IV SCH ×5 (10:56)
[2017-12-02] MEDS ORDERED: MIRT30TA PO (11:36)
[2017-12-02] MEDS ORDERED: TOP25 PO (11:36)
[2017-12-02] MEDS ORDERED: LISI-420 PO (11:36)
[2017-12-02] MEDS ORDERED: LANTUS SUBQ (11:36)
[2017-12-02] MEDS ORDERED: SIMV20TA1 PO (11:36)
[2017-12-02] MEDS ORDERED: NALO25TA PO (11:36)
[2017-12-02] MEDS: NACL 0.9% IRR 250 ML BOTTLE IR SCH (12:15)
[2017-12-02] MEDS ORDERED: DILTIAZEM 125 MG/25 ML VIAL IV ONE ×2 (20:04→20:10)
[2017-12-02] MEDS: MIRTAZAPINE 15 MG TAB PO SCH (20:26)
[2017-12-02] MEDS: OLANZapine 5 MG TAB PO SCH (20:26)
[2017-12-02] MEDS: SIMVASTATIN 20 MG TAB PO SCH (20:26)
[2017-12-02] MEDS: traZODone 50 MG TAB PO SCH (20:26)
[2017-12-02] MEDS: INSULIN LANTUS 100 UNITS/ML 10 ML VIAL SUBQ SCH (21:52)
[2017-12-02] MEDS: FLUCONAZOLE 100 MG/NS PREMIX 50 ML IV SCH (22:54)
[2017-12-03] VITALS (93 sets, daily range): BP systolic 101–140; BP diastolic 59–80
[2017-12-03] MEDS: HYDROmorphone 1 MG/ML AMP IVP PRN ×4 (00:10→20:38)
[2017-12-03] MEDS: BLOOD GLUCOSE MONITORING 1 DEV DEV MC SCH ×5 (00:19→23:44)
[2017-12-03] MEDS: INSULIN LISPRO SLIDING SCALE 100 UNITS/ML VIAL SUBQ PRN ×2 (00:20→06:49)
[2017-12-03] MEDS: MORPHINE SULFATE 4 MG/ML SYR IV PRN ×3 (03:10→23:14)
[2017-12-03] MEDS ORDERED: FUROSEMIDE 40 MG/4 ML VIAL IVP ONE (03:51)
[2017-12-03] MEDS ORDERED: FUROSEMIDE 40 MG/4 ML VIAL IVP SCH (04:00)
[2017-12-03] MEDS: PIPER/TAZO 3.375GM/D5W PREMIX 50 ML IV SCH ×3 (04:05→20:12)
[2017-12-03] MEDS: metroNIDAZOLE 500 MG/NS PREMIX 100 ML IV SCH ×3 (04:48→20:12)
[2017-12-03] MEDS ORDERED: DILTIAZEM 125 MG/25 ML VIAL IV ONE ×2 (05:01→21:57)
[2017-12-03 06:44] LABS: ANION GAP 9.5 (8-16); CARBON DIOXIDE 27.1 mmol/L (21-32); CREATININE 0.7 mg/dL (0.7-1.3)
[2017-12-03 06:53] LABS: PHOSPHORUS 1.1 mg/dL (2.5-4.9)
[2017-12-03] MEDS: DILTIAZEM 125 MG in DEXTROSE 5% 100 ML IV PRN ×3 (07:13→21:55)
[2017-12-03 07:30] LABS: POTASSIUM 2.6 mmol/L (3.5-5.1)
[2017-12-03] MEDS ORDERED: COMMUNICATION ORDER MC PRN (07:45)
[2017-12-03] MEDS ORDERED: POTASSIUM CHLORIDE IV SCH (09:00)
[2017-12-03] MEDS ORDERED: NACL 0.9% IV SCH (09:00)
[2017-12-03] MEDS: MORPHINE SULFATE 2 MG/ML SYR IVP PRN ×2 (09:02→15:49)
[2017-12-03] MEDS: NACL 0.9% IRR 250 ML BOTTLE IR SCH ×2 (09:17→13:00)
[2017-12-03] MEDS: TOPIRAMATE 25 MG TAB PO SCH (09:20)
[2017-12-03] MEDS: ENOXAPARIN 40 MG/0.4 ML SYR SUBQ SCH (09:21)
[2017-12-03] MEDS: LISINOPRIL 20 MG TAB PO SCH (09:21)
[2017-12-03 10:33] LABS: BASOPHILS % (AUTO) 0.2 % (0.0-2.0); LYMPHOCYTES # (AUTO) 0.5 K/uL (2.0-11.5); LYMPHOCYTES % (AUTO) 3.3 % (20.5-51.1); MEAN CORPUSCULAR HEMOGLOBIN 26 pg (27-31); MEAN CORPUSCULAR HGB CONC 33 g/dL (33-37); MEAN CORPUSCULAR VOLUME 78.9 fL (80-94); MONOCYTES # (AUTO) 0.8 K/uL (0.8-1.0); MONOCYTES % (AUTO) 5.4 % (1.7-9.3); NEUTROPHILS # (AUTO) 13.6 K/uL (1.8-7.7); NEUTROPHILS % (AUTO) 91.1 % (42.2-75.2); PLATELET COUNT (AUTO) 219 K/uL (140-450); RED BLOOD CELL COUNT(AUTO) 3.29 MIL/uL (4.20-6.10); RED CELL DISTRIBUTION WIDTH 13.8 % (11.6-13.7)
[2017-12-03 10:46] LABS: HEMOGLOBIN 8.6 g/dL (12.0-18.0)
[2017-12-03] MEDS ORDERED: POTASSIUM PHOSPHATE 30 MM in NACL 0.9% 250 ML IV SCH ×2 (12:00→16:30)
[2017-12-03] MEDS: MIRTAZAPINE 15 MG TAB PO SCH (20:13)
[2017-12-03] MEDS: OLANZapine 5 MG TAB PO SCH (20:13)
[2017-12-03] MEDS: SIMVASTATIN 20 MG TAB PO SCH (20:13)
[2017-12-03] MEDS: traZODone 50 MG TAB PO SCH (20:14)
[2017-12-03] MEDS: INSULIN LANTUS 100 UNITS/ML 10 ML VIAL SUBQ SCH (20:39)
[2017-12-03] MEDS: FLUCONAZOLE 100 MG/NS PREMIX 50 ML IV SCH (23:14)
[2017-12-04] VITALS (47 sets, daily range): BP systolic 98–147; BP diastolic 50–92
[2017-12-04] MEDS: HYDROmorphone 1 MG/ML AMP IVP PRN ×4 (01:06→23:25)
[2017-12-04] MEDS: PIPER/TAZO 3.375GM/D5W PREMIX 50 ML IV SCH ×3 (04:17→20:15)
[2017-12-04] MEDS: MORPHINE SULFATE 4 MG/ML SYR IV PRN ×2 (04:24→08:34)
[2017-12-04] MEDS: metroNIDAZOLE 500 MG/NS PREMIX 100 ML IV SCH ×2 (05:50→20:15)
[2017-12-04] MEDS: BLOOD GLUCOSE MONITORING 1 DEV DEV MC SCH (06:00)
[2017-12-04] MEDS ORDERED: DILTIAZEM 125 MG/25 ML VIAL IV ONE (06:16)
[2017-12-04] MEDS: DILTIAZEM 125 MG in DEXTROSE 5% 100 ML IV PRN (06:18)
[2017-12-04 06:43] LABS: ANION GAP 12.1 (8-16); CARBON DIOXIDE 26.1 mmol/L (21-32); CREATININE 0.7 mg/dL (0.7-1.3); POTASSIUM 3.2 mmol/L (3.5-5.1)
[2017-12-04] MEDS: TOPIRAMATE 25 MG TAB PO SCH (08:30)
[2017-12-04] MEDS: LISINOPRIL 20 MG TAB PO SCH (08:32)
[2017-12-04] MEDS: ENOXAPARIN 40 MG/0.4 ML SYR SUBQ SCH (08:33)
[2017-12-04] MEDS: NACL 0.9% IRR 250 ML BOTTLE IR SCH ×2 (08:35→13:00)
[2017-12-04] MEDS ORDERED: DILTIAZEM 125 MG in DEXTROSE 5% 100 ML IV PRN (09:00)
[2017-12-04] MEDS ORDERED: BISACODYL 10 MG SUPP RC SCH (10:00)
[2017-12-04] MEDS ORDERED: BLOOD GLUCOSE MONITORING 1 DEV DEV FS SCH (12:10)
[2017-12-04] MEDS ORDERED: KCL 20 MEQ/WATER INJ PREMIX 200 ML IV SCH (12:30)
[2017-12-04] MEDS: INSULIN LISPRO SLIDING SCALE 100 UNITS/ML VIAL SUBQ PRN ×3 (12:31→20:18)
[2017-12-04] MEDS ORDERED: metroNIDAZOLE 500 MG/NS PREMIX 100 ML IV SCH (13:45)
[2017-12-04 15:44] LABS: EOSINOPHILS % (AUTO) 0.1 % (0.0-4.0); HEMOGLOBIN 9.5 g/dL (12.0-18.0); LYMPHOCYTES # (AUTO) 0.8 K/uL (2.0-11.5); MEAN CORPUSCULAR HEMOGLOBIN 26 pg (27-31); MEAN CORPUSCULAR HGB CONC 33 g/dL (33-37); MEAN CORPUSCULAR VOLUME 78.3 fL (80-94); MONOCYTES # (AUTO) 1.4 K/uL (0.8-1.0); MONOCYTES % (AUTO) 8.8 % (1.7-9.3); NEUTROPHILS # (AUTO) 13.4 K/uL (1.8-7.7); NEUTROPHILS % (AUTO) 86.1 % (42.2-75.2); PLATELET COUNT (AUTO) 270 K/uL (140-450); RED BLOOD CELL COUNT(AUTO) 3.71 MIL/uL (4.20-6.10); RED CELL DISTRIBUTION WIDTH 14.2 % (11.6-13.7); WHITE BLOOD COUNT (AUTO) 15.6 K/uL (4.8-10.8)
[2017-12-04] MEDS: BLOOD GLUCOSE MONITORING 1 DEV DEV FS SCH ×2 (16:30→20:14)
[2017-12-04] MEDS: SIMVASTATIN 20 MG TAB PO SCH (20:14)
[2017-12-04] MEDS: MIRTAZAPINE 15 MG TAB PO SCH (20:14)
[2017-12-04] MEDS: OLANZapine 5 MG TAB PO SCH (20:14)
[2017-12-04] MEDS: traZODone 50 MG TAB PO SCH (20:14)
[2017-12-04] MEDS: INSULIN LANTUS 100 UNITS/ML 10 ML VIAL SUBQ SCH (20:19)
[2017-12-05] VITALS (10 sets, daily range): BP systolic 97–134; BP diastolic 56–80
[2017-12-05] MEDS: FLUCONAZOLE 100 MG/NS PREMIX 50 ML IV SCH (00:25)
[2017-12-05] MEDS: PIPER/TAZO 3.375GM/D5W PREMIX 50 ML IV SCH ×3 (04:23→21:29)
[2017-12-05] MEDS: metroNIDAZOLE 500 MG/NS PREMIX 100 ML IV SCH ×3 (05:01→22:51)
[2017-12-05 05:51] LABS: HEMATOCRIT 28.2 % (36-52); HEMOGLOBIN 9.2 g/dL (12.0-18.0); MEAN CORPUSCULAR HEMOGLOBIN 26 pg (27-31); MEAN CORPUSCULAR HGB CONC 33 g/dL (33-37); MEAN CORPUSCULAR VOLUME 78.8 fL (80-94); PLATELET COUNT (AUTO) 253 K/uL (140-450); RED BLOOD CELL COUNT(AUTO) 3.58 MIL/uL (4.20-6.10); RED CELL DISTRIBUTION WIDTH 14.1 % (11.6-13.7); WHITE BLOOD COUNT (AUTO) 17.1 K/uL (4.8-10.8)
[2017-12-05 06:17] LABS: ANION GAP 6.4 (8-16); CARBON DIOXIDE 31.5 mmol/L (21-32); CREATININE 0.6 mg/dL (0.7-1.3)
[2017-12-05 06:19] LABS: MAGNESIUM 1.8 mg/dL (1.8-2.4); PHOSPHORUS 2.1 mg/dL (2.5-4.9)
[2017-12-05] MEDS: BLOOD GLUCOSE MONITORING 1 DEV DEV FS SCH ×4 (06:41→21:00)
[2017-12-05] MEDS: INSULIN LISPRO SLIDING SCALE 100 UNITS/ML VIAL SUBQ PRN ×4 (06:42→22:33)
[2017-12-05 06:49] LABS: POTASSIUM 2.9 mmol/L (3.5-5.1)
[2017-12-05 07:08] LABS: BASOPHILS % (MANUAL) 0 % (0-2); EOSINOPHILS % (MANUAL) 1 % (0-4); LYMPHOCYTES % (MANUAL) 8 % (20-46); MONOCYTES % (MANUAL) 10 % (5-12); MYELOCYTES % 1 % (0-0)
[2017-12-05] MEDS: LISINOPRIL 20 MG TAB PO SCH (08:52)
[2017-12-05] MEDS: ENOXAPARIN 40 MG/0.4 ML SYR SUBQ SCH (08:53)
[2017-12-05] MEDS: NACL 0.9% IRR 250 ML BOTTLE IR SCH ×2 (08:54→12:40)
[2017-12-05] MEDS: TOPIRAMATE 25 MG TAB PO SCH (08:56)
[2017-12-05] MEDS ORDERED: KCL 20 MEQ/WATER INJ PREMIX 100 ML IV SCH ×3 (09:30→13:00)
[2017-12-05] MEDS ORDERED: PROBIOTIC SCREEN 1 EA MISC MC PRN (10:00)
[2017-12-05] MEDS: MORPHINE SULFATE 4 MG/ML SYR IV PRN (13:51)
[2017-12-05] MEDS: fentaNYL 0.025 MG/HR PATCH TD SCH (15:40)
[2017-12-05] MEDS ORDERED: BLOOD GLUCOSE MONITORING 1 DEV DEV FS SCH (15:57)
[2017-12-05] MEDS: MORPHINE SULFATE 2 MG/ML SYR IVP PRN (19:19)
[2017-12-05] MEDS ORDERED: TPN PER PHARMACY MC PRN (19:20)
[2017-12-05] MEDS ORDERED: DEXTROSE 10% 1,000 ML IV SCH (19:45)
[2017-12-05] MEDS: traZODone 50 MG TAB PO SCH (22:17)
[2017-12-05] MEDS: SIMVASTATIN 20 MG TAB PO SCH (22:18)
[2017-12-05] MEDS: MIRTAZAPINE 15 MG TAB PO SCH (22:18)
[2017-12-05] MEDS: LOPERAMIDE 2 MG CAP PO SCH (22:18)
[2017-12-05] MEDS: OLANZapine 5 MG TAB PO SCH (22:19)
[2017-12-05] MEDS: INSULIN LANTUS 100 UNITS/ML 10 ML VIAL SUBQ SCH (22:27)
[2017-12-06] VITALS: BP 110/66
[2017-12-06] MEDS: FLUCONAZOLE 100 MG/NS PREMIX 50 ML IV SCH ×2 (00:22→23:10)
[2017-12-06 04:00] VITALS: BP 113/71
[2017-12-06] MEDS: PIPER/TAZO 3.375GM/D5W PREMIX 50 ML IV SCH ×3 (04:33→20:38)
[2017-12-06] MEDS: metroNIDAZOLE 500 MG/NS PREMIX 100 ML IV SCH ×3 (05:34→20:47)
[2017-12-06] MEDS: BLOOD GLUCOSE MONITORING 1 DEV DEV FS SCH ×3 (05:39→17:27)
[2017-12-06] MEDS: INSULIN LISPRO SLIDING SCALE 100 UNITS/ML VIAL SUBQ PRN ×4 (06:01→23:21)
[2017-12-06 08:00] VITALS: BP 127/74
[2017-12-06 08:27] LABS: HEMATOCRIT 29.1 % (36-52); HEMOGLOBIN 9.6 g/dL (12.0-18.0); MEAN CORPUSCULAR HEMOGLOBIN 26 pg (27-31); MEAN CORPUSCULAR HGB CONC 33 g/dL (33-37); MEAN CORPUSCULAR VOLUME 77.8 fL (80-94); PLATELET COUNT (AUTO) 307 K/uL (140-450); RED BLOOD CELL COUNT(AUTO) 3.74 MIL/uL (4.20-6.10); RED CELL DISTRIBUTION WIDTH 14.1 % (11.6-13.7); WHITE BLOOD COUNT (AUTO) 17.9 K/uL (4.8-10.8)
[2017-12-06 08:43] LABS: ANION GAP 7.3 (8-16); CARBON DIOXIDE 29.5 mmol/L (21-32); CREATININE 0.7 mg/dL (0.7-1.3)
[2017-12-06] MEDS: LOPERAMIDE 2 MG CAP PO SCH ×2 (08:44→20:45)
[2017-12-06] MEDS: LISINOPRIL 20 MG TAB PO SCH (08:44)
[2017-12-06] MEDS: LACTOBACILLUS RHAMNOSUS GG 1 EACH CAP PO SCH (08:44)
[2017-12-06 08:45] LABS: EOSINOPHILS % (MANUAL) 2 % (0-4); LYMPHOCYTES % (MANUAL) 12 % (20-46); MONOCYTES % (MANUAL) 4 % (5-12)
[2017-12-06 08:47] LABS: MAGNESIUM 1.7 mg/dL (1.8-2.4); PHOSPHORUS 3.2 mg/dL (2.5-4.9)
[2017-12-06 08:49] LABS: POTASSIUM 2.8 mmol/L (3.5-5.1)
[2017-12-06] MEDS: MORPHINE SULFATE 4 MG/ML SYR IV PRN ×2 (08:56→16:41)
[2017-12-06] MEDS: TOPIRAMATE 25 MG TAB PO SCH (08:56)
[2017-12-06] MEDS: ENOXAPARIN 40 MG/0.4 ML SYR SUBQ SCH (09:02)
[2017-12-06] MEDS: NACL 0.9% IRR 250 ML BOTTLE IR SCH ×2 (09:03→13:32)
[2017-12-06] MEDS ORDERED: MAG SULF 2000 MG/WATER PREMIX 50 ML IV ONE (09:15)
[2017-12-06] MEDS ORDERED: NACL 0.9% IV SCH (10:00)
[2017-12-06] MEDS ORDERED: LIDOCAINE MPF IV SCH (10:00)
[2017-12-06] MEDS ORDERED: POTASSIUM CHLORIDE IV SCH (10:00)
[2017-12-06] MEDS: MAGNESIUM SULFATE 1GM in DEXTROSE 5% 100 ML PREMIX IV SCH ×3 (10:14→12:50)
[2017-12-06 12:00] VITALS: BP 121/76
[2017-12-06 16:00] VITALS: BP 112/67
[2017-12-06] MEDS: fentaNYL 0.025 MG/HR PATCH TD SCH (16:50)
[2017-12-06] MEDS: BLOOD GLUCOSE MONITORING 1 DEV DEV MC SCH ×2 (17:27→23:14)
[2017-12-06 20:00] VITALS: BP 113/74
[2017-12-06] MEDS ORDERED: MULTIVITAMIN IV SCH ×4 (20:00)
[2017-12-06] MEDS ORDERED: AMINO ACIDS IV SCH ×4 (20:00)
[2017-12-06] MEDS ORDERED: DEXTROSE IV SCH ×4 (20:00)
[2017-12-06] MEDS ORDERED: [UNRECOGNIZED DRUG - OTHER] IV SCH ×4 (20:00)
[2017-12-06] MEDS: traZODone 50 MG TAB PO SCH (20:46)
[2017-12-06] MEDS: SIMVASTATIN 20 MG TAB PO SCH (20:46)
[2017-12-06] MEDS: OLANZapine 5 MG TAB PO SCH (20:46)
[2017-12-06] MEDS: MIRTAZAPINE 15 MG TAB PO SCH (20:46)
[2017-12-06] MEDS: INSULIN LANTUS 100 UNITS/ML 10 ML VIAL SUBQ SCH (20:53)
[2017-12-07] VITALS: BP 110/70
[2017-12-07 04:00] VITALS: BP 116/77
[2017-12-07] MEDS: metroNIDAZOLE 500 MG/NS PREMIX 100 ML IV SCH ×3 (04:02→20:32)
[2017-12-07] MEDS: PIPER/TAZO 3.375GM/D5W PREMIX 50 ML IV SCH ×3 (04:02→20:32)
[2017-12-07] MEDS: MORPHINE SULFATE 4 MG/ML SYR IV PRN ×2 (04:22→08:25)
[2017-12-07] MEDS: BLOOD GLUCOSE MONITORING 1 DEV DEV MC SCH ×3 (05:45→18:21)
[2017-12-07] MEDS: INSULIN LISPRO SLIDING SCALE 100 UNITS/ML VIAL SUBQ PRN ×3 (06:11→18:34)
[2017-12-07 08:00] VITALS: BP 112/73
[2017-12-07 08:14] LABS: CARBON DIOXIDE 26.1 mmol/L (21-32); CREATININE 0.7 mg/dL (0.7-1.3); POTASSIUM 3.1 mmol/L (3.5-5.1)
[2017-12-07 08:17] LABS: HEMATOCRIT 27.9 % (36-52); HEMOGLOBIN 9.3 g/dL (12.0-18.0); MEAN CORPUSCULAR HEMOGLOBIN 26 pg (27-31); MEAN CORPUSCULAR HGB CONC 33 g/dL (33-37); MEAN CORPUSCULAR VOLUME 78.4 fL (80-94); PLATELET COUNT (AUTO) 317 K/uL (140-450); RED BLOOD CELL COUNT(AUTO) 3.56 MIL/uL (4.20-6.10); RED CELL DISTRIBUTION WIDTH 14.2 % (11.6-13.7); WHITE BLOOD COUNT (AUTO) 15.8 K/uL (4.8-10.8)
[2017-12-07] MEDS: LACTOBACILLUS RHAMNOSUS GG 1 EACH CAP PO SCH (08:23)
[2017-12-07] MEDS: LISINOPRIL 20 MG TAB PO SCH (08:23)
[2017-12-07] MEDS: TOPIRAMATE 25 MG TAB PO SCH (08:24)
[2017-12-07] MEDS: LOPERAMIDE 2 MG CAP PO SCH ×2 (08:24→20:33)
[2017-12-07 08:25] LABS: MAGNESIUM 1.9 mg/dL (1.8-2.4); PHOSPHORUS 3.4 mg/dL (2.5-4.9)
[2017-12-07] MEDS: ENOXAPARIN 40 MG/0.4 ML SYR SUBQ SCH (08:26)
[2017-12-07] MEDS: NACL 0.9% IRR 250 ML BOTTLE IR SCH ×2 (09:00→13:00)
[2017-12-07 09:25] LABS: EOSINOPHILS % (MANUAL) 2 % (0-4); LYMPHOCYTES % (MANUAL) 16 % (20-46); MONOCYTES % (MANUAL) 10 % (5-12)
[2017-12-07] MEDS ORDERED: SKINTEGRITY HYDROGEL TP SCH (11:30)
[2017-12-07 12:00] VITALS: BP 115/70
[2017-12-07 16:00] VITALS: BP 113/75
[2017-12-07] MEDS: fentaNYL 0.025 MG/HR PATCH TD SCH (16:22)
[2017-12-07 20:00] VITALS: BP 103/73
[2017-12-07] MEDS ORDERED: INSULIN REGULAR IV SCH ×5 (20:00)
[2017-12-07] MEDS ORDERED: DEXTROSE 50% IV SCH ×5 (20:00)
[2017-12-07] MEDS ORDERED: MULTIVITAMIN IV SCH ×5 (20:00)
[2017-12-07] MEDS ORDERED: [UNRECOGNIZED DRUG - OTHER] IV SCH ×5 (20:00)
[2017-12-07] MEDS ORDERED: HUMAN IV SCH ×5 (20:00)
[2017-12-07] MEDS: traZODone 50 MG TAB PO SCH (20:33)
[2017-12-07] MEDS: MIRTAZAPINE 15 MG TAB PO SCH (20:34)
[2017-12-07] MEDS: OLANZapine 5 MG TAB PO SCH (20:34)
[2017-12-07] MEDS: SIMVASTATIN 20 MG TAB PO SCH (20:34)
[2017-12-07] MEDS: INSULIN LANTUS 100 UNITS/ML 10 ML VIAL SUBQ SCH (20:39)
[2017-12-07] MEDS: MORPHINE SULFATE 2 MG/ML SYR IVP PRN (20:57)
[2017-12-08] VITALS: BP 109/66
[2017-12-08] MEDS: FLUCONAZOLE 100 MG/NS PREMIX 50 ML IV SCH (00:27)
[2017-12-08] MEDS: BLOOD GLUCOSE MONITORING 1 DEV DEV MC SCH ×2 (00:36→05:46)
[2017-12-08] MEDS: INSULIN LISPRO SLIDING SCALE 100 UNITS/ML VIAL SUBQ PRN ×2 (00:37→05:46)
[2017-12-08 04:00] VITALS: BP 114/68
[2017-12-08] MEDS: metroNIDAZOLE 500 MG/NS PREMIX 100 ML IV SCH (04:30)
[2017-12-08] MEDS: PIPER/TAZO 3.375GM/D5W PREMIX 50 ML IV SCH (04:32)
[2017-12-08] MEDS: MORPHINE SULFATE 2 MG/ML SYR IVP PRN (05:41)
[2017-12-08 08:00] VITALS: BP 121/71
[2017-12-08] MEDS: LISINOPRIL 20 MG TAB PO SCH (08:54)
[2017-12-08] MEDS: LOPERAMIDE 2 MG CAP PO SCH (08:54)
[2017-12-08] MEDS: LACTOBACILLUS RHAMNOSUS GG 1 EACH CAP PO SCH (08:55)
[2017-12-08] MEDS: TOPIRAMATE 25 MG TAB PO SCH (08:55)
[2017-12-08] MEDS: ENOXAPARIN 40 MG/0.4 ML SYR SUBQ SCH (09:00)
[2017-12-08] MEDS ORDERED: fentaNYL 0.025 MG/HR PATCH TD SCH (09:00)
[2017-12-08] MEDS: NACL 0.9% IRR 250 ML BOTTLE IR SCH (09:37)
[2017-12-08] MEDS ORDERED: DEXTROSE 10% 250 ML IV SCH (10:40)
[2017-12-08] MEDS ORDERED: METR500S14 IV (11:08)
[2017-12-08] MEDS ORDERED: ZOS3.375I IV (11:11)
[2017-12-08] MEDS ORDERED: FLUC100T IV (11:14)
[2017-12-08] MEDS ORDERED: [UNRECOGNIZED DRUG - CODE] IV (11:15)
[2017-12-08] MEDS ORDERED: DEXTROSE 10% 1,000 ML IV SCH ×2 (11:38→11:40)
[2017-12-08 12:02] LABS: ANION GAP 8.2 (8-16); CARBON DIOXIDE 27.1 mmol/L (21-32); CREATININE 0.7 mg/dL (0.7-1.3); POTASSIUM 3.3 mmol/L (3.5-5.1)
[2017-12-08 12:07] LABS: MAGNESIUM 1.8 mg/dL (1.8-2.4); PHOSPHORUS 2.9 mg/dL (2.5-4.9)
[2017-12-08 12:15] LABS: CHOL/HDL RATIO 1.9 (1-4.5)
[2017-12-10] MEDS ORDERED: fentaNYL 0.025 MG/HR PATCH TD SCH (16:00)
== END 2017-12-08 11:50 | DRG 853 ==
LOC: MED 23:00 → MTU 11-30 02:18 → MIC 11-30 18:22 → MTU 12-05 17:45
PROVIDERS: ADMIT Hospitalist; ATTEND Hospitalist
PROC: 0D9W00Z Drainage of Peritoneum with Drainage Device, Open Approach (ICD-10-PCS; 2017-11-30)
PROC: 0DN80ZZ Release Small Intestine, Open Approach (ICD-10-PCS; 2017-11-30)
PROC: 0DT80ZZ Resection of Small Intestine, Open Approach (ICD-10-PCS; 2017-11-30)
PROC: 02H633Z Insertion of Infusion Device into Right Atrium, Percutaneous Approach (ICD-10-PCS; 2017-11-30)
PROC: B244ZZZ Ultrasonography of Right Heart (ICD-10-PCS; 2017-11-30)
PROC: 0D1A0Z4 Bypass Jejunum to Cutaneous, Open Approach (ICD-10-PCS; principal; 2017-11-30 15:55)
DX: A41.9 Sepsis, unspecified organism (principal); R65.21 Severe sepsis with septic shock; K65.0 Generalized (acute) peritonitis; E87.1 Hypo-osmolality and hyponatremia; K56.601 Complete intestinal obstruction, unspecified as to cause; K55.9 Vascular disorder of intestine, unspecified; K56.7 Ileus, unspecified; K63.2 Fistula of intestine; E11.9 Type 2 diabetes mellitus without complications; E86.1 Hypovolemia; K66.0 Peritoneal adhesions (postprocedural) (postinfection); E83.39 Other disorders of phosphorus metabolism; E87.6 Hypokalemia; F32.9 Major depressive disorder, single episode, unspecified; F41.9 Anxiety disorder, unspecified; G89.18 Other acute postprocedural pain; G89.4 Chronic pain syndrome; I11.9 Hypertensive heart disease without heart failure; I48.91 Unspecified atrial fibrillation; K21.9 Gastro-esophageal reflux disease without esophagitis; Z79.02 Long term (current) use of antithrombotics/antiplatelets; Z79.899 Other long term (current) drug therapy; Z90.49 Acquired absence of other specified parts of digestive tract
CPT/HCPCS: 36415; 71045; 80048; 80053; 82948; 83605; 83690; 83735; 84100; 84443; 84478; 85018; 85025; 85610; 85730; 86886; 86900; 86901; 86920; 87040; 87070; 87081; 93005; 96361; 96365; 96375; 97110; 97116; 97530; 99291; A6248; A9153; C1751; J0330; J1100; J1170; J1450; J1644; J1650; J1815; J1885; J1940; J1956; J2001; J2175; J2250; J2270; J2370; J2405; J2543; J2704; J3010; J3480; J3490; J7030; J7060; P9046; Q0092

== ENCOUNTER 2018-02-01 18:25 | Inpatient (IN) | payer OTHER ==
[~2018-02-01] VITALS: Ht 182.9 cm; Wt 76.7 kg
[~2018-02-01 18:25] MED LIST changes: +LANTUS SUBQ; +LISI-420 PO; +METR500S14 IV; +MIRT30TA PO; +NALO25TA PO; +SIMV20TA1 PO; +TOP25 PO; +ZOS3.375I IV; +[UNRECOGNIZED DRUG - CODE] IV
[2018-02-01 18:39] VITALS: BP 97/69
--- NOTE | 2018-02-01 18:45 | NUR ---
PT AMBULATED TO ER BED 08
--- NOTE | 2018-02-01 19:15 | NUR ---
PATIENT PRESENTS TO ED WITH C/O LEAKING MID LINE THAT WAS INSERTED ON 01/26/2018. PT IS CURRENTLY ON TPN S/P ILEOSTOMY. ON ILEOSTOMY BAG DRAINING YELLOW, GREENINSH DRAINAGE. PT C/O PAIN AT INSERTION SITE 09/24 AND REPORTS SWELLING. DRESSING SITE SOAKED. HX: DIABETES RX: TPN, INSULIN, NORCO, FENTANYL PATCH, TRAZADONE, CYMBALTA, AMBIEN, MERTAZINE. DENIES N/V. SKIN IS PINK/WARM/DRY; AAOX4. PT DENIES ANY FEVER RECENTLY. AFEBRILE AT THIS TIME. DENIES CP, SOB, OR COUGH AT THIS TIME. VSS; PATIENT POSITIONED FOR COMFORT; HOB ELEVATED; BEDRAILS UP X2; BED DOWN. ER MD MADE AWARE OF PT STATUS.
--- NOTE | 2018-02-01 19:20 | NUR ---
Endorsed to night time nanny RN.
--- NOTE | 2018-02-01 19:21 | NUR ---
RECEIVED REPORT FROM AM NURSE. PT LAYING IN BED, AT BEDSIDE. PT REPORTS R UPPER ARM PAIN AT MIDLINE CATH SITE. RR EVEN AND UNLABORED. AWAITING MD DURAND
--- NOTE | 2018-02-01 19:22 | NUR ---
ER AT BEDSIDE
[2018-02-01 19:57] LABS: BASOPHILS % (AUTO) 0.2 % (0.0-2.0); EOSINOPHILS # (AUTO) 0.1 K/uL (0-0.4); EOSINOPHILS % (AUTO) 0.6 % (0.0-4.0); HEMATOCRIT 34.4 % (36-52); HEMOGLOBIN 10.9 g/dL (12.0-18.0); LYMPHOCYTES # (AUTO) 1.4 K/uL (2.0-11.5); LYMPHOCYTES % (AUTO) 13.8 % (20.5-51.1); MEAN CORPUSCULAR HEMOGLOBIN 24 pg (27-31); MEAN CORPUSCULAR HGB CONC 32 g/dL (33-37); MEAN CORPUSCULAR VOLUME 75.2 fL (80-94); MONOCYTES # (AUTO) 0.9 K/uL (0.8-1.0); MONOCYTES % (AUTO) 9.1 % (1.7-9.3); NEUTROPHILS # (AUTO) 7.8 K/uL (1.8-7.7); NEUTROPHILS % (AUTO) 76.3 % (42.2-75.2); PLATELET COUNT (AUTO) 248 K/uL (140-450); RED BLOOD CELL COUNT(AUTO) 4.57 MIL/uL (4.20-6.10); RED CELL DISTRIBUTION WIDTH 14.9 % (11.6-13.7); WHITE BLOOD COUNT (AUTO) 10.1 K/uL (4.8-10.8)
[2018-02-01 20:19] LABS: ANION GAP 13.8 (8-16); CARBON DIOXIDE 25.6 mmol/L (21-32); CREATININE 0.8 mg/dL (0.7-1.3); POTASSIUM 4.4 mmol/L (3.5-5.1)
[2018-02-01 20:22] LABS: PROTHROMBIN TIME 9.9 secs (10.8-13.4)
[2018-02-01 20:25] LABS: ALBUMIN 3.4 g/dL (3.4-5.0); TOTAL BILIRUBIN 1.5 mg/dL (0.0-1.0)
[2018-02-01] MEDS ORDERED: NACL 0.9% 1,000 ML IV ONE (20:25)
[2018-02-01] MEDS ORDERED: ENOXAPARIN 80 MG/0.8 ML SYR SUBQ ONE (20:30)
[2018-02-01] MEDS ORDERED: fentaNYL 0.05 MG/ML VIAL IVP ONE (21:05)
--- NOTE | 2018-02-01 21:05 | NUR ---
ER MD AT BEDSIDE. PER ER MD, HOLD PT'S TPN AND USE OF R UPPER ARM MIDLINE CATH DUE TO DVT. PT C/O 09/24 R UPPER ARM PAIN, DUE MEDS GIVEN WITH EDUCATION. PT AND PT'S VERBALIZED UNDERSTANDING. ALL NEEDS MET
[2018-02-01] MEDS ORDERED: HEPARIN PER PHARMACY MC PRN (21:55)
--- NOTE | 2018-02-01 22:25 | NUR ---
Patient will be admitted to care of DR. HOOD. Admited to TELE. Will go to room 115. Belongings list completed. Report to MELVIN UNDERWOOD AT BEDSIDE.
--- NOTE | 2018-02-01 22:31 | NUR ---
RECEIVED PT FROM ER, AWAKE, ALERT OX4. PT AMBULATORY BUT WITH MIN. ASSIST, GENERALIZED WEAKNESS. PT ON TELE. W/. IV ON LEFT HAND G 22, PATENT AND INFUSING WELL W/ NS AT 80ML/HR. PT HAS 10/10 RIGHT UE PAIN (PICC LINE SITE), LOCALIZED PAIN .WAS JUST GIVEN PAIN MEDS AT ED. POC DISCUSSED W/ PT, PT VERBALIZED UNDERSTANDING. CALL LIGHT WITHIN REACH. ON LOW BED, ON FALL PRECAUTIONS.
[2018-02-01 22:40] VITALS: BP 127/77
[2018-02-01] MEDS: NACL 0.9% 1,000 ML IV SCH (23:01)
[2018-02-01] MEDS: ONDANSETRON 4 MG/2 ML VIAL IVP PRN (23:28)
[2018-02-01] MEDS: HYDROmorphone 1 MG/ML AMP IVP PRN (23:31)
--- NOTE | 2018-02-02 00:31 | NUR ---
PT SAID NO PAIN RELIEF GIVEN DILAUDID ORDERED.
--- NOTE | 2018-02-02 01:38 | NUR ---
CALLED PHARMACY FOR PENDING HEPARIN ORDER. PHARMACIST SAID THAT PT ALREADY HAD LOVENOX GIVEN IN ER. HEPARIN TO START IN AM @10:00. MIKAELA PEREZ CHARGE MADE AWARE.
[2018-02-02 04:00] VITALS: BP 108/72
[2018-02-02] MEDS: HYDROmorphone 1 MG/ML AMP IVP PRN ×4 (04:31→17:07)
--- NOTE | 2018-02-02 04:31 | NUR ---
PT AGAIN COMPLAINT OF PAIN, INTERMITTENT IN FREQ, EARLIER PAIN DECREASED BUT AGAIN CAME BACK TO 10//10 R UPPER ARM PAIN (PICC LINE SITE) GIVEN DILAUDID ORDERED.
[2018-02-02] MEDS: HYDROcodone/APAP 5/325 MG 1 TAB TAB PO PRN ×2 (06:58→12:05)
--- NOTE | 2018-02-02 06:58 | NUR ---
PT C/O PAIN AGAIN, THIS TIME GIVEN NORCO ORDERED BREAKTHROUGH PAIN.
[2018-02-02 07:10] LABS: BASOPHILS % (AUTO) 0.3 % (0.0-2.0); EOSINOPHILS % (AUTO) 0.3 % (0.0-4.0); HEMATOCRIT 32.7 % (36-52); HEMOGLOBIN 10.6 g/dL (12.0-18.0); MEAN CORPUSCULAR HEMOGLOBIN 24 pg (27-31); MEAN CORPUSCULAR HGB CONC 32 g/dL (33-37); MEAN CORPUSCULAR VOLUME 74.3 fL (80-94); MONOCYTES % (AUTO) 9.2 % (1.7-9.3); NEUTROPHILS # (AUTO) 7.6 K/uL (1.8-7.7); NEUTROPHILS % (AUTO) 71.2 % (42.2-75.2); PLATELET COUNT (AUTO) 246 K/uL (140-450); RED CELL DISTRIBUTION WIDTH 14.5 % (11.6-13.7); WHITE BLOOD COUNT (AUTO) 10.7 K/uL (4.8-10.8)
[2018-02-02 07:24] LABS: ALBUMIN 3.2 g/dL (3.4-5.0); ANION GAP 14.8 (8-16); CARBON DIOXIDE 22.2 mmol/L (21-32); CREATININE 0.8 mg/dL (0.7-1.3); MAGNESIUM 1.7 mg/dL (1.8-2.4); PHOSPHORUS 3.8 mg/dL (2.5-4.9); TOTAL BILIRUBIN 2.1 mg/dL (0.0-1.0)
[2018-02-02] MEDS ORDERED: hePARIN / DEXT 5% PREMIX 250 ML IV SCH (07:30)
--- NOTE | 2018-02-02 07:40 | NUR ---
ENDORSED PT TO AM SHIFT .C/O PAIN ON R UPPER EXTREMITY (PICC LINE). NORCO JUST GIVEN . WILL ENDORSE TO NEXT SHIFT
--- NOTE | 2018-02-02 07:41 | NUR ---
RECEIVED REPORT FROM ENVIRONMENTAL SERVICE AIDE NURSE. PATIENT LYING DOWN IN BED, NO DISTRESS NOTED. COMPLAINS OF RIGHT UPPER ARM PAIN. REPORTS NORCO DOES NOT HELP WITH PAIN. WILL CHECK PAIN MEDICATIONS AVAILABLE TO GIVE. AAOX4, CALM, COOPERATIVE, SKIN COLOR APPROPRIATE TO ETHNICITY, WARM TO TOUCH. HAS RIGHT ABD ILLEOSTOMY DRAINING INTO A BAG AND SMALL OPEN WOUND ON RIGHT ABD, DRESSING IS DRY AND INTACT. IV SITES INTACT, PATENT, AND INFUSING IVF PER MD ORDERS. REVIEWED PLAN OF CARE WITH PATIENT. PATIENT VERBALIZED UNDERSTANDING. SAFETY MEASURES IN PLACE, CALL LIGHT WITHIN REACH. WILL CONTINUE TO MONITOR.
[2018-02-02 08:00] VITALS: BP 112/63
--- NOTE | 2018-02-02 08:11 | NUR ---
PATIENT HAS BEEN SCREENED AND CATEGORIZED HIGH NUTRITION RISK. PATIENT WILL BE SEEN WITHIN 1-2 DAYS OF ADMISSION. 02/02/18-02/03/[address]
--- NOTE | 2018-02-02 08:25 | NUR ---
HEPARIN DRIP STARTED PER PHARMACY PROTOCOL. WILL CONTINUE TO MONITOR.
[2018-02-02] MEDS: NACL 0.9% 1,000 ML IV SCH ×2 (08:35→11:30)
--- NOTE | 2018-02-02 08:40 | NUR ---
PATIENT LYING DOWN IN BED WITH COMPLAINTS OF PAIN ON RIGHT UPPER ARM. DILAUDID GIVEN PER MD ORDERS. SAFETY MEASURES IN PLACE, CALL LIGHT WITHIN REACH. WILL CONTINUE TO MONITOR.
--- NOTE | 2018-02-02 09:58 | NUR ---
WOUND RE-EVALUATION NOTE: REASON FOR WOUND EVALUATION: SURGICAL WOUND COMPLETE SKIN ASSESSMENT DONE ON THIS 52 Y/O MALE PATIENT FROM [facility] TO [facility], WITH INITIAL DIAGNOSIS OF RIGHT UPPER ARM PAIN. PAST MEDICAL HISTORY INCLUDE CHRONIC BACK PAIN AND HX OF BOWEL OBSTRUCTION, SPINAL SURGERY. ALL ABOVE INFORMATION WAS OBTAINED FROM THE ADMISSION H&P AND PT. PATIENT IS AWAKE, ORIENTED TO PERSON, PLACE AND TIME. SKIN WARM TO TOUCH WNL, TOENAILS ARE SHORT AND THICKENED, NO EDEMA, BLE WITH HAIR GROWTH. PT. ABLE TO TURN SELF WITHOUT ASSISTANCE. PLAN OF CARE AND PRESSURE PREVENTIVE MEASURES DISCUSSED WITH PT., AND PRIMARY RN. PT. AND ABLE TO VERBALIZE UNDERSTANDING. INTEGUMENTARY: -RIGHT UPPER ARM SKIN INTACT, SWELLING WITH PAIN WHEN TOUCHED. MID LINE IN PLACE WITH DRESSING DCI -MID ABDOMINAL- HEALING SURGICAL WOUND WITH MULTIPLE SMALL SCABS. LARGEST 1X1CM, NO ODOR, PERIWOUND SKIN INTACT, NO ERYTHEMA. -RLQ ABDOMINAL AREA SURGICAL WOUND 1.5X2.2X0.1 CM, WOUND BED MOIST, BLANCHABLE REDNESS, NO ODOR, ANABELA-WOUND SKIN INTACT, NO ERYTHEMA. -RUQ ABDOMINAL AREA ILEOSTOMY, 1 AND 1/4 INCHES IN DIAMETER AND 1CM TALL, STOMA IS ROUND AND BEEFY RED IN COLOR, FUNCTIONING WITH MODERATE AMOUNT OF BROWN LIQUID STOOL OUTPUT, ANABELA-STOMA SKIN INTACT. RECOMMENDATIONS: -CLEANSE RLQ OPENED SURGICAL WOUND SITES WITH NS. PAT DRY APPLY HYDROGEL AND COVER WITH DRY COMPOSITE DRESSING CHANGE QOD AND PRN IF SOILING -CLEANSE MID ABDOMEN OPENED SURGICAL WOUND SITES WITH NS. PAT DRY PAINT WITH BETADINE SOLUTION BIDWC AND LEAVE IT OPEN TO AIR -EMPTY ILEOSTOMY BAG WHEN 1/2 BAG FULL AND CHANGE ILEOSTOMY BAG Q 5 DAYS AND PRN IF DISPLACE, PLEASE ASSESS ANABELA STOMA SKIN EACH TIME ILEOSTOMY BAG CHANGED -TURN AND REPOSITION PATIENT Q2H -ASSESS AND MONITOR SKIN CONDITION DURING POSITION CHANGE, PLEASE PAY ATTENTION TO SACROCO[facility]YX -OFFLOAD BILATERAL HEELS BY PLACING PILLOWS UNDER CALVES AT ALL TIMES, UNLESS OTHERWISE CONTRAINDICATED-KEEP -KEEP SKIN CLEAN AND DRY AT ALL TIMES. -CONTINUE TO FOLLOW RD RECOMMENDATIONS RECOMMENDATIONS DISCUSSED WITH PRIMARY RN WILL FOLLOW UP PATIENT Q 7-10 DAYS AND PRN. PLEASE CONTACT WOUND CARE NURSE FOR ANY QUESTIONS AND CHANGES IN WOUND CONDITION.
[2018-02-02] MEDS ORDERED: MAG SULF 2000 MG/WATER PREMIX 50 ML IV ONE (10:15)
[2018-02-02] MEDS ORDERED: SKINTEGRITY HYDROGEL TP PRN (10:20)
[2018-02-02] MEDS: MAGNESIUM SULFATE 1GM in DEXTROSE 5% 100 ML PREMIX IV SCH ×2 (10:50→12:10)
--- NOTE | 2018-02-02 10:55 | NUR ---
PATIENT LYING DOWN IN BED TALKING WITH AT BEDSIDE. PAIN WITHIN TOLERABLE. SCHEDULED MEDICATIONS DUE GIVEN. WILL CONTINUE TO MONITOR.
--- NOTE | 2018-02-02 12:15 | NUR ---
PATIENT LYING DOWN IN BED WITH COMPLAINTS OF RIGHT UPPER ARM PAIN, NORCO GIVEN PER ORDERS. HYDROGEL APPLIED TO RLQ SURGICAL WOUND PER WOUND CARE NURSE INSTRUCTIONS. PATIENT TOLERATED WELL. WILL CONTINUE TO MONITOR.
--- NOTE | 2018-02-02 12:16 | NUR ---
DR. MATA AT BEDSIDE REVIEWING PLAN OF CARE WITH PATIENT. WILL CONTINUE TO MONITOR.
--- NOTE | 2018-02-02 12:28 | NUR ---
DR. MATA AT BEDSIDE REVIEWING PLAN OF CARE WITH PATIENT. WILL CONTINUE TO MONITOR.
[2018-02-02] MEDS ORDERED: SKINTEGRITY HYDROGEL TP SCH (13:00)
[2018-02-02] MEDS ORDERED: NACL 0.9% IRR 250 ML BOTTLE IR SCH (13:00)
--- NOTE | 2018-02-02 13:22 | NUR ---
RIGHT UPPER ARM MIDLINE REMOVED USING ASEPTIC TECHNIQUE, PATIENT TOLERATED WELL. OCCLUSIVE DRESSING PLACED ON INSERTION SITE. 20 CM MIDLINE CATHETER REMOVED WITH LUMEN COMPLETELY INTACT. SAFETY MEASURES IN PLACE, CALL LIGHT WITHIN REACH. WILL CONTINUE TO MONITOR.
--- NOTE | 2018-02-02 14:11 | NUR ---
02/02/18 RD INITIAL ASSESSMENT COMPLETED PLEASE REFER TO NUTRITION ASSESSMENT UNDER CARE ACTIVITY FOR ESTIMATED NUTRITIONAL NEEDS. 1. CONTINUE PUREE WITH ENSURE 2 CANS BID TOLERATED 2. IF PO INTAKE >75% RECOMMEND CCHO 60 GM PUREE DIET WITH ENSURE 3. RD ENCOURAGED INCREASING CALORIE AND PROTEIN INTAKE 4. RD TO FOLLOW-UP 2-3 DAYS, HIGH RISK SPARKLE WELCH, RD
--- NOTE | 2018-02-02 15:27 | NUR ---
Follow up appointment on 02/09/[address] Ramirez. Address: [address] [facility]. [address] Clinic number . Appointment slip given to patient with instructions. Patient verbalizes understanding. Informed nurse to give appointment instructions upon discharge.
--- NOTE | 2018-02-02 15:45 | NUR ---
PATIENT SITTING IN BED WATCHING TV. NO DISTRESS NOTED. PAIN WITHIN TOLERABLE. WILL CONTINUE TO MONITOR.
[2018-02-02 16:23] VITALS: BP 100/72
[2018-02-02] MEDS ORDERED: WARF-82 PO (16:34)
--- NOTE | 2018-02-02 17:11 | NUR ---
PATIENT LYING DOWN IN BED WITH COMPLAINTS OF PAIN, DILAUDID GIVEN PER MD ORDERS. CONDITION UNCHANGED. WILL CONTINUE TO MONITOR.
[2018-02-02] MEDS: ONDANSETRON 4 MG/2 ML VIAL IVP PRN (18:29)
--- NOTE | 2018-02-02 18:50 | NUR ---
DISCHARGE INSTRUCTIONS PROVIDED TO PATIENT, FOLLOW-UP WITH PCP, HOME HEALTH REGARDING COUMADIN EDUCATION AND INR BLOOD CHECKS AT HOME PER MD REQUESTED, NEW PRESCRIPTIONS, AND DIET REGIMEN. ANSWERED ALL OF PATIENT'S QUESTIONS REGARDING DISCHARGE. PATIENT VERBALIZED COMPLETE UNDERSTANDING. AWAITING FOR TO COME TO TAKE PATIENT HOME. WILL CONTINUE TO MONITOR.
--- NOTE | 2018-02-02 19:30 | NUR ---
GAVE REPORT TO HANDICRAFT OR HOBBY SHOP MANAGER NURSE FOR CONTINUITY OF CARE. PATIENT IN STABLE CONDITION.
--- NOTE | 2018-02-02 19:31 | NUR ---
RECEIVED REPORT FROM AM NURSE. PATIENT LYING DOWN IN BED, NO DISTRESS NOTED. 3/10 COMPLAINS OF RIGHT UPPER ARM PAIN, TOLERABLE. AAOX4, CALM, COOPERATIVE, SKIN COLOR APPROPRIATE TO ETHNICITY, WARM TO TOUCH. HAS RIGHT ABD ILLEOSTOMY DRAINING INTO A BAG AND SMALL OPEN WOUND ON RIGHT ABD, DRESSING IS DRY AND INTACT. IV SITES INTACT, PATENT, AND INFUSING IVF PER MD ORDERS. WITH DRESSING IN PLACE, DRY AND INTACT FROM PREVIOUS R UPPER ARM MIDLINE CATHETER RECENTLY REMOVED BY NURSE. REVIEWED PLAN OF CARE WITH PATIENT. PATIENT VERBALIZED UNDERSTANDING. SAFETY MEASURES IN PLACE, CALL LIGHT WITHIN REACH. WILL CONTINUE TO MONITOR.
[2018-02-02 20:00] VITALS: BP 115/68
--- NOTE | 2018-02-02 20:06 | NUR ---
PT'S GIVEN INSTRUCTIONS, SIGNED PAPERS, INSTRUCTED BY PREVIOUS SHIFT EARLIER. PT LEFT HOSPITAL VIA WHEELCHAIR. PT IN STABLE CONDITION.
--- NOTE | 2018-02-04 12:42 | NUR ---
ENTRY FOR 02/03/[address] HOOD AND HE STATED THAT HE HAD TALKED TO [employer] [phone] AND CLARIFIED THE ORDERS FOR BLOOD DRAWS FOR INR ORDER READ 3 X DAILY AND SHOULD HAVE BEEN 3 X WEEKLY X 2 WEEKS AND WEEKLY FOR 2 WEEKS THEN MONTHLY.
== END 2018-02-02 20:06 | disposition home health service (06) | DRG 315 ==
LOC: MED 18:25 → MTU 21:52
PROVIDERS: ADMIT Hospitalist; ATTEND Hospitalist
PROC: 02PYX3Z Removal of Infusion Device from Great Vessel, External Approach (ICD-10-PCS; principal; 2018-02-01)
DX: T82.868A Thrombosis due to vascular prosthetic devices, implants and grafts, initial encounter (principal); K91.2 Postsurgical malabsorption, not elsewhere classified; I82.611 Acute embolism and thrombosis of superficial veins of right upper extremity; I10 Essential (primary) hypertension; E11.9 Type 2 diabetes mellitus without complications; Y83.8 Other surgical procedures as the cause of abnormal reaction of the patient, or of later complication, without mention of misadventure at the time of the procedure; Z93.4 Other artificial openings of gastrointestinal tract status; Z79.4 Long term (current) use of insulin; Z79.2 Long term (current) use of antibiotics; Z79.899 Other long term (current) drug therapy; Z85.830 Personal history of malignant neoplasm of bone; Z90.49 Acquired absence of other specified parts of digestive tract; Y92.89 Other specified places as the place of occurrence of the external cause
CPT/HCPCS: 36415; 80053; 83735; 84100; 85025; 85610; 85730; 87081; 93971; 96361; 96372; 96374; 99285; A6248; J1170; J1644; J1650; J2405; J3010; J7030; Q0092

== ENCOUNTER 2018-02-07 13:44 | Inpatient (IN) | payer OTHER ==
[~2018-02-07] VITALS: Ht 182.9 cm; Wt 68.0 kg
[~2018-02-07 13:44] MED LIST changes: -CIPR500T4 PO; -HYDR-5122 PO; -LISI-420 PO; -METR500S14 IV; -METR500T1 PO; +WARF-82 PO; -ZOS3.375I IV; -[UNRECOGNIZED DRUG - CODE] TD
[2018-02-07 14:09] VITALS: BP 109/82
--- NOTE | 2018-02-07 14:18 | NUR ---
PT. BIB DUE TO N/V AND ABD PAIN X THIS MORNING AND WEAKNESS. PER " HE WOKE UP AT 7AM AND WAS NAUSEOUS AND THROWING UP HE CANT KEEP ANYTHING DOWN". PT. DENIES ANY FEVER OR CHILLS.. C/O GENERALIZED WEAKNESS . DENIES DIARRHEA, ILEOSTOMY PRESENT ON R SIDE OF ABD ,MINIMAL ILEOSTOMY OUTPUT. PT. IS AWAKE AND RESPONSIVE. PT. HAS FLAT AND SOFT ABD HYPOACTIVE X 4 QUADS. PT. AAOX4. 6/10 ABD PAIN THAT RADIATES ALL OVER ABD AFTER VOMITING. SAFETY PRECAUTIONS IMPLEMENTED. AT BEDSIDE. ER MD MADE AWARE. WILL CONTINUE TO MONITOR.
[2018-02-07] MEDS ORDERED: ONDANSETRON 4 MG/2 ML VIAL IVP ONE (14:45)
[2018-02-07] MEDS: NACL 0.9% 500 ML IV SCH ×2 (15:06→18:54)
--- NOTE | 2018-02-07 15:09 | NUR ---
PT UNABLE TO PROVIDE URINE AT THIS TIME. ER MD LINCOLN MADE AWARE.
[2018-02-07 15:16] LABS: BASOPHILS % (AUTO) 0.1 % (0.0-2.0); EOSINOPHILS % (AUTO) 0.1 % (0.0-4.0); HEMATOCRIT 41.2 % (36-52); HEMOGLOBIN 13.4 g/dL (12.0-18.0); LYMPHOCYTES # (AUTO) 1.5 K/uL (2.0-11.5); LYMPHOCYTES % (AUTO) 10.5 % (20.5-51.1); MEAN CORPUSCULAR HEMOGLOBIN 24 pg (27-31); MEAN CORPUSCULAR HGB CONC 33 g/dL (33-37); MEAN CORPUSCULAR VOLUME 73.2 fL (80-94); MONOCYTES # (AUTO) 0.6 K/uL (0.8-1.0); MONOCYTES % (AUTO) 4.6 % (1.7-9.3); NEUTROPHILS # (AUTO) 11.9 K/uL (1.8-7.7); NEUTROPHILS % (AUTO) 84.7 % (42.2-75.2); PLATELET COUNT (AUTO) 570 K/uL (140-450); RED BLOOD CELL COUNT(AUTO) 5.63 MIL/uL (4.20-6.10); RED CELL DISTRIBUTION WIDTH 14.8 % (11.6-13.7)
[2018-02-07] MEDS ORDERED: METOCLOPRAMIDE 10 MG/2 ML INJ VIAL IVP ONE (15:25)
--- NOTE | 2018-02-07 15:27 | NUR ---
PT TAKEN TO CT VIA DIONICIO
--- NOTE | 2018-02-07 15:49 | NUR ---
PATIENT RETURN FROM CT.
[2018-02-07 15:51] LABS: ALBUMIN 4.4 g/dL (3.4-5.0); ANION GAP 18.5 (8-16); CARBON DIOXIDE 27.5 mmol/L (21-32); CREATININE 1.3 mg/dL (0.7-1.3); TOTAL BILIRUBIN 1.5 mg/dL (0.0-1.0)
[2018-02-07 16:08] LABS: PROTHROMBIN TIME 13.5 secs (10.8-13.4)
--- NOTE | 2018-02-07 16:10 | NUR ---
PT. RESTING COMFORTABLY IN BED, RR EVEN AND UNLABORED. VSS. WILL CONTINUE TO MONITOR.
[2018-02-07] MEDS ORDERED: NACL 0.9% 1,500 ML IV ONE (16:30)
[2018-02-07] MEDS ORDERED: metroNIDAZOLE 500 MG/NS PREMIX 100 ML IV ONE (16:30)
[2018-02-07] MEDS ORDERED: DEXTROSE 50% 50 ML SYR IVP PRN (17:10)
[2018-02-07] MEDS ORDERED: ACETAMINOPHEN 325 MG TAB PO PRN (17:15)
[2018-02-07] MEDS ORDERED: HYDROcodone/APAP 5/325 MG 1 TAB TAB PO PRN (17:15)
--- NOTE | 2018-02-07 17:21 | NUR ---
ER MD LINCOLN AT BEDSIDE AT THIS TIME
--- NOTE | 2018-02-07 17:44 | NUR ---
PT TAKEN TO MED FLOOR BY MELVIN VALDOVINOS AND EMT EVETTE
[2018-02-07 17:49] VITALS: BP 106/77
--- NOTE | 2018-02-07 17:49 | NUR ---
PATIENT ARRIVED FROM ER VIA GURNEY. NO DISTRESS NOTED. ABLE TO AMBULATE WITH ASSIST FROM ER BED TO [facility] BED. V/S STABLE. ILLEOSTOMY NOTED WITH DRAIN BAG. RLQ ABD SURGICAL WOUND NOTED, DRESSING IS DRY AND INTACT. AAOX4, CALM, COOPERATIVE. IV SITE INTACT, PATENT, AND INFUSING BOLUS NS. ORIENTED PATIENT TO ROOM AND CALL LIGHT. REVIEWED PLAN OF CARE WITH PATIENT. PATIENT VERBALIZED UNDERSTANDING. SAFETY MEASURES IN PLACE, CALL LIGHT WITHIN REACH. WILL CONTINUE TO MONITOR.
--- NOTE | 2018-02-07 17:49 | NUR ---
Patient will be admitted to care of dr. menard . Admited to med surg . Will go to room 113. Belongings list completed. Report to coby rain .
--- NOTE | 2018-02-07 18:00 | NUR ---
SCHEDULED MEDICATIONS DUE GIVEN. WILL CONTINUE TO MONITOR.
--- NOTE | 2018-02-07 19:40 | NUR ---
GAVE REPORT TO RN PRIVATE DUTY NURSE FOR CONTINUITY OF CARE. PATIENT IN STABLE CONDITION.
--- NOTE | 2018-02-07 19:41 | NUR ---
RECD. RESTING IN BED, AWAKE, A/OX4. RESPIRATION EVEN AND UNLABORED. IV OF NS BOLUS 1.5 LITERS PER AM NURSE REPORT ALREADY INFUSED, IV SITE AT THE LEFT FOREARM G22, PATENT AND INTACT. WILL CALL DR. SHARP FOR RATE OF NEW IV NS. WITH ILEOSTOMY CONNECTED TO BAG. WOUND IN THE ABDOMEN COVERED WITH DRESSING DRY AND INTACT. PLAN OF CARE FOR THE SHIFT DISCUSSED. VERBALIZED UNDERSTANDING. DENIES PAIN 0/10. FAMILY AT THE BEDSIDE.
[2018-02-07 20:00] VITALS: BP 101/69
[2018-02-07] MEDS: ONDANSETRON 4 MG/2 ML VIAL IVP PRN (20:00)
[2018-02-07] MEDS ORDERED: PIPERACILLIN/TAZOBACTAM 3.375 GM VIAL IV ONE (20:45)
[2018-02-07] MEDS: PIPERACILLIN/TAZOBACTAM 3.375 GM in DEXTROSE 5% 50 ML IV SCH (20:56)
[2018-02-07] MEDS: SIMVASTATIN 20 MG TAB PO SCH (21:00)
[2018-02-07] MEDS ORDERED: NON-FORMULARY ITEM (Omeprazole (Omeprazole) 20 MG) PO SCH (21:00)
[2018-02-07] MEDS: BLOOD GLUCOSE MONITORING 1 DEV DEV FS SCH (21:37)
[2018-02-07] MEDS: INSULIN LANTUS 100 UNITS/ML 10 ML VIAL SUBQ SCH (21:39)
[2018-02-07] MEDS: INSULIN LISPRO SLIDING SCALE 100 UNITS/ML VIAL SUBQ PRN (21:41)
[2018-02-07] MEDS: MIRTAZAPINE 15 MG TAB PO SCH (21:44)
[2018-02-07] MEDS: OLANZapine 5 MG TAB PO SCH (21:44)
[2018-02-07] MEDS: traZODone 50 MG TAB PO SCH (21:45)
[2018-02-07] MEDS: ZOLPIDEM 10 MG TAB PO PRN (21:45)
--- NOTE | 2018-02-07 21:45 | NUR ---
DUE PO MEDICATIONS GIVEN. UNABLE TO SLEEP, MEDICATED WITH AMBIEN 10 MG. PO ORDERED.
--- NOTE | 2018-02-07 22:18 | NUR ---
Patient's Plan of Care was discussed and reviewed with CAR SALTER: GUSTAVO DAWSON
--- NOTE | 2018-02-07 22:45 | NUR ---
SLEEPING COMFORTABLY IN BED.
--- NOTE | 2018-02-07 23:00 | NUR ---
CALLED DR. MATA, INQUIRED WHEN WILL HE SEE PATIENT. WILL COME TOMORROW MORNING, OF PT. INFORMED.
[2018-02-07] MEDS: NACL 0.9% 1,000 ML IV SCH (23:51)
[2018-02-08] VITALS: BP 98/65
[2018-02-08] MEDS ORDERED: PIPERACILLIN/TAZOBACTAM 3.375 GM VIAL IV ONE (05:57)
[2018-02-08] MEDS: PIPERACILLIN/TAZOBACTAM 3.375 GM in DEXTROSE 5% 50 ML IV SCH (06:00)
[2018-02-08] MEDS: NACL 0.9% 1,000 ML IV SCH ×4 (06:16→20:25)
[2018-02-08] MEDS: PANTOPRAZOLE 40 MG TABEC PO SCH (06:20)
[2018-02-08] MEDS: BLOOD GLUCOSE MONITORING 1 DEV DEV FS SCH ×4 (06:25→20:25)
--- NOTE | 2018-02-08 06:31 | NUR ---
PATIENT HAS BEEN SCREENED AND CATEGORIZED HIGH NUTRITION RISK. PATIENT WILL BE SEEN WITHIN 1-2 DAYS OF ADMISSION. 02/08/18-02/09/18 YON ESCOBEDO MS, RDN
--- NOTE | 2018-02-08 07:20 | NUR ---
CONDITION REMAIN STABLE. WILL ENDORSE TO AM NURSE FOR CONTINUITY OF CARE.
[2018-02-08 07:47] LABS: CARBON DIOXIDE 29.7 mmol/L (21-32)
[2018-02-08 07:49] LABS: BASOPHILS # (AUTO) 0.1 K/uL (0.00-0.22); BASOPHILS % (AUTO) 0.6 % (0.0-2.0); EOSINOPHILS # (AUTO) 0.2 K/uL (0-0.4); EOSINOPHILS % (AUTO) 1.9 % (0.0-4.0); HEMATOCRIT 35.1 % (36-52); HEMOGLOBIN 11.3 g/dL (12.0-18.0); LYMPHOCYTES # (AUTO) 1.5 K/uL (2.0-11.5); LYMPHOCYTES % (AUTO) 16.3 % (20.5-51.1); MEAN CORPUSCULAR HEMOGLOBIN 24 pg (27-31); MEAN CORPUSCULAR HGB CONC 32 g/dL (33-37); MEAN CORPUSCULAR VOLUME 73.4 fL (80-94); MONOCYTES # (AUTO) 0.8 K/uL (0.8-1.0); MONOCYTES % (AUTO) 9.2 % (1.7-9.3); NEUTROPHILS # (AUTO) 6.6 K/uL (1.8-7.7); PLATELET COUNT (AUTO) 362 K/uL (140-450); RED BLOOD CELL COUNT(AUTO) 4.79 MIL/uL (4.20-6.10); RED CELL DISTRIBUTION WIDTH 14.5 % (11.6-13.7); WHITE BLOOD COUNT (AUTO) 9.1 K/uL (4.8-10.8)
[2018-02-08 07:51] LABS: MAGNESIUM 1.9 mg/dL (1.8-2.4); PHOSPHORUS 3.5 mg/dL (2.5-4.9)
[2018-02-08 08:00] VITALS: BP 95/61
[2018-02-08 08:19] LABS: ANION GAP 11.3 (8-16)
[2018-02-08] MEDS: TOPIRAMATE 25 MG TAB PO SCH (09:15)
[2018-02-08] MEDS: DULoxetine 30 MG CAPDR PO SCH (09:15)
[2018-02-08] MEDS: ONDANSETRON 4 MG/2 ML VIAL IVP PRN (09:34)
--- NOTE | 2018-02-08 09:36 | NUR ---
ADMINISTERED MEDS TO PT ORDERED. PT COMPLAINING OF NAUSEA. ADMINISTERED ZOFRAN. FAMILY AT BEDSIDE. NO SIGN OF DISTRESS NOTED. ALL SAFETY MEASURE IN PLACE . WILL CONTINUE TO MONITOR PT.
--- NOTE | 2018-02-08 11:30 | NUR ---
CHECKED ON PT. SLEEPING ON HIS BED. PTS BS WITHI NORMAL RANGE. PTS ASKING IF PT WAS GIVEN COUMADIN PT IS ON BLOOD THINNER AT HOME. INFORMED HER THAT WILL TALK TO DR SHARP AND LET HER KNOW THE PLAN OF CARE. VERBALIZED UNDERSTANDING. WILL CONTINUE TO MONITOR PT.
--- NOTE | 2018-02-08 13:00 | NUR ---
DR SHARP SAW PT. ORDERED TO START ELIQUIS IF PT RUE US SHOWS DVT. PT ADMINISTERED WITH ABX ORDERED. NO SIGN OF DISTRESS NOTED. ALL VS WITHIN NS . WILL CONTINUE TO MONITOR PT.
[2018-02-08] MEDS: PIPER/TAZO 3.375GM/D5W PREMIX 50 ML IV SCH ×2 (13:17→20:27)
[2018-02-08 16:00] VITALS: BP 101/59
[2018-02-08] MEDS: METOCLOPRAMIDE 10 MG/2 ML INJ VIAL IVP SCH ×2 (17:09→23:01)
[2018-02-08] MEDS: MORPHINE SULFATE 4 MG/ML SYR IVP PRN (17:45)
--- NOTE | 2018-02-08 17:46 | NUR ---
ADMINISTERED PAIN MEDS TO PT ORDERED FOR BACK PAIN 08/24. FAMILY AT BEDSIDE. CALL LIGHT WITHIN PT REACH. WILL CONTINUE TO MONITOR PT.
--- NOTE | 2018-02-08 19:15 | NUR ---
ENDORSED PT TO PM NURSE. PT IN STABLE CONDITION.
--- NOTE | 2018-02-08 19:16 | NUR ---
REPORT RECEIVED FROM AM NURSE AT BEDSIDE. PT IN STABLE CONDITION. AAOX4. INTRODUCED SELF TO PT AND FAMILY. BOARD UPDATED. NO COMPLAINTS OF PAIN. AFEBRILE. NO SOB. IV SITE L FA 22G RUNNING NS@150ML/HR PATENT AND INTACT. SKIN WARM, DRY, AND INTACT WITH NO OPEN WOUNDS. PT HAS ILEOSTOMY DRAINING INTO THE BAG. BED LOCKED IN LOW POSITION. CALL RYAN WITHIN REACH. SAFETY PRECAUTIONS IN PLACE. ALL NEEDS MET AT THIS TIME.
[2018-02-08] MEDS: MIRTAZAPINE 15 MG TAB PO SCH (20:26)
[2018-02-08] MEDS: OLANZapine 5 MG TAB PO SCH (20:27)
[2018-02-08] MEDS: traZODone 50 MG TAB PO SCH (20:27)
[2018-02-08] MEDS: SIMVASTATIN 20 MG TAB PO SCH (20:27)
[2018-02-08] MEDS: INSULIN LANTUS 100 UNITS/ML 10 ML VIAL SUBQ SCH (20:29)
[2018-02-08] MEDS: APIXABAN 2.5 MG TAB PO SCH (20:29)
[2018-02-08] MEDS: ZOLPIDEM 10 MG TAB PO PRN (22:22)
--- NOTE | 2018-02-08 22:22 | NUR ---
AMBIEN GIVEN FOR SLEEP. PT TOLERATED WELL.
--- NOTE | 2018-02-08 23:01 | NUR ---
REGLAN GIVEN IVP. PT TOLERATED WELL.
[2018-02-09] VITALS: BP 107/62
--- NOTE | 2018-02-09 01:45 | NUR ---
PT SLEEPING COMFORTABLY IN BED. NO S/S OF DISTRESS NOTED. WILL CONTINUE TO MONITOR.
--- NOTE | 2018-02-09 03:15 | NUR ---
NEW IV INSERTED R FA 20G SALINE FLUSHED. 3 ATTEMPTS TAKEN 2 ON THE LEFT AND 1 ON THE RIGHT. PT TOLERATED WELL. Addendum: 02/09/18 at 05 by Jassi Srivastava RN WRONG INTERVENTION. Addendum: 02/09/18 at 05 by Jassi Srivastava RN IV DC.
[2018-02-09] MEDS: NACL 0.9% 1,000 ML IV SCH ×2 (03:35→09:11)
--- NOTE | 2018-02-09 04:00 | NUR ---
ER CALLED IN TO INSERT NEW IV.
--- NOTE | 2018-02-09 04:30 | NUR ---
ED NURSE UNABLE TO INSERT IV.
[2018-02-09] MEDS: PIPER/TAZO 3.375GM/D5W PREMIX 50 ML IV SCH ×3 (05:41→20:24)
--- NOTE | 2018-02-09 05:41 | NUR ---
RODNEY GIVEN IVP. CYNDI RODRIGUEZ AND NATALIE. BS 68. NO INSULIN COVERAGE NEEDED. PT TOLERATED WELL. PROTONIX HELD DUE TO NPO STATUS. Addendum: 02/09/18 at 726 by Jassi Srivastava RN WRONG INTERVENTION. WRONG PATIENT. Addendum: 02/09/18 at 727 by Jassi Srivastava RN INTERVENTIONS ARE CORRECT AND PATIENT IS CORRECT.
[2018-02-09] MEDS: METOCLOPRAMIDE 10 MG/2 ML INJ VIAL IVP SCH ×3 (05:42→18:11)
[2018-02-09] MEDS: PANTOPRAZOLE 40 MG TABEC PO SCH ×2 (05:42→05:45)
[2018-02-09] MEDS: BLOOD GLUCOSE MONITORING 1 DEV DEV FS SCH ×4 (05:49→20:21)
--- NOTE | 2018-02-09 07:00 | NUR ---
ENDORSED TO AM SHIFT TO CALL DR. SHARP ABOUT IV ISSUE WITH CONTRAST AND RADIOLOGY WANTING AT LEAST A 20G IN THE AC. UNABLE TO GET AN IV IN LAST NIGHT THAT WAS 20G OR LARGER IN THE WRIST TO ANTECUBITAL.
--- NOTE | 2018-02-09 07:15 | NUR ---
REPORT GIVEN TO AM NURSE AT BEDSIDE. PT IN STABLE CONDITION.
--- NOTE | 2018-02-09 07:16 | NUR ---
RECEIVED REPORT FROM PM NURSE AT BEDSIDE. PER PM NURSE, CT CALLED AND ASKING FOR PT TO HAVE 20 IV ACCESS . PM NURSE TRIED MULTIPLE TIMES TO START THE IV LINE ON PT, COULDN'T SUCCEED. PT BS 64, ADMINISTERED DEXTROSE 5% IV PUSH. PT SLEEPING ON HIS BED. IVF INFUSING WELL. PT DENIES PAIN. CALL LIGHT WITHIN PT REACH. WILL CONTINUE TO MONITOR PT.
[2018-02-09 07:28] LABS: BASOPHILS % (AUTO) 0.5 % (0.0-2.0); EOSINOPHILS # (AUTO) 0.1 K/uL (0-0.4); EOSINOPHILS % (AUTO) 2.6 % (0.0-4.0); HEMATOCRIT 28.4 % (36-52); LYMPHOCYTES # (AUTO) 0.9 K/uL (2.0-11.5); LYMPHOCYTES % (AUTO) 16.3 % (20.5-51.1); MEAN CORPUSCULAR HEMOGLOBIN 24 pg (27-31); MEAN CORPUSCULAR HGB CONC 32 g/dL (33-37); MEAN CORPUSCULAR VOLUME 74.4 fL (80-94); MONOCYTES # (AUTO) 0.5 K/uL (0.8-1.0); NEUTROPHILS % (AUTO) 71.6 % (42.2-75.2); PLATELET COUNT (AUTO) 274 K/uL (140-450); RED BLOOD CELL COUNT(AUTO) 3.82 MIL/uL (4.20-6.10); RED CELL DISTRIBUTION WIDTH 14.4 % (11.6-13.7); WHITE BLOOD COUNT (AUTO) 5.5 K/uL (4.8-10.8)
[2018-02-09 08:00] VITALS: BP 100/40
--- NOTE | 2018-02-09 08:00 | NUR ---
GOT CALL FROM COMMUNICATIONS TECHNICIAN, STATES WILL CHEK THE LINE , PREPARING FOR CT WITH CONTRAST. WILL CONTINUE TO MONITOR PT.
[2018-02-09 08:33] LABS: MAGNESIUM 1.9 mg/dL (1.8-2.4); PHOSPHORUS 3.4 mg/dL (2.5-4.9)
[2018-02-09] MEDS: DULoxetine 30 MG CAPDR PO SCH (08:59)
[2018-02-09] MEDS: TOPIRAMATE 25 MG TAB PO SCH (09:00)
[2018-02-09] MEDS: APIXABAN 2.5 MG TAB PO SCH ×2 (09:05→20:28)
--- NOTE | 2018-02-09 09:07 | NUR ---
CHECKED ON PT. SL;EEPING ON HIS BED. BS NOTED 179 AFTER ADMINISTERING DEXTROSE IV PUSH. ADMINISTERED AM MEDS ORDERED. CT CAME BY, CHECKED THE IV ACCESS SITE. STATES OKAY TO GIVE CONTRAST BY IV. WAITING FOR MD TO SIGN CONSENT TO PREP THE PT FOR CT WITH CONTRAST. NO SIGN OF DISTRESS NOTED. WILL CONTINUE TO MONITOR PT.
[2018-02-09 10:58] LABS: ANION GAP 13.6 (8-16); CARBON DIOXIDE 23.7 mmol/L (21-32); CREATININE 0.9 mg/dL (0.7-1.3); POTASSIUM 3.3 mmol/L (3.5-5.1)
[2018-02-09] MEDS ORDERED: TPN PER PHARMACY MC PRN (12:50)
[2018-02-09] MEDS ORDERED: MAGNESIUM OXIDE 400 MG TAB PO SCH (13:00)
[2018-02-09] MEDS ORDERED: POTASSIUM CHLORIDE 10 MEQ TABER PO SCH (13:00)
[2018-02-09] MEDS: DEXT 5% /NACL 0.9% 1,000 ML IV SCH (13:15)
--- NOTE | 2018-02-09 14:16 | NUR ---
RECEIVED A CALL THIS MORNING FROM TEA FROM [facility], . SHE SAID THAT THIS PATIENT WAS ON THEIR SERVICE AND WOULD LIKE AN ORDER TO RESUME HOME HEALTH WITH THEM WHEN PATIENT DISCHARGED.
--- NOTE | 2018-02-09 14:32 | NUR ---
02/09/18 RD INITIAL ASSESSMENT COMPLETED PLEASE REFER TO NUTRITION ASSESSMENT UNDER CARE ACTIVITY FOR ESTIMATED NUTRITIONAL NEEDS. 1. CONTINUE CLEAR LIQUID DIET WITH ENSURE CLEAR 2 CANS TID TOLERATED 2. ENCOURAGE INCREASING PO INTAKE 3. RECOMMEND CARLTON BID FOR WOUND HEALING 4. RECOMMEND MVI QD 5. IF PO INTAKE CONTINUES <50% CONSIDER NUTRITION SUPPORT VIA NGT 6. RD TO FOLLOW-UP 2-3 DAYS, HIGH RISK SPARKLE WEL[address] RD
[2018-02-09] MEDS: MORPHINE SULFATE 4 MG/ML SYR IVP PRN (14:34)
--- NOTE | 2018-02-09 15:14 | NUR ---
CALLED RADIOLOGY AND NOTIFIED THEM THAT THERE IS A STAT CXR ORDERED TO CONFIRM PICC LINE PLACEMENT. PICC LINE NURSE IN ROOM TO PLACE PICC LINE NOW. WILL CALL RADIOLOGY AGAIN ONCE PICC LINE IS SUCCESSFULLY PLACED.
--- NOTE | 2018-02-09 15:28 | NUR ---
CHECKED ON PT. PICC LINE INSERTION DONE , X-RAY IN ROOM TO CONFIRM THE PLACEMENT. WILL CONTINUE TO MONITOR PT.
--- NOTE | 2018-02-09 15:52 | NUR ---
PT OFF THE UNIT FOR CT SCAN WITH GAS DISTRIBUTION SUPERVISOR. PT STABLE. NO SIGN OF DISTRESS NOTED. FAMILY AT BEDSIDE. WILL CONTINUE TO MONITOR PT.
[2018-02-09 16:00] VITALS: BP 113/57
--- NOTE | 2018-02-09 16:44 | NUR ---
PT BACK FORM CT. OKAY TO EAT OR DRINK PER PATTERN DEVELOPER AFTER CT PROCEDURE DONE. ADMINISTERED MEDS ORDERED FOR PT. TOLERATED WELL. BS 118. FAMILY AT BEDSIDE. NO SIGN OF DISTRESS NOTED. WILL CONTINUE TO MONITOR PT.
[2018-02-09] MEDS ORDERED: SKINTEGRITY HYDROGEL TP PRN (17:10)
--- NOTE | 2018-02-09 19:15 | NUR ---
ENDORSED PT TO PM NURSE AT BEDSIDE. PT IN STABLE CONDITION. PICC LINE INFUSING WELL. FAMILY AT BEDSIDE.
--- NOTE | 2018-02-09 19:16 | NUR ---
REPORT RECEIVED FROM AM NURSE AT BEDSIDE. PT IN STABLE CONDITION. AAOX4. INTRODUCED SELF TO PT AND FAMILY. NO COMPLAINTS OF PAIN. NO SOB. AFEBRILE. IV SITE L FA 22G SL PATENT AND INTACT. PT ALSO HAS A L UA PICC LINE DOUBLE LUMEN RUNNING D5NS@100ML/HR PATENT AND INTACT. SKIN WARM, DRY, AND NOT INTACT DUE TO A SURGICAL INCISION IN THE ABD. DRESSING DRY AND INTACT. PT HAS ILEOSTOMY R UPPER ABD. BED LOCKED IN LOW POSITION. CALL RYAN WITHIN REACH. SAFETY PRECAUTIONS IN PLACE. ALL NEEDS MET AT THIS TIME.
[2018-02-09] MEDS: SIMVASTATIN 20 MG TAB PO SCH (20:22)
[2018-02-09] MEDS: MIRTAZAPINE 15 MG TAB PO SCH (20:23)
[2018-02-09] MEDS: traZODone 50 MG TAB PO SCH (20:23)
[2018-02-09] MEDS: OLANZapine 5 MG TAB PO SCH (20:23)
--- NOTE | 2018-02-09 20:24 | NUR ---
ZOSYN HUNG AND RUNNING. ELIQUIS, TRAZODONE, REMERON, ZOCOR, AND ZYPREXA GIVEN PO. BS 197. 2 UNITS OF HUMALOG GIVEN. 8 UNITS OF LANTUS GIVEN SCHEDULED. PT TOLERATED WELL.
[2018-02-09] MEDS: INSULIN LISPRO SLIDING SCALE 100 UNITS/ML VIAL SUBQ PRN (20:27)
[2018-02-09] MEDS: INSULIN LANTUS 100 UNITS/ML 10 ML VIAL SUBQ SCH (20:28)
[2018-02-09] MEDS: ZOLPIDEM 10 MG TAB PO PRN (20:31)
--- NOTE | 2018-02-09 21:31 | NUR ---
AMBIEN GIVEN FOR SLEEP. PT TOLERATED WELL.
[2018-02-10] VITALS: BP 100/53
--- NOTE | 2018-02-10 | NUR ---
PT SLEEPING BUT AROUSEABLE. NO S/S OF DISTRESS NOTED. WILL CONTINUE TO MONITOR.
[2018-02-10] MEDS: DEXT 5% /NACL 0.9% 1,000 ML IV SCH ×3 (00:36→20:00)
[2018-02-10] MEDS: METOCLOPRAMIDE 10 MG/2 ML INJ VIAL IVP SCH ×4 (00:36→21:25)
--- NOTE | 2018-02-10 00:36 | NUR ---
REGLAN GIVEN IVP. PT TOLERATED WELL.
--- NOTE | 2018-02-10 02:30 | NUR ---
PT SLEEPING COMFORTABLY IN BED. NO S/S OF DISTRESS NOTED. RESPIRATIONS EVEN, UNLABORED, AND WNL. ALL NEEDS MET AT THIS TIME.
[2018-02-10] MEDS: PIPER/TAZO 3.375GM/D5W PREMIX 50 ML IV SCH ×3 (04:24→21:23)
--- NOTE | 2018-02-10 04:24 | NUR ---
CYNDI RODRIGUEZ BY ROBERT CHARLES. MEDICATE IS RUNNING.
[2018-02-10] MEDS: PANTOPRAZOLE 40 MG TABEC PO SCH (05:51)
--- NOTE | 2018-02-10 05:51 | NUR ---
REGLAN GIVEN IVP. PROTONIX GIVEN PO. BS 110. NO INSULIN COVERAGE NEEDED.
[2018-02-10] MEDS: BLOOD GLUCOSE MONITORING 1 DEV DEV FS SCH ×4 (05:55→20:34)
--- NOTE | 2018-02-10 07:15 | NUR ---
REPORT GIVEN TO AM NURSE AT BEDSIDE. PT IN STABLE CONDITION.
[2018-02-10 07:56] LABS: BASOPHILS % (AUTO) 0.5 % (0.0-2.0); EOSINOPHILS # (AUTO) 0.2 K/uL (0-0.4); EOSINOPHILS % (AUTO) 3.5 % (0.0-4.0); HEMATOCRIT 27.4 % (36-52); HEMOGLOBIN 8.9 g/dL (12.0-18.0); LYMPHOCYTES # (AUTO) 1.2 K/uL (2.0-11.5); LYMPHOCYTES % (AUTO) 19.2 % (20.5-51.1); MEAN CORPUSCULAR HEMOGLOBIN 24 pg (27-31); MEAN CORPUSCULAR HGB CONC 32 g/dL (33-37); MEAN CORPUSCULAR VOLUME 73.9 fL (80-94); MONOCYTES # (AUTO) 0.5 K/uL (0.8-1.0); MONOCYTES % (AUTO) 8.3 % (1.7-9.3); NEUTROPHILS # (AUTO) 4.3 K/uL (1.8-7.7); NEUTROPHILS % (AUTO) 68.5 % (42.2-75.2); PLATELET COUNT (AUTO) 266 K/uL (140-450); RED BLOOD CELL COUNT(AUTO) 3.71 MIL/uL (4.20-6.10); RED CELL DISTRIBUTION WIDTH 14.5 % (11.6-13.7); WHITE BLOOD COUNT (AUTO) 6.2 K/uL (4.8-10.8)
[2018-02-10 08:00] VITALS: BP 107/54
[2018-02-10] MEDS: DULoxetine 30 MG CAPDR PO SCH (08:02)
[2018-02-10] MEDS: TOPIRAMATE 25 MG TAB PO SCH (08:02)
[2018-02-10] MEDS: MORPHINE SULFATE 4 MG/ML SYR IVP PRN ×2 (08:02→18:10)
[2018-02-10] MEDS: APIXABAN 2.5 MG TAB PO SCH ×2 (08:05→21:26)
--- NOTE | 2018-02-10 08:17 | NUR ---
ADMINISTERED SCHEDULE MEDS AND PRN MORPHINE FOR SEVERE PAIN. PATIENT TOLERATED WELL. WILL CONTINUE TO MONITOR.
[2018-02-10 08:28] LABS: MAGNESIUM 1.9 mg/dL (1.8-2.4); PHOSPHORUS 3.4 mg/dL (2.5-4.9)
--- NOTE | 2018-02-10 09:30 | NUR ---
PATIENT SITTING IN BED, TALKING WITH FAMILY AT BEDSIDE. NO COMPLAINTS AT THIS TIME.WILL CONTINUE TO MONITOR.
[2018-02-10 09:48] LABS: ANION GAP 6.7 (8-16); CARBON DIOXIDE 27.6 mmol/L (21-32); CREATININE 0.9 mg/dL (0.7-1.3); POTASSIUM 3.3 mmol/L (3.5-5.1)
--- NOTE | 2018-02-10 10:30 | NUR ---
PATIENT WATCHING TV. NO DISTRESS NOTED. WILL CONTINUE TO MONITOR.
[2018-02-10] MEDS ORDERED: MAG SULF 2000 MG/WATER PREMIX 50 ML IV ONE (12:00)
--- NOTE | 2018-02-10 12:00 | NUR ---
FAMILY AT BEDSIDE. PATIENT AND FAMILY NOTICED WHOLE MEDS IN COLOSTOMY BAG. PATIENT CRUSHED THEM THROUGH BAG. DR. SO MADE AWARE BY FAMILY AT BEDSIDE. MADE CHANGES WITH MEDICATIONS. WILL CONTINUE TO MONITOR.
[2018-02-10] MEDS ORDERED: MAGNESIUM SULFATE 1GM in DEXTROSE 5% 100 ML PREMIX IV SCH (13:00)
[2018-02-10] MEDS: INSULIN LISPRO SLIDING SCALE 100 UNITS/ML VIAL SUBQ PRN ×2 (13:37→17:30)
--- NOTE | 2018-02-10 13:46 | NUR ---
ADMINISTERED SCHEDULED MEDS. PATIENT TOLERATED WELL. WILL CONTINUE TO MONITOR.
--- NOTE | 2018-02-10 14:05 | NUR ---
SPOKE WITH DR. SHARP REGARDING MG 1.9. HE SAID OKAY TO ADMINISTER MAG SULFATE 1 G IV.
[2018-02-10] MEDS ORDERED: KCL 20 MEQ/WATER INJ PREMIX 200 ML IV SCH (15:00)
[2018-02-10 16:00] VITALS: BP 106/54
--- NOTE | 2018-02-10 17:17 | NUR ---
ADMINISTERED SCHEDULED MEDS. PATIENT TOLERATED WELL. PATIENT ASKED FOR PAIN MEDS. WILL MEDICATE.
--- NOTE | 2018-02-10 19:57 | NUR ---
GAVE REPORT TO ACCESSIONER NURSE. PATIENT ENDORSED IN STABLE CONDITION.
[2018-02-10] MEDS ORDERED: DEXTROSE IV SCH ×4 (20:00)
[2018-02-10] MEDS ORDERED: AMINO ACIDS IV SCH ×4 (20:00)
[2018-02-10] MEDS ORDERED: [UNRECOGNIZED DRUG - OTHER] IV SCH ×4 (20:00)
[2018-02-10] MEDS ORDERED: MULTIVITAMIN IV SCH ×4 (20:00)
--- NOTE | 2018-02-10 20:00 | NUR ---
RECEIVED PATIENT RESTING COMFORTABLE ON BED ACCOMPANIED BY FAMILY MEMBER. EXPLAINED PLAN OF CARE AND VERBALIZED UNDERSTANDING. FALL PRECAUTION APPLIED. CALL LIGHT WITHIN REACH. WILL CONTINUE TO MONITOR.
[2018-02-10] MEDS: INSULIN LANTUS 100 UNITS/ML 10 ML VIAL SUBQ SCH (21:00)
--- NOTE | 2018-02-10 21:00 | NUR ---
V/S TAKEN AND RECORDED. BS TAKEN AND RECORDED. INSULIN GIVEN SCHEDULE. NO S/S OF DISTRESS NOTED. WILL CONTINUE TO MONITOR. ALL NEEDS ATTENDED.
[2018-02-10] MEDS: OLANZapine 5 MG TAB PO SCH (21:26)
[2018-02-10] MEDS: SIMVASTATIN 20 MG TAB PO SCH (21:27)
[2018-02-10] MEDS: traZODone 50 MG TAB PO SCH (21:27)
[2018-02-10] MEDS: MIRTAZAPINE 15 MG TAB PO SCH (21:28)
[2018-02-10] MEDS: ZOLPIDEM 10 MG TAB PO PRN (22:31)
[2018-02-11] VITALS: BP 116/66
--- NOTE | 2018-02-11 | NUR ---
V/ S TAKEN AND RECORDED. DENIES PAIN AT THIS TIME. NO S/S OF DISTRESS NOTED. ALL NEEDS ATTENDED. CALL LIGHT WITHIN REACH.
[2018-02-11] MEDS: MORPHINE SULFATE 4 MG/ML SYR IVP PRN ×4 (01:04→22:43)
--- NOTE | 2018-02-11 02:00 | NUR ---
SEEN PATIENT ASLEEP. NO S/S OF DISTRESS NOTED. ALL NEEDS ATTENDED.
[2018-02-11] MEDS: PIPER/TAZO 3.375GM/D5W PREMIX 50 ML IV SCH ×3 (05:01→21:06)
[2018-02-11] MEDS: METOCLOPRAMIDE 10 MG/2 ML INJ VIAL IVP SCH (05:13)
[2018-02-11] MEDS: PANTOPRAZOLE 40 MG TABEC PO SCH (06:22)
[2018-02-11] MEDS: BLOOD GLUCOSE MONITORING 1 DEV DEV FS SCH (06:24)
[2018-02-11] MEDS: INSULIN LISPRO SLIDING SCALE 100 UNITS/ML VIAL SUBQ PRN ×3 (06:27→17:30)
--- NOTE | 2018-02-11 07:25 | NUR ---
GAVE REPORT TO AM SHIFT RN AT BEDSIDE FOR CONTINUITY OF CARE. PATIENT IN STABLE CONDITION.
[2018-02-11 08:00] VITALS: BP 102/53
[2018-02-11 08:57] LABS: BASOPHILS % (AUTO) 0.5 % (0.0-2.0); EOSINOPHILS # (AUTO) 0.1 K/uL (0-0.4); EOSINOPHILS % (AUTO) 1.4 % (0.0-4.0); HEMATOCRIT 29.4 % (36-52); HEMOGLOBIN 9.5 g/dL (12.0-18.0); LYMPHOCYTES % (AUTO) 16.5 % (20.5-51.1); MEAN CORPUSCULAR HEMOGLOBIN 24 pg (27-31); MEAN CORPUSCULAR HGB CONC 32 g/dL (33-37); MEAN CORPUSCULAR VOLUME 74.3 fL (80-94); MONOCYTES # (AUTO) 0.5 K/uL (0.8-1.0); MONOCYTES % (AUTO) 7.4 % (1.7-9.3); NEUTROPHILS # (AUTO) 4.7 K/uL (1.8-7.7); NEUTROPHILS % (AUTO) 74.2 % (42.2-75.2); PLATELET COUNT (AUTO) 243 K/uL (140-450); RED BLOOD CELL COUNT(AUTO) 3.96 MIL/uL (4.20-6.10); RED CELL DISTRIBUTION WIDTH 14.4 % (11.6-13.7); WHITE BLOOD COUNT (AUTO) 6.3 K/uL (4.8-10.8)
[2018-02-11 09:07] LABS: ANION GAP 10.6 (8-16); CARBON DIOXIDE 25.2 mmol/L (21-32); CREATININE 0.9 mg/dL (0.7-1.3); POTASSIUM 3.8 mmol/L (3.5-5.1)
[2018-02-11 09:13] LABS: MAGNESIUM 2.1 mg/dL (1.8-2.4); PHOSPHORUS 2.7 mg/dL (2.5-4.9)
[2018-02-11] MEDS: APIXABAN 2.5 MG TAB PO SCH ×2 (09:36→21:23)
[2018-02-11] MEDS: TOPIRAMATE 25 MG TAB PO SCH (09:37)
[2018-02-11] MEDS: DULoxetine 30 MG CAPDR PO SCH (09:37)
--- NOTE | 2018-02-11 10:06 | NUR ---
PER PHARMACIST, BLOOD GLUCOSE CHECK SCHEDULED CHANGED TO Q6H WHILE ON TPN. Addendum: 02/11/18 at 1007 by Cindy Garcia Meng, RN PER PHARMACIST, BLOOD GLUCOSE CHECK SCHEDULE CHANGED TO Q6H WHILE ON TPN.
[2018-02-11] MEDS: BLOOD GLUCOSE MONITORING 1 DEV DEV MC SCH ×2 (12:00→17:32)
--- NOTE | 2018-02-11 12:32 | NUR ---
FAMILY MEMBER VOICING CONCERN THAT PATIENT IS NOT URINATING MUCH. PER DR. SAHRP, BLADDER SCAN PT.
--- NOTE | 2018-02-11 12:50 | NUR ---
INFORMED DR. SHARP THAT BLADDER SCANNER SHOWED 74ML AND THAT PATIENT JUST VOIDED 250ML.
--- NOTE | 2018-02-11 15:01 | NUR ---
RECEIVED WOUND CARE CLARIFICATION FROM DIVISION ROADMASTER JASS.
--- NOTE | 2018-02-11 15:08 | NUR ---
02/11/18 RD FOLLOW UP COMPLETED PLEASE REFER TO NUTRITION ASSESSMENT UNDER CARE ACTIVITY FOR ESTIMATED NUTRITIONAL NEEDS. 1. CONTINUE SOFT DIET TOLERATED 2. CONTINUE TPN: D10%, AA 4.25%, LIPID 20% 120 ML AT 75 ML/HR TOLERATED -THIS WILL PROVIDE 1810 ML, 1158 KCAL, 76 GM OF PROTEIN WHICH MEETS 35% OF ESTIMATED KCAL NEEDS AND 62% OF ESTIMATED PROTEIN NEEDS. 3. ENCOURAGE PO INTAKE 4. RD TO FOLLOW-UP 2-3 DAYS, HIGH RISK SPARKLE WELCH RD
--- NOTE | 2018-02-11 15:10 | NUR ---
WOUND CARE ORDER TO RLQ ABDOMINAL SURGICAL WOUND CLARIFY WITH DR. MEYERS. Addendum: 02/11/18 at 1513 by Adelso Bah RN (Grace) PRIMARY MELVIN CUMMINGS
[2018-02-11 16:00] VITALS: BP 112/61
--- NOTE | 2018-02-11 17:02 | NUR ---
CHANGED RLQ WOUND DRESSING PER WOUND CARE ORDERS.
[2018-02-11] MEDS: METOCLOPRAMIDE 10 MG TAB PO SCH (17:06)
--- NOTE | 2018-02-11 19:20 | NUR ---
ENDORSED POC TO HOME APPLIANCE WASHING MACHINE MECHANIC RN. PT IN STABLE CONDITION.
--- NOTE | 2018-02-11 19:20 | NUR ---
RECEIVED REPORT AT BEDSIDE FORM VALERIO CHARLES DAYSHIFT NURSE, PT IN STABLE CONDITION.
[2018-02-11] MEDS: DEXTROSE IV SCH ×4 (20:00)
[2018-02-11] MEDS: [UNRECOGNIZED DRUG - OTHER] IV SCH ×4 (20:00)
[2018-02-11] MEDS: MULTIVITAMIN IV SCH ×4 (20:00)
[2018-02-11] MEDS: AMINO ACIDS IV SCH ×4 (20:00)
--- NOTE | 2018-02-11 20:00 | NUR ---
PT IN BED, NO C/O VOICED AT THIS TIME, ALL FALLS AND CONTACT PRECAUTIONS IN PLACE AT THIS TIME. PICC LINE ON LEFT UPPER ARM IN TACT AND FLUSHED PATENT NO S/S OF INFECTION NOTED. PT ALSO HAS IV SITE ON LEFT WRIST, IN TACT AND FLUSHED PATENT. ILEOSTOMY BAG IN TACT BUT HAS NO STOOL AT THIS TIME. V/S FOLLOWS T 98.9 P 69 R 18 B/P 115/58 02 99% WITH R/A. PT GIVEN NEW BAG OF PREMIXED TPN HUNG AT 75MLS/HR ORDERED. FINGERSTICK IS 279.
--- NOTE | 2018-02-11 21:00 | NUR ---
PT GIVEN ALL DUE MEDS AT THIS TIME; ZOSYN IV ABT HUNG AND RUNNING AT 100MLS/HR., PT GIVEN ORDERED TRAZODONE, ELIQUIS, REMERON, ZOCOR, ZYPREXIA AND LANTUS. PT REQUEST AMBIEN 10MG PO/PRN FOR SLEEP AID, WHICH WAS GIVEN REQUESTED.
[2018-02-11] MEDS: MIRTAZAPINE 15 MG TAB PO SCH (21:25)
[2018-02-11] MEDS: SIMVASTATIN 20 MG TAB PO SCH (21:26)
[2018-02-11] MEDS: OLANZapine 5 MG TAB PO SCH (21:27)
[2018-02-11] MEDS: traZODone 50 MG TAB PO SCH (21:27)
[2018-02-11] MEDS: ZOLPIDEM 10 MG TAB PO PRN (21:32)
[2018-02-11] MEDS: INSULIN LANTUS 100 UNITS/ML 10 ML VIAL SUBQ SCH (22:31)
--- NOTE | 2018-02-11 22:45 | NUR ---
PT GIVEN MORPHINE IVP ORDERED FOR 08/24 GENERALIZED BODY PAIN, WILL MONITOR FOR EFFECT.
[2018-02-12] VITALS: BP 105/51
--- NOTE | 2018-02-12 00:30 | NUR ---
PT IN BED RESTING BUT AROUSABLE TO LIGHT TOUCH. PT V/S FOLLOWS T 98.6 P 64 R 20 B/P 105/51 02 97% ON R/A. F/S IS 278, PT GIVEN 6 UNITS OF HUMALOG SQ FOR INCREASED BLOOD SUGAR.
[2018-02-12] MEDS: INSULIN LISPRO SLIDING SCALE 100 UNITS/ML VIAL SUBQ PRN ×4 (01:53→18:02)
--- NOTE | 2018-02-12 03:21 | NUR ---
REPORT RECEIVED AT BEDSIDE FROM SUNITA RN DAYSHIFT NURSE, PT IN STABLE CONDITION.
[2018-02-12] MEDS: PIPER/TAZO 3.375GM/D5W PREMIX 50 ML IV SCH ×3 (04:27→22:07)
--- NOTE | 2018-02-12 05:00 | NUR ---
CYNDI HUNG ORDERED.
[2018-02-12] MEDS: BLOOD GLUCOSE MONITORING 1 DEV DEV MC SCH ×5 (05:51→23:53)
[2018-02-12] MEDS: PANTOPRAZOLE 40 MG TABEC PO SCH (05:52)
[2018-02-12] MEDS: METOCLOPRAMIDE 10 MG TAB PO SCH ×3 (05:53→17:57)
[2018-02-12] MEDS: MORPHINE SULFATE 4 MG/ML SYR IVP PRN ×5 (06:07→23:54)
--- NOTE | 2018-02-12 06:38 | NUR ---
PT GIVEN AM PROTONIX AND REGALEN ORDERED. PT C/O 08/24 GENERALIZED [PAIN GIVEN MORPHINE PRN/IVP AWAITING EFFECT. AM BLOOD DRWS DONE VIA PICC BY PRIMARY RN AND GIVEN TO LAB.
--- NOTE | 2018-02-12 07:25 | NUR ---
ENDORSED CARE TO AM SHIFT
--- NOTE | 2018-02-12 07:26 | NUR ---
RECEIVED BEDSIDE REPORT FROM FARMWORKER CHICKEN FARM NURSE. PATIENT AWAKE,ALERT AND ORIENTEDX4. NO SIGNS OF DISTRESS ON RA. HE HAS WEAKNESS AND DOES NOT WANT TO GET UP AT THIS TIME. SKIN HAS ILEOSTOMY. CLEAN, DRY AND PATENT. CONTINENT. URINAL AT BEDSIDE. WOUND ON RLQ DRESSING INTACT. PICC LINE ELMIRA TPN AT 75. CLEAN, DRY AND INTACT. IV ON L WRIST 22G SL. CLEAN, DRY AND INTACT. CONTACT PRECAUTIONS FOR MDRO WOUND. FALL RISK PROTOCOL IN PLACE. BED IN LOW POSITION. CALL LIGHT WITHIN REACH.
[2018-02-12 07:30] LABS: BASOPHILS % (AUTO) 0.6 % (0.0-2.0); EOSINOPHILS # (AUTO) 0.2 K/uL (0-0.4); HEMATOCRIT 27.7 % (36-52); HEMOGLOBIN 8.8 g/dL (12.0-18.0); LYMPHOCYTES # (AUTO) 1.5 K/uL (2.0-11.5); LYMPHOCYTES % (AUTO) 25.7 % (20.5-51.1); MEAN CORPUSCULAR HEMOGLOBIN 24 pg (27-31); MEAN CORPUSCULAR HGB CONC 32 g/dL (33-37); MEAN CORPUSCULAR VOLUME 74.2 fL (80-94); MONOCYTES # (AUTO) 0.7 K/uL (0.8-1.0); MONOCYTES % (AUTO) 11.4 % (1.7-9.3); NEUTROPHILS # (AUTO) 3.5 K/uL (1.8-7.7); NEUTROPHILS % (AUTO) 58.3 % (42.2-75.2); PLATELET COUNT (AUTO) 254 K/uL (140-450); RED BLOOD CELL COUNT(AUTO) 3.73 MIL/uL (4.20-6.10); RED CELL DISTRIBUTION WIDTH 14.4 % (11.6-13.7)
[2018-02-12 07:37] LABS: PHOSPHORUS 2.9 mg/dL (2.5-4.9)
[2018-02-12 08:00] VITALS: BP 118/57
[2018-02-12] MEDS: DULoxetine 30 MG CAPDR PO SCH (09:31)
[2018-02-12] MEDS: TOPIRAMATE 25 MG TAB PO SCH (09:32)
[2018-02-12] MEDS: APIXABAN 2.5 MG TAB PO SCH ×2 (09:42→21:51)
--- NOTE | 2018-02-12 09:42 | NUR ---
ADMINISTERED MEDS. PATIENT TOLERATED WELL. NO SIGNS OF DISTRESS. EMPTIED ILEOSTOMY 800ML OUT. BED IN LOW POSITION. CALL LIGHT WITHIN REACH. WILL CONTINUE TO MONITOR
[2018-02-12 10:26] LABS: ANION GAP 12.6 (8-16); CARBON DIOXIDE 25.3 mmol/L (21-32); CREATININE 0.8 mg/dL (0.7-1.3); POTASSIUM 3.9 mmol/L (3.5-5.1)
--- NOTE | 2018-02-12 10:40 | NUR ---
PATIENT COMPLAINTS OF PAIN. ADMINISTER PRN MORPHINE. PATIENT TOLERATED WELL. WILL CONTINUE TO MONITOR THE PATIENT
--- NOTE | 2018-02-12 11:21 | NUR ---
PATIENT REQUESTING 2 HARD BOILED EGGS. CALLED [facility] SHE SAID SHE WILL BRING IT FOR LUNCH. TOLD THE PATIENT AND HE SAID OK
[2018-02-12] MEDS: SKINTEGRITY HYDROGEL TP SCH (13:27)
--- NOTE | 2018-02-12 13:30 | NUR ---
ADMINISTERED MEDS. PATIENT TOLERATED WELL. CLEANSED WOUND W NS. PAT DRY. ADMINISTER WOUND CARE, PLACED NEW DRESSING. PATIENT W FAMILY AT BEDSIDE. WILL CONTINUE TO MONITOR THE PATIENT
--- NOTE | 2018-02-12 14:41 | NUR ---
ADMINISTERED PRN PAIN MEDS. PATIENT TOLERATED WELL. WILL CONTINUE TO MONITOR THE PATIENT
[2018-02-12 16:00] VITALS: BP 123/63
--- NOTE | 2018-02-12 16:00 | NUR ---
VITALS ARE STABLE. AT BEDSIDE. WILL CONTINUE TO MONITOR THE PATIENT
--- NOTE | 2018-02-12 18:45 | NUR ---
ADMINISTERED PRN PAIN MEDS. PATIENT TOLERATED WELL. NO SIGNS OF DISTRESS. BED IN LOW POSITION. AT BEDSIDE
--- NOTE | 2018-02-12 19:26 | NUR ---
GAVE BEDSIDE REPORT TO GREENS CUTTER NURSE. PATIENT ENDORSED IN STABLE CONDITION.
--- NOTE | 2018-02-12 20:00 | NUR ---
PT IN BED NO C/O VOICED. PT HAS FAMILY AT BEDSIDE AT THIS TIME. HE IS AOX4, ABD DRESSING INTACT WELL ILEOSTOMY BAG. IV SITE INTACT AND FLUSHED PATENT. TPN FEEDING REPLACED ORDERED AND RUNNING AT 75MLS/HR. IV SITE ON LEFT WRIST IN TACT AND RUNNING N/S AT 5MLS/HR.
--- NOTE | 2018-02-12 21:00 | NUR ---
V/S FOLLOWS T 97.8 P 71 R 18 B/P 119/54 02 100% ON R/A. F/S IS 232. PT GIVEN ALL DUE MEDS INCLUDING DESYREL, ELIQUIS, REMERON AND ZOCOR. PT REQUESTED AND WAS GIVEN AMBIEN FOR SLEEPING AT THIS TIME
[2018-02-12] MEDS: DEXTROSE IV SCH ×4 (21:41)
[2018-02-12] MEDS: AMINO ACIDS IV SCH ×4 (21:41)
[2018-02-12] MEDS: [UNRECOGNIZED DRUG - OTHER] IV SCH ×4 (21:41)
[2018-02-12] MEDS: MULTIVITAMIN IV SCH ×4 (21:41)
[2018-02-12] MEDS: traZODone 50 MG TAB PO SCH (21:50)
[2018-02-12] MEDS: MIRTAZAPINE 15 MG TAB PO SCH (21:52)
[2018-02-12] MEDS: SIMVASTATIN 20 MG TAB PO SCH (21:52)
[2018-02-12] MEDS: OLANZapine 5 MG TAB PO SCH (21:52)
[2018-02-12] MEDS: ZOLPIDEM 10 MG TAB PO PRN (22:03)
[2018-02-12] MEDS: INSULIN LANTUS 100 UNITS/ML 10 ML VIAL SUBQ SCH (22:05)
[2018-02-13] VITALS: BP 122/50
--- NOTE | 2018-02-13 | NUR ---
PT REQUESTED MORPHINE FOR BREAK THROUGH PAIN, PT GIVEN MORPHINE 4MG IVP, WILL CONTINUE TO MONITOR EFFECT.
[2018-02-13] MEDS: INSULIN LISPRO SLIDING SCALE 100 UNITS/ML VIAL SUBQ PRN ×5 (00:01→21:49)
--- NOTE | 2018-02-13 01:00 | NUR ---
PT IN BED RESTING V/S FOLLOWS T 97.2 P 72 R 18 B/P 122/50 02 98%. FINGERSTICK IS 261 PT GIVEN 6 UNITS OF HUMALOG COVERAGE.
[2018-02-13] MEDS: PANTOPRAZOLE 40 MG TABEC PO SCH (05:29)
[2018-02-13] MEDS: METOCLOPRAMIDE 10 MG TAB PO SCH ×3 (05:29→15:59)
[2018-02-13] MEDS: BLOOD GLUCOSE MONITORING 1 DEV DEV MC SCH ×3 (05:30→17:48)
--- NOTE | 2018-02-13 05:34 | NUR ---
PT IN BED RESTING WITH EYES CLOSED BUT RESPONSIVE TO NAME AND LIGHT TOUCH. PT GIVEN PROTONIX AND REGALN FOR GERD. HE HAD NO C/O VOICED AT THIS TIME.
--- NOTE | 2018-02-13 06:29 | NUR ---
FINGERSTICK TAKEN 226 COVERAGE PROVIDED 4 UNITS BLOOD DRAWN FROM PICC FOR LAB TECHS
--- NOTE | 2018-02-13 07:25 | NUR ---
ENDORSED CARE TO KATHERYN RN DAYSHIFT NURSE AT BEDSIDE PT IN STABLE CONDITION.
--- NOTE | 2018-02-13 07:26 | NUR ---
RECEIVED BEDSIDE REPORT FROM BASKET MAKER NURSE. PT AWAKE, ALERT, AND STABLE. SAFETY MEASURES IN PLACE. IV SITE WNL. ILEOSTOMY DRAINING WELL. PLAN OF CARE REVIEWED. PT COMPLAINING OF 7/10 LOWER BACK PAIN. WILL REVIEW MEDICATIONS AND ADMINISTER PER MD ORDER. NO OTHER NEEDS AT THIS TIME.
[2018-02-13 08:00] VITALS: BP 113/57
[2018-02-13 08:12] LABS: BASOPHILS % (AUTO) 0.4 % (0.0-2.0); EOSINOPHILS # (AUTO) 0.3 K/uL (0-0.4); EOSINOPHILS % (AUTO) 4.5 % (0.0-4.0); HEMATOCRIT 26.9 % (36-52); HEMOGLOBIN 8.4 g/dL (12.0-18.0); LYMPHOCYTES # (AUTO) 1.9 K/uL (2.0-11.5); LYMPHOCYTES % (AUTO) 30.5 % (20.5-51.1); MEAN CORPUSCULAR HEMOGLOBIN 25 pg (27-31); MEAN CORPUSCULAR HGB CONC 31 g/dL (33-37); MEAN CORPUSCULAR VOLUME 80.7 fL (80-94); MONOCYTES # (AUTO) 0.5 K/uL (0.8-1.0); NEUTROPHILS # (AUTO) 3.5 K/uL (1.8-7.7); NEUTROPHILS % (AUTO) 56.6 % (42.2-75.2); PLATELET COUNT (AUTO) 245 K/uL (140-450); RED BLOOD CELL COUNT(AUTO) 3.33 MIL/uL (4.20-6.10); WHITE BLOOD COUNT (AUTO) 6.2 K/uL (4.8-10.8)
[2018-02-13] MEDS: MORPHINE SULFATE 4 MG/ML SYR IVP PRN ×3 (08:30→20:43)
[2018-02-13] MEDS: TOPIRAMATE 25 MG TAB PO SCH (08:38)
[2018-02-13] MEDS: DULoxetine 30 MG CAPDR PO SCH (08:39)
[2018-02-13] MEDS: APIXABAN 2.5 MG TAB PO SCH ×2 (08:41→21:47)
--- NOTE | 2018-02-13 08:42 | NUR ---
MORPHINE GIVEN REQUESTED BY PT FOR BACK PAIN 08/24, AM MEDS GIVEN PT JOSE WELL, WILL CONTINUE TO MONITOR
[2018-02-13 12:09] LABS: ANION GAP 11.2 (8-16); CARBON DIOXIDE 26.1 mmol/L (21-32); CREATININE 0.7 mg/dL (0.7-1.3); POTASSIUM 4.3 mmol/L (3.5-5.1)
[2018-02-13 12:10] LABS: MAGNESIUM 1.9 mg/dL (1.8-2.4); PHOSPHORUS 3.5 mg/dL (2.5-4.9)
--- NOTE | 2018-02-13 12:30 | NUR ---
ADMINISTERED SCHEDULED MEDICATION. ILEOSTOMY SITE WNL, DRESSING AND BAG CHANGED. RIGHT LOWER ABDOMINAL WOUND DRESSING CHANGED. PT TOLERATED WELL. AT THE BEDSIDE. NO OTHER NEEDS AT THIS TIME.
[2018-02-13] MEDS: SKINTEGRITY HYDROGEL TP SCH (12:31)
[2018-02-13 16:00] VITALS: BP 107/61
--- NOTE | 2018-02-13 16:00 | NUR ---
ADMINISTERED SCHEDULED MEDICATION. PT TOLERATED WELL. AT THE BEDSIDE. NO OTHER NEEDS AT THIS TIME.
--- NOTE | 2018-02-13 19:30 | NUR ---
ENDORSED PT TO STATOR PLATE WASHER NURSE. PT AWAKE, ALERT, AND STABLE. AT THE BEDSIDE.
--- NOTE | 2018-02-13 19:31 | NUR ---
RECD. RESTING IN BED, AWAKE, A/OX4, RESPIRATION EVEN AND UNLABORED. IV OF NS AT TKO INFUSING LEFT FOREARM G22, TPN INFUSING AT 75 ML/HR, LEFT UPPER ARM PICC LINE. ILEOSTOMY AT THE RIGHT SIDE OF ABDOMEN DRAINING YELLOWISH LOOSE STOOLS DRAINING TO A BAG. INCISION BESIDE ILEOSTOMY COVERED WITH DRESSING DRY AND INTACT. PLAN OF CARE FOR THE SHIFT DISCUSSED. VERBALIZED UNDERSTANDING. DENIES PAIN AT THIS TIME 0. AT THE BEDSIDE.
--- NOTE | 2018-02-13 20:00 | NUR ---
NEW TPN SET UP PIC LINE FLUSHED PATENT TPN RUNNING AT 75 MLS/HR ORDERED.
[2018-02-13] MEDS: DEXTROSE IV SCH ×4 (20:20)
[2018-02-13] MEDS: [UNRECOGNIZED DRUG - OTHER] IV SCH ×4 (20:20)
[2018-02-13] MEDS: AMINO ACIDS IV SCH ×4 (20:20)
[2018-02-13] MEDS: MULTIVITAMIN IV SCH ×4 (20:20)
--- NOTE | 2018-02-13 20:45 | NUR ---
PT REQUESTED MORPHINE FOR 7/10 ACHING BACK PAIN. PT GIVEN 4MG ORDERED VIA IV PUSH. WILL MONITOR EFFECT OF MEDICATION.
--- NOTE | 2018-02-13 21:00 | NUR ---
PLAN OF CARE REVIEWED AND DISCUSSED WITH GUSTAVO KAPLAN
[2018-02-13] MEDS: MIRTAZAPINE 15 MG TAB PO SCH (21:35)
[2018-02-13] MEDS: traZODone 50 MG TAB PO SCH (21:35)
[2018-02-13] MEDS: ZOLPIDEM 10 MG TAB PO PRN (21:36)
[2018-02-13] MEDS: SIMVASTATIN 20 MG TAB PO SCH (21:36)
[2018-02-13] MEDS: OLANZapine 5 MG TAB PO SCH (21:37)
[2018-02-13] MEDS: INSULIN LANTUS 100 UNITS/ML 10 ML VIAL SUBQ SCH (21:47)
--- NOTE | 2018-02-13 23:00 | NUR ---
PT SLEEPING NO S/S OF PAIN OR DISTRESS NOTED.
[2018-02-14] VITALS: BP 110/60
[2018-02-14] MEDS: INSULIN LISPRO SLIDING SCALE 100 UNITS/ML VIAL SUBQ PRN ×3 (01:46→11:45)
--- NOTE | 2018-02-14 04:00 | NUR ---
STILL SLEEPING COMFORTABLY IN BED.
[2018-02-14] MEDS: METOCLOPRAMIDE 10 MG TAB PO SCH ×2 (05:43→11:38)
[2018-02-14] MEDS: PANTOPRAZOLE 40 MG TABEC PO SCH (05:44)
[2018-02-14] MEDS: MORPHINE SULFATE 4 MG/ML SYR IVP PRN ×2 (06:10→11:36)
[2018-02-14] MEDS: BLOOD GLUCOSE MONITORING 1 DEV DEV MC SCH ×3 (06:22→11:40)
[2018-02-14 07:05] LABS: BASOPHILS % (AUTO) 0.5 % (0.0-2.0); EOSINOPHILS # (AUTO) 0.3 K/uL (0-0.4); HEMATOCRIT 27.2 % (36-52); HEMOGLOBIN 8.8 g/dL (12.0-18.0); LYMPHOCYTES # (AUTO) 2.5 K/uL (2.0-11.5); LYMPHOCYTES % (AUTO) 35.1 % (20.5-51.1); MEAN CORPUSCULAR HEMOGLOBIN 24 pg (27-31); MEAN CORPUSCULAR HGB CONC 32 g/dL (33-37); MEAN CORPUSCULAR VOLUME 73.7 fL (80-94); MONOCYTES # (AUTO) 0.4 K/uL (0.8-1.0); MONOCYTES % (AUTO) 5.9 % (1.7-9.3); NEUTROPHILS # (AUTO) 3.9 K/uL (1.8-7.7); NEUTROPHILS % (AUTO) 54.5 % (42.2-75.2); PLATELET COUNT (AUTO) 289 K/uL (140-450); RED CELL DISTRIBUTION WIDTH 14.5 % (11.6-13.7); WHITE BLOOD COUNT (AUTO) 7.2 K/uL (4.8-10.8)
--- NOTE | 2018-02-14 07:15 | NUR ---
STILL SLEEPING COMFORTABLY, CONDITION REMAIN STABLE. ENDORSED TO AM NURSES FOR CONTINUITY OF CARE.
--- NOTE | 2018-02-14 07:16 | NUR ---
REPORT RECIEVED FROM IRRIGATION SUPERVISOR NURSE, PT SLEEPING QUIETLY IN NAD, RESP EVEN UNLABORED, SKIN WARM DRY COLOR WNL, AROUSES EASILY, DENIES PAIN OR DISCOMFORT, POC REVIEWED, NO IMMEDIATE NEEDS AT THIS TIME, ALL SAFETY MEASURES IN PLACE, WILL CONTINUE TO MONITOR.
[2018-02-14 08:00] VITALS: BP 109/60
[2018-02-14] MEDS: TOPIRAMATE 25 MG TAB PO SCH (09:00)
[2018-02-14] MEDS: DULoxetine 30 MG CAPDR PO SCH (09:00)
[2018-02-14] MEDS: APIXABAN 2.5 MG TAB PO SCH (09:02)
--- NOTE | 2018-02-14 09:02 | NUR ---
AM MEDS GIVEN PT JOSE PILLS WELL
[2018-02-14 09:12] LABS: MAGNESIUM 1.9 mg/dL (1.8-2.4); PHOSPHORUS 4.2 mg/dL (2.5-4.9)
[2018-02-14 10:14] LABS: ANION GAP 13.1 (8-16); CARBON DIOXIDE 25.1 mmol/L (21-32); CREATININE 0.7 mg/dL (0.7-1.3); POTASSIUM 4.2 mmol/L (3.5-5.1)
[2018-02-14] MEDS ORDERED: APIX2.5 PO (11:25)
[2018-02-14] MEDS ORDERED: ACET-9525 PO (11:25)
[2018-02-14] MEDS ORDERED: METO10TA98 PO (11:25)
[2018-02-14] MEDS: SKINTEGRITY HYDROGEL TP SCH (13:00)
--- NOTE | 2018-02-14 14:32 | NUR ---
[facility] CALLED TO VERIFY PICC LINE STATUS, INFORMATION PROVIDED, ALSO SPOKE WITH .
--- NOTE | 2018-02-14 14:36 | NUR ---
RECEIVED ORDER FOR PATIENT TO GO HOME ON TPN. CALLED [facility] AND LEFT 2 MESSAGES WITH EDGAR,[phone] NO CALL BACK. I CALLED [facility] , , SPOKE WITH LISANDRA. SHE ASKED ME TO FAX THE ORDER, PICCLINE INSERTION, H&P AND FORMULA FOR TPN TO HER AT [phone]. SHE ALSO SAID SHE WOULD CALL [facility]. LISANDRA PHONE [phone] X [phone]. I ALSO HAD AN ORDER TO CHECK ABOUT RAJ. TRIED TO CALL [facility]. THEY ARE CLOSED. I INFORMED MAYITO CHARLES TO INFORM DR. SHARP. Addendum: 02/14/18 at 1510 by Patricia Thorpe CM I ALSO GAVE LISANDRA THE PHONE NUMBER TO THE FLOOR IN CASE THEY CAN SET UP THE TPN TODAY.
--- NOTE | 2018-02-14 15:00 | NUR ---
PRESCRIPTION FOR ELIQUIS AND REGLAN FAXED TO [facility]# . CALLED PHARMACY TO VERIFY PRESCRIPTION HAS BEEN RECEIVED. PER , [facility] TO DELIVER TPN TO HOME THIS EVENING.
[2018-02-14] MEDS: ONDANSETRON 4 MG/2 ML VIAL IVP PRN (15:17)
--- NOTE | 2018-02-14 15:20 | NUR ---
RIGHT ABDOMINAL WOUND CLEANSED, PICTURES TAKEN, AND DRESSING CHANGED. FAMILY AT THE BEDSIDE. DISCONTINUED IV. IV CANNULA INTACT. PICC LINE FLUSHED AND CLAMPED. DRESSING CLEAN, DRY, AND INTACT. ILEOSTOMY BAG DRAINED. DISCHARGE INSTRUCTIONS GIVEN. PRESCRIPTION GIVEN. PT AND VERBALIZED UNDERSTANDING. PT TRANSFERRED SELF TO THE WHEELCHAIR WITHOUT PROBLEM AND ESCORTED TO THE LOBBY WITH .
--- NOTE | 2018-02-14 15:47 | NUR ---
SPOKE WITH VJ FROM [facility]. SHE SAID SHE SPOKE WITH THE PATIENT'S NURSE AND WITH THE PATIENT'S AND THAT THEY WILL BE DELIVERING THE TPN BETWEEN 6P.M. AND 8 P.M. CHERYLE . SHE IS GOING TO NOTIFY [facility].
--- NOTE | 2018-02-16 10:40 | NUR ---
Follow up appointment made for pt this coming wednesday02/19/18 walk in only per clinic from 0930 to [address] Yessi Millan. [address] [place] [address]. [place] [phone] . Spoke with Jenny of pt and gave the f/u appointment schedule with verbal understanding. PCP Dr. Carter out for vacation until 02/26/18.
== END 2018-02-14 15:20 | disposition home health service (06) | DRG 315 ==
LOC: MED 13:44 → MTU 17:11
PROVIDERS: ADMIT Internal Medicine Pulmonary Disease; ATTEND Internal Medicine Pulmonary Disease
PROC: 02HV33Z Insertion of Infusion Device into Superior Vena Cava, Percutaneous Approach (ICD-10-PCS; principal; 2018-02-09)
PROC: B548ZZA Ultrasonography of Superior Vena Cava, Guidance (ICD-10-PCS; 2018-02-09)
DX: T82.868A Thrombosis due to vascular prosthetic devices, implants and grafts, initial encounter (principal); E87.1 Hypo-osmolality and hyponatremia; R65.10 Systemic inflammatory response syndrome (SIRS) of non-infectious origin without acute organ dysfunction; K90.9 Intestinal malabsorption, unspecified; K56.7 Ileus, unspecified; E86.0 Dehydration; F41.9 Anxiety disorder, unspecified; K21.9 Gastro-esophageal reflux disease without esophagitis; D47.3 Essential (hemorrhagic) thrombocythemia; E87.8 Other disorders of electrolyte and fluid balance, not elsewhere classified; E11.65 Type 2 diabetes mellitus with hyperglycemia; Y84.8 Other medical procedures as the cause of abnormal reaction of the patient, or of later complication, without mention of misadventure at the time of the procedure; Z79.01 Long term (current) use of anticoagulants; Z79.4 Long term (current) use of insulin; Z79.899 Other long term (current) drug therapy; Z93.2 Ileostomy status; Z90.49 Acquired absence of other specified parts of digestive tract; Z86.718 Personal history of other venous thrombosis and embolism
CPT/HCPCS: 36415; 71045; 80048; 80053; 82948; 83036; 83605; 83735; 83880; 84100; 84478; 84484; 85025; 85610; 85730; 87040; 87081; 93005; 93970; 93971; 96361; 96365; 96375; 99285; A6248; A9153; C1751; J1815; J2270; J2405; J2543; J2765; J3480; J3490; J7030; J7042; J7060; J8597; Q0092; Q9967